=== PATIENT | female | born 1985 | race Asian ===

== ENCOUNTER 2022-12-26 07:47 | Inpatient (IN) ==
[2022-12-26] MEDS ORDERED: LIDOCAINE 1% LOCAL 20 ML VIAL INFIL PRN (08:40)
[2022-12-26] MEDS ORDERED: OXYTOCIN 30 UNITS/500 ML BAG IV PRN (08:40)
[2022-12-26] MEDS ORDERED: DINOPROSTONE 10 MG INSERT PV ONE ×2 (09:00→15:11)
[2022-12-26] MEDS ORDERED: miSOPROStoL 50 MCG TAB PO SCH ×2 (09:00→14:00)
--- NOTE | 2022-12-26 09:11 | History & Physical Report ---
Date of Service December 26, 2022 Assessment & Plan (1) Post-term , 40-42 weeks of gestation: Plan: 37-year-old G1, P0 at 40 weeks and 5 days of gestation presenting for induction of labor for postdates, gestational diabetes, diet-controlled, advanced maternal age, Vital signs stable afebrile, Cervix unfavorable, heart rate reassuring, GBS negative, Discussed the findings with the patient and explained induction process may take longer, discussed options of cervical ripening with either Cervidil vaginal insert versus p.o. Cytotec, patient declines another vaginal exam for Cervidil and she prefers to take Cytotec by mouth, Plan to admit, monitor, labs, Cytotec for cervical ripening, continue to monitor (2) Advanced maternal age, primigravida, antepartum: Admission and Anticipated Discharge Date Admission Date: December 26, 2022 History of Present Illness Chief Complaint: Scheduled induction of labor Primary Care Provider: NO PCP Patient is a 37-year-old G1, P0 at 40 weeks and 5 days of gestation who was scheduled for induction of labor for postdates. She has no complaints, denies contractions, leakage of fluid, vaginal bleeding. She reports good movements. She denies headache, change in vision, nausea vomiting, abdominal pain, fever nor chills. Her has been complicated by, 1. AMA, Q screen test was negative, low risk, M consultation was completed, 2. Anemia, started with hemoglobin of 9, has been on iron, last hemoglobin was 11.4 in the office 3. thrombocytosis, repeat platelet count was within normal limits 4. GDM A1, diet-controlled gestational diabetes her fingersticks have been normal, growth scan was done by M 6 weeks ago and estimated weight was 15th percentile, Allergies Allergy/AdvReac Type Severity Reaction Status Date / Time nut - unspecified Allergy Vomiting Verified 12/26/22 08:07 Home Medications Medication Instructions Recorded Confirmed Type cyanocobalamin (vitamin B-12) 1,000 mcg PO DAILY 12/26/22 12/26/22 History 1,000 mcg tablet (Vitamin B-12) iron,carbonyl 65 mg-vitamin C 125 1 tab PO DAILY 12/26/22 12/26/22 History mg tablet,delayed release (Vitron-C) [id number] 1 mg 1 tab PO 12/26/22 History tablet Patient History Medical History (Updated 12/26/22 @ 09:10 by Yamila Neil MD) Gestational diabetes Anemia Family History Other Diabetes mellitus, type 2 Hypertension Social History Smoking Status: Never smoker Second Hand Exposure: No; Hx Alcohol Use: No Hx Substance Use: No Preferred Language: Kinyarwanda Communication Ability: Effective Repairer Evaporator Required: No Beliefs That Will Affect Care: None marital status: Current Living Situation: Spouse Other Information That Helps Us Care for You: No Feels Safe at Home: Yes Safety Concerns: Feels Safe At This Time Assistive Devices: None 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 No history of STDs, no history of genital herpes, chlamydia, gonorrhea Physical Exam Constitutional: well developed, well nourished and comfortable Gastrointestinal (Abdomen): normal bowel sounds, soft, nontender, no hepatosplenomegaly (Gravid,S<D) Genitourinary: normal external appearance OB Exam Abdomen: + vertex (Confirmed by ultrasound) Manual OB Exam: + cervical dilation fingertip (0), + cervical effacement 30% and + station high (-3, posterior, firm) OB Exam Monitor Tracing: + external uterine monitor used and + category I Results & Data Vital Signs (Past 12 Hours) Vital Signs Temp Pulse Resp BP 12/26/22 08:11 36.4 C L 18 12/26/22 07:59 101 H 124/89
[2022-12-26 09:49] LABS: Hematocrit (blood only) 35.4 % (37.0-47.0); Mean Corpuscular Hemoglobin 29.6 pg (25.0-34.0); Mean Corpuscular Hgb Conc 33.9 g/dL (32.0-36.0); Mean Corpuscular Volume 87.4 fL (80.0-100.0); Mean Platelet Volume 10.7 fL (9.4-12.4); Platelet Count 291 K/uL (130-400); RDW Standard Deviation 45.1 fL (36.4-46.3); Red Blood Count 4.05 M/uL (4.20-5.40); White Blood Count 7.94 K/ul (4.8-10.8)
[2022-12-26 09:57] LABS: Albumin Level 3.5 gm/dl (3.4-5.0); BUN Creatinine Ratio 13.6 (10-20); Bilirubin,Total 0.4 mg/dl (0.2-1.0); Calcium 8.6 mg/dl (8.6-10.3); Creatinine Clr Calc Pharmacy 135.2 ml/min; Est GFR (African American) 135.7 ml/min; Est GFR (Non-African American) 117.1 ml/min; Globulin 3.5 gm/dl (2.5-4.0); Potassium 3.9 mmol/L (3.5-5.1)
[2022-12-26] MEDS ORDERED: Nursing to Pharmacy Communication SCH (10:15)
[2022-12-26] MEDS: LACTATED RINGER'S 1,000 ML IV PRN ×2 (13:03→14:21)
--- NOTE | 2022-12-26 14:13 | Obstetrical Progress Note ---
Date of Service December 26, 2022 Assessment & Plan Admission and Anticipated Discharge Date Admission Date: December 26, 2022 Subjective Strip review FHR had been with baseline of 140-150's, with episodes of decreased variability and no accels and then recovery with accels and moderate variability, no decels She was due for next PO cytotec and I was called to review For the last hour or so with minimal variability, no accels and sharp short lasting variable decels IV bolus was given patient took small sips of juice Patient report good active FM's this morning but decreased since she came Bed side US: Vertex, placenta anterior, FHR 140's, overall AFV appears low but pockets make up to 6.4 cm Plan to get official US for BPP, ERYN Results & Data Vital Signs (Past 12 Hours) Vital Signs Temp Pulse Resp BP 12/26/22 11:02 70 129/79 12/26/22 11:00 18 12/26/22 11:00 36.7 C 18 12/26/22 08:11 36.4 C L 18 12/26/22 07:59 101 H 124/89
--- NOTE | 2022-12-26 15:03 | Ultrasound Report ---
US OB BPP wo NST single CLINICAL HISTORY: Non reactive FHT COMPARISON STUDY: No previous studies for comparison. TECHNIQUE: Transabdominal ultrasound was performed to assess biophysical profile. FINDINGS: Single viable intrauterine gestation is noted. heart rate is normal at 152 bpm. The p lacenta is located anteriorly. No placental abnormality is noted. position is cephalic. Please note that a dedicated anatomical survey was not performed however the estimated weight is 2811 g +/- 421.65 g (6lb 3oz +/-15 oz). Amniotic fluid index is 6.73 cm which is at the lower limits of normal. The single deepest pocket is 2.41 cm. breathing, limb tone and body movements were normal. IMPRESSION: 1. Normal biophysical profile of 8 out of 8. Amniotic fluid is at the lower limits of normal, measuri ng 6.73 cm. Single deepest pocket is 2.41 cm. 2. Normal heart rate. 3. Estimated weight is 2811 g +/- 421.65 g (6lb 3oz +/-15 oz). ACT 112: Negative or not required by law. Electronically signed by: Cash Melendrez M.D. 12/26/2022 3:01 PM
[2022-12-26] MEDS ORDERED: ACETAMINOPHEN 1,000 MG/100 ML VIAL IV PRN (15:54)
--- NOTE | 2022-12-26 15:54 | Obstetrical Progress Note ---
Date of Service December 26, 2022 Assessment & Plan Admission and Anticipated Discharge Date Admission Date: December 26, 2022 Subjective BPP is done: 10/01, ERYN 6.7 cm, 2.4 cm pocket present FHR categ I since BPP was completed. 140's, moderate variability , accels+, no decels We have discussed the difference between Vagina Cervidil and PO Cytotec Patient accepted VE and Cervidil this time instead of PO Cytotec VE; 1/ 30%/ -3, easier to reach then this morning, Cervidil is placed Continue to monitor closely All questions were answered. Results & Data Vital Signs (Past 12 Hours) Vital Signs Temp Pulse Resp BP 12/26/22 15:45 68 137/77 12/26/22 15:44 64 150/82 H 12/26/22 11:02 70 129/79 12/26/22 11:00 18 12/26/22 11:00 36.7 C 18 12/26/22 08:11 36.4 C L 18 12/26/22 07:59 101 H 124/89
[2022-12-27] MEDS ORDERED: ePHEDrine sulfate 50 MG/ML AMP ONE (00:25)
[2022-12-27] MEDS ORDERED: fentaNYL citrate PF 100 MCG/2 ML VIAL ONE (00:25)
[2022-12-27] MEDS ORDERED: fentANYL 2 MCG/ML BUPIVacaine 0.125%-NSS 100ML BAG ONE (00:25)
[2022-12-27] MEDS ORDERED: SODIUM CHLORIDE 0.9% PF INJ 10 ML VIAL ONE (00:25)
[2022-12-27] MEDS ORDERED: BUPIVACAINE 0.25% PF 30 ML VIAL ONE (00:26)
[2022-12-27] MEDS ORDERED: LIDOCAINE 2%/EPINEPHRINE 1:200,000 20 ML PF ONE (00:26)
--- NOTE | 2022-12-27 00:29 | Obstetrical Progress Note ---
Date of Service December 27, 2022 Assessment & Plan Admission and Anticipated Discharge Date Admission Date: December 26, 2022 Subjective FHR had been categ I, since BPP was completed and Cervidil was placed She was having mild irregular contractions until about 20 min ago when she SROM'ed, clear fluid She suddenly became painful and asking for pain med options VE; 3-4 cm/ 70%/ -2, blood show Ctxs q 2-3 min, Cervidil is removed FHR 130's started with moderate variability and had variable decels? while she was moving in bed uncomfortably Discussed about epidural for pain She desires it Continue to monitor closely Results & Data Vital Signs (Past 12 Hours) Vital Signs Temp Pulse Resp BP 12/27/22 00:21 96 H 160/96 H 12/26/22 20:00 36.7 C 18 12/26/22 19:46 36.7 C 86 18 155/85 H 12/26/22 15:47 36.6 C 12/26/22 15:45 68 20 137/77 12/26/22 15:44 64 150/82 H
[2022-12-27] MEDS ORDERED: TERBUTALINE SULFATE 1 MG/ML VIAL ONE (00:38)
--- NOTE | 2022-12-27 00:45 | Obstetrical Progress Note ---
Date of Service December 27, 2022 Assessment & Plan Admission and Anticipated Discharge Date Admission Date: December 26, 2022 Subjective Patient is having ctxs q 1-2 min, FHR with early decels with some of contractions Terb is given with IVF bolus, FHR 130-140's with moderate variability Continue to monitor closely Awaiting anesthesiology for epidural Results & Data Vital Signs (Past 12 Hours) Vital Signs Temp Pulse Resp BP 12/27/22 00:37 88 162/93 H 12/27/22 00:21 96 H 160/96 H 12/26/22 20:00 36.7 C 18 12/26/22 19:46 36.7 C 86 18 155/85 H 12/26/22 15:47 36.6 C 12/26/22 15:45 68 20 137/77 12/26/22 15:44 64 150/82 H
[2022-12-27] MEDS ORDERED: fentANYL 2 MCG/ML BUPIVacaine 0.125%-NSS 100ML BAG EPI PRN (00:48)
[2022-12-27] MEDS ORDERED: fentaNYL citrate PF 100 MCG/2 ML VIAL EPI PRN (00:48)
[2022-12-27] MEDS ORDERED: NALOXONE HCL 1 MG in SODIUM CHLORIDE 0.9% 1,000 ML IV PRN (00:48)
[2022-12-27] MEDS ORDERED: LIDOCAINE 2%/EPINEPHRINE 1:200,000 20 ML PF EPI STA (00:48)
[2022-12-27] MEDS ORDERED: fentaNYL citrate PF 100 MCG/2 ML VIAL EPI STA (00:48)
[2022-12-27] MEDS ORDERED: diphenhydrAMINE 50 MG/ML VIAL IV PRN (00:48)
[2022-12-27] MEDS ORDERED: BUPIVACAINE 0.25% PF 30 ML VIAL EPI STA (00:48)
[2022-12-27] MEDS ORDERED: LIDOCAINE 2% MPF LOCAL 5 ML VIAL EPI PRN (00:48)
[2022-12-27] MEDS ORDERED: NALOXONE HCL 0.4 MG/1 ML VIAL/CARP IV PRN (00:48)
[2022-12-27] MEDS ORDERED: SODIUM CHLORIDE 0.9% PF INJ 10 ML VIAL EPI STA (00:48)
[2022-12-27] MEDS ORDERED: ePHEDrine sulfate 50 MG/ML AMP IV PRN (00:48)
[2022-12-27] MEDS ORDERED: SODIUM CHLORIDE 0.9% PF INJ 10 ML VIAL EPI PRN (00:48)
[2022-12-27] MEDS ORDERED: BUPIVACAINE 0.25% PF 30 ML VIAL EPI PRN (00:48)
[2022-12-27] MEDS ORDERED: ROPIVACAINE 0.5% PF 5 MG/ML 20 ML VIAL EPI PRN (00:48)
[2022-12-27] MEDS ORDERED: NALBUPHINE HCL INJ 10 MG/ML AMP IV PRN (00:48)
--- NOTE | 2022-12-27 00:48 | Anesthesiology Consultation ---
Date of Service December 27, 2022 Assessment & Plan (1) Encounter for pre-operative examination: Chart Review Chart Review: Patient NOT seen in Pre Admission Testing and Acceptable Risk for Labor Epidural Consults Requested none History Height/Weight Height: 5 ft 4 in Weight: 82 kg Allergies Allergy/AdvReac Type Severity Reaction Status Date / Time nut - unspecified Allergy Vomiting Verified 12/26/22 08:07 Medications Home Medications Medication Instructions Recorded Confirmed Last Taken cyanocobalamin (vitamin B-12) 1,000 mcg PO DAILY 12/26/22 12/26/22 12/25/22 09:00 1,000 mcg tablet (Vitamin B-12) iron,carbonyl 65 mg-vitamin C 125 1 tab PO DAILY 12/26/22 12/26/22 12/25/22 09:00 mg tablet,delayed release (Vitron-C) [id number] 1 mg 1 tab PO 12/26/22 12/25/22 09:00 tablet 1 tab Active Medications Generic Name Dose Route Start Last Admin Trade Name Freq PRN Reason Stop Dose Admin Lactated Ringer's 1,000 mls @ 150 mls/hr 12/26/22 08:40 12/26/22 18:17 Lr IV 12/28/22 08:39 0 mls/hr .[id number] PRN Infusion L&D Protocol Protocol Past Medical History Medical History Gestational diabetes Anemia Past Family History Family History Other Diabetes mellitus, type 2 Hypertension Social History Smoking Status: Never smoker Hx Alcohol Use: No Hx Substance Use: No Physical Exam Vital Signs Last Vital Signs Temp 98.1 F 12/26/22 20:00 Pulse 88 12/27/22 00:37 Resp 18 12/26/22 20:00 BP 162/93 H 12/27/22 00:37 Testing Laboratory Results 12/26/22 09:18 12/26/22 09:18 12/26/22 15:49 POC Glucose 85
[2022-12-27] MEDS: LACTATED RINGER'S 1,000 ML IV PRN ×2 (00:56→05:29)
[2022-12-27] MEDS ORDERED: TERBUTALINE SULFATE 1 MG/ML VIAL SQ ONE (01:00)
[2022-12-27] MEDS ORDERED: OXYTOCIN 30 UNITS/500 ML BAG IV PRN ×2 (01:07→07:43)
[2022-12-27] MEDS ORDERED: MINERAL OIL 30 ML UDC ONE (07:00)
[2022-12-27] MEDS ORDERED: BENZOCAINE 20% SPRY 85 APPLN/85 GM CAN EXT PRN (07:43)
[2022-12-27] MEDS ORDERED: bisacodyL 10 MG SUPP PR PRN (07:43)
[2022-12-27] MEDS ORDERED: DIPHTHERIA/TETANUS/PERTUSSIS Vaccine (Tdap, Age 7+yrs) 0.5mL SYR/VL IM ONE (07:43)
[2022-12-27] MEDS ORDERED: oxyCODONE/ACETAMINOPHEN 5mg/325mg TAB PO PRN (07:43)
[2022-12-27] MEDS ORDERED: HYDROCORTISONE ACETATE 25 MG SUPP PR PRN (07:43)
[2022-12-27] MEDS ORDERED: ACETAMINOPHEN 325 MG TAB PO PRN (07:43)
[2022-12-27] MEDS ORDERED: MEASLES, MUMPS & RUBELLA VIRUS VACCINE (MMR) VIAL SQ ONE (07:43)
--- NOTE | 2022-12-27 07:47 | Delivery Summary ---
Vaginal Delivery Summary Date of Service December 27, 2022 Vaginal Delivery Summary Patient was found to be fully dilated and desires to push. She pushed for about 50 min and delivered the head without difficulty and then shoulders came spontaneously right after the head. There was a loose cord around the body which was reduced. The baby was handed off to the mother. The cord was clampedx2 and cut at 1 minute. The vagina and perineum were checked and found to have 2nd degree perineal laceration. Rectal exam was done and noted good sphincter tone. The gloves were changes. The perineal body muscles around the sphincter were held with Allis clamp and reapproximated with [id number] stitches x3 to support the sphincter due to the short perineum noted on the patient's anatomy. The vaginal mucosa was repaired with 2/0 vicryl and skin on subcuticular fashion. Rectal exam was repeated and good sphincter tone was noted, no sutures felt. The gloves were changed. There was a small first-degree labial laceration at the right labia minora which was repaired with 3-0 Vicryl on SH needle. Excellent hemostasis was achieved. The placenta was delivered spontaneously as intact and complete. The uterus was explored and found to be empty. EBL was 200 ml. The fundus was firm The baby was a viable female infant, Apgars 9/9, the weight is 2510 gr. The mother and the baby tolerated the procedure well. No complications happened and I was present during whole procedure.
--- NOTE | 2022-12-27 09:45 | Anesthesia Procedure Note ---
Date of Service December 27, 2022 Anesthesia Post Epidural Note Vital Signs Vital Signs: Temp Pulse Resp BP Pulse Ox 36.7 C 139 H 18 119/70 100 12/27/22 07:43 12/27/22 09:29 12/27/22 09:13 12/27/22 09:29 12/27/22 07:38 Pain Intensity Bilateral Lower Abdomen: Pain Intensity: 1 Notes Mental Status: alert / awake / arousable and participated in evaluation Nausea / Vomiting: adequately controlled Pain: adequately controlled Airway Patency, RR, SpO2: stable & adequate BP & HR: stable & adequate Hydration State: stable & adequate Neuraxial Anesthesia: was administered and sensory block resolved Anesthetic Complications: no major complications apparent and Pt Satisfied with anesthetic care Epidural: Removed without complications and With tip intact
[2022-12-27] MEDS: IBUPROFEN 600 MG TAB PO PRN ×3 (09:52→20:11)
[2022-12-27] MEDS: DOCUSATE SODIUM 100 MG CAP PO SCH ×2 (18:45→20:11)
[2022-12-27] MEDS: FERROUS SULFATE 325 MG TAB PO SCH (18:45)
[2022-12-27] MEDS: PRENATAL VITAMIN 1 TAB PO SCH (18:46)
[2022-12-28] MEDS: IBUPROFEN 600 MG TAB PO PRN ×3 (00:13→18:56)
[2022-12-28 07:07] LABS: Hematocrit (blood only) 29.1 % (37.0-47.0); Hemoglobin 10.1 g/dl (12.0-16.0); Mean Corpuscular Hemoglobin 30.5 pg (25.0-34.0); Mean Corpuscular Hgb Conc 34.7 g/dL (32.0-36.0); Mean Corpuscular Volume 87.9 fL (80.0-100.0); Mean Platelet Volume 10.9 fL (9.4-12.4); Platelet Count 235 K/uL (130-400); RDW Coefficient of Variation 14.1 % (11.5-14.5); RDW Standard Deviation 45.1 fL (36.4-46.3); Red Blood Count 3.31 M/uL (4.20-5.40); White Blood Count 10.89 K/ul (4.8-10.8)
[2022-12-28] MEDS: FERROUS SULFATE 325 MG TAB PO SCH (08:14)
[2022-12-28] MEDS: DOCUSATE SODIUM 100 MG CAP PO SCH ×2 (08:14→18:56)
[2022-12-28] MEDS: PRENATAL VITAMIN 1 TAB PO SCH (08:15)
--- NOTE | 2022-12-28 09:11 | Obstetrical Progress Note ---
Date of Service December 28, 2022 Assessment & Plan Admission and Anticipated Discharge Date Admission Date: December 26, 2022 Subjective Patient is seen and examined. She feels well, no complaints. Ambulating without dizziness Voiding without difficulty Tolerating regular diet with out N&V Bleeding is minimal No fever/ chills/ CP/ SOB/ N&V/ Leg pain Breast and bottle feeding without problems Vital Signs Temp Pulse Resp BP BP Pulse Ox O2 Del Method 12/28/22 08:00 36.4 C L 84 18 123/79 98 Room Air 12/28/22 03:35 36.3 C L 78 16 120/69 98 Room Air 12/27/22 23:05 36.7 C 82 18 109/66 97 Room Air Lab Results 12/26/22 12/26/22 12/28/22 Range/Units 09:18 15:49 06:06 WBC 7.94 10.89 H (4.8-10.8) K/ul RBC 4.05 L 3.31 L (4.20-5.40) M/uL Hgb 12.0 10.1 L (12.0-16.0) g/dl Hct 35.4 L 29.1 L (37.0-47.0) % MCV 87.4 87.9 (80.0-100.0) fL MCH 29.6 30.5 (25.0-34.0) pg MCHC 33.9 34.7 (32.0-36.0) g/dL RDW Std Deviation 45.1 45.1 (36.4-46.3) fL RDW Coeff of Ramin 14.0 14.1 (11.5-14.5) % Plt Count 291 235 (130-400) K/uL MPV 10.7 10.9 (9.4-12.4) fL Sodium 136 (136-145) mmol/L Potassium 3.9 (3.5-5.1) mmol/L Chloride 108 H (98-107) mmol/L Carbon Dioxide 19 L (21-32) mmol/L Anion Gap 9 (3-11) BUN 8 (6-23) mg/dl Creatinine 0.59 L (0.6-1.2) mg/dl Est Cr Clr Drug Dosing 135.2 ml/min Est GFR ( Amer) 135.7 ml/min Est GFR (Non-Af Amer) 117.1 ml/min BUN/Creatinine Ratio 13.6 (10-20) Glucose 136 H (70-99(Fasting)) mg/dl POC Glucose 85 (70-99) mg/dl Calcium 8.6 (8.6-10.3) mg/dl Total Bilirubin 0.4 (0.2-1.0) mg/dl AST 15 (13-39) U/L ALT 9 (7-52) U/L Alkaline Phosphatase 77 (34-104) U/L Total Protein 7.0 (6.0-8.3) gm/dl Albumin 3.5 (3.4-5.0) gm/dl Globulin 3.5 (2.5-4.0) gm/dl Albumin/Globulin Ratio 1.0 (0.9-2) PE: General: Alert, orientedx3, NAD Abd: soft, NT, fundus firm, below Umbilicus Perineum intact, Lochia rubra minimal Ext; NT, no edema AP: 37 yo s/p , ppd# 1 VSS Afebrile doing well Continue routine care All questions were answered D/C home tomorrow Results & Data Vital Signs (Past 12 Hours) Vital Signs Temp Pulse Resp BP BP Pulse Ox O2 Del Method 12/28/22 08:00 36.4 C L 84 18 123/79 98 Room Air 12/28/22 03:35 36.3 C L 78 16 120/69 98 Room Air 12/27/22 23:05 36.7 C 82 18 109/66 97 Room Air
[2022-12-28] MEDS ORDERED: bisacodyL 5 MG TABEC PO SCH (20:00)
[2022-12-29 06:25] LABS: Hematocrit (blood only) 28.3 % (37.0-47.0); Hemoglobin 9.9 g/dl (12.0-16.0)
[2022-12-29] MEDS: DOCUSATE SODIUM 100 MG CAP PO SCH (07:33)
[2022-12-29] MEDS: FERROUS SULFATE 325 MG TAB PO SCH (07:33)
[2022-12-29] MEDS: IBUPROFEN 600 MG TAB PO PRN (07:33)
[2022-12-29] MEDS: PRENATAL VITAMIN 1 TAB PO SCH (07:33)
--- NOTE | 2022-12-29 10:17 | Obstetrical Progress Note ---
Date of Service December 29, 2022 Assessment & Plan Admission and Anticipated Discharge Date Admission Date: December 26, 2022 Subjective Patient is seen and examined. She feels well, no complaints. Ambulating without dizziness Voiding without difficulty Tolerating regular diet with out N&V Bleeding is minimal No fever/ chills/ CP/ SOB/ N&V/ Leg pain Breast feeding without problems Vital Signs Temp Pulse Resp BP Pulse Ox O2 Del Method 12/29/22 07:25 36.5 C 82 18 122/79 95 Room Air 12/29/22 00:40 36.7 C 95 H 16 116/74 96 Room Air 12/28/22 19:10 36.5 C 101 H 18 127/86 99 Room Air 12/28/22 14:53 36.6 C 108 H 18 116/77 98 Room Air Lab Results 12/26/22 12/26/22 12/28/22 Range/Units 09:18 15:49 06:06 WBC 7.94 10.89 H (4.8-10.8) K/ul RBC 4.05 L 3.31 L (4.20-5.40) M/uL Hgb 12.0 10.1 L (12.0-16.0) g/dl Hct 35.4 L 29.1 L (37.0-47.0) % MCV 87.4 87.9 (80.0-100.0) fL MCH 29.6 30.5 (25.0-34.0) pg MCHC 33.9 34.7 (32.0-36.0) g/dL RDW Std Deviation 45.1 45.1 (36.4-46.3) fL RDW Coeff of Ramin 14.0 14.1 (11.5-14.5) % Plt Count 291 235 (130-400) K/uL MPV 10.7 10.9 (9.4-12.4) fL Sodium 136 (136-145) mmol/L Potassium 3.9 (3.5-5.1) mmol/L Chloride 108 H (98-107) mmol/L Carbon Dioxide 19 L (21-32) mmol/L Anion Gap 9 (3-11) BUN 8 (6-23) mg/dl Creatinine 0.59 L (0.6-1.2) mg/dl Est Cr Clr Drug Dosing 135.2 ml/min Est GFR ( Amer) 135.7 ml/min Est GFR (Non-Af Amer) 117.1 ml/min BUN/Creatinine Ratio 13.6 (10-20) Glucose 136 H (70-99(Fasting)) mg/dl POC Glucose 85 (70-99) mg/dl Calcium 8.6 (8.6-10.3) mg/dl Total Bilirubin 0.4 (0.2-1.0) mg/dl AST 15 (13-39) U/L ALT 9 (7-52) U/L Alkaline Phosphatase 77 (34-104) U/L Total Protein 7.0 (6.0-8.3) gm/dl Albumin 3.5 (3.4-5.0) gm/dl Globulin 3.5 (2.5-4.0) gm/dl Albumin/Globulin Ratio 1.0 (0.9-2) 12/29/22 Range/Units 05:58 WBC (4.8-10.8) K/ul RBC (4.20-5.40) M/uL Hgb 9.9 L (12.0-16.0) g/dl Hct 28.3 L (37.0-47.0) % MCV (80.0-100.0) fL MCH (25.0-34.0) pg MCHC (32.0-36.0) g/dL RDW Std Deviation (36.4-46.3) fL RDW Coeff of Ramin (11.5-14.5) % Plt Count (130-400) K/uL MPV (9.4-12.4) fL Sodium (136-145) mmol/L Potassium (3.5-5.1) mmol/L Chloride (98-107) mmol/L Carbon Dioxide (21-32) mmol/L Anion Gap (3-11) BUN (6-23) mg/dl Creatinine (0.6-1.2) mg/dl Est Cr Clr Drug Dosing ml/min Est GFR ( Amer) ml/min Est GFR (Non-Af Amer) ml/min BUN/Creatinine Ratio (10-20) Glucose (70-99(Fasting)) mg/dl POC Glucose (70-99) mg/dl Calcium (8.6-10.3) mg/dl Total Bilirubin (0.2-1.0) mg/dl AST (13-39) U/L ALT (7-52) U/L Alkaline Phosphatase (34-104) U/L Total Protein (6.0-8.3) gm/dl Albumin (3.4-5.0) gm/dl Globulin (2.5-4.0) gm/dl Albumin/Globulin Ratio (0.9-2) PE: General: Alert, orientedx3, NAD Abd: soft, NT, fundus firm, below Umbilicus Perineum intact, Lochia rubra minimal Ext; NT, no edema AP: 37 yo s/p , ppd# 2 VSS Afebrile doing well Continue routine care Discussed when to call All questions were answered D/C home , f/u in office Results & Data Vital Signs (Past 12 Hours) Vital Signs Temp Pulse Resp BP Pulse Ox O2 Del Method 12/29/22 07:25 36.5 C 82 18 122/79 95 Room Air 12/29/22 00:40 36.7 C 95 H 16 116/74 96 Room Air
--- OUTSIDE RECORDS SUMMARY | 2023-01-01 08:45 | External Medical Summary ---
Author Name Unknown Address Unknown Organization [id number] [address] [place] [address] Laboratory Report Ordering Provider Test Date Status JAIME VARGAS 12/13/2022 15:02:58 Final Observation Date Value Abnormality Reference (Units ) Status WBC, Total 12/13/2022 15:02:58 9.33 4.00-10.8 0 (K/uL) Final RBC 12/13/2022 15:02:58 4.31 3.85-5.15 (M/uL) Final Hemoglobin 12/13/2022 15:02:58 12.8 12.0-15.3 (g/dL) Final HCT 12/13/2022 15:02:58 37.8 36.0-45.2 (%) Final MCV 12/13/2022 15:02:58 87.7 81.5-97.5 (fL) Final MCH 12/13/2022 15:02:58 29.7 27.0-34.0 (pg) Final MCHC 12/13/2022 15:02:58 33.9 32.0-36.0 (g/dL) Final RDW 12/13/2022 15:02:58 14.5 11.5-15.5 (%) Final Platelets 12/13/2022 15:02:58 352 140-400 (K /uL) Final MPV 12/13/2022 15:02:58 10.9 6.6-11.1 ( fL) Final [facility] Location [facility] [address] [id number]
--- OUTSIDE RECORDS SUMMARY | 2023-01-01 08:45 | External Medical Summary | Summary of Care ---
Author Name Unknown Organization [facility] Address [address] [place] [place] [address] Phone [phone] Care Team Providers Care Production Support Developer Name Role Phone Stefany Keller MD Primary Care Provider Reason for Visit * Reason Comments Outpatient Testing Encounter Details Date Type Department Care Team Description 12/13/2022 Laboratory Laboratory, [facility] [address] [place] [address] [facility] [address] [place] [address] Antepartum anemia complicating Allergies Active Allergy Reactions Severity Noted Date Comments Other Allergy (See Comments) 020 Nuts - not severe documented as of this encounter (statuses as of 12/13/2022) Medications Medication Sig Dispensed Refills Start Date End Date Status 27-0.8 MG Oral Tablet Take 1 Tablet by mouth daily at noon. 90 Tablet 2 06/13/2022 Active Iron-Vitamin C 65-125 MG Oral Tablet (Vitron C) Take 1 Tablet by mouth in the morning and 1 Tablet before bedtime. 90 Tablet 4 06/13/2022 Active Vitamin B-12 1000 MCG Oral Tablet (Cyanocobalamin) Take 1 Tablet by mouth in the morning. 90 Tablet 1 09/27/2022 Active OneTouch Verio Flex System w/Device Kit Use to test blood sugars 4 times daily (fasting, 1 hour after breakfast, lunch, and dinner) 1 Kit 0 09/27/2022 Active OneTouch Verio In Vitro Strip (Glucose Blood) Use to test blood sugars 4 times daily (fasting, 1 hour after breakfast, lunch, and dinner) 125 Strip 6 09/27/2022 Active American TonerServ CorpTouch Delica Lancets 30G Use to test blood sugars 4 times daily (fasting, 1 hour after breakfast, lunch, and dinner) 200 Each 6 09/27/2022 Active documented as of this encounter (statuses as of 12/13/2022) Active Problems Problem Noted Date with 32 completed weeks gestat ion 10/30/2022 with 29 completed weeks gestat ion 10/07/2022 Diet controlled gestational diabetes danielle litus (GDM), antepartum 09/27/2022 Overview: Diagnosed at 28 weeks Nutrition consult ordered Lab Results Component Value Date/Time 50-G GESTATIONAL GLUCOSE, 1 HOUR - [facility] 171 (H) 09/25/2022 11:37 AM 100-G GESTATIONAL GLUCOSE, 1 HOUR - [facility] 205 (H) 09/27/2022 08:55 AM 100-G GESTATIONAL GLUCOSE, 2 HOUR - [facility] 167 (H) 09/27/2022 09:54 AM 100-G GESTATIONAL GLUCOSE, 3 HOUR - [facility] 129 09/27/2022 10:55 AM 100-G GESTATIONAL GLUCOSE, FASTING - [facility] 95 (H) 09/27/2022 07:53 AM She reports her home blood glucose as following: DATE Fasting 1 hr after Breakfast 1 hr after Lunch 1 hr after Dinner 10/04/22 99 166 188 138 10/07/22 Patient has no further home BG numbers as her glucometer is malfunctioning. Patient reports they changed batteries. It turns on when strip inserted, however, after blood is placed on strip, it turns off. Plans to return meter to pharmacy today or tomorros. 10/07/22: MFM AD[facility]T consult complete. Enrolled in [employer]. Instructions provided to report blood sugars each week for MFM review. 10/15/22: Patient reports issue getting meter; will be getting next Friday; advised of OTC [employer] Relion brand meter as option 10/25/22- FBS elevated msg sent to get scheduled for AD[facility]T appt 10/30/22: [facility]T visit today. Reviewed RPM. Discussed cutting carbohydrates to 30 grams or less per meal and increasing protein. Also discussed possible need for medication ---pt states she would prefer to start Metformin first if needed. Agreed with patient to wait 1 more week for diet adjustment. If readings continue to be borderline / high, will start Metformin 500 BID --KW 11/08/22- stable 11/14/22- stable 11/14/22: RPM reviewed, diet controlled --KW 11/21/22- stable 11/27/22: RPM Stable overall although some missing readings; encouraged more consistent reporting; continue diet controlled 12/06/22- stable 12/11/22-stable- patient ordered strips and wont be able to test for two days until they come in Last Assessment & Plan: Working with [facility]T. Supervision of high risk in th ird trimester 06/27/2022 Antepartum anemia complicating 06/13/2022 Overview: Hgb 9.0 at OB visit at 12w5d on 06/13/22. Hematology consult scheduled 07/17/2022 Taking for Vitron C BID. Last Assessment & Plan: Improved with iron. Elderly multigravida 06/13/2022 Overview: Patient will be 37 years old at time of delivery NIPT: ordered, done done yet Genetic consult: declines referral at this time MFM anatomy scan scheduled on 07/30/2022 Last Assessment & Plan: NIPT pending for > 2 weeks. Reached out to genetic counseling; should expect result in the next few days. If there are any concerns, please refer back for formal GC. Thrombocytosis 06/13/2022 Overview: 06/13/2022 Platelets: 511 (12w5d) Hematology referral placed by OB provider Hematology consult scheduled 07/17/2022 Last Assessment & Plan: Resolved on most recent CBC. Snoring 12/01/2017 Overweight (BMI 25.0-29.9) 12/01/2017 Iron deficiency anemia 11/14/2017 Overview: 11/12/17 nL tsh,cmp [id number].,CBC Hb 10.7-mchc indices c/w iron def anemia >12/11- A1c 4.7%, Ferritin low at 8, Tsat 9%-st po iron. Estimated Date of Delivery Comme nts Yes 12/21/2022 Based on Ultraso und documented as of this encounter (statuses as of 12/13/2022) Immunizations Name Administration Dates Next Due Seasonal Influenza, Quadrivalent, No Preserve, M dck 04/27/2019 TDAP (age 10 and older)(Boostrix) 06/30/2016 documented as of this encounter Social History Tobacco Use Types Packs/Day Years Used Date Smoking Tobacco: Never Smokeless Tobacco: Never Alcohol Use Standard Drinks/Week Comments No 0 (1 standard drink = 0.6 oz pur e alcohol) Estimated Date of Delivery Comme nts Yes 12/21/2022 Based on Ultraso und Sex Assigned at Date Recorded Female 09/10/2022 11:09 AM EDT Job Start Date Occupation Industry Not on file Not on file Not on file documented as of this encounter Plan of Treatment Upcoming Encounters Date Type Specialty Care Team Description 12/19/2022 Office Visit Gynecology Obstetrics Isaura Rothman CRNP [address] [place] [address] Pending Results Name Type Priority Associated Diagnoses Date /Time CBC Lab Routine Antepartum anemia complicating 12/13/2022 3:02 PM EDT Health Maintenance Due Date Last Done Comments Hepatitis B (1 of 3 - 3-dose series) 1985 Depression Screening 12/01/2018 12/01/2017 COVID-19 Vaccine (2 - season) 2022 02/02/2021 Influenza Vaccine (FLU shot) (#1) 2022 04/27/2019 Pap Smear 07/12/2025 07/12/2022 Diabetes Screening 07/17/2025 07/17/2022, 0 07/28/2019, 11/25/2017, Additional history exists DTaP,Tdap,and Td Vaccines (2 - Td or Tdap) 06/30/2026 06/30/2016 Cervical Cancer Screening 07/13/2027 HPV/Co-Test 07/13/2027 07/12/2022 GARDASIL-HPV IMMUNIZATION SERIES Aged Out No longer eligible based on patient's age to complete this topic MENINGOCOCCAL (MENACTRA/MENVEO) Aged Out No longer eligible based on patient's age to complete this topic Pneumococcal Vaccine: Pediatrics (0 to 5 Years) and At-Risk Patients (6 to 64 Years) Aged Out No longer eligible based on patient's age to complete this topic documented as of this encounter Medical Devices Not on filedocumented as of this encounter Visit Diagnoses Diagnosis Antepartum anemia complicating Anemia, antepartum documented in this encounter Care Teams Production Support Developer Relationship Specialty Start Date End Date Stefany Keller MD [address] [place] [address], [place] [address] PCP - General Internal Medicine 10/23/17 documented as of this encounter
--- OUTSIDE RECORDS SUMMARY | 2023-01-01 08:45 | External Medical Summary | Summary of Care ---
Author Name Unknown Organization [facility] Address [address] [facility] [place] [address] Phone [phone] Care Team Providers Care Senior Chemical Engineer Name Role Phone Stefany Keller MD Primary Care Provider [phone] Reason for Visit * Reason Comments Return Visit Encounter Details Date Type Department Care Team Description 12/13/2022 [facility] [address] [place] [address] Isaura Rothman CRNP [address] [place] [address] Multigravida of advanced maternal age in third trimester*; Diet controlled gestational diabetes mellitus (GDM), antepartum; Thrombocytosis; Antepartum anemia complicating ; Supervision of high risk in third trimester Allergies Active Allergy Reactions Severity Noted Date [...] the morning. 90 Tablet 1 09/27/2022 Active [employer] Verio Flex System w/Device Kit Use to test blood sugars 4 times daily (fasting, 1 hour after breakfast, lunch, and dinner) 1 Kit 0 09/27/2022 Active SwiftypeTouch Verio In Vitro Strip (Glucose Blood) Use to test blood sugars 4 times daily (fasting, 1 hour after breakfast, lunch, and dinner) 125 Strip 6 09/27/2022 Active OneTouch Delica Lancets 30G Use to test blood [...] will be getting next Friday; advised of [facility] Aur[employer] Mantara brand meter as option 10/25/22- FBS elevated [...] with ADAPT. Supervision of high risk in ird trimester 06/27/2022 Antepartum anemia complicating 06/13/2022 [...] deficiency anemia 11/14/2017 Overview: 11/12/17 nL tsh,cmp [id number].,CBC Hb 10.7-mchc indices c/w iron def anemia [...] on file documented as of this encounter Last Filed Vital Signs Vital Sign Reading Time Taken Comments Blood Pressure 112/60 12/13/2022 2:25 PM EDT Pulse - - Temperature - - Respiratory Rate - - Oxygen Saturation - - Inhaled Oxygen Concentration - - Weight 82.3 kg (181 lb 6.4 oz) 12/13/2022 2:25 P M EDT Height 162.6 cm (5' 4") 12/13/2022 2:25 PM EDT Body Mass Index 31.14 12/13/2022 2:25 PM EDT documented in this encounter Progress Notes * KATIE Benites - 12/13/2022 2:52 PM EDT 38w6d No concerns. Baby is active. No contractions, no bleeding or LOF. Getting CBC drawn today. Following with [facility]T for GDM. IOL scheduled for 12/27. KATIE Benites * Devi Hernandez LPN - 12/13/2022 2:27 PM EDT 38w6d Pt going to have cbc drawn today. Pt denies any concerns. documented in this encounter Plan of Treatment Upcoming Encounters Date Type Specialty Care Team Description 12/13/2022 Laboratory [facility] [address] [place] [address] Antepartum anemia complicating 12/19/2022 Office Visit Gynecology Obstetrics Isaura Rothman CRNP [address] [place] [address] Health Maintenance Due Date Last Done Comments [...] as of this encounter Visit Diagnoses Diagnosis Multigravida of advanced maternal age in third trimester- Primary Diet controlled gestational diabetes mellitus (GDM), antepartum Thrombocytosis Essential thrombocythemia Antepartum anemia complicating Anemia, antepartum Supervision of high risk in third trimester Unspecified high-risk Antepartum anemia complicating Anemia, antepartum documented in this encounter Care Teams Senior Chemical Engineer Relationship Specialty Start Date End Date Stefany Keller MD [address] [place] [address] PCP - General Internal Medicine 10/23/17 documented as of this encounter
--- OUTSIDE RECORDS SUMMARY | 2023-01-01 08:45 | External Medical Summary | Summary of Care ---
Author Name Unknown Organization [facility] Address [address] [facility] [place] [address] Phone [phone] Care Team Providers Care Reiki Practitioner Name Role Phone Stefany Keller MD Primary Care Provider [phone] Reason for Visit * Reason Comments Return Visit Encounter Details Date Type Department Care Team Description 11/29/2022 [facility] [address] [place] [address] Isaura Rothman CRNP [address] [place] [address] Multigravida of advanced maternal age in third trimester*; Diet controlled gestational diabetes mellitus (GDM), antepartum; Thrombocytosis; Antepartum anemia complicating ; Supervision of high risk in third trimester Allergies Active Allergy Reactions Severity Noted Date Comments Other Allergy (See Comments) 020 Nuts - not severe documented as of this encounter (statuses as of 11/29/2022) Medications Medication Sig Dispensed Refills Start Date [...] the morning. 90 Tablet 1 09/27/2022 Active Pro[employer] Verio Flex System w/Device Kit Use to test blood sugars 4 times daily (fasting, 1 hour after breakfast, lunch, and dinner) 1 Kit 0 09/27/2022 Active SensserTouch Verio In Vitro Strip (Glucose Blood) Use to test blood sugars 4 times daily (fasting, 1 hour after breakfast, lunch, and dinner) 125 Strip 6 09/27/2022 Active OneTouch Delica Lancets 30G Use to test blood sugars 4 times daily (fasting, 1 hour after breakfast, lunch, and dinner) 200 Each 6 09/27/2022 Active documented as of this encounter (statuses as of 11/29/2022) Active Problems Problem Noted Date with 32 [...] will be getting next Friday; advised of [facility] [employer] Quoteroller brand meter as option 10/25/22- FBS elevated [...] encouraged more consistent reporting; continue diet controlled Last Assessment & Plan: Working with [facility]T. [...] 25.0-29.9) 12/01/2017 Iron deficiency anemia 11/14/2017 Overview: 9/19/18 nL tsh,cmp [id number].,CBC Hb 10.7-mchc indices c/w iron def anemia >12/11- A1c 4.7%, Ferritin low at 8, Tsat 9%-st po iron. Estimated Date of Delivery Comme nts Yes 12/21/2022 Based on Ultraso und documented as of this encounter (statuses as of 11/29/2022) Immunizations Name Administration Dates Next Due Seasonal [...] Sign Reading Time Taken Comments Blood Pressure 100/60 11/29/2022 1:48 PM EDT Pulse - - Temperature - - Respiratory Rate - - Oxygen Saturation - - Inhaled Oxygen Concentration - - Weight 81.6 kg (180 lb) 11/29/2022 1:48 PM EDT Height - - Body Mass Index 30.9 10/29/2022 11:46 AM EDT documented in this encounter Progress Notes * KATIE Benites - 11/29/2022 2:22 PM EDT 36w6d No concerns. Normal aches and pains of . Baby moving well. No contractions, bleeding, or LOF. GDM A1, blood sugars are WNL. GBS today. Risk Professional Documentation Provider requested orthodontic treatment coordinator. Name of orthodontic treatment coordinator: KATIE Chamorro documented in this encounter Plan of Treatment Upcoming Encounters Date Type Specialty Care Team Description 12/06/2022 Office Visit Gynecology Obstetrics Isaura Rothman CRNP [address] [place] [address] 12/13/2022 Office Visit Gynecology Obstetrics Isaura Rothman CRNP [address] [place] [address] Pending Results Name Type Priority Associated Diagnoses Date /Time GROUP B STREP CULTURE/PCR Lab Routine Multigravida of advanced maternal age in third trimester 11/29/2022 2:30 PM EDT Health Maintenance Due Date Last Done Comments Hepatitis B (1 of 3 - 3-dose series) 1985 Depression Screening 12/01/2018 12/01/2017 COVID-19 Vaccine ( - season) 2022 02/02/2021 Influenza Vaccine (FLU [...] high risk in third trimester Unspecified high-risk documented in this encounter Care Teams Reiki Practitioner Relationship Specialty Start Date End Date Stefany Keller MD [address] [place] [address], [place] [address] PCP - General Internal Medicine 10/23/17 documented as of this encounter
--- OUTSIDE RECORDS SUMMARY | 2023-01-01 08:45 | External Medical Summary | Summary of Care ---
Author Name Unknown Organization [facility] Address [address] [place] [place] [address] Phone [phone] Care Team Providers Care Agricultural Science Professor Name Role Phone Stefany Keller MD Primary Care Provider [phone] Reason for Visit * Reason Comments Return Visit Encounter Details Date Type Department Care Team (Late st Contact Info) Description 12/19/2022 10:15 AM EDT Office Visit Gynecology/Obstetric s [facility] [address] [place] [address] Isaura Rothman CRNP [address] [place] [address] Multigravida of advanced maternal age in third trimester*; Diet controlled gestational diabetes mellitus (GDM), antepartum; Thrombocytosis; Antepartum anemia complicating ; Supervision of high risk in third trimester Allergies Active Allergy Reactions Criticality Noted Date Comments Other Allergy (See Comments) 020 Nuts - not severe documented as of this encounter (statuses as of 12/19/2022) Medications Medication Sig Dispensed Refills Start Date [...] the morning. 90 Tablet 1 09/27/2022 Active [employer] Flex System w/Device Kit Use to test blood sugars 4 times daily (fasting, 1 hour after breakfast, lunch, and dinner) 1 Kit 0 09/27/2022 Active [employer] In Vitro Strip (Glucose Blood) Use to test blood sugars 4 times daily (fasting, 1 hour after breakfast, lunch, and dinner) 125 Strip 6 09/27/2022 Active NanoH2O Delica Lancets 30G Use to test blood sugars 4 times daily (fasting, 1 hour after breakfast, lunch, and dinner) 200 Each 6 09/27/2022 Active documented as of this encounter (statuses as of 12/19/2022) Active Problems Problem Noted Date Diagnosed Date with 32 completed weeks gestation 07/2022 with 29 completed weeks gestation 09/24 Diet controlled gestational diabetes mellitus (GDM), antepartum 09/27/2022 Overview: Diagnosed at 28 [...] be getting next Friday; advised of OTC [employer] Relion brand meter as option 10/25/22- FBS [...] for two days until they come in 12/19/22-stable Last Assessment & Plan: Working with [facility]T. Supervision of high risk in third trim nile 06/27/2022 Antepartum anemia complicating 023 Overview: Hgb 9.0 at OB visit at [...] deficiency anemia 11/14/2017 Overview: 11/12/17 nL tsh,cmp [id number].,CBC Hb 10.7-mchc indices c/w iron def anemia >12/11- A1c 4.7%, Ferritin low at 8, Tsat 9%-st po iron. Estimated Date of Delivery Comme nts Yes 12/21/2022 Based on Ultraso und documented as of this encounter (statuses as of 12/19/2022) Immunizations Name Administration Dates Next Due Seasonal Influenza, Quadrivalent, No Preserve, M dck 04/27/2019 TDAP (age 10 and older)(Boostrix) 06/30/2016 documented as of this encounter Social History Tobacco Use Types Packs/Day Years Used Date Smoking Tobacco: Never Smokeless Tobacco: Never Alcohol Use Standard Drinks/Week Comments No 0 (1 standard drink = 0.6 oz pur e alcohol) PHQ-2 Answer Date Recorded PHQ-2 Score 0 12/31/2017 [place] Depression Scale Answer Date Recorded [place] Depression Scale Total 10 10/29/2022 The thought of harming myself has occurred to me . Never 10/29/2022 Estimated Date of Delivery Comme nts Yes 12/21/2022 Based on Ultraso und Sex and Gender Information Value Date Recorded Sex Assigned at Female 09/10/2022 11:09 AM EDT Gender Identity Female 09/10/2022 11:09 AM EDT Sexual Orientation Straight 09/10/2022 11 :09 AM EDT Job Start Date Occupation Industry Not on file Not on file Not on file documented as of this encounter Last Filed Vital Signs Vital Sign Reading Time Taken Comments Blood Pressure 100/80 12/19/2022 10:18 AM EDT Pulse - - Temperature - - Respiratory Rate - - Oxygen Saturation - - Inhaled Oxygen Concentration - - Weight 82.8 kg (182 lb 9.6 oz) 12/19/2022 10:18 AM EDT Height 162.6 cm (5' 4") 12/19/2022 10:18 AM EDT Body Mass Index 31.34 12/19/2022 10:18 AM EDT documented in this encounter Progress Notes * KATIE Benites - 12/19/2022 10:40 AM EDT 39w5d Having some musculoskeletal discomforts. Blood sugar was lower than usual the other day. Feeling ok otherwise. Baby is active. Having BH contractions. Denies bleeding or LOF. IOL 11/. KATIE Benites * Devi Hernandez LPN - 12/19/2022 10:22 AM EDT 39w5d Pt denies any concerns. documented in this encounter Plan of Treatment Health Maintenance Due Date Last Done Comments [...] high-risk documented in this encounter Care Teams Agricultural Science Professor Relationship Specialty Start Date End Date Stefany Keller MD [address] [place] [address] PCP - General Internal Medicine 10/23/17 documented as of this encounter
--- OUTSIDE RECORDS SUMMARY | 2023-01-01 08:45 | External Medical Summary | Summary of Care ---
Author Name Unknown Organization [facility] Address [address] [facility] [place] [address] Phone [phone] Care Team Providers Care Roof Fixer Name Role Phone Stefany Keller MD Primary Care Provider [phone] Reason for Visit * Reason Comments Return Visit Encounter Details Date Type Department Care Team Description 12/06/2022 [facility] [address] [place] [address] Isaura Rothman CRNP [address] [place] [address] Multigravida of advanced maternal age in third trimester*; Diet controlled gestational diabetes mellitus (GDM), antepartum; Thrombocytosis; Antepartum anemia complicating ; Supervision of high risk in third trimester Allergies Active Allergy Reactions Severity Noted Date Comments Other Allergy (See Comments) 020 Nuts - not severe documented as of this encounter (statuses as of 12/06/2022) Medications Medication Sig Dispensed Refills Start Date [...] the morning. 90 Tablet 1 09/27/2022 Active [employer] Verio Flex System w/Device Kit Use to test blood sugars 4 times daily (fasting, 1 hour after breakfast, lunch, and dinner) 1 Kit 0 09/27/2022 Active iPierianTouch Verio In Vitro Strip (Glucose Blood) Use to test blood sugars 4 times daily (fasting, 1 hour after breakfast, lunch, and dinner) 125 Strip 6 09/27/2022 Active OneTouch Delica Lancets 30G Use to test blood sugars 4 times daily (fasting, 1 hour after breakfast, lunch, and dinner) 200 Each 6 09/27/2022 Active documented as of this encounter (statuses as of 12/06/2022) Active Problems Problem Noted Date with 32 [...] will be getting next Friday; advised of [facility] [employer] brand meter as option 10/25/22- FBS elevated [...] consistent reporting; continue diet controlled 12/06/22- stable Last Assessment & Plan: Working with [facility]APT. [...] deficiency anemia 11/14/2017 Overview: 11/12/17 nL tsh,cmp [id number].,CBC Hb 10.7-mchc indices c/w iron def anemia >12/11- A1c 4.7%, Ferritin low at 8, Tsat 9%-st po iron. Estimated Date of Delivery Comme nts Yes 12/21/2022 Based on Ultraso und documented as of this encounter (statuses as of 12/06/2022) Immunizations Name Administration Dates Next Due Seasonal [...] Sign Reading Time Taken Comments Blood Pressure 110/70 12/06/2022 10:37 AM EDT Pulse - - Temperature - - Respiratory Rate - - Oxygen Saturation - - Inhaled Oxygen Concentration - - Weight 82.3 kg (181 lb 6.4 oz) 12/06/2022 10:37 AM EDT Height 162.6 cm (5' 4") 12/06/2022 10:37 AM EDT Body Mass Index 31.14 12/06/2022 10:37 AM EDT documented in this encounter Progress Notes * KATIE Benites - 12/06/2022 11:03 AM EDT 37w6d No concerns. Discussed timing of calling and going to hospital. Phone number given again to call prior to going to hospital if she thinks she is in labor. Baby is active. Having some BH contractions, nothing regular. No bleeding or LOF. Following with ADAPT for GDM A1. KATIE Benites * Devi Hernandez LPN - 12/06/2022 10:41 AM EDT 37w6d Pt denies any concerns. documented in this encounter Plan of Treatment Upcoming Encounters Date Type Specialty Care Team Description 12/13/2022 Office Visit Gynecology Obstetrics Isaura Rothman CRNP [address] [place] [address] Health Maintenance Due Date Last Done Comments Hepatitis B (1 of 3 - 3-dose series) 1985 Depression Screening 12/01/2018 12/01/2017 COVID-19 Vaccine (2 - 2022- season) 2022 02/02/2021 Influenza Vaccine (FLU shot) [...] high-risk documented in this encounter Care Teams Roof Fixer Relationship Specialty Start Date End Date Stefany Keller MD [address] [place] [address] PCP - General Internal Medicine 10/23/17 documented as of this encounter
--- OUTSIDE RECORDS SUMMARY | 2023-01-01 08:46 | External Medical Summary | Summary of Care ---
Author Name Unknown Organization [facility] Address [address] [place] [address] Phone [phone] Care Team Providers Care Rig Hand Name Role Phone Stefany Keller MD Primary Care Provider [phone] Reason for Visit * Reason Onset Date Comments Home Monitoring Orders Only 10/08/2022 Encounter Details Date Type Department Care Team Description 10/08/2022 Home Monitoring Forestry And Wildlife Manager Obstetrics Maternal Medicine, [place] [address], [place] [id number] Ashley Rajput CRNP [address] [place], [place] [phone] Diet controlled gestational diabetes mellitus (GDM), antepartum* Allergies Active Allergy Reactions Severity Noted Date Comments Other Allergy (See Comments) 020 Nuts - not severe documented as of this encounter (statuses as of 10/08/2022) Medications Medication Sig Dispensed Refills Start Date End Date Status acetaminophen (TYLENOL) 500 MG Tablet Take 2 Tablets by mouth every 8 hours as needed for Pain. 100 Tab 0 06/02/2019 Active 27-0.8 MG Oral Tablet Take 1 Tablet by mouth daily at noon. 90 Tablet 2 06/13/2022 Active Iron-Vitamin C 65-125 MG Oral Tablet (Vitron C) Take 1 Tablet by mouth in the morning and 1 Tablet before bedtime. 90 Tablet 4 06/13/2022 Active Vitamin B-12 1000 MCG Oral Tablet (Cyanocobalamin) Take 1 Tablet by mouth in the morning. 90 Tablet 1 09/27/2022 Active MobileApps.comTouch Verio Flex System w/Device Kit Use to test blood sugars 4 times daily (fasting, 1 hour after breakfast, lunch, and dinner) 1 Kit 0 09/27/2022 Active CARD.com In Vitro Strip (Glucose Blood) Use to test blood sugars 4 times daily (fasting, 1 hour after breakfast, lunch, and dinner) 125 Strip 6 09/27/2022 Active LearnBIG Delica Lancets 30G Use to test blood sugars 4 times daily (fasting, 1 hour after breakfast, lunch, and dinner) 200 Each 6 09/27/2022 Active documented as of this encounter (statuses as of 10/08/2022) Active Problems Problem Noted Date with 29 completed weeks gestat ion 10/07/2022 [...] blood sugars each week for MFM review. Last Assessment & Plan: CONSIDERATIONS: Reviewed etiology and risks associated with gestational diabetes mellitus (GDM), including risks to , fetus, and maternal progression to Type 2 DM. Instructed on proper use of glucometer; supplies ordered, if indicated. Advised that life-long screening for diabetes is recommended every 1-3 years. RECOMMENDATIONS: Recommend monitoring blood sugars with daily fasting blood sugar (maintained at less than or equal to 95) and 1 hour postprandial measurements (maintained at less than or equal to 140). Medications should be adjusted to maintain these target values. Report levels to MFM (Maternal- Medicine) weekly. Recommend nutrition consult with RDN (Registered Dietitian Urologist Physician). Lifestyle changes are also indicated including optimizing gestational weight gain and physical activity of 30 minutes per day, if not otherwise contraindicated in . Insulin is preferred if medications are indicated to optimize euglycemia. Metformin (preferred over glyburide) may also be used in some circumstances. Reviewed the risks and benefits of each. Recommend ultrasound, surveillance and delivery as follows: o A1GDM, delivery should be accomplished by 41w0d. o A2GDM, recommend growth assessment with MFM every 4 weeks, initiate surveillance at 32 weeks and continue until delivery at 39 weeks. Recommend intrapartum monitoring every 1-2 hours (A2GDM) or every 4 hours (A1GDM) and treat with insulin if indicated. Recommend 2-hour glucose tolerance testing with 75-gram glucose load 6-8 weeks . Supervision of high risk in th ird trimester 06/27/2022 Antepartum anemia complicating 06/13/2022 Overview: Hgb 9.0 at OB visit at 12w5d on 06/13/22. Hematology consult scheduled 07/17/2022 Taking for Vitron C BID. Last Assessment & Plan: Improved with iron. Multigravida of advanced maternal age in second trimester 06/13/2022 Overview: Patient will be 37 years old at time of delivery NIPT: ordered, done done yet Genetic consult: declines referral at this time MF anatomy scan scheduled on 07/30/2022 Last Assessment [...] deficiency anemia 11/14/2017 Overview: 11/12/17 nL tsh,cmp [id number].,CBC Hb 10.7-mchc indices c/w iron def anemia >12/11- A1c 4.7%, Ferritin low at 8, Tsat 9%-st po iron. Estimated Date of Delivery Comme nts Yes 12/21/2022 Based on Ultraso und documented as of this encounter (statuses as of 10/08/2022) Immunizations Name Administration Dates Next Due Seasonal [...] on file documented as of this encounter Progress Notes * Jared Garcia Community Health Economics Lecturer - 10/08/2022 9:17 AM EDT Patient has been successfully enrolled to the [id number] Diabetes Management in program. Standard alarm settings have been set as follows: Singular glucose level > 200 Singular glucose level < 60 Patient has been advised to take blood sugar four times a day (fasting upon waking, and one hour after each meal). Patient has been oriented to remote patient monitoring, assisted with initial device set-up, and provided with instruction and education regarding the program. Patient understands that this monitoring should not be used as a replacement for emergency and/or urgent care. If patient experiences any urgent symptoms, they are aware to call office/electronic maintenance supervisor provider for additional instructions. In emergency situations, they will report directly to the ED for further evaluation. If you would like to customize the alert parameters and/or instructions for this patient, please let me know and we can have them changed. documented in this encounter Plan of Treatment Upcoming Encounters Date Type Specialty Care Team Description 10/09/2022 Office Visit Gynecology Obstetrics Backer, KATIE Finch [address] [place] [address] 10/23/2022 Office Visit Hematology Oncology MagSergey MD [address] [place] [address] Health Maintenance Due Date Last Done Comments Hepatitis B (1 of 3 - 3-dose series) 1985 Depression Screening, Annual for Pts 12 and Over 12/01/2018 12/01/2017 COVID-19 Vaccine (2 - Pfizer series) 03/30/2021 02/02/2021 Influenza Vaccine (FLU shot) (#1) 2022 04/27/2019 Pap Smear 07/12/2025 07/12/2022 Diabetes Screening 07/17/2025 07/17/2022, 0 07/28/2019, 11/25/2017, Additional history exists DTaP,Tdap,and Td Vaccines (2 - Td or Tdap) 06/30/2026 06/30/2016 Cervical Cancer Screening 07/13/2027 HPV/Co-Test 07/13/2027 07/12/2022 Hepatitis C Screening Completed 06/13/2022 , 06/13/2022, 06/13/2022, Additional history exists GARDASIL-HPV IMMUNIZATION SERIES Aged Out No longer [...] as of this encounter Visit Diagnoses Diagnosis Diet controlled gestational diabetes mellitus (GDM), antepartum- Primary documented in this encounter Care Teams Rig Hand Relationship Specialty Start Date End Date Stefany Keller MD [address] [place] [place] [address] PCP - General Internal Medicine 10/23/17 documented as of this encounter
--- OUTSIDE RECORDS SUMMARY | 2023-01-01 08:46 | External Medical Summary | Summary of Care ---
Author Name Unknown Organization [facility] Address [address] [facility] [place] [address] Phone [phone] Care Team Providers Care Pusher Runner Name Role Phone Stefany Keller MD Primary Care Provider [phone] Reason for Visit * Reason Comments Return Visit Encounter Details Date Type Department Care Team Description 10/14/2022 [facility] [address] [place] [address] Isaura Rothman CRNP [address] [place] [address] Multigravida of advanced maternal age in third trimester*; Diet controlled gestational diabetes mellitus (GDM), antepartum; Thrombocytosis; Antepartum anemia complicating ; Supervision of high risk in third trimester Allergies Active Allergy Reactions Severity Noted Date Comments Other Allergy (See Comments) 020 Nuts - not severe documented as of this encounter (statuses as of 10/14/2022) Medications Medication Sig Dispensed Refills Start Date [...] the morning. 90 Tablet 1 09/27/2022 Active MoneyMenttor Verio Flex System w/Device Kit Use to [...] and dinner) 200 Each 6 09/27/2022 Active acetaminophen (TYLENOL) 500 MG Tablet Take 2 Tablets by mouth every 8 hours as needed for Pain. 100 Tab 0 06/02/2019 10/14/2022 Discontinued (Medication List Clean Up) documented as of this encounter (statuses as of 10/14/2022) Active Problems Problem Noted Date with 29 [...] Recommend nutrition consult with RDN (Registered Dietitian Biotech Production Specialist). Lifestyle changes are also indicated including optimizing [...] deficiency anemia 11/14/2017 Overview: 11/12/17 nL tsh,cmp [id number].,CBC Hb 10.7-mchc indices c/w iron def anemia >12/11- A1c 4.7%, Ferritin low at 8, Tsat 9%-st po iron. Estimated Date of Delivery Comme nts Yes 12/21/2022 Based on Ultraso und documented as of this encounter (statuses as of 10/14/2022) Immunizations Name Administration Dates Next Due Seasonal [...] Sign Reading Time Taken Comments Blood Pressure 108/60 10/14/2022 3:07 PM EDT Pulse - - Temperature - - Respiratory Rate - - Oxygen Saturation - - Inhaled Oxygen Concentration - - Weight 80.3 kg (177 lb) 10/14/2022 3:07 PM EDT Height 162.6 cm (5' 4") 10/14/2022 3:07 PM EDT Body Mass Index 30.38 10/14/2022 3:07 PM EDT documented in this encounter Progress Notes * KATIE Benites - 10/14/2022 3:30 PM EDT 30w2d Glucometer isn't working well. Talked to pharmacy but they weren't able to help. Called the companyand they are sending her a new one that should be coming this week. She is following with MFM for GDM. Discussed growth u/s, doesn't feel this is necessary at this point but is willing if needed later on. Discussed uncontrolled GDM can cause large babies. Would be willing to schedule if medication needed or if size>dates. Good FM. No contractions, bleeding, or LOF. Declines TDAP. KATIE Benites * Devi Hernandez LPN - 10/14/2022 3:11 PM EDT 30w2d Declines tdap, pt reports that she has not been able to track blood sugars, machine was not working, she tried to return it to the pharmacy but they would not replace it, she contacted the rough patcher directly and they are sending her a new one which should be here this week. documented in this encounter Plan of Treatment Upcoming Encounters Date Type Specialty Care Team Description 10/29/2022 Office Visit Gynecology Obstetrics Adeola Faye PA-C [address] [facility] [place] [address] Health Maintenance Due Date Last Done Comments [...] high-risk documented in this encounter Care Teams Pusher Runner Relationship Specialty Start Date End Date Stefany Keller MD [address] [place] [address] PCP - General Internal Medicine 10/23/17 documented as of this encounter
--- OUTSIDE RECORDS SUMMARY | 2023-01-01 08:46 | External Medical Summary | Summary of Care ---
Author Name Unknown Organization [facility] Address [address] [facility] [place] [address] Phone [phone] Care Team Providers Care Endoscope Technician Name Role Phone Stefany Keller MD Primary Care Provider [phone] Reason for Visit * Reason Comments Return Visit Encounter Details Date Type Department Care Team Description 10/29/2022 Office Visit Gynecology/Obstetrics [facility] [address] [place] [address] Adeola aFye PA-C [address] [place] [address] Supervision of high risk in third trimester*; Diet controlled gestational diabetes mellitus (GDM), antepartum; Thrombocytosis; Multigravida of advanced maternal age in third trimester; Antepartum anemia complicating Allergies Active Allergy Reactions Severity Noted Date Comments Other Allergy (See Comments) 020 Nuts - not severe documented as of this encounter (statuses as of 10/29/2022) Medications Medication Sig Dispensed Refills Start Date [...] the morning. 90 Tablet 1 09/27/2022 Active HCDC Verio Flex System w/Device Kit Use to test blood sugars 4 times daily (fasting, 1 hour after breakfast, lunch, and dinner) 1 Kit 0 09/27/2022 Active New Life Electronic CigaretteTouch Verio In Vitro Strip (Glucose Blood) Use to test blood sugars 4 times daily (fasting, 1 hour after breakfast, lunch, and dinner) 125 Strip 6 09/27/2022 Active OneTouch Delica Lancets 30G Use to test blood sugars 4 times daily (fasting, 1 hour after breakfast, lunch, and dinner) 200 Each 6 09/27/2022 Active documented as of this encounter (statuses as of 10/29/2022) Active Problems Problem Noted Date with 29 [...] will be getting next Friday; advised of [facility] [employer] brand meter as option 10/25/22- FBS elevated msg sent to get scheduled for ADAPT appt Last Assessment & Plan: CONSIDERATIONS: Reviewed etiology [...] Recommend nutrition consult with RDN (Registered Dietitian Paper Sorter). Lifestyle changes are also indicated including optimizing [...] weeks . [facility] 06/27/2022 Antepartum anemia complicating 06/13/2022 Overview: [...] deficiency anemia 11/14/2017 Overview: 11/12/17 nL tsh,cmp [id number].,CBC Hb 10.7-mchc indices c/w iron def anemia >12/11- A1c 4.7%, Ferritin low at 8, Tsat 9%-st po iron. Estimated Date of Delivery Comme nts Yes 12/21/2022 Based on Ultraso und documented as of this encounter (statuses as of 10/29/2022) Immunizations Name Administration Dates Next Due Seasonal [...] Sign Reading Time Taken Comments Blood Pressure 104/72 10/29/2022 11:46 AM EDT Pulse - - Temperature - - Respiratory Rate - - Oxygen Saturation - - Inhaled Oxygen Concentration - - Weight 80.1 kg (176 lb 9.6 oz) 10/29/2022 11:46 AM EDT Height 162.6 cm (5' 4") 10/29/2022 11:46 AM EDT Body Mass Index 30.31 10/29/2022 11:46 AM EDT documented in this encounter Progress Notes * Adeola Faye PA-C - 10/29/2022 12:23 PM EDT 32w3d GDM, has appointment with MFM tomorrow regarding DM. Reports BG have been better. Reports rare 1 hour, typical after lunch at about 142, otherwise normal. Reviewed recommendation for growth, pt states would like to discuss further with MFM tomorrow and will schedule through them if needed upon discussion. Reviewed [place] Screen. Pt reports depression actually improved from a few weeks ago. Denies SI/HI. Declines assistance, reports doing well overall. Denies bleeding/leaking/contractions. Affirms FM. RTC in 2 weeks Aedola Faye PA-C * Liza Alfonso LPN - 10/29/2022 11:49 AM EDT 32w3d Denies concerns. documented in this encounter Plan of Treatment Upcoming Encounters Date Type Specialty Care Team Description 10/30/2022 Telemedicine Maternal Medicine Ashley Rajput, KATIE [address] [place] [address] Health Maintenance Due Date Last Done Comments [...] as of this encounter Visit Diagnoses Diagnosis Supervision of high risk in third trimester- Primary Unspecified high-risk Diet controlled gestational diabetes mellitus (GDM), antepartum Thrombocytosis Essential thrombocythemia Multigravida of advanced maternal age in third trimester Antepartum anemia complicating Anemia, antepartum documented in this encounter Care Teams Endoscope Technician Relationship Specialty Start Date End Date Stefany Keller MD [address] [place] [address] PCP - General Internal Medicine 10/23/17 documented as of this encounter
--- OUTSIDE RECORDS SUMMARY | 2023-01-01 08:46 | External Medical Summary | Summary of Care ---
Author Name Unknown Organization [facility] Address [address] [place] [address] Phone [phone] Care Team Providers Care Guide Setter Name Role Phone Stefany Keller MD Primary Care Provider [phone] Reason for Visit * Reason Comments Follow Up ADAPT visit / gestat ional diabetes Encounter Details Date Type Department Care Team Description 10/30/2022 Telemedicine Nutrition Helper Obstetrics Maternal Medicine, [place] [address] [place], [place] [phone] Ashley Rajput CRNP [address] [place], [place] [phone] Diet controlled gestational diabetes mellitus (GDM), antepartum*; Supervision of high risk in third trimester; with 32 completed weeks gestation Allergies Active Allergy Reactions Severity Noted Date Comments Other Allergy (See Comments) 020 Nuts - not severe documented as of this encounter (statuses as of 10/30/2022) Medications Medication Sig Dispensed Refills Start Date [...] the morning. 90 Tablet 1 09/27/2022 Active MobilewallaTouch Datappraiseio Flex System w/Device Kit Use to test blood sugars 4 times daily (fasting, 1 hour after breakfast, lunch, and dinner) 1 Kit 0 09/27/2022 Active Mediameeting Verio In Vitro Strip (Glucose Blood) Use to test blood sugars 4 times daily (fasting, 1 hour after breakfast, lunch, and dinner) 125 Strip 6 09/27/2022 Active MobilewallaTouch Delica Lancets 30G Use to test blood sugars 4 times daily (fasting, 1 hour after breakfast, lunch, and dinner) 200 Each 6 09/27/2022 Active documented as of this encounter (statuses as of 10/30/2022) Active Problems Problem Noted Date with 32 [...] will be getting next Friday; advised of [facility] [employer] brand meter as option 10/25/22- FBS elevated [...] high, will start Metformin 500 BID --KW Last Assessment & Plan: CONSIDERATIONS: Reviewed etiology [...] Recommend nutrition consult with RDN (Registered Dietitian Tape Transferrer). Lifestyle changes are also indicated including optimizing [...] deficiency anemia 11/14/2017 Overview: 11/12/17 nL tsh,cmp [id number].,CBC Hb 10.7-mchc indices c/w iron def anemia >12/11- A1c 4.7%, Ferritin low at 8, Tsat 9%-st po iron. Estimated Date of Delivery Comme nts Yes 12/21/2022 Based on Ultraso und documented as of this encounter (statuses as of 10/30/2022) Immunizations Name Administration Dates Next Due Seasonal [...] as of this encounter Progress Notes * KATIE Blood - 10/30/2022 1:20 PM EDT Images from the original note were not included. MATERNAL MEDICINE VISIT Patient location: HOME. I was in a hospital or clinic location. After connecting through [employer],patient was verified with two unique identifiers. Patient (or authorized legal patient financial representative) was then informed that this was a Telemedicine visit and being conducted confidentially over secure lines. Methods to assure confidentiality were taken. Patient acknowledged consent and understanding of pr ivacy and security of the Telemedicine visit. The patient agreed to participate. Kim Lucero is a 37 year old year old with intrauterine at 32w4d who presents to [facility] for management of diabetes in . CC/HPI: Here for GDM f/u visit. Current issues include: Few borderline elevated FBS, a few elevated PP's Current GDM management: Diet controlled Diet: gestational diabetes diet Exercise: Walking Weight gain: Wt Readings from Last 10 Encounters: 10/29/22 80.1 kg (176 lb 9.6 oz) 10/14/22 80.3 kg (177 lb) 09/25/22 79.4 kg (175 lb) 09/10/22 79.6 kg (175 lb 6.4 oz) 08/09/22 77.6 kg (171 lb) 07/17/22 77.2 kg (170 lb 1.6 oz) 07/12/22 77.8 kg (171 lb 9.6 oz) 06/13/22 77.1 kg (170 lb) 06/05/22 78 kg (171 lb 15.3 oz) 05/28/22 77.5 kg (170 lb 12.8 oz) Hypoglycemia episodes:N/A Recent growth scan: [facility] US: 07/30/2022 at 19w3d ERYN: normal EFW: 255 g (14 % [place]) Glucose review: Hemoglobin A1C last 3 results: Lab Results Component Value Date/Time HEMOGLOBIN, [id number] LAB 4.7 11/25/2017 12:00 AM HEMOGLOBIN-OUTSIDE LAB 8.4 (A) 05/28/2022 12:00 AM HEMOGLOBIN-OUTSIDE LAB 10.7 (A) 11/12/2017 12:00 AM She reports her home blood glucose as following: REVIEW OF SYSTEMS: headaches: no nausea/vomiting: denies reports movement: yes abdominal pain/tenderness/cramping/contractions: yes / [place], mild vaginal bleeding: no vaginal leaking of fluid: no all other systems negative PHYSICAL EXAM: LMP (LMP Unknown) Constitutional: pleasant, well-developed, well nourished General: pleasant, alert and oriented Neuro: mood and affect normal, alert and oriented, no acute distress DISCUSSION: -We discussed continuing to test blood sugars 4 times a day (fasting, one hour after breakfast, lunch, and dinner) -Briefly reviewed GDM diet recommendations including, avoiding processed suagars, sweetened drinks,white flour. Recommend Counting carbohydrates - Breakfast: 45 grams carbohydrate, Snack: 15-20 grams carbohydrate, Lunch: 45 grams carbohydrate, Afternoon Snack: 15-20 grams carbohydrate, Dinner: 45 grams carbohydrate, bedtime snack 20-30 grams carbohydrate. Advised to have protein with every meal and snack, 70 grams total daily. Advised compliance with Tape Transferrer consult. -We discussed eating a snack to help with sugar control in the fasting timeframe. -Encouraged 20-30 minutes a day of exercise (walking, light upper body strength training, yoga, stationary cycling, or swimming) -We discussed the predisposing factors for gestational diabetes including ethnic background, familyhistory, maternal body mass index, and use of some medications. We discussed that placental hormones often cause a woman who is not diabetic but has predisposing factors before to exhibit insulin resistance and gestational diabetes during -We discussed the goal of euglycemia in order to create a stable environment for the fetus. She is aware that with diabetes are at increased risk for multiple complications to both mother and fetus -I encouraged the patient to reach out to MFM in the event that she has any questions regarding diabetes management. -Discussed risks and benefits of both Metformin and Insulin. If needed in the future, patient prefers Metformin. Will review RPM next week. If values continue to be borderline or elevated, pt agreeable to starting Metformin 500mg BBID. Patient will first try adjusting her diet. Patient verbalized understanding of this plan. RECOMMENDATIONS: Follow up for glucose management in 1 week via [facility]. Recommend follow up ultrasound with MFM as clinically indicated (eg., GDM with need for medication). Thank you for allowing us to participate in the care of this patient. Please call with any questions. I spent a total of 30 minutes on the date of service in preparation, delivery, and documentation ofthe care provided to Kim Lucero excluding any time spent in the performance of separately billed services. KATIE Blood 10/30/2022 1:28 PM documented in this encounter Plan of Treatment Upcoming Encounters Date Type Specialty Care Team Description 11/14/2022 Office Visit Gynecology Obstetrics Backer, KATIE Finch [address] [facility] [place] [address] Health Maintenance Due Date Last Done [...] controlled gestational diabetes mellitus (GDM), antepartum- Primary Supervision of high risk in third trimester Unspecified high-risk with 32 completed weeks gestation documented in this encounter Care Teams Guide Setter Relationship Specialty Start Date End Date Stefany Keller MD [address] [place] [address] PCP - General Internal Medicine 10/23/17 documented as of this encounter
--- OUTSIDE RECORDS SUMMARY | 2023-01-01 08:46 | External Medical Summary ---
Author Name Unknown Address Unknown Organization K01:LABORATORY [facility] - [facility] [address] [facility] [address] Laboratory Report Ordering Provider Test Date Status JEWELL HAWTHORNE 11/29/2022 14:30:24 Final Observation Date Value Abnormality Reference (Units ) Status Streptococcus agalactiae DNA [Presence] in Specimen by CARLOS with probe detection 11/29/2022 14:30:24 Negative Negative Final No Group B Streptococcus det ected by culture-enhanced PCR (amplified probe).
The collection of vaginal/rectal swab specimen combinations (FDA approved specimen type) is optimal for the detection of Group B Streptococcus. Single source collection (vaginal only or rectal only) or alternate specimen sources may lead to false negative results. Performing Location LAB[facility]ORY [facility] - [address] [facility] [address]
--- OUTSIDE RECORDS SUMMARY | 2023-01-01 08:46 | External Medical Summary | Summary of Care ---
Author Name Unknown Organization [facility] Address [address] [facility] [place] [address] Phone [phone] Care Team Providers Care Iron Guardrail Installer Name Role Phone Stefany Keller MD Primary Care Provider [phone] Reason for Visit * Reason Comments Return Visit Encounter Details Date Type Department Care Team Description 11/14/2022 Office Visit Gynecology/Obstetrics [facility] [address] [place] [address] Lina Stoll CRNP [address] [place] [address] Supervision of high risk in third trimester*; Diet controlled gestational diabetes mellitus (GDM), antepartum; Multigravida of advanced maternal age in third trimester; Antepartum anemia complicating Allergies Active Allergy Reactions Severity Noted Date Comments Other Allergy (See Comments) 020 Nuts - not severe documented as of this encounter (statuses as of 11/14/2022) Medications Medication Sig Dispensed Refills Start Date [...] the morning. 90 Tablet 1 09/27/2022 Active [employer] Verio Flex System w/Device Kit Use to test blood sugars 4 times daily (fasting, 1 hour after breakfast, lunch, and dinner) 1 Kit 0 09/27/2022 Active [a]list gamesTouch Verio In Vitro Strip (Glucose Blood) Use to test blood sugars 4 times daily (fasting, 1 hour after breakfast, lunch, and dinner) 125 Strip 6 09/27/2022 Active [a]list gamesTouch Delica Lancets 30G Use to test blood sugars 4 times daily (fasting, 1 hour after breakfast, lunch, and dinner) 200 Each 6 09/27/2022 Active documented as of this encounter (statuses as of 11/14/2022) Active Problems Problem Noted Date with 32 [...] will be getting next Friday; advised of [place] [employer] brand meter as option 10/25/22- FBS elevated [...] 500 BID --KW 11/08/22- stable 11/14/22- stable Last Assessment & Plan: CONSIDERATIONS: Reviewed etiology [...] Recommend nutrition consult with RDN (Registered Dietitian Bulk Tank Driver). Lifestyle changes are also indicated including optimizing [...] deficiency anemia 11/14/2017 Overview: 11/12/17 nL tsh,cmp [id number].,CBC Hb 10.7-mchc indices c/w iron def anemia >12/11- A1c 4.7%, Ferritin low at 8, Tsat 9%-st po iron. Estimated Date of Delivery Comme nts Yes 12/21/2022 Based on Ultraso und documented as of this encounter (statuses as of 11/14/2022) Immunizations Name Administration Dates Next Due Seasonal [...] Sign Reading Time Taken Comments Blood Pressure 106/70 11/14/2022 9:50 AM EDT Pulse - - Temperature - - Respiratory Rate - - Oxygen Saturation - - Inhaled Oxygen Concentration - - Weight 80.7 kg (178 lb) 11/14/2022 9:50 AM EDT Height - - Body Mass Index 30.55 10/29/2022 11:46 AM EDT documented in this encounter Patient Instructions * Patient Instructions* KATIE Dominguez - 11/14/2022 10:05 AM EDT Round Ligament Pain: Causes and Treatment Round ligament pain is most common during the 2nd and 3rd trimesters. Women may have a sharp pain in their abdomen or hip area that is either on one side or both. Some women even report pain that extends into the groin area. Round ligament pain is considered a normal part of as your body goes through many different changes. What causes round ligament pain? The round ligament supports the uterus and stretches during . It connects the front portion of the uterus to the groin. These ligaments contract and relax like muscles, but much more slowly. Any movement (including going from a sitting to standing position quickly, laughing, or coughing) that stretches these ligaments by making them contract quickly, can cause a woman to experience pain.Round ligament pain should only last for a few seconds. Stretching is the best way to loosen things up and prevent round ligament pain. Here are our top round ligament pain stretches to get you started: #1 CAT-COW Start on your hands and knees, shoulders above wrists and hips above knees. Breathe in and drop your stomach down, arching your back and looking upward. Then, breathe out and round your upper back toward the ceiling, allowing your head to drop and face your stomach. #2 HIP FLEXOR STRETCH In all fours position with your arm resting on a chair or birthing ball, bring the right leg forward while extending/straightening the left leg back until you feel a stretch in the front of the left thigh. Hold the position for 5-10 seconds. Repeat on the opposite side. #3 SIDE LYING SAVASANA Lie on your left side in a position, tuck your left arm beneath your head, and place a pillowbetween your legs to relieve pressure on your lower back. Flex your hips and remain in this position for several minutes. Inhale deeply as you stretch. #4 THE PELVIC CLOCK Sit on a birthing ball or chair with your feet flat on the floor. Bring your hands to your hips so you can feel the movement in your pelvis as you stretch. Now, imagine a clock resting on your pelvis--with your navel at 12 oclock and pubic bone at 6 oclock. Engage your abs and lengthen your spine. Inhale and tilt your pelvis toward a 3 oclock position. Continue on the inhale and move around the clock, creating a small arch in your lower back. Exhale and bring your pelvis to 9 oclock. Continue your exhale until you reach a neutral 12 oclock position. #5 BUTTERFLY STRETCH Sit upright on a firm surface. Place the soles of your feet together and pulse your legs up and down, like the wings of a butterfly. You should feel a stretch in your inner thighs. For an even deeperstretch, place your hands on your knees for resistance. Other Ways to Relieve Round Ligament Pain While round ligament pain stretches are the best way to reduce pain, there are a few other things you can try to alleviate the discomfort : A belly band to give your bump some extra support Hydration to improve circulation to your growing tissue Rest to allow your muscles to recover from any movement Massage to give that area some extra TLC Acetaminophen to get some medicated pain relief documented in this encounter Progress Notes * Rose Ortega LPN - 11/14/2022 9:51 AM EDT 34w5d Denies vaginal bleeding/rom + movement Round ligament pain [place] priest Declines flu * KATIE Dominguez - 11/14/2022 9:11 AM EDT 34w5d Having some round ligament pain and BH ctx. Nothing regular. No leaking/bleeding. Baby moving normally. Recommend stretching, belly band. Had MFM growth scan today, final report in process. +cardiac activity, vertex presenation. Given labor instructions. Pt feeling anxious about delivery - recommend childbirth classes, hospital tour. GDM, followed by [facility]. Asking if she has to continue glucose monitoring, since levels have been WNL. Advised that this is recommended until delivery. Will recheck CBC. Discussed GBS swab to be completed at next visit. 2 week return KATIE Atkins documented in this encounter Plan of Treatment Upcoming Encounters Date Type Specialty Care Team Description 11/29/2022 Office Visit Gynecology Obstetrics Isaura Rothman CRNP [address] [place] [address] Scheduled Orders Name Type Priority Associated Diagnoses Orde r Schedule CBC Lab Routine Antepartum anemia complicating Expected: 11/14/2022 (Approximate), Expires: 11/15/2023 Health Maintenance Due Date Last Done Comments Hepatitis B (1 of 3 - 3-dose series) 1985 Depression Screening 12/01/2018 12/01/2017 COVID-19 Vaccine (2 - Pfizer [...] Diet controlled gestational diabetes mellitus (GDM), antepartum Multigravida of advanced maternal age in third trimester Antepartum anemia complicating Anemia, antepartum documented in this encounter Care Teams Iron Guardrail Installer Relationship Specialty Start Date End Date Stefany Keller MD [address] [place] [id number] PCP - General Internal Medicine 10/23/17 documented as of this encounter
--- OUTSIDE RECORDS SUMMARY | 2023-01-01 08:46 | External Medical Summary | Summary of Care ---
Author Name Unknown Organization [facility] Address [address] [place] [address] Phone [phone] Care Team Providers Care Living Advisor Name Role Phone Stefany Keller MD Primary Care Provider [phone] Reason for Referral * Evaluate & Treat - Unlimited Visits (Within 3 days (urgent)) - Pending Review Specialty Diagnoses / Procedures Referred By Contac t Referred To Contact Battery Loader Diagnoses Diet controlled gestational diabetes mellitus (GDM), antepartum Ashley Rajput CRNP [address] [place] [address] Referral ID Status Reason Start Date Expiration Date Visits Requested Visits Authorized [id number] Pending Review Specialty Services Required 10/07/2022 1 1 Question Answer Referral Priority Within 3 days (urgent) Program Type Chronic Disease Management Chronic Disease Management Diabetes in Alarm Settings Standard per protocol Comments One Touch Verio Reason for Visit * Reason Comments Consultation GESTATIONAL DIABETES 28 weeks * Evaluate & Treat - Unlimited Visits (Within 10 days (routine)) - Pending Review Specialty Diagnoses / Procedures Referred By Contac t Referred To Contact Obstetrics/Gynecology / Maternal Medicine Diagnoses Diet controlled gestational diabetes mellitus (GDM) in third trimester Isaura Rothman CRNP [address] [place] [address] Referral ID Status Reason Start Date Expiration Date Visits Requested Visits Authorized [id number] Pending Review Specialty Services Required 09/27/[phone] Encounter Details Date Type Department Care Team Description 10/07/2022 Telemedicine Transformer Assembler Obstetrics Maternal Medicine, [place] [address] [place] [address] Ashley Rajput, KATIE [address] [place] [address] Diet controlled gestational diabetes mellitus (GDM), antepartum*; Supervision of high risk in third trimester; with 29 completed weeks gestation Allergies Active Allergy Reactions Severity Noted Date Comments Other Allergy (See Comments) 020 Nuts - not severe documented as of this encounter (statuses as of 10/07/2022) Medications Medication Sig Dispensed Refills Start Date [...] the morning. 90 Tablet 1 09/27/2022 Active [employer]antic Partnership[employer] Verio Flex System w/Device Kit Use to test blood sugars 4 times daily (fasting, 1 hour after breakfast, lunch, and dinner) 1 Kit 0 09/27/2022 Active [employer] Verio In Vitro Strip (Glucose Blood) Use to test blood sugars 4 times daily (fasting, 1 hour after breakfast, lunch, and dinner) 125 Strip 6 09/27/2022 Active [employer]antic Partnership[employer] Delica Lancets 30G Use to test blood sugars 4 times daily (fasting, 1 hour after breakfast, lunch, and dinner) 200 Each 6 09/27/2022 Active documented as of this encounter (statuses as of 10/07/2022) Active Problems Problem Noted Date with 29 [...] Recommend nutrition consult with RDN (Registered Dietitian Wire Frame Maker). Lifestyle changes are also indicated including optimizing [...] deficiency anemia 11/14/2017 Overview: 11/12/17 nL tsh,cmp [id number].,CBC Hb 10.7-mchc indices c/w iron def anemia >12/11- A1c 4.7%, Ferritin low at 8, Tsat 9%-st po iron. Estimated Date of Delivery Comme nts Yes 12/21/2022 Based on Ultraso und documented as of this encounter (statuses as of 10/07/2022) Immunizations Name Administration Dates Next Due Seasonal [...] encounter Progress Notes * KATIE Blood - 10/07/2022 12:23 PM EDT MATERNAL MEDICINE CONSULT Kim Lucero Consult date: 10/07/22 REFERRING PROVIDER: KATIE Benites Patient location: HOME. I was not in a hospital or clinic location. After connecting through televideo, patient was verified with two unique identifiers. Patient (or authorized legal business representative)was then informed that this was a Telemedicine visit and being conducted confidentially over securelines. Methods to assure confidentiality were taken. Patient acknowledged consent and understandingof privacy and security of the Telemedicine visit. The patient agreed to participate. Kim Lucero is a 37 year old with intrauterine at 29w2d (Estimated Date ofDelivery: 12/21/22 by 12w5d ultrasound) who presents today for an MFM consult due to new onset of gestational diabetes at 28 weeks. Patient has been followed by MFM in the past; an initial MFM consultation was completed in June 2022for indications of advanced maternal age and thrombocytosis. HPI/CURRENT : pre- BMI=overweight (77.6 kg (171 lb); 5' 4"); complicatedby above. Genetic testing: Low Risk Cell Free DNA OB Rodrigue allen Problems (from 06/05/22 to present) Problem Noted Resolved Diet controlled gestational diabetes mellitus (GDM), antepartum 09/27/2022 by KATIE Benites No Overview Addendum 10/07/2022 12:21 PM by KATIE Blood Diagnosed at 28 weeks Nutrition consult ordered [...] 10/07/22: MFM [facility] consult complete. Enrolled in [employer] [facility]. Instructions provided to report blood sugars each week for MFM review. I have reviewed this patient's previous OB ultrasound reports, pertinent labwork and testing provided by her referring OB provider. Current Outpatient Medications Medication Sig Dispense Refill acetaminophen (TYLENOL) 500 MG Tablet Take 2 Tablets by mouth every 8 hours as needed for Pain.(Patient not taking: Reported on 06/27/2022) 100 Tab 0 Iron-Vitamin C 65-125 MG Oral Tablet (Vitron C) Take 1 Tablet by mouth in the morning and 1 Tablet before bedtime. 90 Tablet 4 [facility] Delica Lancets 30G Use to test blood sugars 4 times daily (fasting, 1 hour after breakfast, lunch, and dinner) 200 Each 6 Assemblageio Flex System w/Device Kit Use to test blood sugars 4 times daily (fasting, 1 hourafter breakfast, lunch, and dinner) 1 Kit 0 [employer] Verio In Vitro Strip (Glucose Blood) Use to test blood sugars 4 times daily (fasting, 1 hour after breakfast, lunch, and dinner) 125 Strip 6 27-0.8 MG Oral Tablet Take 1 Tablet by mouth daily at noon. 90 Tablet 2 Vitamin B-12 1000 MCG Oral Tablet (Cyanocobalamin) Take 1 Tablet by mouth in the morning. 90 Tablet 1 No current facility-administered medications for this visit. Review of patient's allergies indicates: Allergen Reactions Other Allergy (See Comments) Nuts - not severe OB History Para Term AB Living 2 0 0 0 1 0 SAB IAB Ectopic Multiple Live Births 1 0 0 0 0 # Outcome Date GA Lbr Colin/2nd Weight Sex Delivery Anes PTL Lv 2 Current 1 2018 8w0d U SPONTANEOUS Obstetric Comments FOB Wendy, age 42, no children outside this relationship, no health problems Past Medical History: Diagnosis Date Anemia Known health problems: none Past Surgical History: Procedure Laterality Date NONE Family History Problem Relation Age of Onset No Past Hx Mother Diabetes Father Hypertension Father Social History Tobacco Use Smoking status: Never Smokeless tobacco: Never Vaping Use Vaping Use: Never used Substance Use Topics Alcohol use: No Drug use: No REVIEW OF SYSTEMS: headaches: no nausea/vomiting: denies reports movement: yes abdominal pain/tenderness/cramping/contractions: no vaginal bleeding: yes vaginal leaking of fluid: no all other systems negative PHYSICAL EXAM: LMP (LMP Unknown) General: Well appearing Psych: Alert to time, place, and person and Pleasant DISCUSSION/RECOMMENDATIONS: Problem List Items Addressed This Visit OB Rodrigue allen Diet controlled gestational diabetes mellitus (GDM), antepartum - Primary CONSIDERATIONS: Reviewed etiology and risks associated with [...] Recommend nutrition consult with RDN (Registered Dietitian Wire Frame Maker). Lifestyle changes arealso indicated including optimizing gestational weight gain and physical activity of 30 minutes perday, if not otherwise contraindicated in . Insulin [...] with 75-gram glucose load 6-8 weeks . Recommend follow up ultrasound with MFM as clinically indicated (eg., GDM with need for medication). Total time spent face to face in this visit was 30 minutes of which more than 50% was spent discussing and counseling the patient/caregiver(s) regarding new onset of gestational diabetes at 28 weeks,diet and exercise. Total time spent on this date of service including non face to face was 45 minutes in preparation, delivery, and documentation of care provided to Kim Lucero, excluding time spent in performance of separately billable services. Details outlined above in impression and plan. KATIE Blood 10/07/2022 12:28 PM documented in this encounter Miscellaneous Notes * Assessment & Plan Note - KATIE Blood - 10/07/2022 12:21 PM EDT Associated Problem(s): Diet controlled gestational diabetes mellitus (GDM), antepartum CONSIDERATIONS: Reviewed etiology and risks associated with [...] Recommend nutrition consult with RDN (Registered Dietitian Wire Frame Maker). Lifestyle changes arealso indicated including optimizing gestational weight gain and physical activity of 30 minutes perday, if not otherwise contraindicated in . Insulin [...] with 75-gram glucose load 6-8 weeks . documented in this encounter Plan of Treatment Upcoming Encounters Date Type Specialty Care Team Description 10/09/2022 Office Visit Gynecology Obstetrics Backer, KATIE Finch [address] [facility] [place] [address] 10/23/2022 Office Visit [facility]ematology Oncology [facility] [address] [facility] [address] Scheduled Referrals Name Type Priority Associated Diagnoses Orde r Schedule REMOTE PATIENT MONITORING REFERRAL Referral Within 3 days (urgent) Diet controlled gestational diabetes mellitus (GDM), antepartum Ordered: 10/07/2022 Health Maintenance Due Date Last Done Comments [...] risk in third trimester Unspecified high-risk with 29 completed weeks gestation documented in this encounter Care Teams Living Advisor Relationship Specialty Start Date End Date Stefany Keller MD [address] [place] [address] PCP - General Internal Medicine 10/23/17 documented as of this encounter
--- OUTSIDE RECORDS SUMMARY | 2023-01-01 08:46 | External Medical Summary | Summary of Care ---
Author Name Unknown Organization [facility] Address [address] [place] [address] Phone [phone] Care Team Providers Care Friction Paint Machine Tender Name Role Phone Stefany Keller MD Primary Care Provider [phone] Encounter Details Date Type Department Care Team Description 11/14/2022 Office Visit Vice President Network Obstetrics Maternal Medicine, [address] [address] Beth Swanson, DO [address] [place] [address] Diet controlled gestational diabetes mellitus (GDM), antepartum*; 34 weeks gestation of ; Ultrasound for screening for growth restriction Allergies Active Allergy Reactions Severity Noted Date [...] the morning. 90 Tablet 1 09/27/2022 Active [employer] Eye SolutionsTouch Verio Flex System w/Device Kit Use to test blood sugars 4 times daily (fasting, 1 hour after breakfast, lunch, and dinner) 1 Kit 0 09/27/2022 Active Eagle Eye SolutionsTouch Verio In Vitro Strip (Glucose Blood) Use [...] be getting next Friday; advised of [email or web address] brand meter as option 10/25/22- FBS elevated [...] stable 11/14/22: RPM reviewed, diet controlled --KW Last Assessment & Plan: Working with [facility]. [...] deficiency anemia 11/14/2017 Overview: 11/12/17 nL tsh,cmp [id number].,CBC Hb 10.7-mchc indices c/w iron def anemia >12/11- A1c 4.7%, Ferritin low at 8, Tsat 9%-st po iron. Estimated Date of Delivery Comme nts Yes 12/21/2022 Based on Ultraso und documented as of this encounter (statuses as of 11/14/2022) Immunizations Name Administration Dates Next Due Seasonal Influenza, Quadrivalent, No Delmy, M dck 04/27/2019 TDAP (age 10 and [...] as of this encounter Progress Notes * Beth Mclain DO - 11/14/2022 1:59 PM EDT Kim presented today at 34w5d for an ultrasound for the following indications: Diet controlled gestational diabetes mellitus (GDM), antepartum Assessment & Plan: Working with [facility]. 34 weeks gestation of Ultrasound for screening for growth restriction Ultrasound summary: Patient presented at 34w 5d for growth assessment. Normal growth with EFW 2188 g at 15%ile. Normal ERYN at 8.1 cm. Cephalic presentation. I reviewed the ultrasound images. Kim was given the opportunity to meet with me if she had any questions. Please refer to the ultrasound report for additional details about today's ultrasound examination. RECOMMENDATIONS: See prior formal MFM consultation note. Thank you for allowing us to participate in the care of this patient. Please call with any questions. Beth Swanson DO 11/14/2022 1:59 PM documented in this encounter Miscellaneous Notes * Assessment & Plan Note - Beth Mclain DO - 11/14/2022 1:59 PM EDT Associated Problem(s): Diet controlled gestational diabetes mellitus (GDM), antepartum Working with [facility]. documented in this encounter Plan of Treatment Upcoming Encounters Date Type Specialty Care Team Description 11/29/2022 Office Visit Gynecology Obstetrics Isaura Rothman CRNP [address] [place] [address] Health Maintenance Due Date Last Done Comments [...] controlled gestational diabetes mellitus (GDM), antepartum- Primary 34 weeks gestation of state, incidental Ultrasound for screening for growth restriction screening for growth retardation using ultrasonics documented in this encounter Care Teams Friction Paint Machine Tender Relationship Specialty Start Date End Date Stefany Keller MD [address] [place] [address] PCP - General Internal Medicine 10/23/17 documented as of this encounter
--- OUTSIDE RECORDS SUMMARY | 2023-01-01 08:46 | External Medical Summary | Summary of Care ---
Author Name Unknown Organization [facility] [address] [facility] [address] Phone [phone] Care Team Providers Care Interpretive Program Coordinator Name Role Phone Stefany Keller MD Primary Care Provider [phone] Reason for Visit * Reason Comments Return Visit Encounter Details Date Type Department Care Team Description 11/29/2022 [facility] [address] [place] [address] Isaura Rothman CRNP [address] [place] [address] Multigravida of advanced maternal age in third [...] the morning. 90 Tablet 1 09/27/2022 Active [employer] Verio Flex System w/Device Kit Use to test blood sugars 4 times daily (fasting, 1 hour after breakfast, lunch, and dinner) 1 Kit 0 09/27/2022 Active [employer] Verio In Vitro Strip (Glucose Blood) Use [...] will be getting next Friday; advised of [facility] [employer] brand meter as option 10/25/22- FBS elevated [...] deficiency anemia 11/14/2017 Overview: 9/19/18 nL tsh,cmp [id number].,CBC Hb 10.7-mchc indices c/w iron def anemia [...] A1, blood sugars are WNL. GBS today. Auto Service Station Attendant Documentation Provider requested body shop technician. Name of body shop technician: KATIE Chamorro documented in this encounter Plan of Treatment Upcoming Encounters Date Type Specialty Care Team Description 12/06/2022 Office Visit Gynecology Obstetrics Isaura Rothman CRNP [address] [place] [address] 12/13/2022 Office Visit Gynecology Obstetrics Isaura Rothman CRNP [address] [place] [address] Pending Results Name Type Priority Associated Diagnoses [...] high-risk documented in this encounter Care Teams Interpretive Program Coordinator Relationship Specialty Start Date End Date Stefany Keller MD [address] [place] [address], [place] [address] PCP - General Internal Medicine 10/23/17 documented as of this encounter
--- OUTSIDE RECORDS SUMMARY | 2023-01-01 08:47 | External Medical Summary ---
Author Name Unknown Address Unknown Organization K[facility] [place] [address] Laboratory Report Ordering Provider Test Date Status JEWELL HAWTHORNE 09/27/2022 09:54:40 Final Observation Date Value Abnormality Reference (Units ) Status Glucose, 2-hr post glucose challenge 09/27/2022 09:54:40 167 Above high normal 70-154 (mg/dL) Final Performing Location [facility] [place] [place] [address]
--- OUTSIDE RECORDS SUMMARY | 2023-01-01 08:47 | External Medical Summary ---
Author Name Unknown Address Unknown Organization K09[facility] [place] [address] Laboratory Report Ordering Provider Test Date Status JUSTICE HAWTHORNEKEYSHA 09/27/2022 07:53:24 Final Based on ACOG guideline, ges tational diabetes mellitus is diagnosed when any of the following is met:
Fasting is greater than or equal to 95 mg/dL
1 hour is greater than or equal to 180 mg/dL
2 hour is greater than or equal to 155 mg/dL
3 hour is greater than or equal to 140 mg/dL Observation Date Value Abnormality Reference (Units ) Status Glucose, fasting 09/27/2022 07:53:24 95 Above high no rmal 70-94 (mg/dL) Final Performing Location [facility] [place] [address]
--- OUTSIDE RECORDS SUMMARY | 2023-01-01 08:47 | External Medical Summary | Summary of Care ---
Author Name Unknown Organization [facility] Address [address] [place] [address] Phone [phone] Care Team Providers Care Cotton Bag Clipper Name Role Phone Stefany Keller MD Primary Care Provider [phone] Reason for Visit * Reason Comments Outpatient Testing Encounter Details Date Type Department Care Team Description 09/27/2022 Laboratory Laboratory [facility] [address] [place] [address] [facility] [address] [place] [address] Abnormal glucose tolerance in mother complicating Allergies Active Allergy Reactions Severity Noted Date Comments Other Allergy (See Comments) 020 Nuts - not severe documented as of this encounter (statuses as of 09/27/2022) Medications Medication Sig Dispensed Refills Start Date [...] before bedtime. 90 Tablet 4 06/13/2022 Active documented as of this encounter (statuses as of 09/27/2022) Active Problems Problem Noted Date Supervision of high risk in se cond trimester 06/27/2022 Antepartum anemia complicating 06/13/2022 Overview: [...] deficiency anemia 11/14/2017 Overview: 11/12/17 nL tsh,cmp [id number].,CBC Hb 10.7-mchc indices c/w iron def anemia >12/11- A1c 4.7%, Ferritin low at 8, Tsat 9%-st po iron. Estimated Date of Delivery Comme nts Yes 12/21/2022 Based on Ultraso und documented as of this encounter (statuses as of 09/27/2022) Immunizations Name Administration Dates Next Due Seasonal [...] KATIE Finch [address] [place] [address] 10/23/2022 Office Visit Hematology Oncology Sergey Hathaway MD 200 [facility] [place] [address] Pending Results Name Type Priority Associated Diagnoses Date /Time GESTATIONAL GLUCOSE TOLERANCE, 3 HOUR Lab Routine Abnormal glucose tolerance in mother complicating 09/27/2022 7:53 AM EDT 100-G GESTATIONAL GLUCOSE, FASTING Lab Routine Abnormal glucose tolerance in mother complicating 09/27/2022 7:53 AM EDT Scheduled Orders Name Type Priority Associated Diagnoses Orde r Schedule 100-G GESTATIONAL GLUCOSE, 1 HOUR Lab Routine Abnormal glucose tolerance in mother complicating Ordered: 09/27/2022 Health Maintenance Due Date Last Done Comments [...] as of this encounter Visit Diagnoses Diagnosis Abnormal glucose tolerance in mother complicating Abnormal maternal glucose tolerance, complicating , childbirth, or the puerperium, unspecified as to episode of care documented in this encounter Care Teams Cotton Bag Clipper Relationship Specialty Start Date End Date Stefany Keller MD [address] [place] [address] PCP - General Internal Medicine 10/23/17 documented as of this encounter
--- OUTSIDE RECORDS SUMMARY | 2023-01-01 08:47 | External Medical Summary | Summary of Care ---
Author Name Unknown Organization [facility] Address [address] [facility] [place] [address] Phone [phone] Care Team Providers Care Fuselage Framer Name Role Phone Stefany Keller MD Primary Care Provider [phone] Reason for Referral * Evaluate & Treat - Unlimited Visits (Within 10 days (routine)) - Pending Review Specialty Diagnoses / Procedures Referred By Contfrancisco t Referred To Contact Greenhouse Grower / Nutrition Services Diagnoses Diet controlled gestational diabetes mellitus (GDM) in third trimester Marine Rothman CRNP [address] [facility] [place] [address] Referral ID Status Reason Start Date Expiration Date Visits Requested Visits Authorized [id number] Pending Review Specialty Services Required 09/27/[phone] Question Answer Is the patient ? Yes Referral Priority Within 10 days (routine) Comments This referral is for Diabetes Self-Management Training (DSMT) by a recognized [place] [employer] (ADA) inclusion special educator: Nurse (RN), Registered Dietitian Admitting Office Escort (RDN), and/or Diabetes Medical Nutrition Therapy (MNT) Management (dietitian only). Diabetes educators are responsible for assessing the participant's diabetes education needs, and providing diabetes self-management training in accordance with the standards set by the ADA for DSMT. Any adjustment in diabetes therapy will be made within the guidelines of standards of practice and [employer] approved policies and procedures. I understand that the inclusion special educator will keep me informed. Areas of Education: Pathophysiology Nutrition Physical Activity Medications Monitoring Acute Complications Chronic Complications Psychosocial Management Promote Health/Behavior Change Participant will be offered 1:1 education training if there is a lack of classes available within 2 months. Providers can also order 1:1 training if indicated for participant for the following reasons: 1:1 Training for Insulin Initiation Participant Inappropriate for Class Setting By my electronic signature, I understand that my patient will be offered the comprehensive ADA content area above unless deemed not appropriate of I specify otherwise here: * Evaluate & Treat - Unlimited Visits (Within 10 days (routine)) - Pending Review Specialty Diagnoses / Procedures Referred By Oneil leblanc Referred To Contact Obstetrics/Gynecology / Maternal Medicine Diagnoses Diet controlled gestational diabetes mellitus (GDM) in third trimester Marine Rothman CRNP [address] [place] [address] Referral ID Status Reason Start Date Expiration Date Visits Requested Visits Authorized [id number] Pending Review Specialty Services Required 09/27/[phone] Question Answer Referral Priority Within 10 days (routine) Has the patient had a viability scan? Yes Date performed 06/13/2022 Location performed Radiology Reason for referral Diabetes Diabetes type Gestational Comments /Para: LMP: No LMP recorded (lmp unknown). Patient is . RICKY: 12/21/2022, by Ultrasound Pre-Gravid BMI: 29.34 Reason for Visit * Reason Onset Date Comments Medication Refill 10/02/2022 Test Results 09/27/2022 Encounter Details Date Type Department Care Team Description 09/27/2022 Refill Gynecology/Obstetrics [facility] [address] [place] [address] Marine Rothman CRNP [address] [place] [address] Diet controlled gestational diabetes mellitus (GDM) in third trimester*; Other specified related conditions, third trimester Allergies Active Allergy Reactions Severity Noted Date Comments Other Allergy (See Comments) 020 Nuts - not severe documented as of this encounter (statuses as of 10/02/2022) Medications Medication Sig Dispensed Refills Start Date [...] the morning. 90 Tablet 1 09/27/2022 Active Kelan Verio Flex System w/Device Kit Use to test blood sugars 4 times daily (fasting, 1 hour after breakfast, lunch, and dinner) 1 Kit 0 09/27/2022 Active Rev In Vitro Strip (Glucose Blood) Use to test blood sugars 4 times daily (fasting, 1 hour after breakfast, lunch, and dinner) 125 Strip 6 09/27/2022 Active [employer] Delica Lancets 30G Use to test blood sugars 4 times daily (fasting, 1 hour after breakfast, lunch, and dinner) 200 Each 6 09/27/2022 Active documented as of this encounter (statuses as of 10/02/2022) Active Problems Problem Noted Date GDM (gestational diabetes mellitus) 05/2022 Supervision of high risk in se cond [...] deficiency anemia 11/14/2017 Overview: 11/12/17 nL tsh,cmp [id number].,CBC Hb 10.7-mchc indices c/w iron def anemia >12/11- A1c 4.7%, Ferritin low at 8, Tsat 9%-st po iron. Estimated Date of Delivery Comme nts Yes 12/21/2022 Based on Ultraso und documented as of this encounter (statuses as of 10/02/2022) Immunizations Name Administration Dates Next Due Seasonal [...] on file documented as of this encounter Miscellaneous Notes * Telephone Encounter - KATIE Benites - 09/27/2022 2:15 PM EDTSigned Prescriptions: Disp Refills ZipZap System w/Device Kit 1 Kit 0 Sig: Use to test blood sugars 4 times daily (fasting, 1 hour after breakfast, lunch, and dinner) Authorizing Provider: MARINE ROTHMAN OneTouch Verio In Vitro Strip (Glucose Blo*125 St*6 Sig: Use to test blood sugars 4 times daily (fasting, 1 hour after breakfast, lunch, an d dinner) Authorizing Provider: MARINE ROTHMAN Delica Lancets 30G 200 Ea*6 Sig: Use to test blood sugars 4 times daily (fasting, 1 hour after breakfast, lunch, and dinner) Authorizing Provider: MARINE ROTHMAN * Telephone Encounter - KATIE Benites - 09/27/2022 2:15 PM EDT Signed. * Telephone Encounter - Dulce Maria Sims RN - 09/27/2022 2:00 PM EDTPending Prescriptions: Disp Refills OneTouch Verio Flex System w/Device Kit 1 Kit 0 Sig: Use to test blood sugars 4 times daily (fasting, 1 hour after breakfast, lunch, and dinner) OneTouch Verio In Vitro Strip (Glucose Blo*125 St*6 Sig: Use to test blood sugars 4 times daily (fasting, 1 hour after breakfast, lunch, and dinner) OneTouch Delica Lancets 3 0G 200 Ea*6 Sig: Use to test blood sugars 4 times daily (fasting, 1 hour after breakfast, lunch, and dinner) * Telephone Encounter - Dulce Maria Sims RN - 09/27/2022 1:58 PM EDT Patient called and made aware. Patient verbalized understanding to all. Patient had no questions. [facility] Pharmacy updated. * Telephone Encounter - KATIE Benites - 09/27/2022 1:19 PM EDT Results of 3hr GTT confirm she has gestational diabetes. Will refer to MFM for GDM management. Ask pharmacy so I can send testing supplies. Will need to test 4 times a day. documented in this encounter Plan of Treatment Upcoming Encounters Date Type Specialty Care Team Description 10/07/2022 Telemedicine Maternal Medicine Ashley Rajput CRNP [address] [place] [address] 10/09/2022 Office Visit Gynecology Obstetrics Backer, KATIE Finch [address] [place] [address] 10/23/2022 Office Visit Hematology Oncology Sergey Hathaway MD [address] [place] [address] Scheduled Orders Name Type Priority Associated Diagnoses Orde r Schedule MFM US MATERNAL 1ST FETUS Medical Imaging Routine Diet controlled gestational diabetes mellitus (GDM) in third trimester Other specified related conditions, third trimester Expected: 09/27/2022, Expires: 10/29/2023 Scheduled Referrals Name Type Priority Associated Diagnoses Orde r Schedule MATERNAL MEDICINE REFERRAL OP Referral Within 10 days (routine) Diet controlled gestational diabetes mellitus (GDM) in third trimester Ordered: 09/27/2022 DIABETES MANAGEMENT EDUCATION (ADA) REFERRAL Referral Within 10 days (routine) Diet controlled gestational diabetes mellitus (GDM) in third trimester Ordered: 09/27/2022 Health Maintenance Due Date Last [...] Diagnoses Diagnosis Diet controlled gestational diabetes mellitus (GDM) in third trimester- Primary Other specified related conditions, third trimester documented in this encounter Care Teams Fuselage Framer Relationship Specialty Start Date End Date Stefany Keller MD 200 [facility] [place] [place] [address] PCP - General Internal Medicine 10/23/17 documented as of this encounter
--- OUTSIDE RECORDS SUMMARY | 2023-01-01 08:47 | External Medical Summary ---
Author Name Unknown Address Unknown Organization [facility] [place] [address] Laboratory Report Ordering Provider Test Date Status JEWELL HAWTHORNE 09/27/2022 08:55:50 Final Observation Date Value Abnormality Reference (Units ) Status Glucose [Mass/volume] in Serum or Plasma --1 hour post dose glucose 09/27/2022 08:55:50 205 Above high normal 70-179 (mg/dL) Final Performing Location [facility] [place] [address]
--- OUTSIDE RECORDS SUMMARY | 2023-01-01 08:47 | External Medical Summary ---
Author Name Unknown Address Unknown Organization [facility] [place] [address] Laboratory Report Ordering Provider Test Date Status JEWELL HAWTHORNE 09/27/2022 10:55:26 Final Observation Date Value Abnormality Reference (Units ) Status Glucose [Mass/volume] in Serum or Plasma --3 hours post dose glucose 09/27/2022 10:55:26 129 70-139 (mg/dL) Final Performing Location [facility] [place] [address]
--- OUTSIDE RECORDS SUMMARY | 2023-01-01 08:47 | External Medical Summary | Summary of Care ---
Author Name Unknown Organization [facility] Address [address] [facility] [place] [address] Phone [phone] Care Team Providers Care Armature Coil Winder Name Role Phone Stefany Keller MD Primary Care Provider [phone] Encounter Details Date Type Department Care Team Description 09/25/2022 Telephone Gynecology/Obstetrics [facility] [address] [place] [address] Isaura Rothman CRNP [address] [facility], [place] [id number] Allergies Active Allergy Reactions Severity Noted Date Comments Other Allergy (See Comments) 020 Nuts - not severe documented as of this encounter (statuses as of 09/25/2022) Medications Medication Sig Dispensed Refills Start Date [...] as of this encounter (statuses as of 09/25/2022) Active Problems Problem Noted Date Supervision of [...] deficiency anemia 11/14/2017 Overview: 11/12/17 nL tsh,cmp [id number].,CBC Hb 10.7-mchc indices c/w iron def anemia >18- A1c 4.7%, Ferritin low at 8, Tsat 9%-st po iron. Estimated Date of Delivery Comme nts Yes 12/21/2022 Based on Ultraso und documented as of this encounter (statuses as of 09/25/2022) Immunizations Name Administration Dates Next Due Seasonal [...] encounter Miscellaneous Notes * Telephone Encounter - Purvi Bolanos LPN - 09/25/2022 1:47 PM EDT Spoke with pt she verbalized understanding transferrred to aaron to schedule. * Telephone Encounter - KATIE Benites - 09/25/2022 12:56 PM EDT Please notify pt that glucola elevated (171). Needs 3hr GTT. Orders placed. documented in this encounter Plan of Treatment Upcoming Encounters Date Type Specialty Care Team Description 09/27/2022 Laboratory Laboratory [facility] [address] [place] [address] 10/09/2022 Office Visit Gynecology Obstetrics Backer, KATIE Finch 132 [facility] [place] [address] 10/23/2022 Office Visit Hematology Oncology Sergey Hathaway MD [address] [place] [address] Scheduled Orders Name Type Priority Associated Diagnoses Orde r Schedule GESTATIONAL GLUCOSE TOLERANCE, 3 HOUR Lab Routine Abnormal glucose tolerance in mother complicating Expected: 09/26/2022 (Approximate), Expires: 09/26/2023 Health Maintenance Due Date Last Done Comments [...] Diagnosis Abnormal glucose tolerance in mother complicating - Primary Abnormal maternal glucose tolerance, complicating , childbirth, or the puerperium, unspecified as to episode of care documented in this encounter Care Teams Armature Coil Winder Relationship Specialty Start Date End Date Stefany Keller MD [address] [place] [address], [place] [address] PCP - General Internal Medicine 10/23/17 documented as of this encounter
--- OUTSIDE RECORDS SUMMARY | 2023-01-01 08:47 | External Medical Summary | Summary of Care ---
Author Name Unknown Organization [facility] Address [address] [place] [address] Phone [phone] Care Team Providers Care Load Tester Name Role Phone Stefany Keller MD Primary Care Provider [phone] Reason for Visit * Reason Comments Outpatient Testing Encounter Details Date Type Department Care Team Description 09/27/2022 Laboratory Laboratory [facility] [address] [place] [address] [facility] [address] [place] [address] Abnormal glucose tolerance in mother complicating [...] deficiency anemia 11/14/2017 Overview: 11/12/17 nL tsh,cmp [id number].,CBC Hb 10.7-mchc indices c/w iron def anemia [...] KATIE Finch [address] [place] [address] 10/23/2022 Office Visit Hematology Oncology Sergey Hathaway MD 200 [facility] [place] [address] Pending Results Name Type Priority Associated Diagnoses Date /Time GESTATIONAL GLUCOSE TOLERANCE, 3 HOUR Lab Routine Abnormal glucose tolerance in mother complicating 09/27/2022 7:53 AM EDT 100-G GESTATIONAL GLUCOSE, 2 HOUR Lab Routine Abnormal glucose tolerance in mother complicating 09/27/2022 9:54 AM EDT Scheduled Orders Name Type Priority Associated Diagnoses Orde r Schedule 100-G GESTATIONAL GLUCOSE, 3 HOUR Lab Routine Abnormal glucose tolerance [...] Not on filedocumented as of this encounter Procedures Procedure Name Priority Date/Time Associated Diagnosis Comments 100-G GESTATIONAL GLUCOSE, 1 HOUR Routine 09/27/2022 8:55 AM EDT Abnormal glucose tolerance in mother complicating 100-G GESTATIONAL GLUCOSE, FASTING Routine 09/27/2022 7:53 AM EDT Abnormal glucose tolerance in mother complicating documented in this encounter Results * (ABNORMAL) 100-G GESTATIONAL GLUCOSE, 1 HOUR (09/27/2022 8:55 AM EDT) 100-g Gestational Glucose, 1 Hour 205(H) 70 - 179 mg/dL 09/27/2022 9:44 AM EDT [facility] 56-02 Blood Venous blood specimen / Unknown Venipuncture / Unknown 09/27/2022 8:55 AM EDT 09/27/2022 8:55 AM EDT Isaura WILSON [facility] BLOOD ORDERABLES [facility] [address]- [address] [place], [place] [id number] * (ABNORMAL) 100-G GESTATIONAL GLUCOSE, FASTING (09/27/2022 7:53 AM EDT) 100-g Gestational Glucose, Fasting 95(H) 70 - 94 mg/dL 09/27/2022 9:17 AM EDT [facility] 56-02 Blood Venous blood specimen / Unknown Venipuncture / Unknown 09/27/2022 7:53 AM EDT 09/27/2022 7:53 AM EDT Narrative [facility] 56-02 - 09/27/2022 9:17 AM EDT Based on ACOG guideline, gestational diabetes mellitus is diagnosed when any of the following is met: Fasting is greater than or equal to 95 mg/dL 1 hour is greater than or equal to 180 mg/dL 2 hour is greater than or equal to 155 mg/dL 3 hour is greater than or equal to 140 mg/dL Isaura Kellogg Stephan [facility] BLO[facility] ORDER[facility] [place] 56 [address] [place] [address] documented in this encounter Visit Diagnoses Diagnosis Abnormal glucose tolerance in mother complicating Abnormal maternal glucose tolerance, complicating , childbirth, or the puerperium, unspecified as to episode of care documented in this encounter Care Teams Load Tester Relationship Specialty Start Date End Date Stefany Keller MD [address] [place] [address] PCP - General Internal Medicine 10/23/17 documented as of this encounter
--- OUTSIDE RECORDS SUMMARY | 2023-01-01 08:47 | External Medical Summary | Summary of Care ---
Author Name Unknown Organization [facility] Address [address] [place] [address] Phone [phone] Care Team Providers Care Cradle Placer Name Role Phone Stefany Keller MD Primary Care Provider [phone] Reason for Visit * Reason Comments Outpatient Testing Encounter Details Date Type Department Care Team Description 09/27/2022 Laboratory Laboratory [facility] [address] [place] [address] [facility] [address] [place] [address] Abnormal glucose tolerance in mother complicating [...] deficiency anemia 11/14/2017 Overview: 11/12/17 nL tsh,cmp [id number].,CBC Hb 10.7-mchc indices c/w iron def anemia [...] Team Description 10/09/2022 Office Visit Gynecology Obstetrics BackerLina CRNP [address] [place] [address] 10/23/2022 Office Visit Hematology Oncology [facility] [address] Pending Results Name Type Priority Associated Diagnoses Date /Time GESTATIONAL GLUCOSE TOLERANCE, 3 HOUR Lab Routine Abnormal glucose tolerance in mother complicating 09/27/2022 7:53 AM EDT 100-G GESTATIONAL GLUCOSE, 2 HOUR Lab Routine Abnormal glucose tolerance in mother complicating 09/27/2022 9:54 AM EDT 100-G GESTATIONAL GLUCOSE, 3 HOUR Lab Routine Abnormal glucose tolerance in mother complicating 09/27/2022 10:55 AM EDT Health Maintenance Due Date Last Done [...] - 179 mg/dL 09/27/2022 9:44 AM EDT [facility] 56-02 Blood Venous blood specimen / Unknown Venipuncture / Unknown 09/27/2022 8:55 AM EDT 09/27/2022 8:55 AM EDT Isaura WILSON LAB BLOOD ORDERABLES [facility] [address]- [address] [place], [place] [id number] * (ABNORMAL) 100-G GESTATIONAL GLUCOSE, FASTING (09/27/2022 7:53 AM EDT) 100-g Gestational Glucose, Fasting 95(H) 70 - 94 mg/dL 09/27/2022 9:17 AM EDT [facility] 56-02 Blood Venous blood specimen / Unknown Venipuncture / Unknown 09/27/2022 7:53 AM EDT 09/27/2022 7:53 AM EDT Narrative [facility] 56-02 - 09/27/2022 9:17 AM EDT Based [...] Kellogg Stephan W[facility]SON [facility]OD [facility] [place] [address] [place] [address] documented in this encounter Visit Diagnoses Diagnosis Abnormal glucose tolerance in mother complicating Abnormal maternal glucose tolerance, complicating , childbirth, or the puerperium, unspecified as to episode of care documented in this encounter Care Teams Cradle Placer Relationship Specialty Start Date End Date Stefany Keller MD 200 [place] [address] PCP - General Internal Medicine 10/23/17 documented as of this encounter
--- OUTSIDE RECORDS SUMMARY | 2023-01-01 08:47 | External Medical Summary | Summary of Care ---
Author Name Unknown Organization [facility] Address [address] [place] [address] Phone [phone] Care Team Providers Care Gauge Maker Apprentice Name Role Phone Stefany Keller MD Primary Care Provider [phone] Reason for Visit * Reason Comments Outpatient Testing Encounter Details Date Type Department Care Team Description 09/27/2022 Laboratory Laboratory [facility] [address] [place] [address] [facility] [address] [place] [address] Abnormal glucose tolerance in mother complicating [...] deficiency anemia 11/14/2017 Overview: 11/12/17 nL tsh,cmp [id number].,CBC Hb 10.7-mchc indices c/w iron def anemia [...] KATIE Finch [address] [place] [address] 10/23/2022 Office Visit Hematology Oncology Sergey Hathaway MD 200 [facility] [place] [address] Pending Results Name Type Priority Associated Diagnoses Date /Time GESTATIONAL GLUCOSE TOLERANCE, 3 HOUR Lab Routine Abnormal glucose tolerance in mother complicating 09/27/2022 7:53 AM EDT 100-G GESTATIONAL GLUCOSE, FASTING Lab Routine Abnormal glucose tolerance in mother complicating 09/27/2022 7:53 AM EDT 100-G GESTATIONAL GLUCOSE, 1 HOUR Lab Routine Abnormal glucose tolerance in mother complicating 09/27/2022 8:55 AM EDT Scheduled Orders Name Type Priority Associated Diagnoses Orde r Schedule 100-G GESTATIONAL GLUCOSE, 2 HOUR Lab Routine [...] care documented in this encounter Care Teams Gauge Maker Apprentice Relationship Specialty Start Date End Date Stefany Keller MD [address] [place] [address] PCP - General Internal Medicine 10/23/17 documented as of this encounter
--- OUTSIDE RECORDS SUMMARY | 2023-01-01 08:47 | External Medical Summary | Summary of Care ---
Author Name Unknown Organization [facility] Address [address] [place] [address] Phone [phone] Care Team Providers Care Senior Gis Analyst Name Role Phone Stefany Keller MD Primary Care Provider [phone] Reason for Visit * Reason Onset Date Comments Referral 09/27/2022 Encounter Details Date Type Department Care Team Description 09/27/2022 Telephone [facility] Obstetrics Maternal Medicine, [place] [address], [place] [id number] [place], Nurse Spinner Open End [facility] [address] [place] [address] Referral Allergies Active Allergy Reactions Severity Noted Date Comments Other Allergy (See Comments) 020 Nuts - not severe documented as of this encounter (statuses as of 09/30/2022) Medications Medication Sig Dispensed Refills Start Date [...] the morning. 90 Tablet 1 09/27/2022 Active BoardBookit Flex System w/Device Kit Use to test blood sugars 4 times daily (fasting, 1 hour after breakfast, lunch, and dinner) 1 Kit 0 09/27/2022 Active FoodzaiTouch Verio In Vitro Strip (Glucose Blood) Use to test blood sugars 4 times daily (fasting, 1 hour after breakfast, lunch, and dinner) 125 Strip 6 09/27/2022 Active FoodzaiTouch Delica Lancets 30G Use to test blood sugars 4 times daily (fasting, 1 hour after breakfast, lunch, and dinner) 200 Each 6 09/27/2022 Active documented as of this encounter (statuses as of 09/30/2022) Active Problems Problem Noted Date GDM (gestational [...] deficiency anemia 11/14/2017 Overview: 11/12/17 nL tsh,cmp [id number].,CBC Hb 10.7-mchc indices c/w iron def anemia >12/11- A1c 4.7%, Ferritin low at 8, Tsat 9%-st po iron. Estimated Date of Delivery Comme nts Yes 12/21/2022 Based on Ultraso und documented as of this encounter (statuses as of 09/30/2022) Immunizations Name Administration Dates Next Due Seasonal [...] encounter Miscellaneous Notes * Telephone Encounter - REBECCA Horta - 09/30/2022 8:39 AM EDT Was able to schedule video but did not see the point of ultrasound, said she would be speaking to provider that referred her. * Telephone Encounter - JULIENNE Curtis - 09/27/2022 4:11 PM EDT Estimated Date of Delivery: 12/21/22 Please schedule for 45 MINUTE ADAPT WITH GRAPHICS INTERN, in time frame of within 1 week at [facility] with the indication of GDM. Please schedule GROWTH (short scan) within 2-3 weeks. Referring Provider: KATIE Benites documented in this encounter Plan of Treatment Upcoming Encounters Date Type Specialty Care Team Description 10/07/2022 Telemedicine Maternal Medicine Ashley Rajput CRNP [address] [place] [address] 10/09/2022 Office Visit Gynecology Obstetrics Backer, Lina Juve, KATIE [address] [place] [address] 10/23/2022 Office Visit Hematology Oncology Sergey Hathaway MD [address] [place] [address] Health Maintenance Due Date Last Done Comments [...] Not on filedocumented as of this encounter Care Teams Senior Gis Analyst Relationship Specialty Start Date End Date Stefany Keller MD 200 [place] [address] PCP - General Internal Medicine 10/23/17 documented as of this encounter
--- OUTSIDE RECORDS SUMMARY | 2023-01-01 08:48 | External Medical Summary ---
Author Name Unknown Address Unknown Organization [id number]:LABORATORY [facility] [place] - [address] [place] [address] Laboratory Report Ordering Provider Test Date Status JEWELL HAWTHORNE 09/25/2022 11:37:30 Final Observation Date Value Abnormality Reference (Units ) Status Folic Acid 09/25/2022 11:37:30 >20.0 >4.5 (ng/ mL) Final Performing Location [facility] - [address] [place] [address]
--- OUTSIDE RECORDS SUMMARY | 2023-01-01 08:48 | External Medical Summary ---
Author Name Unknown Address Unknown Organization [id number]:LABORATORY [facility] [place] - [address] [facility] [address] Laboratory Report Ordering Provider Test Date Status JEWELL HAWTHORNE 09/25/2022 11:37:30 Final Observation Date Value Abnormality Reference (Units ) Status Treponema pallidum Ab [Presence] in Serum by Immunoassay 09/25/2022 11:37:30 Nonreactive Nonreactive Final No serologic evidence of syp hilis. No additional testing clinicially indicated at this time. Consider repeat testing in 2-4 weeks if acute or primary syphilis is suspected. Performing Location LABORATORY [facility] [place] - [address] [place] [address]
--- OUTSIDE RECORDS SUMMARY | 2023-01-01 08:48 | External Medical Summary ---
Author Name Unknown Address Unknown Organization [id number][facility] [address] [place] [address] Laboratory Report Ordering Provider Test Date Status MARINEJEWELL 09/25/2022 11:37:30 Final Observation Date Value Abnormality Reference (Units ) Status Glucose [Moles/volume] in Serum or Plasma --1 hour post 50 g glucose PO 09/25/2022 11:37:30 171 Above high normal 70-129 (mg/dL) Final Performing Location LABORATORY [place] [address] - [address] [place] [address]
--- OUTSIDE RECORDS SUMMARY | 2023-01-01 08:48 | External Medical Summary ---
Author Name Unknown Address Unknown Organization [id number]:LABORATORY [facility] [place] - [address] [address] Laboratory Report Ordering Provider Test Date Status JEWELL HAWTHORNE 09/25/2022 11:37:30 Final Observation Date Value Abnormality Reference (Units ) Status Retic, % (auto) 09/25/2022 11:37:30 4.06 Above high normal 0.80-1.90 (%) Final Reticulocytes, Absolute 09/25/2022 11:37:30 160.0 Above high normal 31.3-100.1 (K/uL) Final Reticulocyte fraction, immature 09/25/2022 11:37:30 23.3 Above high normal 2.5-20.6 (%) Final Reticulocyte HGB 09/25/2022 11:37:30 31.1 29.7-37.4 (pg) Final Performing Location LABORATORY [facility] [place] [facility] [address] [facility] [address]
--- OUTSIDE RECORDS SUMMARY | 2023-01-01 08:48 | External Medical Summary ---
Author Name Unknown Address Unknown Organization [id number]:LABORATORY [facility] [place] - [address] [place] [address] Laboratory Report Ordering Provider Test Date Status JEWELL HAWTHORNE 09/25/2022 11:37:30 Final Observation Date Value Abnormality Reference (Units ) Status Vitamin B12 09/25/2022 11:37:30 166 Below low normal 2 32-1245 (pg/mL) Final Performing Location [facility] - [address] [address]
--- OUTSIDE RECORDS SUMMARY | 2023-01-01 08:48 | External Medical Summary ---
Author Name Unknown Address Unknown Organization [id number]:[place] [facility] [place] [address] [place] [address] Laboratory Report Ordering Provider Test Date Status JEWELL HAWTHORNE 09/25/2022 11:37:30 Final Observation Date Value Abnormality Reference (Units ) Status Iron 09/25/2022 11:37:30 60 33-151 (ug/dL) Final Iron-binding capacity 09/25/2022 11:37:30 421 250-425 (ug/dL) Final Transferrin Sat % 09/25/2022 11:37:30 14 Below low normal 15-55 (%) Final Performing Location [facility] [place] [address] [place] [address]
--- OUTSIDE RECORDS SUMMARY | 2023-01-01 08:48 | External Medical Summary | Summary of Care ---
Author Name Unknown Organization [facility] Address [address] [facility] [place] [address] Phone [phone] Care Team Providers Care Mechanotherapist Name Role Phone Stefany Keller MD Primary Care Provider [phone] Reason for Visit * Reason Comments Return Visit Encounter Details Date Type Department Care Team Description 09/10/2022 Office Visit Gynecology/Obstetrics [facility] [address] [place] [address] Isaura Rothman CRNP [address] [place] [address] Multigravida of advanced maternal age in second trimester*; Thrombocytosis; Antepartum anemia complicating Allergies Active Allergy Reactions Severity Noted Date Comments Other Allergy (See Comments) 020 Nuts - not severe documented as of this encounter (statuses as of 09/10/2022) Medications Medication Sig Dispensed Refills Start Date [...] as of this encounter (statuses as of 09/10/2022) Active Problems Problem Noted Date Supervision of [...] deficiency anemia 11/14/2017 Overview: 11/12/17 nL tsh,cmp [id number].,CBC Hb 10.7-mchc indices c/w iron def anemia >12/11- A1c 4.7%, Ferritin low at 8, Tsat 9%-st po iron. Estimated Date of Delivery Comme nts Yes 12/21/2022 Based on Ultraso und documented as of this encounter (statuses as of 09/10/2022) Immunizations Name Administration Dates Next Due Seasonal [...] Sign Reading Time Taken Comments Blood Pressure 118/60 09/10/2022 1:42 PM EDT Pulse - - Temperature - - Respiratory Rate - - Oxygen Saturation - - Inhaled Oxygen Concentration - - Weight 79.6 kg (175 lb 6.4 oz) 09/10/2022 1:42 P M EDT Height 162.6 cm (5' 4") 09/10/2022 1:42 PM EDT Body Mass Index 30.11 09/10/2022 1:42 PM EDT documented in this encounter Progress Notes * KATIE Benites - 09/10/2022 2:05 PM EDT 25w3d No significant concerns. Feeling emotional at times, reassured this is not uncommon in . Feels happy, safe. Baby moving a lot. No bleeding or LOF, some BH contractions in the evening. Taking PNV and iron. Glucola with next visit. KATIE Benites documented in this encounter Nursing Notes * PETROS Lugo - 09/10/2022 1:49 PM EDT 25w3d Pt denies any concerns. 28wk packet provided. documented in this encounter Plan of Treatment Upcoming Encounters Date Type Specialty Care Team Description 09/25/2022 Laboratory Laboratory Geoffrey Mcgee 132 [facility] [place] [address] 10/23/2022 Office Visit Hematology Oncology Sergey Hathaway MD 200 [facility] [place] [address] Scheduled Orders Name Type Priority Associated Diagnoses Orde r Schedule CBC WITH WBC DIFFERENTIAL AND ANEMIA REFLEX WORKUP Lab Routine Multigravida of advanced maternal age in second trimester Expected: 10/11/2022 (Approximate), Expires: 09/11/2023 50-G GESTATIONAL GLUCOSE, 1 HOUR Lab Routine Multigravida of advanced maternal age in second trimester Expected: 10/11/2022 (Approximate), Expires: 09/11/2023 SYPHILIS ANTIBODY SCREEN WITH REFLEX TO RPR Lab Routine Multigravida of advanced maternal age in second trimester Expected: 10/11/2022 (Approximate), Expires: 09/11/2023 Health Maintenance Due Date Last Done Comments Hepatitis B (1 of 3 - 3-dose series) 1985 Depression Screening, Annual for Pts 12 and Over 12/01/2018 12/01/2017 COVID-19 Vaccine (2 - Pfizer series) 03/30/2021 02/02/2021 Influenza Vaccine (FLU shot) (#1) 2022 04/27/2019 Diabetes Screening 07/17/2025 07/17/2022, 0 07/28/2019, 11/25/2017, Additional history exists DTaP,Tdap,and Td Vaccines (2 - Td or Tdap) 06/30/2026 06/30/2016 Pap Smear 07/13/2027 07/12/2022 Hepatitis C Screening Completed 06/13/2022 [...] Diagnosis Multigravida of advanced maternal age in second trimester- Primary Thrombocytosis Essential thrombocythemia Antepartum anemia complicating Anemia, antepartum documented in this encounter Care Teams Mechanotherapist Relationship Specialty Start Date End Date Stefany Keller MD [address] [place] [address], [place] [address] PCP - General Internal Medicine 10/23/17 documented as of this encounter
--- OUTSIDE RECORDS SUMMARY | 2023-01-01 08:48 | External Medical Summary ---
Author Name Unknown Address Unknown Organization [id number]:LABORATORY [facility] [place] - [address] [facility] [address] Laboratory Report Ordering Provider Test Date Status JUSTICE HAWTHORNEAIL 09/25/2022 11:37:30 Final Observation Date Value Abnormality Reference (Units ) Status WBC, Total 09/25/2022 11:37:30 8.59 4.00-10.8 0 (K/uL) Final RBC 09/25/2022 11:37:30 3.95 3.85-5.15 (M/uL) Final Hemoglobin 09/25/2022 11:37:30 11.4 Below low normal 12 .0-15.3 (g/dL) Final Anemia reflex testing trigge rs on a HGB < 12.0 for Females and HGB < 13.0 for Males in accordance with the WHO Anemia Guidelines
Anemia reflex testing triggers on a HGB < 12.0 for Females and HGB < 13.0 for Males in accordance with the WHO Anemia Guidelines HCT 09/25/2022 11:37:30 35.9 Below low normal 36. 0-45.2 (%) Final MCV 09/25/2022 11:37:30 90.9 81.5-97.5 (fL) Final MCH 09/25/2022 11:37:30 28.9 27.0-34.0 (pg) Final MCHC 09/25/2022 11:37:30 31.8 32.0-36.0 (g/dL) Final RDW 09/25/2022 11:37:30 15.4 11.5-15.5 (%) Final Platelets 09/25/2022 11:37:30 274 140-400 (K /uL) Final MPV 09/25/2022 11:37:30 12.5 6.6-11.1 ( fL) Final Nucleated erythrocytes/100 leukocytes [Ratio] in Blood by Automated count 09/25/2022 11:37:30 0 <=0 (/100 WBCs) Final Performing Location LAB[facility]ATORY [facility] - [address] [facility] [address]
--- OUTSIDE RECORDS SUMMARY | 2023-01-01 08:48 | External Medical Summary ---
Author Name Unknown Address Unknown Organization K01:[place] [facility] [place] [facility] [place] [address] Laboratory Report Ordering Provider Test Date Status JEWELL HAWTHORNE 09/25/2022 11:37:30 Final Observation Date Value Abnormality Reference (Units ) Status Creatinine 09/25/2022 11:37:30 0.6 0.5-1.0 (mg/dL) Final Glomerular filtration rate/1.73 sq M.predicted [Volume Rate/Area] in Serum, Plasma or Blood by Creatinine-based formula (CKD-EPI) 09/25/2022 11:37:30 >90 >=60 (mL/min) Final eGFR is calculated based on the CKD-EPI 2020 equation Performing Location [place] [facility] [place] [facility] [place] [address]
--- OUTSIDE RECORDS SUMMARY | 2023-01-01 08:48 | External Medical Summary | Summary of Care ---
Author Name Unknown Organization [facility] Address [address] [facility] [place] [address] Phone [phone] Care Team Providers Care Personal Injury Paralegal Name Role Phone Stefany Keller MD Primary Care Provider [phone] Reason for Visit * Reason Comments Return Visit Encounter Details Date Type Department Care Team Description 08/09/2022 Office Visit Gynecology/Obstetrics [facility] [address] [place] [address] Isaura Rothman CRNP [address] [place] [address] Thrombocytosis*; Multigravida of advanced maternal age in second trimester; Antepartum anemia complicating Allergies Active Allergy Reactions Severity Noted Date Comments Other Allergy (See Comments) 020 Nuts - not severe documented as of this encounter (statuses as of 08/09/2022) Medications Medication Sig Dispensed Refills Start Date [...] as of this encounter (statuses as of 08/09/2022) Active Problems Problem Noted Date Supervision of [...] deficiency anemia 11/14/2017 Overview: 11/12/17 nL tsh,cmp [id number].,CBC Hb 10.7-mchc indices c/w iron def anemia >12/11- A1c 4.7%, Ferritin low at 8, Tsat 9%-st po iron. Estimated Date of Delivery Comme nts Yes 12/21/2022 Based on Ultraso und documented as of this encounter (statuses as of 08/09/2022) Immunizations Name Administration Dates Next Due Seasonal [...] Ultraso und Sex Assigned at Date Recorded Not on file Job Start Date Occupation Industry Not on file Not on file Not on file documented as of this encounter Last Filed Vital Signs Vital Sign Reading Time Taken Comments Blood Pressure 110/60 08/09/2022 10:57 AM EDT Pulse - - Temperature - - Respiratory Rate - - Oxygen Saturation - - Inhaled Oxygen Concentration - - Weight 77.6 kg (171 lb) 08/09/2022 10:57 AM EDT Height 162.6 cm (5' 4") 08/09/2022 10:57 AM EDT Body Mass Index 29.35 08/09/2022 10:57 AM EDT documented in this encounter Progress Notes * KATIE Benites - 08/09/2022 11:12 AM EDT 20w6d Taking Miralax for constipation, which then at times causes diarrhea. Discussed titration of dose or adjusting frequency of taking. No other concerns. Has not felt FM yet, has anterior placenta. No vaginal bleeding or LOF. Following with hematology and MFM. Anatomy u/s completed through MFM. KATIE Benites documented in this encounter Nursing Notes * Purvi Bolanos LPN - 08/09/2022 11:00 AM EDT 20w6d Spoke with hem said she doesn't need infusion yet documented in this encounter Plan of Treatment Upcoming Encounters Date Type Specialty Care Team Description 09/10/2022 Office Visit Gynecology Obstetrics Isaura Rothman CRNP [address] [place] [address] 10/23/2022 Office Visit Hematology Oncology Sergey Hathaway MD 200 [facility], [place] [id number] Health Maintenance Due Date Last Done Comments Hepatitis B (1 of 3 - 3-dose series) 1985 Depression Screening, Annual for Pts 12 and Over 12/01/2018 12/01/2017 COVID-19 Vaccine (2 - Pfizer series) 03/30/2021 02/02/2021 Influenza Vaccine (FLU shot) (Season Ended) 2022 04/27/2019 Diabetes Screening 07/17/2025 07/17/2022, 0 [...] as of this encounter Visit Diagnoses Diagnosis Thrombocytosis- Primary Essential thrombocythemia Multigravida of advanced maternal age in second trimester Antepartum anemia complicating Anemia, antepartum documented in this encounter Care Teams Personal Injury Paralegal Relationship Specialty Start Date End Date Stefany Keller MD [address] [place] [address], [place] [address] PCP - General Internal Medicine 10/23/17 documented as of this encounter
--- OUTSIDE RECORDS SUMMARY | 2023-01-01 08:48 | External Medical Summary | Summary of Care ---
Author Name Unknown Organization [facility] Address [address] [facility] [place] [address] Phone [phone] Care Team Providers Care Commercial Floor Covering Installer Name Role Phone Stefany Keller MD Primary Care Provider Reason for Visit * Reason Comments Return Visit Encounter Details Date Type Department Care Team Description 09/25/2022 Office Visit Gynecology/Obstetrics [facility] [address] [place] [address] Adeola Faye PA-C [address] [place] [address] Thrombocytosis*; Multigravida of advanced maternal age in [...] deficiency anemia 11/14/2017 Overview: 11/12/17 nL tsh,cmp [id number].,CBC Hb 10.7-mchc indices c/w iron def anemia [...] Sign Reading Time Taken Comments Blood Pressure 104/68 09/25/2022 10:08 AM EDT Pulse - - Temperature - - Respiratory Rate - - Oxygen Saturation - - Inhaled Oxygen Concentration - - Weight 79.4 kg (175 lb) 09/25/2022 10:08 AM EDT Height 162.6 cm (5' 4") 09/25/2022 10:08 AM EDT Body Mass Index 30.04 09/25/2022 10:08 AM EDT documented in this encounter Progress Notes * Adeola Faye PA-C - 09/25/2022 10:29 AM EDT 27w3d Completing third tri labs today. Counseled on Tdap, pt would like to review with spouse and decide with next visit. Denies concerns. No leaking/bleeding/contractions. Baby is moving appropriately. RTC in 2 weeks Adeola Faye PA-C documented in this encounter Nursing Notes * Liza Alfonso LPN - 09/25/2022 10:12 AM EDT 27w4d Denies concerns Completing labs Declines tdap documented in this encounter Plan of Treatment Upcoming Encounters Date Type Specialty Care Team Description 10/09/2022 Office Visit Gynecology Obstetrics Lina Stoll CRNP [address] [place] [address] 10/23/2022 Office Visit Hematology Oncology Sergey Hathaway MD 200 [facility] [place] [place] [id number] Health Maintenance Due Date Last Done Comments [...] antepartum documented in this encounter Care Teams Commercial Floor Covering Installer Relationship Specialty Start Date End Date Stefany Keller MD 200 [place] [address] PCP - General Internal Medicine 10/23/17 documented as of this encounter
--- OUTSIDE RECORDS SUMMARY | 2023-01-01 08:48 | External Medical Summary | Summary of Care ---
Author Name Unknown Organization [facility] Address [address] [facility] [place] [address] Phone [phone] Care Team Providers Care Coordinator Volunteer Services Name Role Phone Stefany Keller MD Primary Care Provider [phone] Reason for Visit * Reason Comments Outpatient Testing Encounter Details Date Type Department Care Team Description 09/25/2022 Laboratory Laboratory, [facility] 132 [facility] [place] [address] [facility] [address] [place] [address] Multigravida of advanced maternal age in second trimester Allergies Active Allergy Reactions Severity Noted [...] deficiency anemia 11/14/2017 Overview: 11/12/17 nL tsh,cmp [id number].,CBC Hb 10.7-mchc indices c/w iron def anemia [...] KATIE Finch [address] [place] [address] 10/23/2022 Office Visit Hematology Oncology Sergey Hathaway MD [address] [place] [id number] Pending Results Name Type Priority Associated Diagnoses Date /Time CBC WITH WBC DIFFERENTIAL AND ANEMIA REFLEX WORKUP Lab Routine Multigravida of advanced maternal age in second trimester 09/25/2022 11:37 AM EDT 50-G GESTATIONAL GLUCOSE, 1 HOUR Lab Routine Multigravida of advanced maternal age in second trimester 09/25/2022 11:37 AM EDT SYPHILIS ANTIBODY SCREEN WITH REFLEX TO RPR Lab Routine Multigravida of advanced maternal age in second trimester 09/25/2022 11:37 AM EDT ANEMIA CBC Lab Routine Multigravida of advanced maternal age in second trimester 09/25/2022 11:37 AM EDT DIFFERENTIAL, AUTOMATED Lab Routine Multigravida of advanced maternal age in second trimester 09/25/2022 11:37 AM EDT ANEMIA REFLEX CHEMISTRY HOLD Lab Routine Multigravida of advanced maternal age in second trimester 09/25/2022 11:37 AM EDT SYPHILIS ANTIBODY SCREEN Lab Routine Multigravida of advanced maternal age in second trimester 09/25/2022 11:37 AM EDT Health Maintenance Due Date Last [...] of advanced maternal age in second trimester documented in this encounter Care Teams Coordinator Volunteer Services Relationship Specialty Start Date End Date Stefany Keller MD 200 [place] [address] PCP - General Internal Medicine 10/23/17 documented as of this encounter
--- OUTSIDE RECORDS SUMMARY | 2023-01-01 08:48 | External Medical Summary ---
Author Name Unknown Address Unknown Organization K01:[facility]ORY [facility] - [address] [place] [address] Laboratory Report Ordering Provider Test Date Status JEWELL HAWTHORNE 09/25/2022 11:37:30 Final Observation Date Value Abnormality Reference (Units ) Status Ferritin 09/25/2022 11:37:30 31 13-150 (ng /mL) Final Performing Location LAB[facility] - [address] [place] [address]
--- OUTSIDE RECORDS SUMMARY | 2023-01-01 08:48 | External Medical Summary ---
Author Name Unknown Address Unknown Organization K01:LABORATORY [facility] - [address] [place] [address] Laboratory Report Ordering Provider Test Date Status JEWELL HAWTHORNE 09/25/2022 11:37:30 Final Observation Date Value Abnormality Reference (Units ) Status TSH 09/25/2022 11:37:30 1.99 0.27-4.20 (uIU/mL) Final Performing Location [facility] [address] [facility] [address]
--- OUTSIDE RECORDS SUMMARY | 2023-01-01 08:48 | External Medical Summary ---
Author Name Unknown Address Unknown Organization K01:LABORATORY [facility] [place] - 100 [facility] [place] [address] Laboratory Report Ordering Provider Test Date Status JEWELL HAWTHORNE 09/25/2022 11:37:30 Final Observation Date Value Abnormality Reference (Units ) Status SYNC LEUKOCYTES IN BLOOD BY AUTOMATED COUNT 09/25/2022 11:37:30 8.59 4.00-10.80 (K/uL) Final Segs 09/25/2022 11:37:30 79.1 Above high normal 40.0-75.0 (%) Final Lymphs % 09/25/2022 11:37:30 13.4 Below low normal 18.0-42.0 (%) Final Monos 09/25/2022 11:37:30 4.7 1.0-11.0 (%) Final Eosinophils 09/25/2022 11:37:30 1.6 0.0-6.0 (%) Final Basos 09/25/2022 11:37:30 0.3 0.0-2.0 (%) Final Immature Granulocyte, Percent 09/25/2022 11:37:30 0.9 0.0-2.0 (%) Final Absolute Segs 09/25/2022 11:37:30 6.79 1.80-7.70 (K/uL) Final Lymphs, absolute 09/25/2022 11:37:30 1.15 1.00-4.80 (K/ul) Final Monos, Abs 09/25/2022 11:37:30 0.40 0.00-1.10 (K/uL) Final Eos, Abs 09/25/2022 11:37:30 0.14 0.00-0.70 (K/uL) Final Basos, Abs 09/25/2022 11:37:30 0.03 0.00-0.20 (K/uL) Final Immature Granulocytes, Number 09/25/2022 11:37:30 0.08 0.00-0.20 (K/uL) Final Performing Location LABORATORY [facility] [place] - [address] [facility] [address]
--- OUTSIDE RECORDS SUMMARY | 2023-01-01 08:49 | External Medical Summary | Summary of Care ---
Author Name Unknown Organization [facility] Address [address] [place] [address] Phone [phone] Care Team Providers Care Head Host/Hostess Name Role Phone Stefany Keller MD Primary Care Provider [phone] Reason for Visit * Reason Onset Date Comments Medication Administration 07/17/2022 venofe r Encounter Details Date Type Department Care Team Description 07/17/2022 Telephone Hematology/Oncology [facility] [address] [place] [address] Sergey Hathaway MD [address] [place] [address] Medication Administration (venofer) Allergies Active Allergy Reactions Severity Noted Date Comments Other Allergy (See Comments) 020 Nuts - not severe documented as of this encounter (statuses as of 07/18/2022) Medications Medication Sig Dispensed Refills Start Date [...] as of this encounter (statuses as of 07/18/2022) Active Problems Problem Noted Date Supervision of high risk in se cond trimester 06/27/2022 Antepartum anemia complicating 06/13/2022 Overview: Hgb 9.0 at OB visit at 12w5d on 06/13/22. Hematology consult scheduled 07/17/2022 Taking for Vitron C BID. Multigravida of advanced maternal age in second trimester 06/13/2022 Overview: Patient will be 37 years old at time of delivery NIPT: ordered, done done yet Genetic consult: declines referral at this time MFM anatomy scan scheduled on 07/30/2022 Last Assessment & Plan: CONSIDERATIONS: We reviewed the most pertinent aspects of the following: Advanced maternal age (AMA) refers to a woman with a choi who will be at the age of 35 or older at the estimated time of delivery and may be associated with increased morbidity. Prior to the appointment the patient has had genetic screening and it was reported as pending. In addition to the risk of chromosomal abnormalities, there is an increased risk of congenital/structural anomalies. RECOMMENDATIONS: Recommend MFM anatomy ultrasound at 19-20 weeks gestation. Thrombocytosis 06/13/2022 Overview: 06/13/2022 Platelets: 511 (12w5d) Hematology referral placed by OB provider Hematology consult scheduled 07/17/2022 Snoring 12/01/2017 Overweight (BMI 25.0-29.9) 12/01/2017 Iron deficiency anemia 11/14/2017 Overview: 11/12/17 nL tsh,cmp [id number].,CBC Hb 10.7-mchc indices c/w iron def anemia >12/11- A1c 4.7%, Ferritin low at 8, Tsat 9%-st po iron. Estimated Date of Delivery Comme nts Yes 12/21/2022 Based on Ultraso und documented as of this encounter (statuses as of 07/18/2022) Immunizations Name Administration Dates Next Due Seasonal [...] Miscellaneous Notes * Telephone Encounter - REBECCA Lynn - 07/18/2022 9:03 AM EDT Spoke to patient, scheduled iron infusion 07/26/22 @ 9:30 am. * Telephone Encounter - Juani Oro LPN - 07/17/2022 2:16 PM EDT Order received for Venofer 300mg IV weekly x 4 doses [place] created and routed to provider for signature Prior auth is not needed, patient can be scheduled, patient is aware. Scheduling: Please contact patient to schedule on 503 schedule, 2 hr appointment for "Venofer 1/4" (Mag). Thank you! documented in this encounter Plan of Treatment Upcoming Encounters Date Type Specialty Care Team Description 07/26/2022 Hem/Onc Treatment Hematology Oncology Ivy, Chair 7 Hem Onc [address] [address] 07/30/2022 Office Visit Maternal Medicine Beth Swanson, DO [address] [place] [address] 07/30/2022 Imaging Radiology 08/09/2022 Office Visit Gynecology Obstetrics Isaura Rothman CRNP [address] [place] [address] 10/23/2022 Office Visit Hematology Oncology Mag, Sergey Reagan MD [address] [place] [address] Health Maintenance Due Date Last Done Comments Hepatitis B (1 of 3 - 3-dose series) 1985 Pap Smear 08/27/2015 Depression Screening, Annual for Pts 12 and Over 12/01/2018 12/01/2017 COVID-19 Vaccine (2 - Pfizer series) 03/30/2021 02/02/2021 Influenza Vaccine (FLU shot) (Season Ended) 2022 04/27/2019 Diabetes Screening 07/17/2025 07/17/2022, 0 07/28/2019, 11/25/2017, Additional history exists DTaP,Tdap,and Td Vaccines (2 - Td or Tdap) 06/30/2026 06/30/2016 Hepatitis C Screening Completed 06/13/2022, 022 GARDASIL-HPV IMMUNIZATION SERIES Aged Out No longer [...] filedocumented as of this encounter Care Teams Head Host/Hostess Relationship Specialty Start Date End Date Stefany Keller MD [address] [place] [address], [place] [address] PCP - General Internal Medicine 10/23/17 documented as of this encounter
--- OUTSIDE RECORDS SUMMARY | 2023-01-01 08:49 | External Medical Summary | Summary of Care ---
Author Name Unknown Organization [facility] Address [address] [place] [address] Phone [phone] Care Team Providers Care Metal Welder Name Role Phone Stefany Keller MD Primary Care Provider [phone] Reason for Visit * Evaluate & Treat - Unlimited Visits (Within 10 days (routine)) - Authorized Specialty Diagnoses / Procedures Referred By Oneil t Referred To Contact Obstetrics/Gynecology / Maternal Medicine Diagnoses Supervision of high-risk , first trimester Antepartum anemia complicating Multigravida of advanced maternal age in second trimester Thrombocytosis Sheron Dee, LETA [address] [place] [address] Referral ID Status Reason Start Date Expiration Date Visits Requested Visits Authorized [id number] Authorized Specialty Services Required 06/13/[phone] Encounter Details Date Type Department Care Team Description 07/30/2022 Office Visit Police Lieutenant Patrol OB Maternal Medicine [facility] Dolores Lynn [address] [place] [address] Dr [address] [place] [address] Beth Swanson, DO [address] [place] [address] Multigravida of advanced maternal age in second trimester*; Antepartum anemia complicating ; Thrombocytosis; Encounter for anatomic survey Allergies Active Allergy Reactions Severity Noted Date Comments Other Allergy (See Comments) 020 Nuts - not severe documented as of this encounter (statuses as of 07/31/2022) Medications Medication Sig Dispensed Refills Start Date [...] as of this encounter (statuses as of 07/31/2022) Active Problems Problem Noted Date Supervision of [...] deficiency anemia 11/14/2017 Overview: 11/12/17 nL tsh,cmp [id number].,CBC Hb 10.7-mchc indices c/w iron def anemia >10/18- A1c 4.7%, Ferritin low at 8, Tsat 9%-st po iron. Estimated Date of Delivery Comme nts Yes 12/21/2022 Based on Ultraso und documented as of this encounter (statuses as of 07/31/2022) Immunizations Name Administration Dates Next Due Seasonal [...] Progress Notes * Beth Mclain DO - 07/30/2022 2:01 PM EDT MATERNAL MEDICINE VISIT Kim Lucero presented today at 19w3d for an ultrasound and follow-up of her high risk . She was seen for the following indications: Problem List Items Addressed This Visit Hematologic Antepartum anemia complicating Improved with iron. Thrombocytosis Resolved on most recent CBC. Other Multigravida of advanced maternal age in second trimester - Primary NIPT pending for > 2 weeks. Reached out to genetic counseling; should expect result in the next few days. If there are any concerns, please refer back for formal GC. Other Visit Diagnoses Encounter for anatomic survey We reviewed today's ultrasound findings. 19w3d for anatomical survey. Normal growth with no ultrasonic evidence of structural abnormalities. (For full details, please refer to ultrasound report provided separately). Ms. Lucero's questions were answered to her satisfaction. She was advised to contact our office or her OB provider for any additional questions regarding her . RECOMMENDATIONS: Follow up with MFM for ultrasound as clinically indicated. Thank you for allowing us to participate in the care of this patient. Please call with any questions. Beth Swanson DO 07/30/2022 2:02 PM documented in this encounter Miscellaneous Notes * Assessment & Plan Note - Beth Mclain DO - 07/30/2022 1:45 PM EDT Associated Problem(s): Multigravida of advanced maternal age in second trimester NIPT pending for > 2 weeks. Reached out to genetic counseling; should expect result in the next few days. If there are any concerns, please refer back for formal GC. * Assessment & Plan Note - Beth Mclain DO - 07/30/2022 1:42 PM EDT Associated Problem(s): Thrombocytosis Resolved on most recent CBC. * Assessment & Plan Note - Beth Mclain DO - 07/30/2022 1:42 PM EDT Associated Problem(s): Antepartum anemia complicating Improved with iron. documented in this encounter Plan of Treatment Upcoming Encounters Date Type Specialty Care Team Description 08/09/2022 Office Visit Gynecology Obstetrics Isaura Rothman CRNP [address] [facility] [place] [address] 10/23/2022 Office Visit Hematology Oncology Sergey Hathaway MD [address] [facility], [place] [address] Health Maintenance Due Date Last Done Comments [...] advanced maternal age in second trimester- Primary Antepartum anemia complicating Anemia, antepartum Thrombocytosis Essential thrombocythemia Encounter for anatomic survey documented in this encounter Care Teams Metal Welder Relationship Specialty Start Date End Date Stefany Keller MD [address] [place] [address] PCP - General Internal Medicine 10/23/17 documented as of this encounter
--- OUTSIDE RECORDS SUMMARY | 2023-01-01 08:49 | External Medical Summary | Summary of Care ---
Author Name Unknown Organization [facility] Address [address] [place] [address] Phone [phone] Care Team Providers Care Mower Operator Name Role Phone Stefany Keller MD Primary Care Provider [phone] Reason for Visit * Reason Comments Consultation * Evaluate & Treat - Unlimited Visits (Within 10 days (routine)) - Authorized Specialty Diagnoses / Procedures Referred By Contac t Referred To Contact Hematology/Oncology / Hematology Oncology Diagnoses Antepartum anemia complicating Sheron Dee CNM [address] [place] [id number] Referral ID Status Reason Start Date Expiration Date Visits Requested Visits Authorized [id number] Authorized Specialty Services Required 06/13/[phone] Encounter Details Date Type Department Care Team Description 07/17/2022 Office Visit Hematology/Oncology [facility] [address] [place] [address] Sergey Hathaway MD [address] [place] [address] Iron deficiency anemia, unspecified iron deficiency anemia type* Allergies Active Allergy Reactions Severity Noted Date Comments Other Allergy (See Comments) 020 Nuts - not severe documented as of this encounter (statuses as of 07/17/2022) Medications Medication Sig Dispensed Refills Start Date [...] as of this encounter (statuses as of 07/17/2022) Active Problems Problem Noted Date Supervision of [...] deficiency anemia 11/14/2017 Overview: 11/12/17 nL tsh,cmp [id number].,CBC Hb 10.7-mchc indices c/w iron def anemia >12/11- A1c 4.7%, Ferritin low at 8, Tsat 9%-st po iron. Estimated Date of Delivery Comme nts Yes 12/21/2022 Based on Ultraso und documented as of this encounter (statuses as of 07/17/2022) Immunizations Name Administration Dates Next Due Seasonal Influenza, Quadrivalent, No Preserve, M dck 04/27/2019 TDAP (age 10 and older)(Boostrix) 06/30/2016 documented as of this encounter Social History Tobacco Use Types Packs/Day Years Used Date Smoking Tobacco: Never Smokeless Tobacco: Never Tobacco Cessation:Counseling Given: Not Answered Alcohol Use Standard Drinks/Week Comments No 0 [...] Sign Reading Time Taken Comments Blood Pressure 120/82 07/17/2022 11:37 AM EDT Pulse 92 07/17/2022 11:37 AM EDT Temperature 36.5 C (97.7 F) 07/17/2022 11:37 AM E DT Respiratory Rate 16 07/17/2022 11:37 AM EDT Oxygen Saturation 98% 07/17/2022 11:37 AM EDT Inhaled Oxygen Concentration - - Weight 77.2 kg (170 lb 1.6 oz) 07/17/2022 11:37 AM EDT Height 162.6 cm (5' 4") 07/17/2022 11:37 AM EDT Body Mass Index 29.2 07/17/2022 11:37 AM EDT documented in this encounter Progress Notes * Sergey Hathaway MD - 07/17/2022 11:38 AM EDT Outpatient Consult Note Data Source: Patient, Epic record. 07/17/2022 11:38 AM Kim Lucero [id number] 36 year old MD Stefany Patrick MD Patient Encounter: HEMATOLOGY/ONCOLOGY [facility] Reason for consult: Antepartum anemia complicating HPI: 36-year-old female currently 17 was referred with the above diagnosis. Her history is alsosignificant for iron deficiency anemia when she was in the high school and was treated with the iron tonic liquid. She continued taking vitamin supplement. Overall clinically she is stable. She denies any headache, dizziness, blurred vision, chest pain, palpitation, abdominal pain, bleeding, bruising, hematuria, hematochezia, fever, night sweats, weightloss. Recent blood test were done on 06/13/2022 which shows WBC count of 7.77, hemoglobin 9 and platelet count 519. MCV and RDW was normal. Retic count was 140, ferritin was 6 and iron screen revealed ironlevel of 24, iron-binding capacity of 486 and transferrin saturation 5. Looking at the CBC result in [facility] she has history of anemia at least since 07/28/2019 at that time hemoglobin was 10.9 with lowMCV and high RDW. She denies smoking or drinking. Family history is negative for any hematologic oncology problem. Past Medical History: Diagnosis Date Anemia Known health problems: none Current Outpatient Medications Medication Sig Dispense Refill acetaminophen (TYLENOL) 500 MG Tablet Take 2 Tablets by mouth every 8 hours as needed for Pain.(Patient not taking: Reported on 06/27/2022) 100 Tab 0 27-0.8 MG Oral Tablet Take 1 Tablet by mouth daily at noon. 90 Tablet 2 Iron-Vitamin C 65-125 MG Oral Tablet (Vitron C) Take 1 Tablet by mouth in the morning and 1 Tablet before bedtime. 90 Tablet 4 No current facility-administered medications for this visit. Social History Socioeconomic History Marital status: Spouse name: Not on file Number of children: Not on file Years of education: Not on file Highest education level: Not on file Occupational History Not on file Tobacco Use Smoking status: Never Smokeless tobacco: Never Vaping Use Vaping Use: Never used Substance and Sexual Activity Alcohol use: No Drug use: No Sexual activity: Yes Partners: Male Other Topics Concern Not on file Social History Narrative Not on file Social Determinants of Health Financial Resource Strain: Not on file Food Insecurity: Not on file Transportation Needs: Not on file Physical Activity: Not on file Stress: Not on file Social Connections: Not on file Intimate Partner Violence: Not on file Housing Stability: Not on file Family History Problem Relation Age of Onset No Past Hx Mother Diabetes Father Hypertension Father REVIEW OF SYSTEMS: General: No Fever, chills, night sweats, or weight loss. HEENT: No change in visual acuity, blurred or double vision. No epistaxis, facial pain, nasal discharge or change in hearing. Denies dysphagia, no muscosal ulceration, or sores noted. Cardiovascular: No chest pain, SANTOYO, or palpitations Respiratory: No shortness of breath, cough, hemoptysis, or pleuritic chest pain Gastrointestinal: No abdominal pain, nausea, vomiting, diarrhea, rectal pain or bleeding Genitourinary: Denies Hematuria or dysuria Musculoskeletal: No bone pain Skin: No skin rash or lesions noted Neurologic: No numbness, weakness, neuropathic pain or change in cognitive function Psychiatric: No vegetative signs of depression Endocrine: No symptoms of hypothyroidism or hyperglycemia Hematologic: No bleeding or lymph nodes noted As mentioned above, all other systems were reviewed in full and are unremarkable. Review of patient's allergies indicates: Allergen Reactions Other Allergy (See Comments) Nuts - not severe PHYSICAL EXAMINATION: General Appearance: pale appearing patient in no acute distress BP 120/82 (BP Site: Left Arm, BP Position: Sitting, BP Cuff Size: Regular) | Pulse 92 | Temp 36.5 C (97.7 F) (Tympanic) | Resp 16 | Ht 1.626 m (5' 4") | Wt 77.2 kg (170 lb 1.6 oz) | LMP (LMP Unknown) | SpO2 98% | BMI 29.20 kg/m | BSA 1.87 m Vitals were reviewed. HEENT: No oral or pharyngeal masses, ulceration or thrush noted, no sinus tenderness. Neck is supple with no thyromegaly or JVD noted. Lymph Nodes: No lymphadenopathy noted in the occipital, pre and post auricular, cervical, supra andinfraclavicular, axillary, epitrochlear, inguinal, and popliteal region. Lungs/Thorax: Clear to auscultation, no accessory muscles of respiration being used. Heart: Regular rate and rhythm, normal S1, S2. Abdomen: Soft, nontender, bowel sounds present, no appreciable hepatosplenomegaly, no palpable masses, she is 17 weeks Extremeties: Good pulses bilaterally, no peripheral edema. Skin: Normal skin tone with no rash, petechiae, ecchymosis noted. Musculoskeletal: No pain on palpation over bony prominence, no edema, no evidence of gout, no jointor bony deformity ASSESSMENT: 36-year-old female was referred for management of anemia. Currently she is 17 weeks . Her history is also significant for iron deficiency anemia during the high school and was treated with the iron tonic. Currently she continue taking iron supplement and multivitamin. Clinically she is doing well. Looking at her labs in the [facility], she has history of anemia at least since 2018 with low hemoglobin, MCV and high RDW. I will repeat her blood test today including CBC, CMP, iron, iron-binding capacity and ferritin level. If she continues to have iron deficiency anemia despite taking iron supplement, will benefit with iron infusion Venofer weekly x4. Discussed with the patient in detail about the diagnosis, benefit, risk, side effect toxicity of the treatment. After detailed discussion she agreed to proceed with treatment if she continues to have low hemoglobin and ferritin level. PLAN: As above. Blood test will be done today. She will return to clinic for follow-up in 3 months with CBC, ferritin and iron screen. The patient voiced understanding of all of the above. All questions and concerns were addressed in an apparently satisfactory manner. Sergey Hathaway MD (This note was completed using the dictation program Fluency Direct. As such, there may be misspellings, word substitutions, or other variations that should not change the essence of the clinical content of this encounter note. If there is need for further clarification, please direct questions to me.) documented in this encounter Nursing Notes * Judith Bess Moura, [facility] - 07/17/2022 11:37 AM EDT Patient identifed by name and birthdate Do you have any concerns about pain management for today's visit? No Living Will or Advance Directive for Health Care as noted on the problem list. [facility] is a way you can talk to your provider on line through e-mail. Would you like to sign up? I can activate it for you? ALREADY ACTIVE Filed Vitals: 07/17/22 1137 BP: 120/82 Pulse: 92 Resp: 16 Temp: 36.5 C (97.7 F) TempSrc: Tympanic SpO2: 98% Weight: 77.2 kg (170 lb 1.6 oz) Height: 1.626 m (5' 4") Patient was instructed to not get up on the exam table/exam chair until directed and assisted by their provider; patient is to remain seated in the chair/ wheelchair/ exam table/ exam chair for fall prevention and safety reasons. Patient is aware to have assistance to step down off exam table/exam chair with personnel. Patient voiced full comprehension of instructions. documented in this encounter Plan of Treatment Upcoming Encounters Date Type Specialty Care Team Description 07/30/2022 Office Visit Maternal Medicine Beth Swanson, DO [address] [place] [address] 07/30/2022 Imaging Radiology 08/09/2022 Office Visit Gynecology Obstetrics Isaura Rothman CRNP [address] [place] [address] 10/23/2022 Office Visit Hematology Oncology Sergey Hathaway MD [address] [place] [address] Pending Results Name Type Priority Associated Diagnoses Date /Time CBC WITH WBC DIFFERENTIAL Lab Routine Iron deficiency anemia, unspecified iron deficiency anemia type 07/17/2022 12:03 PM EDT COMPREHENSIVE METABOLIC PANEL Lab Routine Iron deficiency anemia, unspecified iron deficiency anemia type 07/17/2022 12:03 PM EDT FERRITIN Lab Routine Iron deficiency anemia, unspecified iron deficiency anemia type 07/17/2022 12:03 PM EDT IRON SCREEN, INCLUDING TIBC Lab Routine Iron deficiency anemia, unspecified iron deficiency anemia type 07/17/2022 12:03 PM EDT RETICULOCYTE PANEL Lab Routine Iron deficiency anemia, unspecified iron deficiency anemia type 07/17/2022 12:03 PM EDT CBC Lab Routine Iron deficiency anemia, unspecified iron deficiency anemia type 07/17/2022 12:03 PM EDT DIFFERENTIAL, AUTOMATED Lab Routine Iron deficiency anemia, unspecified iron deficiency anemia type 07/17/2022 12:03 PM EDT Scheduled Orders Name Type Priority Associated Diagnoses Orde r Schedule CBC WITH WBC DIFFERENTIAL Lab Routine Iron deficiency anemia, unspecified iron deficiency anemia type Expected: 10/14/2022, Expires: 12/10/2022 FERRITIN Lab Routine Iron deficiency anemia, unspecified iron deficiency anemia type Expected: 10/14/2022, Expires: 12/10/2022 IRON SCREEN, INCLUDING TIBC Lab Routine Iron deficiency anemia, unspecified iron deficiency anemia type Expected: 10/14/2022, Expires: 12/10/2022 Health Maintenance Due Date Last Done Comments Hepatitis B (1 of 3 - 3-dose series) 1985 Pap Smear 08/27/2015 Depression Screening, Annual for Pts 12 and Over 12/01/2018 12/01/2017 COVID-19 Vaccine (2 - Pfizer series) 03/30/2021 02/02/2021 Diabetes Screening 07/27/2022 07/28/2019, 11/25/2017, 11/12/2017 Influenza Vaccine (FLU shot) (Season Ended) 2022 04/27/2019 DTaP,Tdap,and Td Vaccines (2 - Td or Tdap) 06/30/2026 06/30/2016 Hepatitis C Screening Completed 06/13/2022 , 08/16/2021 GARDASIL-HPV IMMUNIZATION SERIES Aged Out No longer eligible b ased on patient's age to complete this topic MENINGOCOCCAL (MENACTRA/MENVEO) Aged Out No longer eligible b ased on patient's age to complete this topic Pneumococcal Vaccine: Pediatrics (0 to 5 Years) and At-Risk Patients (6 to 64 Years) Aged Out No longer eligible b ased on patient's age to complete this topic documented as of this encounter Medical Devices Not on filedocumented as of this encounter Visit Diagnoses Diagnosis Iron deficiency anemia, unspecified iron deficiency anemia type- Primary documented in this encounter Care Teams Mower Operator Relationship Specialty Start Date End Date Stefany Keller MD [address] [place] [address] PCP - General Internal Medicine 10/23/17 documented as of this encounter
--- OUTSIDE RECORDS SUMMARY | 2023-01-01 08:49 | External Medical Summary | Summary of Care ---
Author Name Unknown Organization [facility] Address [address] [place] [address] Phone [phone] Care Team Providers Care Sample Grinder Name Role Phone Stefany Keller MD Primary Care Provider [phone] Encounter Details Date Type Department Care Team Description 08/02/2022 Telephone Gynecology/Obstetrics [facility] [address] [place] [address] Sheron Dee [facility] [address] [place] [address] Allergies Active Allergy Reactions Severity Noted Date Comments Other Allergy (See Comments) 020 Nuts - not severe documented as of this encounter (statuses as of 08/05/2022) Medications Medication Sig Dispensed Refills Start Date [...] as of this encounter (statuses as of 08/05/2022) Active Problems Problem Noted Date Supervision of [...] deficiency anemia 11/14/2017 Overview: 11/12/17 nL tsh,cmp [id number].,CBC Hb 10.7-mchc indices c/w iron def anemia >12/11- A1c 4.7%, Ferritin low at 8, Tsat 9%-st po iron. Estimated Date of Delivery Comme nts Yes 12/21/2022 Based on Ultraso und documented as of this encounter (statuses as of 08/05/2022) Immunizations Name Administration Dates Next Due Seasonal [...] encounter Miscellaneous Notes * Telephone Encounter - Jennifer Jessica LPN - 08/05/2022 10:39 AM EDT Patient notified * Telephone Encounter - Nusrat Bauer LPN - 08/02/2022 3:32 PM EDT T/C to pt. No answer. VM left for pt to return call to office. Rodrigue allen pt Nusrat Bauer LPN 08/02/2022 3:32 PM * Telephone Encounter - Nusrat Bauer LPN - 08/02/2022 3:32 PM EDT ----- Message from Sheron Dee CNM sent at 08/01/2022 2:30 PM EDT ----- Please let patient know her Qnatal was low risk for trisomy 21, 18, and 13. This is a screening test and not diagnostic. If she would like to know gender, her Qnatal showed she is having a baby girl.Thanks! Sheron Dee CNM documented in this encounter Plan of Treatment Upcoming Encounters Date Type Specialty Care Team Description 08/09/2022 Office Visit Gynecology Obstetrics Isaura Rothman CRNP [address] [place] [address] 10/23/2022 Office Visit Hematology Oncology Sergey Hathaway MD 200 [facility], [place] [address] Health Maintenance Due Date Last Done Comments [...] filedocumented as of this encounter Care Teams Sample Grinder Relationship Specialty Start Date End Date Stefany Keller MD [address] [place] [address], [place] [address] PCP - General Internal Medicine 10/23/17 documented as of this encounter
--- OUTSIDE RECORDS SUMMARY | 2023-01-01 08:49 | External Medical Summary | Summary of Care ---
Author Name Unknown Organization [facility] Address [address] [facility] [place] [address] Phone [phone] Care Team Providers Care Blown Film Extrusion Operator Name Role Phone Stefany Keller MD Primary Care Provider [phone] Encounter Details Date Type Department Care Team Description 07/18/2022 Orders Only Hematology/Oncology [facility] [address] [place] [address] Sergey Hathaway MD [address] [place] [address] Allergies Active Allergy Reactions Severity Noted Date [...] deficiency anemia 11/14/2017 Overview: 11/12/17 nL tsh,cmp [id number].,CBC Hb 10.7-mchc indices c/w iron def anemia [...] Team Description 07/26/2022 Hem/Onc Treatment Hematology Oncology [place], Chair [address] [address] 07/30/2022 Office Visit Maternal Medicine Beth Swanson, DO [address] [place] [address] 07/30/2022 Imaging Radiology 08/09/2022 Office Visit Gynecology Obstetrics Isaura Rothman CRNP [address] [place] [address] 10/23/2022 Office Visit Hematology Oncology Sergey Hathaway MD [address] [place] [address] Health Maintenance Due Date Last Done Comments [...] filedocumented as of this encounter Care Teams Blown Film Extrusion Operator Relationship Specialty Start Date End Date Stefany Keller MD [address] [place] [address], [place] [address] PCP - General Internal Medicine 10/23/17 documented as of this encounter
--- OUTSIDE RECORDS SUMMARY | 2023-01-01 08:49 | External Medical Summary | Summary of Care ---
Author Name Unknown Organization [facility] Address [address] [place] [address] Phone [phone] Care Team Providers Care Gate Agent Name Role Phone Stefany Keller MD Primary Care Provider [phone] Reason for Visit * Evaluate & Treat - Unlimited Visits (Within 10 days (routine)) - Authorized Specialty Diagnoses / Procedures Referred By Oneil t Referred To Contact Obstetrics/Gynecology / Maternal Medicine Diagnoses Supervision of high-risk , first trimester Antepartum anemia complicating Multigravida of advanced maternal age in second trimester Thrombocytosis Sheron Dee, LETA [address] [place] [address] Referral ID Status Reason Start Date Expiration Date Visits Requested Visits Authorized [id number] Authorized Specialty Services Required 06/13/[phone] Encounter Details Date Type Department Care Team Description 07/30/2022 Office Visit Nutritional Services [facility] Maternal Medicine [facility] Dolores Lynn [address] [place] [address] [address] [place] [address] Beth Swanson, DO [address] [place] [address] Multigravida of advanced maternal age in second trimester*; Antepartum anemia complicating ; Thrombocytosis; Encounter for anatomic survey Allergies Active Allergy Reactions Severity Noted Date Comments Other Allergy (See Comments) 020 Nuts - not severe documented as of this encounter (statuses as of 07/30/2022) Medications Medication Sig Dispensed Refills Start Date [...] as of this encounter (statuses as of 07/30/2022) Active Problems Problem Noted Date Supervision of [...] deficiency anemia 11/14/2017 Overview: 11/12/17 nL tsh,cmp [id number].,CBC Hb 10.7-mchc indices c/w iron def anemia >10/18- A1c 4.7%, Ferritin low at 8, Tsat 9%-st po iron. Estimated Date of Delivery Comme nts Yes 12/21/2022 Based on Ultraso und documented as of this encounter (statuses as of 07/30/2022) Immunizations Name Administration Dates Next Due Seasonal [...] Visit Gynecology Obstetrics Isaura Rothman CRNP 132 [facility] [place] [address] 10/23/2022 Office Visit Hematology Oncology Sergey Hathaway MD 200 [facility], [place] [address] Health Maintenance Due Date Last Done Comments [...] survey documented in this encounter Care Teams Gate Agent Relationship Specialty Start Date End Date Stefany Keller MD 200 [facility] [place] [address] PCP - General Internal Medicine 10/23/17 documented as of this encounter
--- OUTSIDE RECORDS SUMMARY | 2023-01-01 08:49 | External Medical Summary | Summary of Care ---
Author Name Unknown Organization [facility] Address [address] [facility] [place] [address] Phone [phone] Care Team Providers Care Residential Support Specialist Name Role Phone Stefany Keller MD Primary Care Provider Encounter Details Date Type Department Care Team Description 07/18/2022 Telephone Gynecology/Obstetrics [facility] [address] [place] [address] Yamila Spencer MD [address] [place] [address] Allergies Active Allergy Reactions Severity Noted Date [...] deficiency anemia 11/14/2017 Overview: 11/12/17 nL tsh,cmp [id number].,CBC Hb 10.7-mchc indices c/w iron def anemia [...] encounter Miscellaneous Notes * Telephone Encounter - Antonella Haynes RN - 07/18/2022 3:41 PM EDT Pt is aware. * Telephone Encounter - Antonella Haynes RN - 07/18/2022 12:16 PM EDT Pt is aware. She has already sent a message to them and asked that I forward this as well. * Telephone Encounter - Sheron Dee CNM - 07/18/2022 11:14 AM EDT I recommend she discuss this with the hematology team. Since her hgb is increasing with oral replacement, they may be agreeable to hold off on the IV iron transfusions, but they would be the ones to advise on that. Thanks! Sheron Dee CNM * Telephone Encounter - Antonella Haynes RN - 07/18/2022 11:01 AM EDT Pt called because hematology wants to do IV iron infusions. She is asking if she absolutely has to do this. She feels that she is increasing her counts on her oral and would like to continue, if thatis okay. She said she just wants to understand the why. Pt can be reached at [phone] documented in this encounter Plan of Treatment Upcoming Encounters Date Type Specialty Care Team Description 07/26/2022 Hem/Onc Treatment Hematology Oncology [place], Chair 7 Hem Onc [facility]en[facility] [address] [place] [address] 07/30/2022 Office Visit Maternal Medicine Sky Bethrickey Robert, DO [address] [place] [address] 07/30/2022 Imaging Radiology 08/09/2022 Office Visit Gynecology Obstetrics Isaura Rothman CRNP [address] [place] [address] 10/23/2022 Office Visit Hematology Oncology Sergey Hathaway MD 200 [place] [address] Health Maintenance Due Date Last Done Comments [...] filedocumented as of this encounter Care Teams Residential Support Specialist Relationship Specialty Start Date End Date Stefany Keller MD 200 [facility] [place] [address] PCP - General Internal Medicine 10/23/17 documented as of this encounter
--- OUTSIDE RECORDS SUMMARY | 2023-01-01 08:49 | External Medical Summary | Summary of Care ---
Author Name Unknown Organization [facility] Address [address] [place] [address] Phone [phone] Care Team Providers Care Molder Pipe Covering Name Role Phone Stefany Keller MD Primary Care Provider [phone] Encounter Details Date Type Department Care Team Description 07/17/2022 Orders Only Hematology/Oncology [facility] [address] [place] [address] Sergey Hathaway MD [address] [place] [address] Allergies Active Allergy Reactions Severity Noted Date [...] deficiency anemia 11/14/2017 Overview: 11/12/17 nL tsh,cmp [id number].,CBC Hb 10.7-mchc indices c/w iron def anemia [...] Team Description 07/30/2022 Office Visit Maternal Medicine Sky Bethrickey Robert, DO [address] [place] [address] 07/30/2022 Imaging Radiology 08/09/2022 Office Visit Gynecology Obstetrics Isaura Rothman CRNP [address] [place] [address] 10/23/2022 Office Visit Hematology Oncology Sergey Hathaway MD [address] [place] [address] Health Maintenance Due Date Last Done Comments [...] filedocumented as of this encounter Care Teams Molder Pipe Covering Relationship Specialty Start Date End Date Stefany Keller MD [address] [place] [address] PCP - General Internal Medicine 10/23/17 documented as of this encounter
--- OUTSIDE RECORDS SUMMARY | 2023-01-01 08:49 | External Medical Summary | Summary of Care ---
Author Name Unknown Organization [facility] Address [address] [place] [address] Phone [phone] Care Team Providers Care Windows Server Specialist Name Role Phone Stefany Keller MD Primary Care Provider [phone] Reason for Visit * Reason Onset Date Comments Medication Administration 07/17/2022 venofe r Encounter Details Date Type Department Care Team Description 07/17/2022 Telephone Hematology/Oncology [facility] [address] [place] [address] Sergey Hathaway MD [address] [place] [address] Medication Administration (venofer) Allergies Active Allergy Reactions [...] deficiency anemia 11/14/2017 Overview: 11/12/17 nL tsh,cmp [id number].,CBC Hb 10.7-mchc indices c/w iron def anemia [...] encounter Miscellaneous Notes * Telephone Encounter - Juani Oro LPN - 07/17/2022 2:16 PM EDT Order received for Venofer 300mg IV weekly x 4 doses Onia created and routed to provider for signature Prior auth is not needed, patient can be scheduled, patient is aware. Scheduling: Please contact patient to schedule on 503 schedule, 2 hr appointment for "Venofer 1/4" (Mag). Thank you! documented in this encounter Plan of Treatment Upcoming Encounters Date Type Specialty Care Team Description 07/30/2022 Office Visit Maternal Medicine Beth Swanson, DO [address] [place] [address] 07/30/2022 Imaging Radiology 08/09/2022 Office Visit Gynecology Obstetrics Isaura Rothman CRNP [address] [place] [address] 10/23/2022 Office Visit Hematology Oncology Sergey Hathaway MD [address] [place] [address] Health Maintenance Due Date Last Done Comments [...] filedocumented as of this encounter Care Teams Windows Server Specialist Relationship Specialty Start Date End Date Stefany Keller MD [address] [place] [address], [place] [address] PCP - General Internal Medicine 10/23/17 documented as of this encounter
--- OUTSIDE RECORDS SUMMARY | 2023-01-01 08:49 | External Medical Summary | Summary of Care ---
Author Name Unknown Organization [facility] Address [address] [place] [address] Phone [phone] Care Team Providers Care Matrix Supervisor Name Role Phone Stefany Keller MD Primary Care Provider [phone] Encounter Details Date Type Department Care Team Description 07/19/2022 Orders Only Hematology/Oncology, [facility] [address] [place] [address] Sergey Hathaway MD 200 [place] [address] Allergies Active Allergy Reactions Severity Noted Date Comments Other Allergy (See Comments) 020 Nuts - not severe documented as of this encounter (statuses as of 07/19/2022) Medications Medication Sig Dispensed Refills Start Date [...] as of this encounter (statuses as of 07/19/2022) Active Problems Problem Noted Date Supervision of [...] deficiency anemia 11/14/2017 Overview: 11/12/17 nL tsh,cmp [id number].,CBC Hb 10.7-mchc indices c/w iron def anemia >12/11- A1c 4.7%, Ferritin low at 8, Tsat 9%-st po iron. Estimated Date of Delivery Comme nts Yes 12/21/2022 Based on Ultraso und documented as of this encounter (statuses as of 07/19/2022) Immunizations Name Administration Dates Next Due Seasonal [...] Medicine Sky Bethrickey Robert, DO [address] [place] [address] 07/30/2022 Imaging Radiology 08/09/2022 Office Visit Gynecology Obstetrics Isaura Rothman CRNP [address] [place] [address] 10/23/2022 Office Visit Hematology Oncology Sergey Hathaway MD 200 [place] [address] Health Maintenance Due Date Last Done Comments [...] filedocumented as of this encounter Care Teams Matrix Supervisor Relationship Specialty Start Date End Date Stefany Keller MD 200 [facility], [place] [id number] PCP - General Internal Medicine 10/23/17 documented as of this encounter
--- OUTSIDE RECORDS SUMMARY | 2023-01-01 08:49 | External Medical Summary | Summary of Care ---
Author Name Unknown Organization [facility] Address [address] [place] [address] Phone [phone] Care Team Providers Care Seo Analyst Name Role Phone Stefany Keller MD Primary Care Provider [phone] Reason for Visit * Reason Onset Date Comments Appointment Canceled 07/19/2022 Encounter Details Date Type Department Care Team Description 07/19/2022 Telephone Hematology/Oncology [facility] 200 [place] [address] Sergey Hathaway MD 200 [place] [address] Appointment Canceled Allergies Active Allergy Reactions Severity Noted Date [...] deficiency anemia 11/14/2017 Overview: 11/12/17 nL tsh,cmp [id number].,CBC Hb 10.7-mchc indices c/w iron def anemia [...] encounter Miscellaneous Notes * Telephone Encounter - Yuko Baca RN - 07/19/2022 7:[address] Hathaway sent a result note regarding this yesterday, but patients venofer appt was not canceled. Appts now cancelled. * Telephone Encounter - REBECCA Stephens - 07/19/2022 7:45 AM EDT Nursing/-patient sent a MyG messaging stating do not need this at this moment. Please cancel my appointment documented in this encounter Plan of Treatment Upcoming Encounters Date Type Specialty Care Team Description 07/30/2022 Office Visit Maternal Medicine Beth Swanson, DO [address] [place] [address] 07/30/2022 Imaging Radiology 08/09/2022 Office Visit Gynecology Obstetrics [facility] [address] [facility] [address] 10/23/2022 Office Visit Hematology Oncology Sergey Hathaway MD 200 [facility] [place] [address] Health Maintenance Due Date Last Done Comments [...] filedocumented as of this encounter Care Teams Seo Analyst Relationship Specialty Start Date End Date Stefany Keller MD [address] [place] [address], [place] [address] PCP - General Internal Medicine 10/23/17 documented as of this encounter
--- OUTSIDE RECORDS SUMMARY | 2023-01-01 08:49 | External Medical Summary | Summary of Care ---
Author Name Unknown Organization [facility] Address [address] [place] [address] Phone [phone] Care Team Providers Care Promotions Associate Name Role Phone Stefany Keller MD Primary Care Provider [phone] Encounter Details Date Type Department Care Team Description 07/19/2022 Orders Only Hematology/Oncology, [facility] [address] [place] [address] Sergey Hathaway MD 200 [place] [address] Allergies Active Allergy Reactions Severity Noted Date [...] deficiency anemia 11/14/2017 Overview: 11/12/17 nL tsh,cmp [id number].,CBC Hb 10.7-mchc indices c/w iron def anemia [...] Medicine Sky Bethrickey Robert, DO [address] [place] [address] 07/30/2022 Imaging Radiology 08/09/2022 Office Visit Gynecology Obstetrics Isaura Rothman CRNP [address] [place] [address] 10/23/2022 Office Visit Hematology Oncology Sergey Hathaway MD 200 [place] [address] Health Maintenance Due Date Last Done Comments [...] filedocumented as of this encounter Care Teams Promotions Associate Relationship Specialty Start Date End Date Stefany Keller MD 200 [facility], [place] [address] PCP - General Internal Medicine 10/23/17 documented as of this encounter
--- OUTSIDE RECORDS SUMMARY | 2023-01-01 08:49 | External Medical Summary | Summary of Care ---
Author Name Unknown Organization [facility] Address [address] [place] [address] Phone [phone] Care Team Providers Care Household Manager Name Role Phone Stefany Keller MD Primary Care Provider [phone] Reason for Visit * Reason Onset Date Comments Test Results 07/18/2022 Encounter Details Date Type Department Care Team Description 07/18/2022 Telephone Hematology/Oncology [facility] [address] [place] [address] Sergey Hathaway MD [address] [place] [address] Test Results Allergies Active Allergy Reactions Severity Noted Date [...] deficiency anemia 11/14/2017 Overview: 11/12/17 nL tsh,cmp [id number].,CBC Hb 10.7-mchc indices c/w iron def anemia [...] Telephone Encounter - Juani Oro LPN - 07/18/2022 1:20 PM EDT Discontinued venofer plan per provider ----- Message from Sergey Hathaway MD sent at 07/18/2022 12:52 PM EDT ----- Hemoglobin has improved and ferritin has normalized. Discussed with the patient about diagnosis andinform the result on the phone. No need for iron infusion documented in this encounter Plan of Treatment Upcoming Encounters Date Type Specialty Care Team Description 07/26/2022 Hem/Onc Treatment Hematology Oncology [place], Chair [address] [address] 07/30/2022 Office Visit Maternal Medicine Beth Swanson, DO [address] [place] [address] 07/30/2022 Imaging Radiology 08/09/2022 Office Visit Gynecology Obstetrics Isaura Rothman CRNP [address] [place] [address] 10/23/2022 Office Visit Hematology Oncology Sergey Hathaway MD [address] [place] [address] Health Maintenance Due Date Last Done Comments [...] filedocumented as of this encounter Care Teams Household Manager Relationship Specialty Start Date End Date Stefany Keller MD [address] [place] [address] PCP - General Internal Medicine 10/23/17 documented as of this encounter
--- OUTSIDE RECORDS SUMMARY | 2023-01-01 08:49 | External Medical Summary | Summary of Care ---
Author Name Unknown Organization [facility] Address [address] [place] [address] Phone [phone] Care Team Providers Care Floor Grinder Name Role Phone Stefany Keller MD Primary Care Provider [phone] Reason for Visit * Reason Onset Date Comments Test Results 07/30/2022 QNATAL Encounter Details Date Type Department Care Team Description 07/30/2022 Telephone Environmental Intern [facility] [address] [place] [address] Ani Rodriguez CHRA Test Results (QNATAL) Allergies Active Allergy Reactions Severity Noted Date [...] deficiency anemia 11/14/2017 Overview: 11/12/17 nL tsh,cmp [id number].,CBC Hb 10.7-mchc indices c/w iron def anemia [...] encounter Miscellaneous Notes * Telephone Encounter - LYNN Alicia - 07/30/2022 1:54 PM EDT Called [facility] and inquired about this pts QNATAL. They stated that the sample had to go for repeat, which then failed, so it is now in the process of being re- reviewed. I was told to expect results late 07/30 or tomorrow 07/31. Respectfully, Ani Rodriguez Genetic Counseling Angular Developer Maternal Medicine For further questions call the Genetic Counselor at + . documented in this encounter Plan of Treatment Upcoming Encounters Date Type Specialty Care Team Description 08/09/2022 Office Visit Gynecology Obstetrics Isaura Rothman CRNP [address] [place] [address] 10/23/2022 Office Visit Hematology Oncology Sergey Hathaway MD 200 [facility], [place] [address] Health Maintenance Due Date Last Done Comments [...] filedocumented as of this encounter Care Teams Floor Grinder Relationship Specialty Start Date End Date Stefany Keller MD [address] [place] [id number] PCP - General Internal Medicine 10/23/17 documented as of this encounter
--- OUTSIDE RECORDS SUMMARY | 2023-01-01 08:49 | External Medical Summary | Summary of Care ---
Author Name Unknown Organization [facility] Address [address] [place] [address] Phone [phone] Care Team Providers Care Office Helper Clerical Name Role Phone Stefany Keller MD Primary Care Provider [phone] Reason for Visit * Reason Onset Date Comments Appointment Canceled 07/19/2022 Encounter Details Date Type Department Care Team Description 07/19/2022 Telephone Hematology/Oncology [facility] [address] [place] [address] Sergey Hathaway MD 200 [place] [address] Appointment Canceled Allergies Active Allergy Reactions Severity [...] deficiency anemia 11/14/2017 Overview: 11/12/17 nL tsh,cmp [id number].,CBC Hb 10.7-mchc indices c/w iron def anemia [...] Maternal Medicine Beth Swanson, DO [address] [place] [address] 07/30/2022 Imaging Radiology 08/09/2022 Office Visit Gynecology Obstetrics [facility] [address] [facility] [address] 10/23/2022 Office Visit Hematology Oncology Sergey Hathaway MD 200 [place] [address] Health Maintenance Due Date Last Done Comments [...] filedocumented as of this encounter Care Teams Office Helper Clerical Relationship Specialty Start Date End Date Stefany Keller MD [address] [place] [address], [place] [address] PCP - General Internal Medicine 10/23/17 documented as of this encounter
--- OUTSIDE RECORDS SUMMARY | 2023-01-01 08:50 | External Medical Summary ---
Author Name Unknown Address Unknown Organization [facility] [place] [address] Laboratory Report Ordering Provider Test Date Status BYRON RAPP 07/17/2022 12:03:28 Final Observation Date Value Abnormality Reference (Units ) Status Nucleated erythrocytes/100 leukocytes [Ratio] in Blood by Automated count 07/17/2022 12:03:28 Final Performing Location [facility] [place] [address]
--- OUTSIDE RECORDS SUMMARY | 2023-01-01 08:50 | External Medical Summary | Summary of Care ---
Author Name Unknown Organization [facility] Address [address] [facility] [address] Phone [phone] Care Team Providers Care Circulation Analyst Name Role Phone Stefany Keller MD Primary Care Provider [phone] Reason for Visit * Reason Comments Outpatient Testing Encounter Details Date Type Department Care Team Description 07/12/2022 Laboratory Laboratory, [facility] [address] [facility] [place] [address] [facility] [address] [place] [place] [address] Genetic screening Allergies Active Allergy Reactions Severity Noted Date Comments Other Allergy (See Comments) 020 Nuts - not severe documented as of this encounter (statuses as of 07/12/2022) Medications Medication Sig Dispensed Refills Start Date [...] as of this encounter (statuses as of 07/12/2022) Active Problems Problem Noted Date Supervision of [...] deficiency anemia 11/14/2017 Overview: 11/12/17 nL tsh,cmp [id number].,CBC Hb 10.7-mchc indices c/w iron def anemia >12/11- A1c 4.7%, Ferritin low at 8, Tsat 9%-st po iron. Estimated Date of Delivery Comme nts Yes 12/21/2022 Based on Ultraso und documented as of this encounter (statuses as of 07/12/2022) Immunizations Name Administration Dates Next Due Seasonal [...] Encounters Date Type Specialty Care Team Description 07/17/2022 Office Visit Hematology Oncology Sergey Hathaway MD [address] [place] [address] 07/30/2022 Office Visit Maternal Medicine Sky Bethrickey Robert, DO [address] [place] [address] 07/30/2022 Imaging Radiology 08/09/2022 Office Visit Gynecology Obstetrics Isaura Rothman CRNP [address] [place] [address] Pending Results Name Type Priority Associated Diagnoses Date /Time QNATAL ADVANCED (QUEST) Lab Routine Genetic screening 07/12/2022 10:16 AM EDT Health Maintenance Due Date Last Done Comments Hepatitis B (1 of 3 - 3-dose series) 1985 Pap Smear 08/27/2015 Depression Screening, Annual for Pts 12 and Over 12/01/2018 12/01/2017 Diabetes Screening 11/25/2020 11/25/2017, 11/12/2017 COVID-19 Vaccine (2 - Pfizer series) 03/30/2021 [...] as of this encounter Visit Diagnoses Diagnosis Genetic screening Other genetic screening documented in this encounter Care Teams Circulation Analyst Relationship Specialty Start Date End Date Stefany Keller MD [address] [facility] [place] [address] PCP - General Internal Medicine 10/23/17 documented as of this encounter
--- OUTSIDE RECORDS SUMMARY | 2023-01-01 08:50 | External Medical Summary | Summary of Care ---
Author Name Unknown Organization [facility] Address [address] [facility] [place] [address] Phone [phone] Care Team Providers Care Flight Tower Dispatcher Name Role Phone Stefany Keller MD Primary Care Provider [phone] Reason for Visit * Reason Comments Outpatient Testing Encounter Details Date Type Department Care Team Description 07/17/2022 Laboratory Laboratory [facility] [address] [place] [address] [facility] [address] [place] [address] Arrived Allergies Active Allergy Reactions Severity Noted Date [...] deficiency anemia 11/14/2017 Overview: 11/12/17 nL tsh,cmp [id number].,CBC Hb 10.7-mchc indices c/w iron def anemia [...] Medicine Sky Bethrickey Robert, DO [address] [place] [address] 07/30/2022 Imaging Radiology 08/09/2022 Office Visit Gynecology Obstetrics Isaura Rothman CRNP [address] [place] [address] 10/23/2022 Office Visit Hematology Oncology Sergey Hathaway MD [address] [place] [address] Health Maintenance Due Date Last Done Comments [...] filedocumented as of this encounter Care Teams Flight Tower Dispatcher Relationship Specialty Start Date End Date Krishna, Stefany, MD [address] [facility] [place] [address] PCP - General Internal Medicine 10/23/17 documented as of this encounter
--- OUTSIDE RECORDS SUMMARY | 2023-01-01 08:50 | External Medical Summary ---
Author Name Unknown Address Unknown Organization [id number]:LABORATORY [facility] - [address] [facility] [address] Laboratory Report Ordering Provider Test Date Status BYRON RAPP 07/17/2022 12:03:44 Final Observation Date Value Abnormality Reference (Units ) Status Retic, % (auto) 07/17/2022 12:03:44 2.71 Above high normal 0.80-1.90 (%) Final Reticulocytes, Absolute 07/17/2022 12:03:44 118.7 Above high normal 31.3-100.1 (K/uL) Final Reticulocyte fraction, immature 07/17/2022 12:03:44 16.9 2.5-20.6 (%) Final Reticulocyte HGB 07/17/2022 12:03:44 30.7 29.7-37.4 (pg) Final Performing Location LABORATORY [facility] - [address] [facility] [address]
--- OUTSIDE RECORDS SUMMARY | 2023-01-01 08:50 | External Medical Summary ---
Author Name Unknown Address Unknown Organization [id number]:[facility] [address] [place] [address] Laboratory Report Ordering Provider Test Date Status BYRON RAPP 07/17/2022 12:03:28 Final Observation Date Value Abnormality Reference (Units ) Status BUN 07/17/2022 12:03:28 6 6-20 (mg/dL) Final Creatinine 07/17/2022 12:03:28 0.6 0.5-1.0 (mg/dL) Final Glomerular filtration rate/1.73 sq M.predicted [Volume Rate/Area] in Serum, Plasma or Blood by Creatinine-based formula (CKD-EPI) 07/17/2022 12:03:28 >90 >=60 (mL/min) Final eGFR is calculated based on the CKD-EPI 2020 equation SODIUM 07/17/2022 12:03:28 138 135-146 (m mol/L) Final Potassium 07/17/2022 12:03:28 4.1 3.5-5.1 (m mol/L) Final Cl 07/17/2022 12:03:28 103 98-107 (mm ol/L) Final CO2 07/17/2022 12:03:28 21 Below low normal 22- 32 (mmol/L) Final Anion gap 07/17/2022 12:03:28 14 7-15 (mmol /L) Final Glucose 07/17/2022 12:03:28 98 70-120 (mg /dL) Final Albumin 07/17/2022 12:03:28 4.0 3.8-5.0 (g /dL) Final AST (Aspartate aminotransferase) 07/17/2022 12:03:28 19 10-35 (U/L) Fin al Alk Phos 07/17/2022 12:03:28 68 35-130 (U/ L) Final Bilirubin, Total 07/17/2022 12:03:28 0.4 <=1 .2 (mg/dL) Final Calcium 07/17/2022 12:03:28 9.5 8.4-10.2 ( mg/dL) Final Protein 07/17/2022 12:03:28 7.2 6.0-8.3 (g /dL) Final ALT (Alanine aminotransferase) 07/17/2022 12:03:28 19 10-35 (U/L) Reji leyva Performing Location [facility] [address] [place] [address]
--- OUTSIDE RECORDS SUMMARY | 2023-01-01 08:50 | External Medical Summary ---
Author Name Unknown Address Unknown Organization K09:[facility] [place] [address] Laboratory Report Ordering Provider Test Date Status BYRON RAPP 07/17/2022 12:03:28 Final Observation Date Value Abnormality Reference (Units ) Status SYNC LEUKOCYTES IN BLOOD BY AUTOMATED COUNT 07/17/2022 12:03:28 7.50 4.00-10.80 (K/uL) Final Segs 07/17/2022 12:03:28 72.4 40.0-75.0 (%) Final Lymphs % 07/17/2022 12:03:28 18.5 18.0-42.0 (%) Final Monos 07/17/2022 12:03:28 6.8 1.0-11.0 (%) Final Eosinophils 07/17/2022 12:03:28 2.0 0.0-6.0 (%) Final Basos 07/17/2022 12:03:28 0.3 0.0-2.0 (%) Final Absolute Segs 07/17/2022 12:03:28 5.43 1.80-7.70 (K/uL) Final Lymphs, absolute 07/17/2022 12:03:28 1.39 1.00-4.80 (K/ul) Final Monos, Abs 07/17/2022 12:03:28 0.51 0.00-1.10 (K/uL) Final Eos, Abs 07/17/2022 12:03:28 0.15 0.00-0.70 (K/uL) Final Basos, Abs 07/17/2022 12:03:28 0.02 0.00-0.20 (K/uL) Final Performing Location [facility] [address]
--- OUTSIDE RECORDS SUMMARY | 2023-01-01 08:50 | External Medical Summary ---
Author Name Unknown Address Unknown Organization K01:LABORATORY [facility] - [address] [place] [address] Laboratory Report Ordering Provider Test Date Status BYRON RAPP 07/17/2022 12:03:28 Final Observation Date Value Abnormality Reference (Units ) Status Iron 07/17/2022 12:03:28 76 33-151 (ug /dL) Final Iron-binding capacity 07/17/2022 12:03:28 422 250-425 (ug/dL) Final Transferrin Sat % 07/17/2022 12:03:28 18 15 -55 (%) Final Performing Location LABORATORY [facility] - [address] [place] [address]
--- OUTSIDE RECORDS SUMMARY | 2023-01-01 08:50 | External Medical Summary | Summary of Care ---
Author Name Unknown Organization [facility] Address [address] [place] [address] Phone [phone] Care Team Providers Care Switchboard Installer Name Role Phone Stefany Keller MD Primary Care Provider [phone] Reason for Visit * Reason Onset Date Comments Appointment 07/16/2022 NEW PATIENT - CO NFIRMED Encounter Details Date Type Department Care Team Description 07/16/2022 Telephone Hematology/Oncology [facility] [address] [place] [address] Sergey Adair MD [address] [place] [address] Appointment (NEW PATIENT - CONFIRMED) Allergies Active Allergy Reactions Severity Noted Date Comments Other Allergy (See Comments) 020 Nuts - not severe documented as of this encounter (statuses as of 07/16/2022) Medications Medication Sig Dispensed Refills Start Date [...] as of this encounter (statuses as of 07/16/2022) Active Problems Problem Noted Date Supervision of [...] deficiency anemia 11/14/2017 Overview: 11/12/17 nL tsh,cmp [id number].,CBC Hb 10.7-mchc indices c/w iron def anemia >12/11- A1c 4.7%, Ferritin low at 8, Tsat 9%-st po iron. Estimated Date of Delivery Comme nts Yes 12/21/2022 Based on Ultraso und documented as of this encounter (statuses as of 07/16/2022) Immunizations Name Administration Dates Next Due Seasonal [...] encounter Miscellaneous Notes * Telephone Encounter - Judith Moura CMA - 07/16/2022 10:07 AM EDT Called cell and spoke with Kim; confirmed appt for 07/[address] adair documented in this encounter Plan of Treatment Upcoming Encounters Date Type Specialty Care Team Description 07/17/2022 Office Visit Hematology Oncology Sergey Adair MD [address] [place] [address] 07/30/2022 Office Visit Maternal Medicine Beth Swanson, DO [address] [place] [address] 07/30/2022 Imaging Radiology 08/09/2022 Office Visit Gynecology Obstetrics Isaura Rothman CRNP [address] [place] [address] Health Maintenance Due Date Last Done Comments [...] filedocumented as of this encounter Care Teams Switchboard Installer Relationship Specialty Start Date End Date Stefany Keller MD [address] [place] [address] PCP - General Internal Medicine 10/23/17 documented as of this encounter
--- OUTSIDE RECORDS SUMMARY | 2023-01-01 08:50 | External Medical Summary ---
Author Name Unknown Address Unknown Organization K01:[facility] - [address] [place] [address] Laboratory Report Ordering Provider Test Date Status BYRON RAPP 07/17/2022 12:03:28 Final Observation Date Value Abnormality Reference (Units ) Status Ferritin 07/17/2022 12:03:28 26 13-150 (ng /mL) Final Performing Location [facility] - [address] [address]
--- OUTSIDE RECORDS SUMMARY | 2023-01-01 08:50 | External Medical Summary ---
Author Name Unknown Address Unknown Organization K09:[facility] [place] [place] [address] Laboratory Report Ordering Provider Test Date Status BYRON RAPP 07/17/2022 12:03:28 Final Observation Date Value Abnormality Reference (Units ) Status WBC, Total 07/17/2022 12:03:28 7.50 4.00-10.8 0 (K/uL) Final RBC 07/17/2022 12:03:28 4.31 3.85-5.15 (M/uL) Final Hemoglobin 07/17/2022 12:03:28 11.2 Below low normal 12 .0-15.3 (g/dL) Final HCT 07/17/2022 12:03:28 34.6 Below low normal 36. 0-45.2 (%) Final MCV 07/17/2022 12:03:28 80.3 81.5-97.5 (fL) Final MCH 07/17/2022 12:03:28 26.0 27.0-34.0 (pg) Final MCHC 07/17/2022 12:03:28 32.4 32.0-36.0 (g/dL) Final RDW 07/17/2022 12:03:28 23.0 11.5-15.5 (%) Final Platelets 07/17/2022 12:03:28 299 140-400 (K /uL) Final MPV 07/17/2022 12:03:28 10.5 6.6-11.1 ( fL) Final Performing Location [facility] [place] [address]
--- OUTSIDE RECORDS SUMMARY | 2023-01-01 08:51 | External Medical Summary | Summary of Care ---
Author Name Unknown Organization [facility] Address [address] [place] [address] Phone [phone] Care Team Providers Care Tank Car Inspector Name Role Phone Stefany Keller MD Primary Care Provider [phone] Reason for Visit * Reason Onset Date Comments TRIAGE 06/22/2022 Encounter Details Date Type Department Care Team Description 06/22/2022 Telephone [facility] Gynecology [address] [place] [address] Mercedes Uriarte MD [address] [place] [address] TRIAGE Allergies Active Allergy Reactions Severity Noted Date Comments Other Allergy (See Comments) 020 Nuts - not severe documented as of this encounter (statuses as of 06/22/2022) Medications Medication Sig Dispensed Refills Start Date [...] as of this encounter (statuses as of 06/22/2022) Active Problems Problem Noted Date Antepartum anemia complicating 06/13/2022 Overview: Hgb 9.0 at NOB visit at 12w5d on 06/13/22. Hematology referral placed. Rx for Vitron C BID. Multigravida of advanced maternal age in second trimester 06/13/2022 Thrombocytosis 06/13/2022 Overview: PLT 511 at NOB on 06/13/22 at 12w5d. Hematology referral placed. Snoring 12/01/2017 Overweight (BMI 25.0-29.9) 12/01/2017 Iron deficiency anemia 11/14/2017 Overview: 11/12/17 nL tsh,cmp [id number].,CBC Hb 10.7-mchc indices c/w iron def anemia >12/11- A1c 4.7%, Ferritin low at 8, Tsat 9%-st po iron. Estimated Date of Delivery Comme nts Yes 12/21/2022 Based on Ultraso und documented as of this encounter (statuses as of 06/22/2022) Immunizations Name Administration Dates Next Due Seasonal [...] encounter Miscellaneous Notes * Telephone Encounter - Mercedes Uriarte MD - 06/22/2022 12:12 AM EDT Returned page. Patient calling because she was stung by an insect in her left arm and right thumb. Was having local burning and itching for about 30 minutes which she treated with washout and topical antiseptic. Just wants to make sure there is nothing else she needs to take or do. Denies nausea, emesis, SOB, or spreading rash. Informed patient nothing else she needs to do at this time. If she develops SOB or spreading rash advised to present to nearest ED. All questions answered. documented in this encounter Plan of Treatment Upcoming Encounters Date Type Specialty Care Team Description 06/27/2022 Telemedicine Maternal Medicine Ashley Rajput CRNP [address] [place] [address] 07/12/2022 Office Visit Gynecology Obstetrics Isaura Rothman CRNP [address] [place] [address] 07/17/2022 Office Visit Hematology Oncology Sergey Hathaway MD [address] [place] [address] 07/30/2022 Office Visit Maternal Medicine Beth Swanson DO [address] [place] [address] 07/30/2022 Imaging Radiology Health Maintenance Due Date Last Done Comments Hepatitis B (1 of 3 - 3-dose series) 1985 Pap Smear 08/27/2015 Depression Screening, Annual for Pts 12 and Over 12/01/2018 12/01/2017 Diabetes Screening 11/25/2020 11/25/2017, 11/12/2017 COVID-19 Vaccine (2 - Pfizer series) 02/23/2021 02/02/2021 Influenza Vaccine (FLU shot) (Season Ended) [...] filedocumented as of this encounter Care Teams Tank Car Inspector Relationship Specialty Start Date End Date Stefany Keller MD [address] [place] [address] PCP - General Internal Medicine 10/23/17 documented as of this encounter
--- OUTSIDE RECORDS SUMMARY | 2023-01-01 08:51 | External Medical Summary | Summary of Care ---
Author Name Unknown Organization [facility] Address [address] [facility] [place] [address] Phone [phone] Care Team Providers Care Boatwright Name Role Phone Stefany Keller MD Primary Care Provider [phone] Encounter Details Date Type Department Care Team Description 06/18/2022 Telephone Gynecology/Obstetrics [facility] [address] [facility] [place] [address] Sheron Dee, PRITESH [address] [facility] [place] [address] Allergies Active Allergy Reactions Severity Noted Date Comments Other Allergy (See Comments) 020 Nuts - not severe documented as of this encounter (statuses as of 06/19/2022) Medications Medication Sig Dispensed Refills Start Date [...] as of this encounter (statuses as of 06/19/2022) Active Problems Problem Noted Date Antepartum anemia [...] deficiency anemia 11/14/2017 Overview: 11/12/17 nL tsh,cmp [id number].,CBC Hb 10.7-mchc indices c/w iron def anemia >12/11- A1c 4.7%, Ferritin low at 8, Tsat 9%-st po iron. Estimated Date of Delivery Comme nts Yes 12/21/2022 Based on Ultraso und documented as of this encounter (statuses as of 06/19/2022) Immunizations Name Administration Dates Next Due Seasonal [...] encounter Miscellaneous Notes * Telephone Encounter - Dulce Maria Sims RN - 06/19/2022 11:08 AM EDT Patient called and made aware. Patient verbalized understanding. * Telephone Encounter - Dulce Maria Sims RN - 06/19/2022 11:06 AM EDT ----- Message from Sheron Dee CNM sent at 06/18/2022 1:55 PM EDT ----- Please let patient know she has immunity to rubella. She screened negative for syphilis, Hep B, HepC, HIV, gonorrhea, and chlamydia. Her urine culture was negative for infection. Thanks! Sheron Dee CNM * Telephone Encounter - Jennifer Jessica LPN - 06/18/2022 2:03 PM EDT ----- Message from Sheron Dee CNM sent at 06/18/2022 1:55 PM EDT ----- Please let patient know she has immunity to rubella. She screened negative for syphilis, Hep B, HepC, HIV, gonorrhea, and chlamydia. Her urine culture was negative for infection. Thanks! Sheron Dee CNM documented in this encounter Plan of Treatment Upcoming Encounters Date Type Specialty Care Team Description 06/27/2022 Telemedicine Maternal Medicine Ashley Rajput CRNP [address] [place] [address] 07/12/2022 Office Visit Gynecology Obstetrics Isaura [place]man CRNP [address] [place] [address] 07/17/2022 Office Visit Hematology Oncology Sergey Hathaway MD [address] [place] [address] 07/30/2022 Office Visit Maternal Medicine Beth Swanson DO [address] [place] [address] 07/30/2022 Imaging Radiology Health Maintenance Due Date [...] filedocumented as of this encounter Care Teams Boatwright Relationship Specialty Start Date End Date Stefany Keller MD [address] [place] [address], [place] [address] PCP - General Internal Medicine 10/23/17 documented as of this encounter
--- OUTSIDE RECORDS SUMMARY | 2023-01-01 08:51 | External Medical Summary | Summary of Care ---
Author Name Unknown Organization [facility] Address [address] [facility] [place] [address] Phone [phone] Care Team Providers Care Sleeve Setter Lockstitch Name Role Phone Stefany Keller MD Primary Care Provider [phone] Reason for Visit * Reason Comments Return Visit Encounter Details Date Type Department Care Team Description 07/12/2022 Office Visit Gynecology/Obstetrics [facility] [address] [place] [address] Isaura Rothman CRNP [address] [place] [address] Multigravida of advanced maternal age in second [...] deficiency anemia 11/14/2017 Overview: 11/12/17 nL tsh,cmp [id number].,CBC Hb 10.7-mchc indices c/w iron def anemia [...] Reading Time Taken Comments Blood Pressure 110/70 07/12/2022 9:35 AM EDT Pulse - - Temperature - - Respiratory Rate - - Oxygen Saturation - - Inhaled Oxygen Concentration - - Weight 77.8 kg (171 lb 9.6 oz) 07/12/2022 9:35 A M EDT Height 162.6 cm (5' 4") 07/12/2022 9:35 AM EDT Body Mass Index 29.46 07/12/2022 9:35 AM EDT documented in this encounter Progress Notes * KATIE Benites - 07/12/2022 10:04 AM EDT 16w6d Having back pain, discussed ways to help this. Planning to have Qnatal drawn today. Has anatomy with MFM. Pelvic exam completed today with pap. Oscillograph Technician Documentation Provider requested physician/internist. Name of physician/internist: KATIE Chance documented in this encounter Nursing Notes * PETROS Lugo - 07/12/2022 9:41 AM EDT 16w6d Pt denies any concerns, pelvic exam and pap today documented in this encounter Plan of Treatment Upcoming Encounters Date Type Specialty Care Team Description 07/17/2022 Office Visit Hematology Oncology Sergey Hathaway MD [address] [place] [address] 07/30/2022 Office Visit Maternal Medicine Beth Swanson, DO [address] [place] [address] 07/30/2022 Imaging Radiology 08/09/2022 Office Visit Gynecology Obstetrics Isaura Rothman CRNP [address] [place] [address] Pending Results Name Type Priority Associated Diagnoses Date /Time SUPERVISOR FLESHING PAP SCREEN Pathology Routine Multigravida of advanced maternal age in second trimester 07/12/2022 10:25 AM EDT Health Maintenance Due Date Last [...] antepartum documented in this encounter Care Teams Sleeve Setter Lockstitch Relationship Specialty Start Date End Date Stefany Keller MD [address] [facility] [place] [address] PCP - General Internal Medicine 10/23/17 documented as of this encounter
--- OUTSIDE RECORDS SUMMARY | 2023-01-01 08:51 | External Medical Summary | Summary of Care ---
Author Name Unknown Organization [facility] Address [address] [place] [facility] [address] Phone [phone] Care Team Providers Care [employer] Senior Sergeant Name Role Phone Stefany Keller MD Primary Care Provider [phone] Encounter Details Date Type Department Care Team Description 06/18/2022 Telephone Gynecology/Obstetrics [facility] [address] [facility] [place] [address] Sheron Dee, PRITESH [address] [facility] [place] [address] Allergies Active Allergy Reactions [...] deficiency anemia 11/14/2017 Overview: 11/12/17 nL tsh,cmp [id number].,CBC Hb 10.7-mchc indices c/w iron def anemia [...] Maternal Medicine Ashley Rajput CRNP [address] [place] [address] 07/12/2022 Office Visit Gynecology Obstetrics Isaura Rothman CRNP [address] [place] [address] 07/17/2022 Office Visit Hematology Oncology Sergey Hathaway MD [address] [place] [address] 07/30/2022 Office Visit Maternal Medicine Beth Swanson DO [address] [place] [address] 07/30/2022 Imaging Radiology Health Maintenance Due Date [...] filedocumented as of this encounter Care Teams [employer] Senior Sergeant Relationship Specialty Start Date End Date Stefany Keller MD [address] [place] [address], [place] [address] PCP - General Internal Medicine 10/23/17 documented as of this encounter
--- OUTSIDE RECORDS SUMMARY | 2023-01-01 08:51 | External Medical Summary | Summary of Care ---
Author Name Unknown Organization [facility] Address [address] [place] [address] Phone [phone] Care Team Providers Care Video Camera Operator Name Role Phone Stefany Keller MD Primary Care Provider [phone] Reason for Visit * Reason Onset Date Comments NEW PATIENT 06/14/2022 NICKIE SEEN SOONER Encounter Details Date Type Department Care Team Description 06/14/2022 Telephone Hematology/Oncology [facility] [address] [place] [address] Sergey Hathaway MD [address] [place] [address] NEW PATIENT (NICKIE SEEN SOONER) Allergies Active Allergy Reactions Severity Noted Date Comments Other Allergy (See Comments) 020 Nuts - not severe documented as of this encounter (statuses as of 06/14/2022) Medications Medication Sig Dispensed Refills Start Date [...] as of this encounter (statuses as of 06/14/2022) Active Problems Problem Noted Date Antepartum anemia [...] deficiency anemia 11/14/2017 Overview: 11/12/17 nL tsh,cmp [id number].,CBC Hb 10.7-mchc indices c/w iron def anemia >12/11- A1c 4.7%, Ferritin low at 8, Tsat 9%-st po iron. Estimated Date of Delivery Comme nts Yes 12/21/2022 Based on Ultraso und documented as of this encounter (statuses as of 06/14/2022) Immunizations Name Administration Dates Next Due Seasonal [...] * Telephone Encounter - REBECCA Lynn - 06/14/2022 10:53 AM EDT Spoke to patient, scheduled for new patient consultation with Dr Hathaway 07/17/22 @ 11:30 am. Patient is on the cancellation list. documented in this encounter Plan of Treatment Upcoming Encounters Date Type Specialty Care Team Description 06/27/2022 Telemedicine Maternal Medicine Ashley Rajput CRNP [address] [place] [address] 07/12/2022 Office Visit Gynecology Obstetrics Isaura Rothman CRNP [address] [place] [address] 07/17/2022 Office Visit Hematology Oncology Sergey Hathaway MD [address] [place] [address] 07/30/2022 Office Visit Maternal Medicine Beth Swanson DO [address] [place] [address] 07/30/2022 Imaging Radiology Health Maintenance Due Date [...] filedocumented as of this encounter Care Teams Video Camera Operator Relationship Specialty Start Date End Date Stefany Keller MD [address] [place] [address] PCP - General Internal Medicine 10/23/17 documented as of this encounter
--- OUTSIDE RECORDS SUMMARY | 2023-01-01 08:51 | External Medical Summary | Summary of Care ---
Author Name Unknown Organization [facility] Address [address] [place] [address] Phone [phone] Care Team Providers Care Systems Navigator Name Role Phone Stefany Keller MD Primary Care Provider [phone] Encounter Details Date Type Department Care Team Description 06/13/2022 Telephone Gynecology/Obstetrics [facility] [address] [place] [address] Sheron Dee [facility] [address] [place] [address] Allergies Active Allergy Reactions Severity Noted Date Comments Other Allergy (See Comments) 020 Nuts - not severe documented as of this encounter (statuses as of 06/13/2022) Medications Medication Sig Dispensed Refills Start Date [...] as of this encounter (statuses as of 06/13/2022) Active Problems Problem Noted Date Antepartum anemia [...] deficiency anemia 11/14/2017 Overview: 11/12/17 nL tsh,cmp [id number].,CBC Hb 10.7-mchc indices c/w iron def anemia >12/11- A1c 4.7%, Ferritin low at 8, Tsat 9%-st po iron. Estimated Date of Delivery Comme nts Yes 12/21/2022 Based on Ultraso und documented as of this encounter (statuses as of 06/13/2022) Immunizations Name Administration Dates Next Due Seasonal [...] Telephone Encounter - Antonella Haynes RN - 06/13/2022 4:06 PM EDT Pt aware and agreeable. * Telephone Encounter - Antonella Haynes RN - 06/13/2022 4:05 PM EDT ----- Message from Sheron Dee CNM sent at 06/13/2022 2:27 PM EDT ----- Please let patient know I have placed a hematology referral for further anemia management. Thanks! Sheron Dee CNM documented in this encounter Plan of Treatment Upcoming Encounters Date Type Specialty Care Team Description 07/12/2022 Office Visit Gynecology Obstetrics Isaura Rothman CRNP [address] [place] [address] Health Maintenance Due Date Last Done Comments [...] Tdap) 06/30/2026 06/30/2016 Hepatitis C Screening Completed 08/16/2021 GARDASIL-HPV IMMUNIZATION SERIES Aged Out No [...] filedocumented as of this encounter Care Teams Systems Navigator Relationship Specialty Start Date End Date Stefany Keller MD [address] [facility] [place] [address] PCP - General Internal Medicine 10/23/17 documented as of this encounter
--- OUTSIDE RECORDS SUMMARY | 2023-01-01 08:51 | External Medical Summary | Summary of Care ---
Author Name Unknown Organization [facility] Address [address] [place] [address] Phone [phone] Care Team Providers Care Account Adjuster Name Role Phone Stefany Keller MD Primary Care Provider [phone] Reason for Visit * Reason Comments Consultation Advanced maternal ag e, Encounter Details Date Type Department Care Team Description 06/27/2022 Telemedicine Primary Special Educator Obstetrics Maternal Medicine, [place] [address] [place] [address] Ashley Rajput CRNP [address] [place] [address] Multigravida of advanced maternal age in second trimester*; Thrombocytosis; Antepartum anemia complicating ; Supervision of high risk in second trimester Allergies Active Allergy Reactions Severity Noted Date Comments Other Allergy (See Comments) 020 Nuts - not severe documented as of this encounter (statuses as of 06/27/2022) Medications Medication Sig Dispensed Refills Start Date [...] as of this encounter (statuses as of 06/27/2022) Active Problems Problem Noted Date Supervision of [...] deficiency anemia 11/14/2017 Overview: 11/12/17 nL tsh,cmp [id number].,CBC Hb 10.7-mchc indices c/w iron def anemia >12/11- A1c 4.7%, Ferritin low at 8, Tsat 9%-st po iron. Estimated Date of Delivery Comme nts Yes 12/21/2022 Based on Ultraso und documented as of this encounter (statuses as of 06/27/2022) Immunizations Name Administration Dates Next Due Seasonal [...] encounter Progress Notes * KATIE Blood - 06/27/2022 1:29 PM EDT MATERNAL MEDICINE CONSULT Kim Lucero 06/27/22 REFERRING PROVIDER: Sheron Dee CNM Patient location: HOME. I was in a hospital or clinic location. After connecting through televideo,patient was verified with two unique identifiers. Patient (or authorized legal retail representative) was then informed that this was a Telemedicine visit and being conducted confidentially over secure lines. Methods to assure confidentiality were taken. Patient acknowledged consent and understanding of pr ivacy and security of the Telemedicine visit. The patient agreed to participate. Kim Lucero is a 36 year old with intrauterine at 14w5d (Estimated Date ofDelivery: 12/21/22 by 12w5d ultrasound) who presents today for an MFM consult due to advanced maternal age, thrombocytosis and anemia. HPI/CURRENT : pre- BMI=overweight (77.6 kg (171 lb); 5' 4"); FOB Nilamja; complicated by above. Genetic testing: Qnatal ordered by OB provider OB Rodrigue marshalls Problems (from 06/05/22 to present) Problem Noted Resolved Antepartum anemia complicating 06/13/2022 by Sheron Dee CNM No Overview Addendum 06/27/2022 1:28 PM by KATIE Blood Hgb 9.0 at OB visit at 12w5d on 06/13/22. Hematology consult scheduled 07/17/2022 Taking for Vitron C BID. Multigravida of advanced maternal age in second trimester 06/13/2022 by Sheron Dee CNM No Overview Addendum 06/27/2022 1:20 PM by KATIE Blood Patient will be 37 years old at time of delivery NIPT: ordered, done done yet Genetic consult: declines referral at this time MFM anatomy scan scheduled on 07/30/2022 Thrombocytosis 06/13/2022 by Sheron Dee CNM No Overview Addendum 06/26/2022 3:03 PM by KATIE Blood 06/13/2022 Platelets: 511 (12w5d) Hematology referral placed by OB provider Hematology consult scheduled 07/17/2022 I have reviewed this patient's previous OB [...] 1 Tablet before bedtime. 90 Tablet 4 27-0.8 MG Oral Tablet Take 1 Tablet by mouth daily at noon. 90 Tablet 2 No current facility-administered medications for this visit. Review of patient's allergies indicates: Allergen Reactions Other Allergy (See Comments) Nuts - not severe OB History Para Term AB Living 2 0 0 0 1 0 SAB IAB Ectopic Multiple Live Births 1 0 0 0 0 # Outcome Date GA Lbr Colin/2nd Weight Sex Delivery Anes PTL Lv 2 Current 2018 8w0d U SPONTANEOUS Obstetric Comments FOB Nilamja, age 42, no children outside this relationship, [...] SYSTEMS: headaches: no nausea/vomiting: denies reports movement: Maybe fluttering? abdominal pain/tenderness/cramping/contractions: no vaginal bleeding: no vaginal leaking of fluid: no all other systems negative PHYSICAL EXAM: LMP (LMP Unknown) General: Well appearing Psych: Alert to time, place, and person and Pleasant DISCUSSION/RECOMMENDATIONS: Problem List Items Addressed This Visit OB Rodrigue allen Antepartum anemia complicating Multigravida of advanced maternal age in second trimester - Primary CONSIDERATIONS: We reviewed the most pertinent aspects of the following: Advanced maternal age (AMA) refers to a woman with a choi who will be at the ageof 35 or older at the estimated time of delivery and may be associated with increased morbidity. Prior to the appointment the patient has had genetic screening and it was reported as pending. In addition to the risk of chromosomal abnormalities, there is an increased risk of congenital/structural anomalies. RECOMMENDATIONS: Recommend MFM anatomy ultrasound at 19-20 weeks gestation. Thrombocytosis Follow up ultrasound with Maternal Medicine is scheduled on 07/30/[address] Swanson for anatomy scan secondary to advanced maternal age, thrombocytosis and anemia. Patient is aware of upcoming MFM appointment. Total time spent face to face in this visit was 30 minutes of which more than 50% was spent discussing and counseling the patient/caregiver(s) regarding advanced maternal age, thrombocytosis and anemia. Total time spent on this date of service including non face to face was 45 minutes in preparation, delivery, and documentation of care provided to Kim Lucero, excluding time spent in performance of separately billable services. Details outlined above in impression and plan. KATIE Blood 06/27/2022 1:32 PM documented in this encounter Miscellaneous Notes * Assessment & Plan Note - KATIE Blood - 06/27/2022 1:20 PM EDT Associated Problem(s): Multigravida of advanced maternal age in second trimester CONSIDERATIONS: We reviewed the most pertinent aspects of the following: Advanced maternal age (AMA) refers to a woman with a choi who will be at the ageof 35 or older at the estimated time of delivery and may be associated with increased morbidity. Prior to the appointment the patient has had genetic screening and it was reported as pending. In addition to the risk of chromosomal abnormalities, there is an increased risk of congenital/structural anomalies. RECOMMENDATIONS: Recommend MFM anatomy ultrasound at 19-20 weeks gestation. documented in this encounter Plan of Treatment Upcoming Encounters Date Type Specialty Care Team Description 07/12/2022 Office Visit Gynecology Obstetrics Isaura Rothman CRNP [address] [place] [address] 07/17/2022 Office Visit Hematology Oncology Sergey Hathaway MD [address] [place] [address] 07/30/2022 Office Visit Maternal Medicine Beth Swanson, DO [address] [place] [address] 07/30/2022 Imaging Radiology Health Maintenance Due Date [...] Anemia, antepartum Supervision of high risk in second trimester Unspecified high-risk documented in this encounter Care Teams Account Adjuster Relationship Specialty Start Date End Date Stefany Keller MD [address] [facility] [place] [address] PCP - General Internal Medicine 10/23/17 documented as of this encounter
--- OUTSIDE RECORDS SUMMARY | 2023-01-01 08:51 | External Medical Summary | Summary of Care ---
Author Name Unknown Organization [facility] Address [address] [facility] [place] [address] Phone [phone] Care Team Providers Care Transmission And Coordination Engineer Name Role Phone Stefany Keller MD Primary Care Provider [phone] Reason for Visit * Reason Comments Return Visit Encounter Details Date Type Department Care Team Description 07/12/2022 Office Visit Gynecology/Obstetrics [facility] [address] [place] [address] Isaura Rothman CRNP [address] [place] [address] Multigravida of advanced maternal age in second [...] deficiency anemia 11/14/2017 Overview: 11/12/17 nL tsh,cmp [id number].,CBC Hb 10.7-mchc indices c/w iron def anemia [...] MFM. Pelvic exam completed today with pap. Glass Wool Blank[employer] Machine Feeder Documentation Provider requested flight deck officer. Name of flight deck officer: KATIE Chance documented in this encounter Nursing Notes * PETROS Lugo - 07/12/2022 9:41 AM EDT 16w6d Pt denies any concerns, pelvic exam and pap today documented in this encounter Plan of Treatment Upcoming Encounters Date Type Specialty Care Team Description 07/17/2022 Office Visit Hematology Oncology Sergey Hathaway MD [address] [place] [address] 07/30/2022 Office Visit Maternal Medicine Beth Swanson, DO [address] [place] [address] 07/30/2022 Imaging Radiology 08/09/2022 Office Visit Gynecology Obstetrics Isaura Rothman CRNP [address] [place] [address] Pending Results Name Type Priority Associated Diagnoses Date /Time LAUNDRY HELPER PAP SCREEN Pathology Routine Multigravida of advanced [...] antepartum documented in this encounter Care Teams Transmission And Coordination Engineer Relationship Specialty Start Date End Date Stefany Keller MD [address] [facility] [place] [address] PCP - General Internal Medicine 10/23/17 documented as of this encounter
--- OUTSIDE RECORDS SUMMARY | 2023-01-01 08:51 | External Medical Summary | Summary of Care ---
Author Name Unknown Organization [facility] Address [address] [facility] [address] Phone [phone] Care Team Providers Care Gravity Flow Irrigator Name Role Phone Stefany Keller MD Primary Care Provider [phone] Encounter Details Date Type Department Care Team Description 06/17/2022 Telephone Gynecology/Obstetrics [facility] [address] [facility] [place] [address] Sheron Dee, [facility] [address] [facility] [place] [address] Allergies Active Allergy Reactions Severity Noted Date Comments Other Allergy (See Comments) 020 Nuts - not severe documented as of this encounter (statuses as of 06/18/2022) Medications Medication Sig Dispensed Refills Start Date [...] as of this encounter (statuses as of 06/18/2022) Active Problems Problem Noted Date Antepartum anemia [...] deficiency anemia 11/14/2017 Overview: 11/12/17 nL tsh,cmp [id number].,CBC Hb 10.7-mchc indices c/w iron def anemia >12/11- A1c 4.7%, Ferritin low at 8, Tsat 9%-st po iron. Estimated Date of Delivery Comme nts Yes 12/21/2022 Based on Ultraso und documented as of this encounter (statuses as of 06/18/2022) Immunizations Name Administration Dates Next Due Seasonal [...] Encounter - Dulce Maria Sims RN - 06/18/2022 8:57 AM EDT Patient called And was made aware. * Telephone Encounter - Jennifer Jessica LPN - 06/18/2022 8:39 AM EDT left message for patient to call office * Telephone Encounter - Sheron Dee CNM - 06/18/2022 7:51 AM EDT Qnatal ordered. Patient may present to the lab at her earliest convenience for this to be drawn. Thanks! Sheron Dee CNM * Telephone Encounter - Jennifer Jessica LPN - 06/17/2022 12:30 PM EDT Patient would like to do QNatal testing. documented in this encounter Plan of Treatment Upcoming Encounters Date Type Specialty Care Team Description 06/27/2022 Telemedicine Maternal Medicine Ashley Rajput CRNP [address] [place] [address] 07/12/2022 Office Visit Gynecology Obstetrics Isaura Rothman CRNP [address] [place] [address] 07/17/2022 Office Visit Hematology Oncology Sergey Hathaway MD [address] [place] [address] 07/30/2022 Office Visit Maternal Medicine Beth Swanson, [address] [place] [address] 07/30/2022 Imaging Radiology Scheduled Orders Name Type Priority Associated Diagnoses Orde r Schedule QNATAL ADVANCED ([facility]) Lab Routine Genetic screening Expected: 06/18/2022, Expires: 06/18/2023 Health Maintenance Due Date Last Done Comments [...] of this encounter Visit Diagnoses Diagnosis Genetic screening- Primary Other genetic screening documented in this encounter Care Teams Gravity Flow Irrigator Relationship Specialty Start Date End Date Stefany Keller MD [address] [place] [address] PCP - General Internal Medicine 10/23/17 documented as of this encounter
--- OUTSIDE RECORDS SUMMARY | 2023-01-01 08:51 | External Medical Summary ---
Author Name Unknown Address Unknown Organization K[facility] [place] [address] Laboratory Report Ordering Provider Test Date Status JEWELL HAWTHORNE 07/12/2022 10:25:00 Final Observation Date Value Abnormality Reference (Units ) Status Human papilloma virus E6+E7 mRNA [Presence] in Cervix by CARLOS with probe detection 07/12/2022 10:25:00 Negative Not Applicable Final No high/intermediate-risk Hu man Papillomavirus (HPV E6/E7 messenger RNA) detected by nucleic acid amplification.

This assay looks for high/intermediate risk Human Papillomavirus (HPV E6/E7 messenger RNA) by nucleic acid amplification. This assay includes the qualitative detection of HPV types 16,18,31,33,35,39,45,51,52,56,58,59,66 and 68 from cervical specimens.
This assay has been FDA cleared for Thin prep collection vials.
This assay has not been approved for use as a primary screening test for HPV and should be tested in conjunction with a PAP screen.
If collected utilizing a Surepath vial, the collection and specimen preparation of this test was developed, and its performance characteristics determined by [facility]. It has not been cleared or approved by the U.S. Food and Drug Administration (FDA). The FDA has determined that such clearance or approval is not necessary.
This assay has been performed at [facility], [address] [place] [address], [place]. [address]. Performing Location LABORATORY [address] [address]
--- OUTSIDE RECORDS SUMMARY | 2023-01-01 08:51 | External Medical Summary ---
Author Name Unknown Address Unknown Organization : Laboratory Report Ordering Provider Test Date Status ANMOL AMANDA 07/12/2022 10:16:52 Final Observation Date Value Abnormality Reference (Units ) Status NUMBER OF FETUSES? 07/12/2022 10:16:52 1 Final ADVANCED MATERNAL AGE? 07/12/2022 10:16:52 YES Final ABNORMAL YANNICK? 07/12/2022 10:16:52 NO Final ABNORMAL US? 07/12/2022 10:16:52 NOT GIVEN Final PERSONAL/FAM HISTORY? 07/12/2022 10:16:52 NOT GIVEN Final INTERPRETATION 07/12/2022 10:16:52 SEE BELOW Final This specimen showed an expe cted representation of
chromosome 21, 18, and 13 material. Results were
not analyzed or reported for microdeletions. See
'Limitations' below. TRISOMY 21 (T21) 07/12/2022 10:16:52 Negative Final TRISOMY 18 (T18) 07/12/2022 10:16:52 Negative Final TRISOMY 13 (T13) 07/12/2022 10:16:52 Negative Final Y CHROMOSOME 07/12/2022 10:16:52 Not detected Final Y CHR. INTERPRETATION 07/12/2022 10:16:52 SEE BELOW Final Consistent with a female fet us. SEX CHROMOSOME 07/12/2022 10:16:52 No aneuploidy Final SEX CHROMOSOME INTERP 07/12/2022 10:16:52 SEE BELOW Final No apparent abnormality was detected. See
'Limitations' below. MICRODELETION 07/12/2022 10:16:52 Opted Out Final MICRODELETION INTERP 07/12/2022 10:16:52 SEE BELOW Final Results were not analyzed or reported for
microdeletions. GESTATIONAL AGE (IN WEEKS) 07/12/2022 10:16:52 16 Final GESTATIONAL AGE (IN DAYS) 07/12/2022 10:16:52 6 Final FRACTION 07/12/2022 10:16:52 12.00% Final LABORATORY COMMENTS 07/12/2022 10:16:52 SEE BELOW Final Laboratory results and submi tted clinical
information reviewed by Porsche Suárez M.Sc. Ph.D.,
[facility], [facility]. LIMITATIONS 07/12/2022 10:16:52 SEE BELOW Final QNatal(R) Advanced is a cell -free DNA test that
screens for increased risk of certain
chromosomal abnormalities that may cause
defects, including Trisomy 21 (Down syndrome),
Trisomy 18, Trisomy 13, and certain sex chromosome
abnormalities (i.e., 45,X, 47,XXY, 47,XXX, and
47,XYY), as well as sex. In addition, if
selected as an option, QNatal(R) Advanced can
screen for certain microdeletions (i.e., 22q, 5p,
1p36, 15q, 11q, 8q, and 4p) that may cause
defects. This test does not assess the risk of
abnormalities such as neural tube defects or
ventral wall defects and should not be considered
in isolation from other clinical findings and
laboratory test results. QNatal(R) Advanced has
been validated in pregnancies that are equal to or
greater than 10 weeks gestational age.
QNatal(R) Advanced has been validated in choi
pregnancies for the trisomies and sex chromosome
abnormalities listed above, as well as for
microdeletions, and for the determination of
sex. Sex chromosome aneuploidy analysis is only
performed in choi pregnancies. The test has
also been validated in twin pregnancies for the
trisomies listed above and for microdeletions, but
not for the sex chromosome abnormalities due to
limited data. The test has not been validated in
higher order pregnancies (more than two) because
limited data is available.
Microdeletion screening is limited to the
specified microdeletion regions (see
'Methodology'). The Y chromosome is analyzed for
the determination of sex. The sensitivity
and specificity of sex determination
analysis may be less than that of the Trisomy 21,
18, and 13 analysis and this determination can be
confounded by vanishing twin syndrome in
pregnancies that were originally multiple
gestation pregnancies. It should be noted that
QNatal(R) Advanced is a quantitative analysis of
maternal and placental cfDNA. As a result, the
accuracy of the screening test results may be
affected by the presence of chromosome
abnormalities or microdeletions that are maternal
or confined placental in origin. An incidental
finding may be reported when the finding precludes
categorizing a targeted condition or indicates a
maternal condition. False positive findings
involving the examined chromosomes and
microdeletion regions may be due to maternal,
placental, or mosaicism, by vanishing twin
syndrome, or other unexplained causes. SPECIFICATIONS 07/12/2022 10:16:52 SEE BELOW Final Sensitivity Specificity
T21 >99.9% >99.9%
T18 >99.9% >99.9%
T13 >99.9% >99.9%
Accuracy
Y >99.9%
Performance of the QNatal Advanced
laboratory-developed test (LDT) has been
determined based on internal analytical
assessment. METHODOLOGY 07/12/2022 10:16:52 SEE BELOW Final Circulating cell-free (cf) D NA was isolated from
plasma followed by detection on a massively
parallel sequencing platform. Bioinformatic
analysis was performed to determine the
representation of chromosomes 21, 18, 13, X and Y
in circulating cell-free DNA. The representation
of sequences from the critical regions involved in
1p36 microdeletion syndrome (1p36),
Allison-Hirschhorn syndrome (4p), Cri-du-chat
syndrome (5p), Sudhakar-Giedion syndrome (8p),
Dorina syndrome (11q), Prader Willi
syndrome/Angelman syndrome (15q), and DiGeorge
syndrome (22q) is evaluated for the detection of
microdeletions if requested. This test was
developed, and its performance characteristics
have been determined by [employer]. It has not been
cleared or approved by the U.S. Food and Drug
Administration. Performance characteristics refer
to the analytical performance of the test. This
test is performed pursuant to a license agreement
with [facility].
This test was developed and its analytical
performance characteristics have been determined
by [facility]. It has not been cleared or approved by
FDA. This assay has been validated pursuant to the
CLIA regulations and is used for clinical
purposes.
Test performed by [facility]
[address] [facility] [place] [address]

Teacher Vocational Training: Brenda Simpson MD,PHD,ARACELI
Test Reported by [facility],
[facility],
[address] [place], [place]
Ric Singh M.D., Ph.D., Director of Laboratories
, CLIA [id number] Performing Location
--- OUTSIDE RECORDS SUMMARY | 2023-01-01 08:52 | External Medical Summary ---
Author Name Unknown Address Unknown Organization K01:LABORATORY [place] - [address] [place] [address] Laboratory Report Ordering Provider Test Date Status ANMOL AMANDA 06/13/2022 10:08:10 Final Observation Date Value Abnormality Reference (Units ) Status Rubella virus IgG Ab [Presence] in Serum 06/13/2022 10:08:10 Positive Abnormal Negative Final A positive result is consist ent with having had rubella virus or vaccination. Performing Location [facility] [place] - [address] [place] [address]
--- OUTSIDE RECORDS SUMMARY | 2023-01-01 08:52 | External Medical Summary | Summary of Care ---
Author Name Unknown Organization [facility] Address [address] [facility] [place] [address] Phone [phone] Care Team Providers Care Scleroscope Tester Name Role Phone Stefany Keller MD Primary Care Provider [phone] Encounter Details Date Type Department Care Team Description 06/13/2022 Telephone Gynecology/Obstetrics [facility] [address] [facility] [place] [address] Sheron Dee, PRITESH [address] [facility] [address] Allergies Active Allergy Reactions Severity [...] of 06/13/2022) Active Problems Problem Noted Date Snoring 12/01/2017 Overweight (BMI 25.0-29.9) 12/01/2017 Iron deficiency anemia 11/14/2017 Overview: 11/12/17 nL tsh,cmp [id number].,CBC Hb 10.7-mchc indices c/w iron def anemia [...] Encounter - Dulce Maria Sims RN - 06/13/2022 11:37 AM EDT Patient was in the office today for appt with the provider. * Telephone Encounter - Dulce Maria Sims RN - 06/13/2022 11:20 AM EDT ----- Message from Sheron Dee CNM sent at 06/13/2022 11:04 AM EDT ----- Please let patient know her ultrasound showed a single live intrauterine gestation with RICKY of 12/21/22. Thanks! Sheron Dee CNM documented in this encounter Plan of Treatment Upcoming Encounters Date Type Specialty Care Team Description 07/12/2022 Office Visit Gynecology Obstetrics Stephan, KATIE Murcia [address] [facility] [place] [address] Health Maintenance Due Date Last Done Comments [...] filedocumented as of this encounter Care Teams Scleroscope Tester Relationship Specialty Start Date End Date Stefany Keller MD [address] [place] [address], [place] [address] PCP - General Internal Medicine 10/23/17 documented as of this encounter
--- OUTSIDE RECORDS SUMMARY | 2023-01-01 08:52 | External Medical Summary ---
Author Name Unknown Address Unknown Organization K01:[place] [place] [address] [place] [address] Laboratory Report Ordering Provider Test Date Status ANMOL AMANDA 06/13/2022 10:08:10 Final Observation Date Value Abnormality Reference (Units ) Status Hep C Ab 06/13/2022 10:08:10 Negative Negative Final Further HCV quantitative harish ting not performed per protocol. Performing Location LABORATORY [facility] - [address] [place] [address]
--- OUTSIDE RECORDS SUMMARY | 2023-01-01 08:52 | External Medical Summary ---
Author Name Unknown Address Unknown Organization [id number]:[facility] [place] [facility] [place] [address] [place] [address] Laboratory Report Ordering Provider Test Date Status ANMOL AMANDA 06/13/2022 10:08:10 Final Observation Date Value Abnormality Reference (Units ) Status Hep B surface Ag 06/13/2022 10:08:10 Negative Neg ative Final Performing Location [facility] - [address] [facility] [place] [address]
--- OUTSIDE RECORDS SUMMARY | 2023-01-01 08:52 | External Medical Summary ---
Author Name Unknown Address Unknown Organization K01:[facility] [place] [address] [facility] [address] [facility] [address] Laboratory Report Ordering Provider Test Date Status ANMOL AMANDA 06/13/2022 10:08:10 Final Observation Date Value Abnormality Reference (Units ) Status Treponema pallidum Ab [Presence] in Serum by Immunoassay 06/13/2022 10:08:10 Nonreactive Nonreactive Final No serologic evidence of syp hilis. No additional testing clinicially indicated at this time. Consider repeat testing in 2-4 weeks if acute or primary syphilis is suspected. Performing Location [facility] [place] [address] [facility] [address]
--- OUTSIDE RECORDS SUMMARY | 2023-01-01 08:52 | External Medical Summary ---
Author Name Unknown Address Unknown Organization K01:[facility]ATORY [place] [address] [facility] [address] [facility] [address] Laboratory Report Ordering Provider Test Date Status ANMOL AMANDA 06/13/2022 10:08:10 Final Observation Date Value Abnormality Reference (Units ) Status Retic, % (auto) 06/13/2022 10:08:10 3.28 Above high normal 0.80-1.90 (%) Final Reticulocytes, Absolute 06/13/2022 10:08:10 140.7 Above high normal 31.3-100.1 (K/uL) Final Reticulocyte fraction, immature 06/13/2022 10:08:10 30.0 Above high normal 2.5-20.6 (%) Final Reticulocyte HGB 06/13/2022 10:08:10 21.5 Below low normal 29.7-37.4 (pg) Final Performing Location LABORATORY [facility] [place] - [facility] [address] [facility] [address]
--- OUTSIDE RECORDS SUMMARY | 2023-01-01 08:52 | External Medical Summary ---
Author Name Unknown Address Unknown Organization K01:LABORATORY [address] [facility] [address] Laboratory Report Ordering Provider Test Date Status ANMOL AMANDA 06/13/2022 10:08:10 Final Observation Date Value Abnormality Reference (Units ) Status HIV 1+2 Ab+HIV1 p24 Ag [Presence] in Serum or Plasma by Immunoassay 06/13/2022 10:08:10 Negative Negative Final Negative HIV-1/2 antigen and antibody screening tset results usually indicate the absence of HIV-1 and HIV-2 infection. However, such negative results do not rule-out acute HIV infection. If acute HIV-1 infection is highly suspected, it is recommended that a specimen be submitted for detection of HIV-1 RNA. Performing Location LABORATORY [facility] [place] - [address] [address] [facility] [address]
--- OUTSIDE RECORDS SUMMARY | 2023-01-01 08:52 | External Medical Summary ---
Author Name Unknown Address Unknown Organization K01:[place] [facility] [place] [address] [facility] [address] Laboratory Report Ordering Provider Test Date Status ANMOL AMANDA 06/13/2022 10:08:10 Final Observation Date Value Abnormality Reference (Units ) Status SYNC LEUKOCYTES IN BLOOD BY AUTOMATED COUNT 06/13/2022 10:08:10 7.77 4.00-10.80 (K/uL) Final Segs 06/13/2022 10:08:10 70.9 40.0-75.0 (%) Final Lymphs % 06/13/2022 10:08:10 19.3 18.0-42.0 (%) Final Monos 06/13/2022 10:08:10 6.7 1.0-11.0 (%) Final Eosinophils 06/13/2022 10:08:10 2.2 0.0-6.0 (%) Final Basos 06/13/2022 10:08:10 0.6 0.0-2.0 (%) Final Immature Granulocyte, Percent 06/13/2022 10:08:10 0.3 0.0-2.0 (%) Final Absolute Segs 06/13/2022 10:08:10 5.51 1.80-7.70 (K/uL) Final Lymphs, absolute 06/13/2022 10:08:10 1.50 1.00-4.80 (K/ul) Final Monos, Abs 06/13/2022 10:08:10 0.52 0.00-1.10 (K/uL) Final Eos, Abs 06/13/2022 10:08:10 0.17 0.00-0.70 (K/uL) Final Basos, Abs 06/13/2022 10:08:10 0.05 0.00-0.20 (K/uL) Final Immature Granulocytes, Number 06/13/2022 10:08:10 0.02 0.00-0.20 (K/uL) Final Performing Location [facility] [facility] [place] [address] [facility] [address]
--- OUTSIDE RECORDS SUMMARY | 2023-01-01 08:52 | External Medical Summary ---
Author Name Unknown Address Unknown Organization K01:[facility]ATORY [place] - [address] [facility] [address] Laboratory Report Ordering Provider Test Date Status ANMOL AMANDA 06/13/2022 10:08:10 Final Observation Date Value Abnormality Reference (Units ) Status WBC, Total 06/13/2022 10:08:10 7.77 4.00-10.8 0 (K/uL) Final RBC 06/13/2022 10:08:10 4.24 3.85-5.15 (M/uL) Final Hemoglobin 06/13/2022 10:08:10 9.0 Below low normal 12 .0-15.3 (g/dL) Final Anemia reflex testing trigge rs on a HGB < 12.0 for Females and HGB < 13.0 for Males in accordance with the WHO Anemia Guidelines
Anemia reflex testing triggers on a HGB < 12.0 for Females and HGB < 13.0 for Males in accordance with the WHO Anemia Guidelines HCT 06/13/2022 10:08:10 30.7 Below low normal 36. 0-45.2 (%) Final MCV 06/13/2022 10:08:10 72.4 81.5-97.5 (fL) Final MCH 06/13/2022 10:08:10 21.2 27.0-34.0 (pg) Final MCHC 06/13/2022 10:08:10 29.3 32.0-36.0 (g/dL) Final RDW 06/13/2022 10:08:10 19.3 11.5-15.5 (%) Final Platelets 06/13/2022 10:08:10 519 Above hi gh normal 140-400 (K/uL) Final MPV 06/13/2022 10:08:10 10.7 6.6-11.1 ( fL) Final Nucleated erythrocytes/100 leukocytes [Ratio] in Blood by Automated count 06/13/2022 10:08:10 0 <=0 (/100 WBCs) Final Performing Location LAB[facility]ATORY [place] - [address] [facility] [address]
--- OUTSIDE RECORDS SUMMARY | 2023-01-01 08:52 | External Medical Summary ---
Author Name Unknown Address Unknown Organization K01:[facility] - [address] [place] [address] Laboratory Report Ordering Provider Test Date Status ANMOL AMANDA 06/13/2022 10:08:10 Final Observation Date Value Abnormality Reference (Units ) Status Ferritin 06/13/2022 10:08:10 6 Below low normal 13- 150 (ng/mL) Final Performing Location [facility] - [address] [place] [address]
--- OUTSIDE RECORDS SUMMARY | 2023-01-01 08:52 | External Medical Summary ---
Author Name Unknown Address Unknown Organization K01:[place] [place] [facility] [address] [place] [address] Laboratory Report Ordering Provider Test Date Status ANMOL AMANDA 06/13/2022 10:08:10 Final Observation Date Value Abnormality Reference (Units ) Status Creatinine 06/13/2022 10:08:10 0.7 0.5-1.0 (mg/dL) Final Glomerular filtration rate/1.73 sq M.predicted [Volume Rate/Area] in Serum, Plasma or Blood by Creatinine-based formula (CKD-EPI) 06/13/2022 10:08:10 >90 >=60 (mL/min) Final eGFR is calculated based on the CKD-EPI 2020 equation Performing Location [facility] [place] [facility] [address] [place] [address]
--- OUTSIDE RECORDS SUMMARY | 2023-01-01 08:52 | External Medical Summary | Summary of Care ---
Author Name Unknown Organization [facility] Address [address] [facility] [place] [address] Phone [phone] Care Team Providers Care Railroad Hand Name Role Phone Stefany Keller MD Primary Care Provider [phone] Encounter Details Date Type Department Care Team Description 06/13/2022 Telephone Gynecology/Obstetrics [facility] [address] [facility] [place] [address] Sheron Dee, PRITESH [address] [facility] [place] [address] Allergies Active Allergy Reactions Severity [...] deficiency anemia 11/14/2017 Overview: 11/12/17 nL tsh,cmp [id number].,CBC Hb 10.7-mchc indices c/w iron def anemia [...] Rothman CRNP [address] [place] [address] Health Maintenance Due Date Last Done Comments [...] filedocumented as of this encounter Care Teams Railroad Hand Relationship Specialty Start Date End Date Stefany Keller MD [address] [place] [address], [place] [address] PCP - General Internal Medicine 10/23/17 documented as of this encounter
--- OUTSIDE RECORDS SUMMARY | 2023-01-01 08:52 | External Medical Summary | Summary of Care ---
Author Name Unknown Organization [facility] Address [address] [place] [address] Phone [phone] Care Team Providers Care Tier Lift Operator Name Role Phone Stefany Keller MD Primary Care Provider [phone] Reason for Visit * Reason Onset Date Comments Order Request 06/11/2022 Encounter Details Date Type Department Care Team Description 06/11/2022 Telephone Gynecology/Obstetrics [facility] [address] [place] [address] Vasiliy Dee [facility] [address] [place] [address] Order Request Allergies Active Allergy Reactions Severity Noted Date Comments Other Allergy (See Comments) 020 Nuts - not severe documented as of this encounter (statuses as of 06/12/2022) Medications Medication Sig Dispensed Refills Start Date End Date Status acetaminophen (TYLENOL) 500 MG Tablet Take 2 Tabs by mouth every 8 hours as needed for Pain. 100 Tab 0 06/02/2019 Active 27-0.8 MG Oral TabletIndications:Stephanie yed menses Take 1 Tablet by mouth daily at noon. 1 Tablet 0 05/28/2022 Active documented as of this encounter (statuses as of 06/12/2022) Active Problems Problem Noted Date Snoring 12/01/2017 Overweight (BMI 25.0-29.9) 12/01/2017 Iron deficiency anemia 11/14/2017 Overview: 9/19/18 nL tsh,cmp [id number].,CBC Hb 10.7-mchc indices c/w iron def anemia >10/18- A1c 4.7%, Ferritin low at 8, Tsat 9%-st po iron. Comments Yes documented as of this encounter (statuses as of 06/12/2022) Immunizations Name Administration Dates Next Due Seasonal Influenza, Quadrivalent, No Preserve, M dck 04/27/2019 TDAP (age 10 and older)(Boostrix) 06/30/2016 documented as of this encounter Social History Tobacco Use Types Packs/Day Years Used Date Smoking Tobacco: Never Smokeless Tobacco: Never Alcohol Use Standard Drinks/Week Comments No 0 (1 standard drink = 0.6 oz pur e alcohol) Comments Yes Sex Assigned at Date Recorded Not on file Job Start Date Occupation Industry Not on file Not on file Not on file documented as of this encounter Miscellaneous Notes * Addendum Note - Vasiliy Dee CNM - 06/12/2022 7:55 AM EDTAddended by: VASILIY DEE on: 06/12/2022 07:55 AM Modules accepted: Orders * Telephone Encounter - Vasiliy Dee CNM - 06/12/2022 7:53 AM EDT Dating ultrasound ordered. Vasiliy Dee CNM * Telephone Encounter - REBECCA Garcia - 06/11/2022 2:44 PM EDT Pt is scheduled for an US pelvis transvaginal ob and needs an order placed documented in this encounter Plan of Treatment Upcoming Encounters Date Type Specialty Care Team Description 06/13/2022 Imaging Radiology 06/13/2022 Office Visit Gynecology Obstetrics Vasiliy Dee CNM [address] [place] [address] [place] [address] Scheduled Orders Name Type Priority Associated Diagnoses Orde r Schedule US PREG SINGLE/1ST GEST, LESS THAN 14 WKS Medical Imaging Routine examination or test, positive result Encounter for supervision of other normal , first trimester Expected: 06/13/2022, Expires: 07/13/2023 Health Maintenance Due Date Last Done Comments [...] as of this encounter Visit Diagnoses Diagnosis examination or test, positive result- Primary Encounter for supervision of other normal , first trimester documented in this encounter Care Teams Tier Lift Operator Relationship Specialty Start Date End Date Stefany Keller MD [address] [place] [address] [place] [address] PCP - General Internal Medicine 10/23/17 documented as of this encounter
--- OUTSIDE RECORDS SUMMARY | 2023-01-01 08:52 | External Medical Summary | Summary of Care ---
Author Name Unknown Organization [facility] Address [address] [facility] [address] Phone [phone] Care Team Providers Care Flare Maker Name Role Phone Stefany Keller MD Primary Care Provider [phone] Reason for Referral * Evaluate & Treat - Unlimited Visits (Within 10 days (routine)) - Pending Review Specialty Diagnoses / Procedures Referred By Oneil leblanc Referred To Contact Hematology/Oncology / Hematology Oncology Diagnoses Antepartum anemia complicating Sheron Dee CNM [address] [place] [address] Referral ID Status Reason Start Date Expiration Date Visits Requested Visits Authorized [id number] Pending Review Specialty Services Required 06/13/[phone] Question Answer Referral Priority Within 10 days (routine) Reason for Referral Anemia Comments Hgb 9.0, PLT 519 in the second trimester of Encounter Details Date Type Department Care Team Description 06/13/2022 Orders Only Gynecology/Obstetrics [address] [place] [address] Sheron Dee CNM [address] [place] [address] Antepartum anemia complicating * Allergies Active Allergy Reactions Severity Noted Date [...] deficiency anemia 11/14/2017 Overview: 11/12/17 nL tsh,cmp [id number].,CBC Hb 10.7-mchc indices c/w iron def anemia [...] Rothman CRNP [address] [place] [address] Scheduled Referrals Name Type Priority Associated Diagnoses Orde r Schedule HEMATOLOGY/ONCOLOG Y REFERRAL OP Referral Within 10 days (routine) Antepartum anemia complicating Ordered: 06/13/2022 Health Maintenance Due Date Last Done Comments [...] encounter Visit Diagnoses Diagnosis Antepartum anemia complicating - Primary Anemia, antepartum documented in this encounter Care Teams Flare Maker Relationship Specialty Start Date End Date Stefany Keller MD [address] [facility] [address] PCP - General Internal Medicine 10/23/17 documented as of this encounter
--- OUTSIDE RECORDS SUMMARY | 2023-01-01 08:52 | External Medical Summary ---
Author Name Unknown Address Unknown Organization K01:[facility] [place] [address] [place] [id number] Laboratory Report Ordering Provider Test Date Status VASILIYCOREA 06/13/2022 10:04:07 Final Observation Date Value Abnormality Reference (Units) Status Bacteria identified in Unspecified specimen by Culture 06/13/2022 10:04:07 No significant growth Final Test: Culture, Urine, Quanti tative
Specimen Source: Urine, Clean Catch
Specimen Type: Urine
Specimen Date: 06/13/2022 10:04 AM
Result Date: 06/14/2022 1:08 PM
Result Status: Final result
Resulting Lab: [facility] [place]
[address]
[facility] [address]

CULTURE

No significant growth

null Performing Location LABOR[facility]ORY [facility] [place] - [address] [facility] [address]
--- OUTSIDE RECORDS SUMMARY | 2023-01-01 08:52 | External Medical Summary ---
Author Name Unknown Address Unknown Organization [id number]:[facility] [place] [address] [place] [address] Laboratory Report Ordering Provider Test Date Status ANMOL AMANDA 06/13/2022 10:08:10 Final Observation Date Value Abnormality Reference (Units ) Status Iron 06/13/2022 10:08:10 24 Below low normal 33-151 (ug/dL) Final Iron-binding capacity 06/13/2022 10:08:10 486 Above high normal 250-425 (ug/dL) Final Transferrin Sat % 06/13/2022 10:08:10 5 Below low normal 15-55 (%) Final Performing Location [facility] [place] [address] [place] [address]
--- OUTSIDE RECORDS SUMMARY | 2023-01-01 08:52 | External Medical Summary ---
Author Name Unknown Address Unknown Organization [id number]:[facility] [place] - [address] [facility] [address] Laboratory Report Ordering Provider Test Date Status ANMOL AMANDA 06/13/2022 10:14:02 Final Observation Date Value Abnormality Reference (Units ) Status Chlamydia trachomatis rRNA [Presence] in Specimen by CARLOS with probe detection 06/13/2022 10:14:02 Negative Negative Final No Chlamydia trachomatis det ected by cable wirer-mediated nucleic acid amplification. Neisseria gonorrhoeae rRNA [ Presence] in Unspecified specimen by CARLOS with probe detection 06/13/2022 10:14:02 Negative Negative Final No Neisseria gonorrhoeae det ected by cable wirer-mediated nucleic acid amplification. Performing Location [facility] [place] - [address] [facility] [address]
--- OUTSIDE RECORDS SUMMARY | 2023-01-01 08:52 | External Medical Summary | Summary of Care ---
Author Name Unknown Organization [facility] Address [address] [place] [address] Phone [phone] Care Team Providers Care Distribution Center Administrator Name Role Phone Stefany Keller MD Primary Care Provider [phone] Reason for Referral * Evaluate & Treat - Unlimited Visits (Within 10 days (routine)) - Pending Review Specialty Diagnoses / Procedures Referred By Oneil leblanc Referred To Contact Obstetrics/Gynecology / Maternal Medicine Diagnoses Supervision of high-risk , first trimester Antepartum anemia complicating Multigravida of advanced maternal age in second trimester Thrombocytosis Sheron Dee CNM [address] [place] [address] Referral ID Status Reason Start Date Expiration Date Visits Requested Visits Authorized [id number] Pending Review Specialty Services Required 06/13/2022 [id number] Question Answer Referral Priority Within 10 days (routine) Indications for Referral Comments /Para: LMP: No LMP recorded (lmp unknown). Patient is . EDC: unknown Pre-Gravid BMI: 29.34 Reason for Visit * Reason Comments New Visit * Evaluate & Treat - Unlimited Visits (Within 10 days (routine)) - Pending Review Specialty Diagnoses / Procedures Referred By Oneil leblanc Referred To Contact Obstetrics/Gynecology / Gynecology Obstetrics Diagnoses Encounter for supervision of normal first in first trimester Iron deficiency anemia, unspecified iron deficiency anemia type Stefany Keller MD [address] [place] [address] Referral ID Status Reason Start Date Expiration Date Visits Requested Visits Authorized [id number] Pending Review Specialty Services Required 06/03/[phone] Encounter Details Date Type Department Care Team Description 06/13/2022 Office Visit Gynecology/Obstetrics [facility] [address] [place] [address] Sheron Dee, PRITESH [address] [place] [address] Supervision of high-risk , first trimester*; Antepartum anemia complicating ; Multigravida of advanced maternal age in second trimester; Thrombocytosis; Encounter for supervision of other normal , second trimester Allergies Active Allergy Reactions Severity [...] before bedtime. 90 Tablet 4 06/13/2022 Active 27-0.8 MG Oral TabletIndications :Delayed menses Take 1 Tablet by mouth daily at noon. 1 Tablet 0 05/28/2022 06/13/2022 Discontinued (Refill) documented as of this encounter (statuses as [...] deficiency anemia 11/14/2017 Overview: 11/12/17 nL tsh,cmp PCI835.,CBC Hb 10.7-mchc indices c/w iron def anemia [...] Sign Reading Time Taken Comments Blood Pressure 112/68 06/13/2022 9:12 AM EDT Pulse - - Temperature - - Respiratory Rate - - Oxygen Saturation - - Inhaled Oxygen Concentration - - Weight 77.1 kg (170 lb) 06/13/2022 9:12 AM EDT Height - - Body Mass Index 29.18 06/05/2022 3:16 PM EDT documented in this encounter Progress Notes * Sheron Dee CNM - 06/13/2022 9:20 AM EDT Kim Lucero [id number] 06/13/22 CC: NOB HPI: Kim Lucero is a 36 year old female here for initial OB exam. RICKY 12/21/2022 by ultrasound performed today, 06/13/22, at 12w5d EGA showing single live intrauterine gestation. This is a planned . She and her are very excited. LMP: end of February 2022, unsure of exact day, menses were regular, occuring q 30 days. Last menseswere normal. She is not taking vitamins. Desires Rx for vitamin She plans to breastfeed . Reviewed PMH, social hx, family hx, surgical hx, ob hx with patient. Pertinent positives: Patient has been trying to conceive since 2016. She had one SAB in September 2018, around 4 weeks EGA,not requiring medical or surgical treatment. She was hospitalized for an arm fracture as a child. Otherwise, denies hospitalizations or surgeries. She has had an IUI which failed and an HSG. This was conceived spontaneously. She has never had a pap smear. She is age 36 (advanced maternal age). Denies hx of asthma or HTN. She also has a hx of severe anemia (hgb 8.4 on 05/28/2022) and elevated platelets (PLT 511 on 05/28/2022). Denies family history of genetic conditions in patient's and FOB's families. FOB is Wendy, age 42, no children outside this relationship, no health problems or significant family history. Current symptoms: occasional nausea and vomiting, "hairline traces" of brown spotting noted on toilet tissue (last episode was 3 days ago), occasional mild cramping, breast tenderness. Denies HUERTA and vision changes. Denies concerns for anxiety or depression. Current medications: Miralax Denies tobacco, marijuana, and ETOH use. Has had COVID vaccine x2 doses. Did not have flu vaccine for 5355-5663 season. Does not exercise. Does not work outside the home. OB History Para Term AB Living 2 0 0 0 1 0 SAB IAB Ectopic Multiple Live Births 1 0 0 0 0 # Outcome Date GA Lbr Colin/2nd Weight Sex Delivery Anes PTL Lv 2 Current 1 2018 U SPONTANEOUS Obstetric Comments MIRZA Nguyen, age 42, no children outside this relationship, no health problems Past Medical History: Diagnosis Date Anemia Known health problems: none Social History Socioeconomic History Marital status: Tobacco Use Smoking status: Never Smokeless tobacco: Never Vaping Use Vaping Use: Never used Substance and Sexual Activity Alcohol use: No Drug use: No Sexual activity: Yes Partners: Male Past Surgical History: Procedure Laterality Date NONE Current Outpatient Medications Medication Sig Dispense Refill 27-0.8 MG Oral Tablet Take 1 Tablet by mouth daily at noon. 90 Tablet 2 Iron-Vitamin C 65-125 MG Oral Tablet (Vitron C) Take 1 Tablet by mouth in the morning and 1 Tablet before bedtime. 90 Tablet 4 acetaminophen (TYLENOL) 500 MG Tablet Take 2 Tablets by mouth every 8 hours as needed for Pain.100 Tab 0 No current facility-administered medications for this visit. Review of patient's allergies indicates: Allergen Reactions Other Allergy (See Comments) Nuts - not severe Family History Problem Relation Age of Onset No Past Hx Mother Diabetes Father Hypertension Father ROS: General: no fevers, chills CV: no chest pain, SOB GI: no constipation, diarrhea, + nausea, vomiting Breast: no masses, nipple discharge, + tenderness : no vaginal bleeding, unusual vaginal discharge, dysuria Psychological: no anxiety, no depression, no SI/HI PHYSICAL EXAM: please see physical Reimbursement Specialist Documentation Provider requested community health program representative. Name of community health program representative: Jennifer Jessica LPN ASSESSMENT/PLAN: (O09.91) Supervision of high-risk , first trimester (primary encounter diagnosis) Plan: TYPE AND SCREEN, RUBELLA IGG ANTIBODY, HEPATITIS B SURFACE ANTIGEN, HIV ANTIGEN & ANTIBODY SCREEN W/ CONFIRMATION, HEPATITIS C ANTIBODY SCREEN WITH PROGRESSION TO HEPATITIS C RNA QUANTITATIVE, SYPHILIS ANTIBODY SCREEN WITH REFLEX TO RPR, CBC WITH WBC DIFFERENTIAL AND ANEMIA REFLEX WORKUP, CULTURE, URINE, QUANTITATIVE, CULTURE, URINE, QUANTITATIVE, CHLAMYDIA TRACHOMATIS AND NEISSERIA GONORRHOEAE, AMPLIFIED PROBE, CHLAMYDIA TRACHOMATIS AND NEISSERIA GONORRHOEAE, AMPLIFIED PROBE, CANCELED: CULTURE, URINE, QUANTITATIVE, CANCELED: CHLAMYDIA TRACHOMATIS AND NEISSERIA GONORRHOEAE, AMPLIFIED PROBE (O99.019) Antepartum anemia complicating (D75.839) Thrombocytosis Plan: -Repeat CBC today -Consider hematology referral and/or blood management referral, pending today's CBC results -Rx for Vitron C BID in the meantime; discussed the importance of taking this 2 hours apart from PNV, calcium, and dairy. (O09.522) Multigravida of advanced maternal age in second trimester Plan: CONSIDERATIONS: We reviewed the most pertinent aspects of the following: Advanced maternal age (AMA) refers to a woman with a choi who will be at the ageof 35 or older at the estimated time of delivery and may be associated with increased morbidity. After discussion of the genetic screening/testing options, the patient is considering genetic screening (Qnatal versus Quadscreen). RECOMMENDATIONS: Recommend MFM anatomy ultrasound at 19-20 weeks gestation. Supervision of : - discussed timing of routine OB care - Offered genetic screening and explained that screening does not provide a definitive diagnosis. Patient is considering Qnatal versus Quadscreen. - Offered CF carrier screening and SMA carrier screening. Patient is considering carrier screening and will notify provider. - Recommended clean healthy diet and discussed foods/drinks to avoid in . Discussed recommend weight gain in . - Recommended daily vitamin. Patient was provided a prescription. - Discussed labs as ordered and instructed patient to present to lab following appointment. -strongly recommended breast exam, pelvic exam, and pap smear. Discussed that the pap smear is screening for cervical cancer. Discussed that a pelvic exam is important to assess whether she will be acandidate for a vaginal delivery. Patient declined these exams today but is considering them at hernext visit. GC/CT screening collected through urine sample. - MFM referral placed for AMA, anemia, and thrombocytosis. Follow up: - RTO in 4 weeks for JOHN ANDRADEN with concern Sheron Dee CNM documented in this encounter Plan of Treatment Upcoming Encounters Date Type Specialty Care Team Description 07/12/2022 Office Visit Gynecology Obstetrics Isaura Rothman CRNP [address] [place] [address] Pending Results Name Type Priority Associated Diagnoses Date /Time RUBELLA IGG ANTIBODY Lab Routine Supervision of high-risk , first trimester 06/13/2022 10:08 AM EDT HEPATITIS B SURFACE ANTIGEN Lab Routine Supervision of high-risk , first trimester 06/13/2022 10:08 AM EDT HIV ANTIGEN & ANTIBODY SCREEN W/ CONFIRMATION Lab Routine Supervision of high-risk , first trimester 06/13/2022 10:08 AM EDT HEPATITIS C ANTIBODY SCREEN WITH PROGRESSION TO HEPATITIS C RNA QUANTITATIVE Lab Routine Supervision of high-risk , first trimester 06/13/2022 10:08 AM EDT SYPHILIS ANTIBODY SCREEN WITH REFLEX TO RPR Lab Routine Supervision of high-risk , first trimester 06/13/2022 10:08 AM EDT CBC WITH WBC DIFFERENTIAL AND ANEMIA REFLEX WORKUP Lab Routine Supervision of high-risk , first trimester 06/13/2022 10:08 AM EDT CULTURE, URINE, QUANTITATIVE Lab Routine Supervision of high-risk , first trimester 06/13/2022 10:04 AM EDT CHLAMYDIA TRACHOMATIS AND NEISSERIA GONORRHOEAE, AMPLIFIED PROBE Lab Routine Supervision of high-risk , first trimester 06/13/2022 10:14 AM EDT Scheduled Orders Name Type Priority Associated Diagnoses Orde r Schedule RUBELLA IGG ANTIBODY Lab Routine Supervision of high-risk , first trimester Expected: 06/13/2022, Expires: 06/14/2023 HEPATITIS B SURFACE ANTIGEN Lab Routine Supervision of high-risk , first trimester Expected: 06/13/2022, Expires: 06/14/2023 HIV ANTIGEN & ANTIBODY SCREEN W/ CONFIRMATION Lab Routine Supervision of high-risk , first trimester Expected: 06/13/2022, Expires: 06/14/2023 HEPATITIS C ANTIBODY SCREEN WITH PROGRESSION TO HEPATITIS C RNA QUANTITATIVE Lab Routine Supervision of high-risk , first trimester Expected: 06/13/2022, Expires: 06/14/2023 SYPHILIS ANTIBODY SCREEN WITH REFLEX TO RPR Lab Routine Supervision of high-risk , first trimester Expected: 06/13/2022, Expires: 06/14/2023 CBC WITH WBC DIFFERENTIAL AND ANEMIA REFLEX WORKUP Lab Routine Supervision of high-risk , first trimester Expected: 06/13/2022, Expires: 06/14/2023 CULTURE, URINE, QUANTITATIVE Lab Routine Supervision of high-risk , first trimester Expected: 06/13/2022, Expires: 06/14/2023 CHLAMYDIA TRACHOMATIS AND NEISSERIA GONORRHOEAE, AMPLIFIED PROBE Lab Routine Supervision of high-risk , first trimester Expected: 06/13/2022, Expires: 06/14/2023 MFM US MATERNAL 1ST FETUS Medical Imaging Routine Supervision of high-risk , first trimester Antepartum anemia complicating Multigravida of advanced maternal age in second trimester Thrombocytosis Encounter for supervision of other normal , second trimester Expected: 06/13/2022, Expires: 07/14/2023 Scheduled Referrals Name Type Priority Associated Diagnoses Orde r Schedule MATERNAL MEDICINE REFERRAL OP Referral Within 10 days (routine) Supervision of high-risk , first trimester Antepartum anemia complicating Multigravida of advanced maternal age in second trimester Thrombocytosis Ordered: 06/13/2022 Health Maintenance Due Date Last [...] Not on filedocumented as of this encounter Results * TYPE AND SCREEN (06/13/2022 10:08 AM EDT) ABO B 06/13/2022 1:24 PM EDT [facility] Rh Positive 06/13/2022 1:24 PM EDT [facility] Red Blood Cell Antibody Screen Negative 06/13/2022 1:24 PM EDT [facility] Specimen Expiration Date 06/16/2022 23:59 06/13/2022 1:24 PM EDT [facility] Blood Venous blood specimen / Unknown Venipuncture / Unknown 06/13/2022 10:08 AM EDT 06/13/2022 10:08 AM EDT Sheron JONAS LAB BLOOD BANK TEST ORDERABLES [facility] [address] [place] [address] documented in this encounter Visit Diagnoses Diagnosis Supervision of high-risk , first trimester- Primary Antepartum anemia complicating Anemia, antepartum Multigravida of advanced maternal age in second trimester Thrombocytosis Essential thrombocythemia Encounter for supervision of other normal , second trimester documented in this encounter Care Teams Distribution Center Administrator Relationship Specialty Start Date End Date Stefany Keller MD [address] [place] [address] PCP - General Internal Medicine 10/23/17 documented as of this encounter
--- OUTSIDE RECORDS SUMMARY | 2023-01-01 08:52 | External Medical Summary | Summary of Care ---
Author Name Unknown Organization [facility] Address [address] [facility] [place] [address] Phone [phone] Care Team Providers Care Instructor Watch Assembly Name Role Phone Stefany Keller MD Primary Care Provider [phone] Reason for Visit * Reason Comments Outpatient Testing Encounter Details Date Type Department Care Team Description 06/13/2022 Laboratory Laboratory, [facility] [address] [place] [address] [facility] [address] [facility] [place] [address] Supervision of high-risk , first trimester Allergies Active Allergy Reactions Severity Noted Date Comments Other Allergy (See Comments) 020 Nuts - not severe documented as of this encounter (statuses as of 06/13/2022) Medications Medication Sig Dispensed Refills Start Date End Date Status acetaminophen (TYLENOL) 500 MG Tablet Take 2 Tablets by mouth every 8 hours as needed for Pain. 100 Tab 0 06/02/2019 Active 27-0.8 MG Oral TabletIndications:Del ayed menses Take 1 Tablet by mouth daily at noon. 1 Tablet 0 05/28/2022 Active documented as of this encounter (statuses as of 06/13/2022) Active Problems Problem Noted Date Snoring 12/01/2017 Overweight (BMI 25.0-29.9) 12/01/2017 Iron deficiency anemia 11/14/2017 Overview: 11/12/17 nL tsh,cmp FVQ137.,CBC Hb 10.7-mchc indices c/w iron def anemia [...] Rothman CRNP [address] [place] [address] Pending Results Name Type Priority Associated Diagnoses Date /Time TYPE AND SCREEN Lab Routine Supervision of high-risk , first trimester 06/13/2022 10:08 AM EDT RUBELLA IGG ANTIBODY Lab Routine Supervision of [...] 06/13/2022 10:08 AM EDT HEPATITIS C ANTIBODY Lab Routine Supervision of high-risk , first trimester 06/13/2022 10:08 AM EDT HEPATITIS C RNA ADD ON Lab Routine Supervision of high-risk , first trimester 06/13/2022 10:08 AM EDT SYPHILIS ANTIBODY SCREEN Lab Routine Supervision of high-risk , first trimester 06/13/2022 10:08 AM EDT ANEMIA CBC Lab Routine Supervision of high-risk , first trimester 06/13/2022 10:08 AM EDT DIFFERENTIAL, AUTOMATED Lab Routine Supervision of high-risk , first trimester 06/13/2022 10:08 AM EDT ANEMIA REFLEX CHEMISTRY HOLD Lab Routine Supervision of high-risk , first trimester 06/13/2022 10:08 AM EDT Health Maintenance Due Date Last [...] Diagnoses Diagnosis Supervision of high-risk , first trimester documented in this encounter Care Teams Instructor Watch Assembly Relationship Specialty Start Date End Date Stefany Keller MD [address] [place] [address] PCP - General Internal Medicine 10/23/17 documented as of this encounter
--- OUTSIDE RECORDS SUMMARY | 2023-01-01 08:52 | External Medical Summary ---
Author Name Unknown Address Unknown Organization K01:[facility] [place] [facility] - [address] [place] [address] Laboratory Report Ordering Provider Test Date Status ANMOL AMANDA 06/13/2022 10:08:10 Final Observation Date Value Abnormality Reference (Units ) Status ABO 06/13/2022 10:08:10 B Final RH 06/13/2022 10:08:10 Positive Final RED BLOOD CELL ANTIBODY SCREEN 06/13/2022 10:08:10 Negative Final SPECIMEN EXPIRATION DATE 06/13/2022 10:08:10 06/16/2022 23:59 Final Performing Location [facility] [place] [facility] - [address] [place] [address]
--- OUTSIDE RECORDS SUMMARY | 2023-01-01 08:53 | External Medical Summary ---
Author Name Unknown Address Unknown Organization K09:[facility] [address] [address] Laboratory Report Ordering Provider Test Date Status MELIDA FLORES 01/18/2022 12:31:30 Final Observation Date Value Abnormality Reference (Units ) Status Screen, Urine 01/18/2022 12:31:30 Negative Final Performing Location [facility] [place] [address]
--- OUTSIDE RECORDS SUMMARY | 2023-01-01 08:53 | External Medical Summary | Summary of Care ---
Author Name Unknown Organization [facility] Address [address] [place] [address] Phone [phone] Care Team Providers Care Fruit Loader Name Role Phone Stefany Keller MD Primary Care Provider [phone] Reason for Visit * Reason Onset Date Comments Order Request 06/11/2022 Encounter Details Date Type Department Care Team Description 06/11/2022 Telephone Gynecology/Obstetrics [facility] [address] [place] [address] Sheron Dee [facility] [address] [place] [address] Order Request Allergies Active Allergy Reactions Severity Noted Date Comments Other Allergy (See Comments) 020 Nuts - not severe documented as of this encounter (statuses as of 06/11/2022) Medications Medication Sig Dispensed Refills Start Date End Date Status acetaminophen (TYLENOL) 500 MG Tablet Take 2 Tabs by mouth every 8 hours as needed for Pain. 100 Tab 0 06/02/2019 Active 27-0.8 MG Oral TabletIndications:Stephanie yed menses Take 1 Tablet by mouth daily at noon. 1 Tablet 0 05/28/2022 Active documented as of this encounter (statuses as of 06/11/2022) Active Problems Problem Noted Date Snoring 12/01/2017 Overweight (BMI 25.0-29.9) 12/01/2017 Iron deficiency anemia 11/14/2017 Overview: 9/19/18 nL tsh,cmp OCG717.,CBC Hb 10.7-mchc indices c/w iron def anemia >18- A1c 4.7%, Ferritin low at 8, Tsat 9%-st po iron. Comments Yes documented as of this encounter (statuses as of 06/11/2022) Immunizations Name Administration Dates Next Due Seasonal [...] Miscellaneous Notes * Telephone Encounter - REBECCA Garcia - 06/11/2022 2:44 PM EDT Pt is scheduled for an US pelvis transvaginal ob and needs an order placed documented in this encounter Plan of Treatment Upcoming Encounters Date Type Specialty Care Team Description 06/13/2022 Imaging Radiology 06/13/2022 Office Visit Gynecology Obstetrics Sheron Dee, [facility] [address] [place] [address] Health Maintenance Due Date Last Done Comments [...] filedocumented as of this encounter Care Teams Fruit Loader Relationship Specialty Start Date End Date Stefany Keller MD [address] [place] [id number] PCP - General Internal Medicine 10/23/17 documented as of this encounter
--- OUTSIDE RECORDS SUMMARY | 2023-01-01 08:53 | External Medical Summary | Summary of Care ---
Author Name Unknown Organization [facility] Address [address] [place] [address] Phone [phone] Care Team Providers Care Manager Enterprise Name Role Phone Stefany Keller MD Primary Care Provider [phone] Reason for Referral * Evaluate & Treat - Unlimited Visits (Within 10 days (routine)) - Pending Review Specialty Diagnoses / Procedures Referred By Contfrancisco t Referred To Contact Obstetrics/Gynecology / Gynecology Obstetrics Diagnoses Encounter for supervision of normal first in first trimester Iron deficiency anemia, unspecified iron deficiency anemia type Stefany Keller MD [address] [place] [id number] Referral ID Status Reason Start Date Expiration Date Visits Requested Visits Authorized [id number] Pending Review Specialty Services Required 06/03/[phone] Question Answer Referral Priority Within 10 days (routine) Reason for Visit * Reason Onset Date Comments Advice 05/30/2022 Encounter Details Date Type Department Care Team Description 05/30/2022 Telephone General Internal Medicine Saskia Haynes Roberts [address] [facility] [place] [address] Stefany Keller MD 200 [facility] [place] [address] Advice Allergies Active Allergy Reactions Severity Noted Date Comments Other Allergy (See Comments) 020 Nuts - not severe documented as of this encounter (statuses as of 06/03/2022) Medications Medication Sig Dispensed Refills Start Date End Date Status acetaminophen (TYLENOL) 500 MG Tablet Take 2 Tabs by mouth every 8 hours as needed for Pain. 100 Tab 0 06/02/2019 Active 27-0.8 MG Oral TabletIndications:Stephanie mckeon menses Take 1 Tablet by mouth daily at noon. 1 Tablet 0 05/28/2022 Active documented as of this encounter (statuses as of 06/03/2022) Active Problems Problem Noted Date Snoring 12/01/2017 Overweight (BMI 25.0-29.9) 12/01/2017 Iron deficiency anemia 11/14/2017 Overview: 11/12/17 nL tsh,cmp [id number].,CBC Hb 10.7-mchc indices c/w iron def anemia >12/11- A1c 4.7%, Ferritin low at 8, Tsat 9%-st po iron. documented as of this encounter (statuses as of 06/03/2022) Immunizations Name Administration Dates Next Due Seasonal Influenza, Quadrivalent, No Preserve, M dck 04/27/2019 TDAP (age 10 and older)(Boostrix) 06/30/2016 documented as of this encounter Social History Tobacco Use Types Packs/Day Years Used Date Smoking Tobacco: Never Smokeless Tobacco: Never Alcohol Use Standard Drinks/Week Comments No 0 (1 standard drink = 0.6 oz pur e alcohol) Sex Assigned at Date Recorded Not on file Job Start Date Occupation Industry Not on file Not on file Not on file documented as of this encounter Miscellaneous Notes * Telephone Encounter - Stefany Keller MD - 06/03/2022 12:23 PM EDT Noted,orders cancelled. * Telephone Encounter - Stefany Keller MD - 05/31/2022 4:43 PM EDT Urine test is positive, congratulations! Please schedule follow-up with the OBGYN-referral placed Remains severely anemic with hemoglobin of 8.4, platelet count is higher at 511 , iron store is only 2, iron saturation 5%. Recommend IV iron infusion venofer 300 mg weekly x 3 doses, orders placed. if willing I will sign Orders Referral to hematology placed also. -MYG sent, pl call her Friday to confirm * Telephone Encounter - Henry Beltran CMA - 05/31/2022 4:17 PM EDT Results have been received, in scanning, sent copy through patient portal along with mailing a copy, please review * Telephone Encounter - REBECCA Gonzalez - 05/30/2022 10:27 AM EDT Pt is calling because she she said [employer] was supposed to fax over her test results but they werent scanned into her chart. I gave her your fax number and she is going to call over for them to refax it over. Please call pt back once your received the results Thank you, REBECCA Gonzalez documented in this encounter Plan of Treatment Upcoming Encounters Date Type Specialty Care Team Description 06/06/2022 Nurse Only Gynecology Obstetrics , Nurse Brazer Crawler Torch [address] [place] [address] 06/13/2022 Office Visit Gynecology Obstetrics Sheron Dee, [address] [place] [address] Scheduled Referrals Name Type Priority Associated Diagnoses Orde r Schedule OB REFERRAL OP Referral Within 10 days (routine) Encounter for supervision of normal first in first trimester Iron deficiency anemia, unspecified iron deficiency anemia type Ordered: 06/03/2022 Health Maintenance Due Date Last Done Comments [...] as of this encounter Visit Diagnoses Diagnosis Encounter for supervision of normal first in first trimester- Primary Supervision of normal first Iron deficiency anemia, unspecified iron deficiency anemia type documented in this encounter Care Teams Manager Enterprise Relationship Specialty Start Date End Date Stefany Keller MD [address] [place] [address] PCP - General Internal Medicine 10/23/17 documented as of this encounter
--- OUTSIDE RECORDS SUMMARY | 2023-01-01 08:53 | External Medical Summary ---
Author Name Unknown Address Unknown Organization K01:[facility] - [address] [facility] [address] Laboratory Report Ordering Provider Test Date Status MELIDA FLORES 01/18/2022 12:19:34 Final Observation Date Value Abnormality Reference (Units ) Status SARS Coronavirus 2 01/18/2022 12:19:34 Negative N egative Final No SARS-CoV2 Coronavirus RNA detected by PCR (amplified probe).
This express test was developed and its performance characteristics determined by [facility]. It has not been cleared or approved by the U.S. Food and Drug Administration (FDA). FDA does not require this test to go thru premarket FDA review. This test is used for clinical purposes. It should not be regarded as investigational or for research. This laboratory is certified under the Clinical Laboratory Improvement Amendments (CLIA) as qualified to perform high complexity clinical laboratory testing.

This test is a nucleic acid amplification test (NAAT), a reverse transcriptase polymerase chain reaction (RT-PCR) test, or a Centers for Disease Control-acceptable equivalent. The test is performed in a high complexity Clinical Laboratory Improvement Amendments-(CLIA) certified laboratory. The test is acceptable for SARS-CoV-2 diagnosis, surveillance, and travel within the [place] and to most countries. Please check with local testing authorities about requirements before travel.

The validation of bronchial specimens, tracheal aspirates, and sputum for this assay was developed and performance characteristics determined by [facility]. The validation of alternate specimen types has not been cleared or approved by the U.S. Food and Drug Administration (FDA). It has been determined that such clearance is not necessary. Influenza virus A RNA [Prese nce] in Unspecified specimen by CARLOS with probe detection 01/18/2022 12:19:34 Negative Negative Final No Influenza A RNA detected by PCR (amplified probe) Influenza virus B RNA [Prese nce] in Unspecified specimen by CARLOS with probe detection 01/18/2022 12:19:34 Negative Negative Final No Influenza B RNA detected by PCR (amplified probe) Respiratory syncytial virus RNA [Identifier] in Unspecified specimen by CARLOS with probe detection 01/18/2022 12:19:34 Negative Negative Final No Respiratory Syncytial Vir us RNA detected by PCR (amplified probe) Performing Location LABORATORY [address] Nilda Segal. [facility] [address]
--- OUTSIDE RECORDS SUMMARY | 2023-01-01 08:53 | External Medical Summary | Summary of Care ---
Author Name Unknown Organization [place] [address] Care Team Providers Care Poured Wall Foreman Name Role Phone Stefany Keller MD Primary Care Provider [phone] Reason for Visit * Reason Onset Date Comments Test Results 01/25/2022 Encounter Details Date Type Department Care Team Description 01/25/2022 Telephone General Internal Medicine [facility] [address] [place] [address] Stefany Keller MD 200 [place] [address] Test Results Allergies Active Allergy Reactions Severity Noted Date Comments Other Allergy (See Comments) 020 Nuts - not severe documented as of this encounter (statuses as of 01/25/2022) Medications Medication Sig Dispensed Refills Start Date End Date Status acetaminophen (TYLENOL) 500 MG Tablet Take 2 Tabs by mouth every 8 hours as needed for Pain. 100 Tab 0 06/02/2019 Active Vitamin D 25 MCG (1000 UT) Oral Tablet Take by mouth. 0 Active clomiPHENE Citrate 50 MG Oral Tablet (Clomid) Take 1 Tab by mouth daily. for menstrual cycle days 3 through 7. 5 Tab 0 09/05/2020 Active Additional Information Patient not taking.Reported on 01/18/2022 clomiPHENE Citrate 50 MG Oral Tablet (Clomid) Take 1 Tab by mouth daily. for menstrual cycle days 3 through 7. 5 Tab 0 09/29/2020 Active Additional Information Patient not taking.Reported on 01/18/2022 clomiPHENE Citrate 50 MG Oral Tablet (Clomid)Indication s:Female infertility Take 1 Tab by mouth daily. for menstrual cycle days 3 through 7. 5 Tab 0 10/25/2020 Active Additional Information Patient not taking.Reported on 01/18/2022 clomiPHENE Citrate 50 MG Oral Tablet (Clomid)Indication s:Female infertility Take 1 Tab by mouth daily. for menstrual cycle days 3 through 7. 5 Tab 0 12/20/2020 Active Additional Information Patient not taking.Reported on 01/18/2022 Meloxicam 7.5 MG Oral Tablet Take by mouth 1 Tablet in the morning. 30 Tablet 1 10/26/2021 Active Additional Information Patient not taking.Reported on 01/18/2022 Amoxicillin 500 MG Oral Capsule (Amoxil)Indication s:Lyme disease Take 1 Capsule (500 mg) by mouth in the morning and 1 Capsule (500 mg) at noon and 1 Capsule (500 mg) before bedtime. Do all this for 28 days. 84 Capsule 0 01/25/2022 02/22/2022 Active documented as of this encounter (statuses as of 01/25/2022) Active Problems Problem Noted Date Snoring 12/01/2017 Overweight (BMI 25.0-29.9) 12/01/2017 Iron deficiency anemia 11/14/2017 Overview: 11/12/17 nL tsh,cmp [id number].,CBC Hb 10.7-mchc indices c/w iron def anemia >12/11- A1c 4.7%, Ferritin low at 8, Tsat 9%-st po iron. documented as of this encounter (statuses as of 01/25/2022) Immunizations Name Administration Dates Next Due Seasonal [...] encounter Miscellaneous Notes * Addendum Note - Joao Montez MD - 01/25/2022 9:51 AM ESTAddended by: JOAO MONTEZ on: 01/25/2022 09:51 AM Modules accepted: Orders * Addendum Note - Christal Beltran CMA - 01/25/2022 9:47 AM ESTAddended by: CHRISTAL BELTRAN on: 01/25/2022 09:47 AM Modules accepted: Orders * Telephone Encounter - Christal Beltran CMA - 01/25/2022 9:46 AM EST Patient aware and verbalized understanding- states she is trying to get and is agreeable to taking amoxicillin. Script pended to pharmacy * Telephone Encounter - REBECCA Gonzalez - 01/25/2022 9:44 AM EST Pt was just calling back because she missed a call so I transferred her over to the nurse so they can give results Thank you, REBECCA Gonzalez * Telephone Encounter - Christal Beltran CMA - 01/25/2022 9:12 AM EST Called, left message for patient to return call. *See other encounter from 01/18 as well* * Telephone Encounter - Christal Beltran CMA - 01/25/2022 9:10 AM EST ----- Message from Joao Montez MD sent at 01/25/2022 8:38 AM EST ----- 1. negative. 2. She is positive for lyme which may cause fevers, joint pains. If trying to get would use amoxicillin 500 mg tid for 28 days. If no chance of /not getting , will use doxy 100 mg bid for 28 days documented in this encounter Plan of Treatment Health Maintenance Due Date Last Done Comments Hepatitis B (1 of 3 - 3-dose series) 1985 PAP SMEAR-EVERY 3 YRS,AGES 21-65 2006 Depression Screening, Annual for Pts 12 and Over 12/01/2018 12/01/2017 Diabetes Screening 11/25/2020 11/25/2017, 11/12/2017 COVID-19 Vaccine (2 - Pfizer series) 02/23/2021 02/02/2021 Influenza Vaccine (FLU shot) (#1) 2021 04/27/2019 DTaP,Tdap,and Td Vaccines (2 - Td [...] as of this encounter Visit Diagnoses Diagnosis Lyme disease- Primary documented in this encounter Care Teams Poured Wall Foreman Relationship Specialty Start Date End Date Stefany Keller MD [address] [place] [address] [place] [address] PCP - General Internal Medicine 10/23/17 documented as of this encounter
--- OUTSIDE RECORDS SUMMARY | 2023-01-01 08:53 | External Medical Summary | Summary of Care ---
Author Name Unknown Organization [place] [address] Care Team Providers Care Web Development Director Name Role Phone Stefany Keller MD Primary Care Provider [phone] Reason for Visit * Reason Onset Date Comments Test Results 01/19/2022 Encounter Details Date Type Department Care Team Description 01/19/2022 Telephone Family Medicine [facility] [address] [place] [address] Joao Real MD [address] [place] [address] Test Results Allergies Active Allergy Reactions Severity Noted Date Comments Other Allergy (See Comments) 020 Nuts - not severe documented as of this encounter (statuses as of 01/19/2022) Medications Medication Sig Dispensed Refills Start Date [...] 01/18/2022 clomiPHENE Citrate 50 MG Oral Tablet (Clomid)Indications :Female infertility Take 1 Tab by mouth daily. for menstrual cycle days 3 through 7. 5 Tab 0 10/25/2020 Active Additional Information Patient not taking.Reported on 01/18/2022 clomiPHENE Citrate 50 MG Oral Tablet (Clomid)Indications :Female infertility Take 1 Tab by mouth daily. for menstrual cycle days 3 through 7. 5 Tab 0 12/20/2020 Active Additional Information Patient not taking.Reported on 01/18/2022 Meloxicam 7.5 MG Oral Tablet Take by mouth 1 Tablet in the morning. 30 Tablet 1 10/26/2021 Active Additional Information Patient not taking.Reported on 01/18/2022 documented as of this encounter (statuses as of 01/19/2022) Active Problems Problem Noted Date Snoring 12/01/2017 Overweight (BMI 25.0-29.9) 12/01/2017 Iron deficiency anemia 11/14/2017 Overview: 11/12/17 nL tsh,cmp [id number].,CBC Hb 10.7-mchc indices c/w iron def anemia >12/11- A1c 4.7%, Ferritin low at 8, Tsat 9%-st po iron. documented as of this encounter (statuses as of 01/19/2022) Immunizations Name Administration Dates Next Due Seasonal [...] encounter Miscellaneous Notes * Telephone Encounter - Juanjo Blankenship [facility] - 01/19/2022 9:28 AM EST Advised patient of message from Dr. Real regarding her recent labs. "Flu, covid, rsv negative. I hope she is feeling better. Push fluids, rest, tylenol, if worseningor no better 1-2 days come in for recheck test negative" Advised patient that the Lyme disease lab is still in process. Patient states that her fever has not returned but she is still experiencing "weakness" Patient will continue to self monitor symptoms and will contact us if she is not feeling better in 1-2 days Thanks, Juanjo Blankenship, PharmD Clinical Pharmacist [facility] [phone] 01/19/2022, 9:30 AM * Telephone Encounter - Kate Gillette CPhT - 01/19/2022 9:23 AM EST Pt returning call. Warm transferred to [facility] for assistance. Thank You, Kate Gillette [facility] Cvicu Rn Demetri [facility] 01/19/2022, 9:23 AM * Telephone Encounter - Mercedes Joshi LPN - 01/19/2022 9:22 AM EST Attempted to call patient; unavailable by phone. [employer] message sent. * Telephone Encounter - Mercedes Joshi LPN - 01/19/2022 9:17 AM EST ----- Message from Joao Real MD sent at 01/19/2022 7:53 AM EST ----- Flu, covid, rsv negative. I hope she is feeling better. Push fluids, rest, tylenol, if worsening orno better 1-2 days come in for recheck test negative documented in this encounter Plan of Treatment [...] filedocumented as of this encounter Care Teams Web Development Director Relationship Specialty Start Date End Date Stefany Keller MD [address] [place] [address], [place] [address] PCP - General Internal Medicine 10/23/17 documented as of this encounter
--- OUTSIDE RECORDS SUMMARY | 2023-01-01 08:53 | External Medical Summary | Summary of Care ---
Author Name Unknown Organization [facility] Address [address] [facility] [place] [address] Phone [phone] Care Team Providers Care 2Nd Grade Teacher Name Role Phone Stefany Keller MD Primary Care Provider [phone] Reason for Visit * Reason Comments New Visit Encounter Details Date Type Department Care Team Description 06/06/2022 Nurse Only Gynecology/Obstetrics [facility] [address] [place] [address] , Nurse Manipulator Operator [facility] [address] [place] [address] New Visit Allergies Active Allergy Reactions Severity Noted Date Comments Other Allergy (See Comments) 020 Nuts - not severe documented as of this encounter (statuses as of 06/05/2022) Medications Medication Sig Dispensed Refills Start Date End Date Status acetaminophen (TYLENOL) 500 MG Tablet Take 2 Tabs by mouth every 8 hours as needed for Pain. 100 Tab 0 06/02/2019 Active 27-0.8 MG Oral TabletIndications:Stephanie yed menses Take 1 Tablet by mouth daily at noon. 1 Tablet 0 05/28/2022 Active documented as of this encounter (statuses as of 06/05/2022) Active Problems Problem Noted Date Snoring 12/01/2017 Overweight (BMI 25.0-29.9) 12/01/2017 Iron deficiency anemia 11/14/2017 Overview: 11/12/17 nL tsh,cmp [id number].,CBC Hb 10.7-mchc indices c/w iron def anemia >10/18- A1c 4.7%, Ferritin low at 8, Tsat 9%-st po iron. Comments Yes documented as of this encounter (statuses as of 06/05/2022) Immunizations Name Administration Dates Next Due Seasonal [...] Sign Reading Time Taken Comments Blood Pressure - - Pulse - - Temperature - - Respiratory Rate - - Oxygen Saturation - - Inhaled Oxygen Concentration - - Weight 78 kg (171 lb 15.3 oz) 06/05/2022 3:16 PM EDT Height 162.6 cm (5' 4") 06/05/2022 3:16 PM EDT Body Mass Index 29.52 06/05/2022 3:16 PM EDT documented in this encounter Plan of Treatment Upcoming Encounters Date Type Specialty Care Team Description 06/13/2022 Imaging Radiology 06/13/2022 Office Visit Gynecology Obstetrics Sheron Dee, [facility] [address] [facility] [place] [phone] Health Maintenance Due Date Last Done Comments [...] filedocumented as of this encounter Care Teams 2Nd Grade Teacher Relationship Specialty Start Date End Date Stefany Keller MD [address] [place] [address] PCP - General Internal Medicine 10/23/17 documented as of this encounter
--- OUTSIDE RECORDS SUMMARY | 2023-01-01 08:53 | External Medical Summary | Summary of Care ---
Author Name Unknown Organization [place] [address] Care Team Providers Care Quill Reamer Name Role Phone Stefany Keller MD Primary Care Provider Reason for Visit * Reason Onset Date Comments COVID-19 Screening 01/20/2022 Encounter Details Date Type Department Care Team Description 01/20/2022 Telephone COVID19 Screening [facility] DEPT CLOSED 12/05/20 [address] [place] [id number], Automated Provider COVID-19 Screening Allergies Active Allergy Reactions Severity Noted Date Comments Other Allergy (See Comments) 020 Nuts - not severe documented as of this encounter (statuses as of 01/21/2022) Medications Medication Sig Dispensed Refills Start Date [...] as of this encounter (statuses as of 01/21/2022) Active Problems Problem Noted Date Snoring 12/01/2017 Overweight (BMI 25.0-29.9) 12/01/2017 Iron deficiency anemia 11/14/2017 Overview: 11/12/17 nL tsh,cmp [id number].,CBC Hb 10.7-mchc indices c/w iron def anemia >12/11- A1c 4.7%, Ferritin low at 8, Tsat 9%-st po iron. documented as of this encounter (statuses as of 01/21/2022) Immunizations Name Administration Dates Next Due Seasonal [...] encounter Miscellaneous Notes * Telephone Encounter - Covid Results [facility] - 01/21/2022 12:03 AM EST Outreach Attempts IVR Call Jan 20 2022 8:06AM Voicemail - Voicemail IVR Call Jan 20 2022 9:11AM Answered - Failed to Authenticate Inbound Call Jan 20 2022 8:27AM Answered - Success Results COVID: Negative Flu: Negative RSV: Negative IVR Message: Chris Alvarez. Your tests from 01/18/2022 00:00:00 for COVID-19, Flu, and RSV all came back negative.This means you are NOT infected with any of these viruses. If your cold/flu symptoms last longer than 7 days or get worse, contact your primary care physician. If you don't have a primary care physician, go to the nearest [facility] or urgent care clinic. To establish care with a [employer] provider, please call [phone]. Practice social distancing and good hand hygiene to keep yourself and others safe. Your results are also available for your reference in your [employer] account under 'Test & Lab Results.' If you are not enrolled in [employer] you can create an account by going to [email or web address]. You will also receive a letter in the mail with your results. If you are a [employer] staff member or employee, when you receive your result, please call [employer] between 7 a.m. and 4 p.m. at [phone]. Notify them of your test results and for instructions on returning to work after your quarantine period. Press 1 if you would like to speak with a nurse, press 2 to hear this message again. documented in this encounter Plan of Treatment [...] filedocumented as of this encounter Care Teams Quill Reamer Relationship Specialty Start Date End Date Stefany Keller MD [address] [place] [address] PCP - General Internal Medicine 10/23/17 documented as of this encounter
--- OUTSIDE RECORDS SUMMARY | 2023-01-01 08:53 | External Medical Summary | Summary of Care ---
Author Name Unknown Organization [place] [address] Care Team Providers Care Solution Architect Name Role Phone Stefany Keller MD Primary Care Provider [phone] Reason for Visit * Reason Comments Outpatient Testing Encounter Details Date Type Department Care Team Description 01/18/2022 Laboratory Laboratory [facility] [address] [place] [address] [place], Lab Scen[address] [place] [id number] Myalgia; Amenorrhea Allergies Active Allergy Reactions Severity Noted Date Comments Other Allergy (See Comments) 020 Nuts - not severe documented as of this encounter (statuses as of 01/18/2022) Medications Medication Sig Dispensed Refills Start Date [...] as of this encounter (statuses as of 01/18/2022) Active Problems Problem Noted Date Snoring 12/01/2017 Overweight (BMI 25.0-29.9) 12/01/2017 Iron deficiency anemia 11/14/2017 Overview: 11/12/17 nL tsh,cmp [id number].,CBC Hb 10.7-mchc indices c/w iron def anemia >12/11- A1c 4.7%, Ferritin low at 8, Tsat 9%-st po iron. documented as of this encounter (statuses as of 01/18/2022) Immunizations Name Administration Dates Next Due Seasonal [...] as of this encounter Plan of Treatment Pending Results Name Type Priority Associated Diagnoses Date /Time ANAPLASMA PHAGOCYTOPHILUM DNA, QL REAL-TIME PCR Lab Routine Myalgia 01/18/2022 12:29 PM EST LYME DISEASE ANTIBODY SCREEN WITH REFLEX TO WESTERN BLOT Lab Routine Myalgia 01/18/2022 12:29 PM EST LYME DISEASE ANTIBODY SCREEN Lab Routine Myalgia 01/18/2022 12:29 PM EST HCG QUALITATIVE, URINE Lab Routine Amenorrhea 01/18/2022 12:31 PM EST Health Maintenance Due Date Last Done Comments [...] as of this encounter Visit Diagnoses Diagnosis Myalgia Mylagia and myositis, unspecified Amenorrhea Absence of menstruation documented in this encounter Additional Health Concerns Infection Onset Date Last Indicated Resolved Time Respiratory Rule-Out 01/18/2022 01/18/2022 documented as of this encounter Care Teams Solution Architect Relationship Specialty Start Date End Date Stefany Keller MD [address] [place] [address], [place] [address] PCP - General Internal Medicine 10/23/17 documented as of this encounter
--- OUTSIDE RECORDS SUMMARY | 2023-01-01 08:53 | External Medical Summary | Summary of Care ---
Author Name Unknown Organization [facility] Address [address] [place] [address] Phone [phone] Care Team Providers Care Refrigerator Crater Name Role Phone Stefany Keller MD Primary Care Provider [phone] Reason for Visit * Reason Comments No Menses No menses since Ritchie jeimy Encounter Details Date Type Department Care Team Description 05/28/2022 Office Visit General Internal Medicine [facility] [address] [facility] [place] [address] Stefany Keller MD [address] [place] [address] Delayed menses*; Iron deficiency anemia, unspecified iron deficiency anemia type Allergies Active Allergy Reactions Severity Noted Date Comments Other Allergy (See Comments) 020 Nuts - not severe documented as of this encounter (statuses as of 05/28/2022) Medications Medication Sig Dispensed Refills Start Date End Date Status acetaminophen (TYLENOL) 500 MG Tablet Take 2 Tabs by mouth every 8 hours as needed for Pain. 100 Tab 0 06/02/2019 Active 27-0.8 MG Oral TabletIndications :Delayed menses Take 1 Tablet by mouth daily at noon. 1 Tablet 0 05/28/2022 Active Vitamin D 25 MCG (1000 UT) Oral Tablet Take by mouth. 0 05/28/2022 Discontinu ed (Medication List Clean Up) clomiPHENE Citrate 50 MG Oral Tablet (Clomid) Take 1 Tab by mouth daily. for menstrual cycle days 3 through 7. 5 Tab 0 09/05/2020 05/28/2022 Discontinued (End of Procedure) clomiPHENE Citrate 50 MG Oral Tablet (Clomid) Take 1 Tab by mouth daily. for menstrual cycle days 3 through 7. 5 Tab 0 09/29/2020 05/28/2022 Discontinued (End of Procedure) clomiPHENE Citrate 50 MG Oral Tablet (Clomid)Indicatio ns:Female infertility Take 1 Tab by mouth daily. for menstrual cycle days 3 through 7. 5 Tab 0 10/25/2020 05/28/2022 Discontinued (End of Procedure) clomiPHENE Citrate 50 MG Oral Tablet (Clomid)Indicatio ns:Female infertility Take 1 Tab by mouth daily. for menstrual cycle days 3 through 7. 5 Tab 0 12/20/2020 05/28/2022 Discontinued (End of Procedure) Meloxicam 7.5 MG Oral Tablet Take by mouth 1 Tablet in the morning. 30 Tablet 1 10/26/2021 05/28/2022 Discontinued (End of Procedure) documented as of this encounter (statuses as of 05/28/2022) Active Problems Problem Noted Date Snoring 12/01/2017 Overweight (BMI 25.0-29.9) 12/01/2017 Iron deficiency anemia 11/14/2017 Overview: 11/12/17 nL tsh,cmp [id number].,CBC Hb 10.7-mchc indices c/w iron def anemia >12/11- A1c 4.7%, Ferritin low at 8, Tsat 9%-st po iron. documented as of this encounter (statuses as of 05/28/2022) Immunizations Name Administration Dates Next Due Seasonal [...] Sign Reading Time Taken Comments Blood Pressure 112/56 05/28/2022 2:10 PM EDT Pulse 80 05/28/2022 2:45 PM EDT Temperature 36.9 C (98.5 F) 05/28/2022 2:10 PM ED T Respiratory Rate 18 05/28/2022 2:10 PM EDT Oxygen Saturation 100% 05/28/2022 2:10 PM EDT Inhaled Oxygen Concentration - - Weight 77.5 kg (170 lb 12.8 oz) 05/28/2022 2:10 PM EDT Height - - Body Mass Index 29.32 01/18/2022 12:02 PM EST documented in this encounter Progress Notes * Stefany Keller MD - 05/28/2022 2:21 PM EDT SUBJECTIVE: Kim Lucero is a 36 year old female. Chief Complaint Patient presents with No Menses No menses since February Nursing Notes: Pat Santo LPN 05/28/22 1421 Signed Patient states she has been trying to conceive a child with her since 2018. She had been unsuccessful thus far. She has not had a period since March. She would like to be tested for . She says she tried an OTC home test and the result was not valid- she didn't get a positive or negative result. She reports some nausea and breast tenderness. If any labs are ordered she would like to have them done through [facility] lab. HPI: Patient presents today for acute appointment in order to get the lab order for test. History of infertility, has been trying to conceive a child since 2018, had artificial inseminationin 2018 but had a miscarriage. LMP end of February, has not had a period since, admits to symptoms of nausea, a version to certain foods like eggs, T,; fatigue, mild breast tenderness. Did home test x 2 - results were inconclusive per patient. She did have a small amount of spotting. She would like to get labs ordered through [facility] labs. Currently not taking vitamins. I last saw her in 2019 with new patient evaluation 10/23/2017, History of iron deficiency anemia since childhood, intolerant of p.o. iron 11/12/17 nL tsh,cmp [id number].,CBC Hb 10.7-mchc indices c/w iron def anemia 12/11-A1c 4.7%, Ferritin low at 8, Tsat 9% 08/15-immune to rubella, varicella zoster antibody negative, negative RPR, hepatitis-B surface antigen, hep C antibody Gives history of shingles in 2020, advised may need to get varicella vaccine if not . Thinks she had hepatitis-B vaccine as a child, short records not available she would like to have labs done with her biomedical engineer labs Wt Readings from Last 4 Encounters: 05/28/22 77.5 kg (170 lb 12.8 oz) 01/18/22 76.2 kg (168 lb) 06/26/20 75.8 kg (167 lb) 06/02/19 76.7 kg (169 lb) BP Readings from Last 4 Encounters: 05/28/22 112/56 01/18/22 98/70 06/26/20 130/80 06/02/19 122/74 Hemoglobin Results: Lab Results Component Value Date/Time HGB - [facility] 9.6 (L) 08/16/2021 12:46 PM HGB - [facility] 10.9 (L) 07/28/2019 09:16 AM TSH Results: Lab Results Component Value Date/Time TSH - [facility] 2.71 08/16/2021 12:46 PM TSH - [facility] 3.11 06/30/2020 08:19 AM TSH - [facility] 2.43 07/28/2019 09:16 AM TSH - [facility] 2.12 11/12/2017 12:00 AM Immunization History Administered Date(s) Administered Seasonal Influenza, Quadrivalent, No Preserve, Mdck 04/27/2019 TDAP (age 10 and older)(Boostrix) 06/30/2016 Patient Active Problem List Diagnosis Code Iron deficiency anemia D50.9 Snoring R06.83 Overweight (BMI 25.0-29.9) E66.3 Current Outpatient Medications Medication Sig Dispense Refill acetaminophen (TYLENOL) 500 MG Tablet Take 2 Tabs by mouth every 8 hours as needed for Pain. 100 Tab 0 No current facility-administered medications for this visit. Review of patient's allergies indicates: Allergen Reactions Other Allergy (See Comments) Nuts - not severe OBJECTIVE: BP 112/56 | Pulse 118 | Temp 36.9 C (98.5 F) (Tympanic) | Resp 18 | Wt 77.5 kg (170 lb 12.8 oz)| SpO2 100% | BMI 29.32 kg/m | BSA 1.87 m PHYSICAL EXAM: General: alert, healthy, no distress, well developed Op mm moist Neck: supple, no adenopathy, thyroid Not enlarged without nodularity Heart: regular rhythm and rate,No murmurs. Lungs: lungs clear to auscultation Extremities: no edema Abdomen: Soft, non-tender, normal bowel sounds, no masses or organomegaly ASSESSMENT/PLAN: Delayed menses (Primary) - HCG QUALITATIVE, URINE - 27-0.8 MG Oral Tablet; Take 1 Tablet by mouth daily at noon. Iron deficiency anemia, unspecified iron deficiency anemia type - CBC WITH WBC DIFFERENTIAL - FERRITIN - IRON SCREEN, INCLUDING TIBC States she is intolerant of oral iron tablets, based on repeat labs to consider IV iron infusion, if hCG positive f/u ACCOUNT SOLUTIONS ANALYST Follow Up: Return in about 3 months (around 08/27/2022) for Return with Physician. | For: Return withPhysician (This note was completed using the dictation program Fluency Direct. As such, there may be misspellings, word substitutions, or other variations that should not change the essence of the clinical content of this encounter note. If there is need for further clarification, please direct questions to the provider listed above.) Patient and / caregiver verbalize understanding of above instructions and agrees with plan of care. Stefany Keller MD 05/28/2022 documented in this encounter Nursing Notes * Pat Santo LPN - 05/28/2022 2:07 PM EDT Patient states she has been trying to conceive a child with her since 2019. She had been unsuccessful thus far. She has not had a period since March. She would like to be tested for . She says she tried an OTC home test and the result was not valid- she didn't get a positive or negative result. She reports some nausea and breast tenderness. If any labs are ordered she would like to have them done through [facility] lab. documented in this encounter Plan of Treatment Scheduled Orders Name Type Priority Associated Diagnoses Orde r Schedule HCG QUALITATIVE, URINE Lab Routine Delayed menses Ordered: 05/28/2022 CBC WITH WBC DIFFERENTIAL Lab Routine Iron deficiency anemia, unspecified iron deficiency anemia type Ordered: 05/28/2022 FERRITIN Lab Routine Iron deficiency anemia, unspecified iron deficiency anemia type Ordered: 05/28/2022 IRON SCREEN, INCLUDING TIBC Lab Routine Iron deficiency anemia, unspecified iron deficiency anemia type Ordered: 05/28/2022 Health Maintenance Due Date Last Done Comments [...] as of this encounter Visit Diagnoses Diagnosis Delayed menses- Primary Other disorder of menstruation and other abnormal bleeding from female genital tract Iron deficiency anemia, unspecified iron deficiency anemia type documented in this encounter Care Teams Refrigerator Crater Relationship Specialty Start Date End Date Stefany Keller MD [address] [facility] [place] [address] PCP - General Internal Medicine 10/23/17 documented as of this encounter"
--- OUTSIDE RECORDS SUMMARY | 2023-01-01 08:53 | External Medical Summary ---
Author Name Unknown Address Unknown Organization [id number]:LABORATORY [facility] [place] - [address] [place] [address] [place] [address] Laboratory Report Ordering Provider Test Date Status MELIDA FLORES 01/18/2022 12:29:15 Final Observation Date Value Abnormality Reference (Units ) Status Borrelia burgdorferi IgG and IgM [Interpretation] in Serum by Immunoassay 01/18/2022 12:29:15 Positive Abnormal Negative Final Test results reported to [facility].

Per CDC guidelines, Western blot testing has been ordered. Performing Location LABORATORY [facility] - [address] [place] [address]
--- OUTSIDE RECORDS SUMMARY | 2023-01-01 08:53 | External Medical Summary ---
Author Name Unknown Address Unknown Organization [id number]:[facility]ATORY [facility] [place] - [address] [facility] [address] Laboratory Report Ordering Provider Test Date Status MELIDA FLORES 01/18/2022 12:29:15 Final Observation Date Value Abnormality Reference (Units ) Status B. burgdorferi IgG band pattern 01/18/2022 12:29:15 Positive Abnormal Negative Final Band(s) present: 23, 39, 41, 58, 93 kDa

INTERPRETIVE INFORMATION: B. burgdorferi IgG Immunoblot

For this assay, a positive result is reported when any 5 or more of
the following 10 bands are present: 18, 23, 28, 30, 39, 41, 45, 58,
66, or 93 kDa. All other banding patterns are reported as negative.

Test results reported to [facility]. B. burgdorferi IgM (Western Blot) 01/18/2022 12:29:15 Negati ve Negative Final Band(s) present: NONE
(I nsufficient number of bands for positive result)

INTERPRETIVE INFORMATION: B. burgdorferi IgM Immunoblot

For this assay, a positive result is reported when any 2 or more of
the following bands are present: 23, 39, or 41 kDa. All other banding
patterns are reported as negative. Performing Location LABORATORY [facility] [place] - [address] [facility] [address]
--- OUTSIDE RECORDS SUMMARY | 2023-01-01 08:53 | External Medical Summary | Summary of Care ---
Author Name Unknown Organization [facility] [place] [address] Care Team Providers Care Mobile Mechanic Name Role Phone Stefany Keller MD Primary Care Provider [phone] Reason for Visit * Reason Comments Acute Patient states start ing on 01/02/22 she developed sore throat and fever. She states for a few days after she had the fever and body weakness, She states she felt by the 5th day she was starting to feel better but this had developed shivers, chills, and fever again. She states even talking is causing her to feel weak. She states concerns for 2 weeks behind on menstrual cycle. Encounter Details Date Type Department Care Team Description 01/18/2022 Office Visit General Internal Medicine [facility] [place] [address] [place] [address] Joao Real MD [address] [place] [address] Fever, unspecified fever cause*; Myalgia; Amenorrhea Allergies Active Allergy Reactions Severity [...] deficiency anemia 11/14/2017 Overview: 11/12/17 nL tsh,cmp [id number].,CBC Hb 10.7-mchc indices c/w iron def anemia [...] Sign Reading Time Taken Comments Blood Pressure 98/70 01/18/2022 12:02 PM EST Pulse 96 01/18/2022 12:13 PM EST Temperature 35.7 C (96.3 F) 01/18/2022 12:[address] Respiratory Rate - - Oxygen Saturation 98% 01/18/2022 12:02 PM EST Inhaled Oxygen Concentration - - Weight 76.2 kg (168 lb) 01/18/2022 12:02 PM EST Height 162.6 cm (5' 4") 01/18/2022 12:02 PM EST Body Mass Index 28.84 01/18/2022 12:02 PM EST documented in this encounter Progress Notes * Joao Real MD - 01/18/2022 12:17 PM EST Chief Complaint Patient presents with Acute Patient states starting on 01/02/22 she developed sore throat and fever. She states for a few days after she had the fever and body weakness, She states she felt by the 5th day she was starting to feel better but this had developed shivers, chills, and fever again. She states even talking is causing her to feel weak. She states concerns for 2 weeks behind on menstrual cycle. SUBJECTIVE: Kim Paredes is a 36 year old female with PMH as below who presents for acute. Weekend of 12/28/21 was ill, fever, sore throat, chills, weakness. This resolved within 4-5 days, felt back to baseline. However, 2 days ago, started feeling ill again after moving bowels. Fever, weakness, chills and bodyaches. Fever to 101 max. No abdominal pain, n/v/d and moving bowels fine. She notes no cough, sob, d oe, mercado, wheezing, sinus congestion or sore throat. Fever has resolved today. 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 Menses 2 weeks late, chance of . No abdominal pain, bloating. dayquil helped yesterday. No cp, pressure. Patient Active Problem List Diagnosis Code Iron deficiency anemia D50.9 Snoring R06.83 Overweight (BMI 25.0-29.9) E66.3 Current Outpatient Medications Medication Sig Dispense Refill acetaminophen (TYLENOL) 500 MG Tablet Take 2 Tabs by mouth every 8 hours as needed for Pain. 100 Tab 0 Vitamin D 25 MCG (1000 UT) Oral Tablet Take by mouth. clomiPHENE Citrate 50 MG Oral Tablet (Clomid) Take 1 Tab by mouth daily. for menstrual cycle days 3 through 7. (Patient not taking: Reported on 01/18/2022) 5 Tab 0 clomiPHENE Citrate 50 MG Oral Tablet (Clomid) Take 1 Tab by mouth daily. for menstrual cycle days 3 through 7. (Patient not taking: Reported on 01/18/2022) 5 Tab 0 clomiPHENE Citrate 50 MG Oral Tablet (Clomid) Take 1 Tab by mouth daily. for menstrual cycle days 3 through 7. (Patient not taking: Reported on 01/18/2022) 5 Tab 0 clomiPHENE Citrate 50 MG Oral Tablet (Clomid) Take 1 Tab by mouth daily. for menstrual cycle days 3 through 7. (Patient not taking: Reported on 01/18/2022) 5 Tab 0 Meloxicam 7.5 MG Oral Tablet Take by mouth 1 Tablet in the morning. (Patient not taking: Reported on 01/18/2022) 30 Tablet 1 No current facility-administered medications for this visit. Review of patient's allergies indicates: Allergen Reactions Other Allergy (See Comments) Nuts - not severe Health Maintenance Due Topic Date Due Hepatitis B (1 of 3 - 3-dose series) Never done PAP SMEAR-EVERY 3 YRS,AGES 21-65 Never done Depression Screening, Annual for Pts 12 and Over 12/01/2018 Diabetes Screening 11/25/2020 COVID-19 Vaccine (2 - Pfizer series) 02/23/2021 Influenza Vaccine (FLU shot) (1) 10/25/2021 ROS: CONSTITUTIONAL: No change in weight and per hpi EYE: No recent significant change in vision and No eye pain, redness, discharge EARS: No ear pain, No drainage, No tinnitus or vertigo and No recent change in hearing NOSE: No history of frequent colds or sinusitis, No nasal stuffiness, No history of Hay Fever and No significant epistaxis PULMONARY: No cough, sputum, or hemoptysis, No wheezing, No rales, No shortness of breath and No recent change in breathing CARDIOVASCULAR: No chest pain, No shortness of breath, No dyspnea on exertion, No orthopnea, No paroxysmal nocturnal dyspnea, No edema, No palpitations and No syncope GASTROINTESTINAL: No abdominal pain, No change in bowel habits, No significant heartburn, No significant change in appetite, No nausea, vomiting, diarrhea, or constipation, No hematemesis, No blood in stools or black tarry stools, No abdominal bloating or early satiety and No dysphagia ALL OTHER SYSTEMS NEGATIVE I reviewed social, PMH, PSH, and family history and updated where needed. Social History Socioeconomic History Marital status: Spouse name: Not on file Number of children: Not on file Years of education: Not on file Highest education level: Not on file Occupational History Not on file Tobacco Use Smoking status: Never Smokeless tobacco: Never Substance and Sexual Activity Alcohol use: No [...] on file Housing Stability: Not on file Past Medical History: Diagnosis Date Known health problems: none Past Surgical History: Procedure Laterality Date NONE Family History Problem Relation Age of Onset No Past Hx Mother Hypertension Father OBJECTIVE: PHYSICAL EXAM: BP 98/70 | Pulse 96 | Temp 35.7 C (96.3 F) | Ht 1.626 m (5' 4") | Wt 76.2 kg (168 lb) | SpO2 98% | BMI 28.84 kg/m | BSA 1.85 m General: alert, healthy and no distress Head: Normocephalic, No masses, lesions, tenderness or abnormalities Eye Exam: conjunctiva are pink and non-injected, sclera clear Ears: External ears normal, Canals clear, TM's Normal Heart: regular rate & rhythm, no murmur, no gallops, PMI non-displaced, S-1 normal and S-2 normal Lungs: normal respiratory rate and rhythm, lungs clear to auscultation Psych: normal affect, no flight of ideas or tangential thought, good eye contact, no pressured speech ASSESSMENT: R50.9 Fever, unspecified fever cause (primary encounter diagnosis) M79.10 Myalgia N91.2 Amenorrhea PLAN: Fever, unspecified fever cause (Primary) - INFLUENZA A/B RSV SARS-COV2,PCR; Future; Expected date: 01/18/2022 - RETURN TO WORK OR SCHOOL ?viral etiology check swab given fevers, aches, will also check tick bourne panel given lack of silverio well Fluids, rest, tylenol Further recs pending response, swab Myalgia - ANAPLASMA PHAGOCYTOPHILUM DNA, QL REAL-TIME PCR; Future; Expected date: 01/18/2022 - LYME DISEASE ANTIBODY SCREEN WITH REFLEX TO WESTERN BLOT; Future; Expected date: 01/18/2022 - INFLUENZA A/B RSV SARS-COV2,PCR; Future; Expected date: 01/18/2022 - RETURN TO WORK OR SCHOOL Amenorrhea - HCG QUALITATIVE, URINE; Future; Expected date: 01/18/2022 Check Follow Up: Return if symptoms worsen or fail to improve. Joao Real MD documented in this encounter Nursing Notes * Henry Beltran CMA - 01/18/2022 12:02 PM EST Chief Complaint Patient presents with Acute Patient states starting on 01/02/22 she developed sore throat and fever. She states for a few days after she had the fever and body weakness, She states she felt by the 5th day she was starting to feel better but this had developed shivers, chills, and fever again. She states even talking is causing her to feel weak. She states concerns for 2 weeks behind on menstrual cycle. documented in this encounter Plan of Treatment Upcoming Encounters Date Type Specialty Care Team Description 01/18/2022 Laboratory Laboratory [facility] [address] [place] [address] Myalgia; Amenorrhea Pending Results Name Type Priority Associated Diagnoses Date /Time HCG QUALITATIVE, URINE Lab Routine Amenorrhea 01/18/2022 12:31 PM EST ANAPLASMA PHAGOCYTOPHILUM DNA, QL REAL-TIME PCR Lab Routine Myalgia 01/18/2022 12:29 PM EST LYME DISEASE ANTIBODY SCREEN WITH REFLEX TO WESTERN BLOT Lab Routine Myalgia 01/18/2022 12:29 PM EST INFLUENZA A/B RSV SARS-COV2,PCR Lab Routine Fever, unspecified fever cause Myalgia 01/18/2022 12:19 PM EST Scheduled Orders Name Type Priority Associated Diagnoses Orde r Schedule HCG QUALITATIVE, URINE Lab Routine Amenorrhea Expected: 01/18/2022, Expires: 01/18/2023 ANAPLASMA PHAGOCYTOPHILUM DNA, QL REAL-TIME PCR Lab Routine Myalgia Expected: 01/18/2022, Expires: 01/18/2023 LYME DISEASE ANTIBODY SCREEN WITH REFLEX TO WESTERN BLOT Lab Routine Myalgia Expected: 01/18/2022, Expires: 01/18/2023 INFLUENZA A/B RSV SARS-COV2,PCR Lab Routine Fever, unspecified fever cause Myalgia Expected: 01/18/2022 (Approximate), Expires: 01/18/2023 Health Maintenance Due Date Last Done Comments [...] as of this encounter Visit Diagnoses Diagnosis Fever, unspecified fever cause- Primary Myalgia Mylagia and myositis, unspecified Amenorrhea Absence of menstruation Myalgia Mylagia and myositis, unspecified Amenorrhea Absence of menstruation documented in this encounter Additional Health Concerns Infection Onset Date Last Indicated Resolved Time Respiratory Rule-Out 01/18/2022 01/18/2022 documented as of this encounter Care Teams Mobile Mechanic Relationship Specialty Start Date End Date Stefany Keller MD [address] [facility] [place] [address] PCP - General Internal Medicine 10/23/17 documented as of this encounter
--- OUTSIDE RECORDS SUMMARY | 2023-01-01 08:53 | External Medical Summary | Summary of Care ---
Author Name Unknown Organization [place] [address] Care Team Providers Care Functional Tester Typewriters Name Role Phone Stefany Keller MD Primary Care Provider [phone] Reason for Visit * Reason Onset Date Comments Test Results 01/25/2022 Encounter Details Date Type Department Care Team Description 01/25/2022 Telephone General Internal Medicine [facility] [address] [facility] [place] [address] Stefany Keller MD [address] [place] [address] Test Results Allergies Active Allergy Reactions Severity [...] deficiency anemia 11/14/2017 Overview: 11/12/17 nL tsh,cmp [id number].,CBC Hb 10.7-mchc indices c/w iron def anemia [...] encounter Miscellaneous Notes * Addendum Note - Christal Beltran CMA [...] 9:10 AM EST ----- Message from Joao Real MD sent at 01/25/2022 8:38 AM EST [...] filedocumented as of this encounter Care Teams Functional Tester Typewriters Relationship Specialty Start Date End Date Stefany Keller MD [address] [place] [address] PCP - General Internal Medicine 10/23/17 documented as of this encounter
--- OUTSIDE RECORDS SUMMARY | 2023-01-01 08:53 | External Medical Summary ---
Author Name Unknown Address Unknown Organization : Laboratory Report Ordering Provider Test Date Status MELIDA FLORES 01/18/2022 12:29:15 Final Observation Date Value Abnormality Reference (Units ) Status Anaplasma phagocytophilum DNA [Presence] in Blood by CARLOS with probe detection 01/18/2022 12:29:15 Not Detected Not Detected Final This test was developed and its analytical performance
characteristics have been determined by [facility]
[place]. It has
not been cleared or approved by the U.S. Food and Drug
Administration. This assay has been validated pursuant
to the CLIA regulations and is used for clinical
purposes.

Test Performed at:
[facility]
[address] [place] [address]
Ric Singh M.D., Ph.D.,Director of Laboratories Performing Location
--- OUTSIDE RECORDS SUMMARY | 2023-01-01 08:53 | External Medical Summary | Summary of Care ---
Author Name Unknown Organization [place] [address] Care Team Providers Care Adult Care Manager Name Role Phone Stefany Keller MD Primary Care Provider [phone] Reason for Visit * Reason Onset Date Comments Test Results 01/25/2022 Encounter Details Date Type Department Care Team Description 01/25/2022 Telephone General Internal Medicine [facility] [address] [facility] [place] [address] Stefany Keller MD [address] [place] [address] Test Results Allergies Active Allergy Reactions Severity [...] deficiency anemia 11/14/2017 Overview: 11/12/17 nL tsh,cmp [id number].,CBC Hb 10.7-mchc indices c/w iron def anemia [...] Primary documented in this encounter Care Teams Adult Care Manager Relationship Specialty Start Date End Date Stefany Keller MD [address] [place] [address] [place] [address] PCP - General Internal Medicine 10/23/17 documented as of this encounter
--- OUTSIDE RECORDS SUMMARY | 2023-01-01 08:54 | External Medical Summary | Summary of Care ---
Author Name Unknown Organization [place] [address] Care Team Providers Care Construction Operations Manager Name Role Phone Stefany Keller MD Primary Care Provider [phone] Encounter Details Date Type Department Care Team Description 09/20/2021 External Data Patient Risk Medial Allergies Active Allergy Reactions Severity Noted Date Comments Other Allergy (See Comments) 020 Nuts - not severe documented as of this encounter (statuses as of 09/27/2021) Medications Medication Sig Dispensed Refills Start Date [...] through 7. 5 Tab 0 09/05/2020 Active clomiPHENE Citrate 50 MG Oral Tablet (Clomid) Take 1 Tab by mouth daily. for menstrual cycle days 3 through 7. 5 Tab 0 09/29/2020 Active clomiPHENE Citrate 50 MG Oral Tablet (Clomid)Indications:F emale infertility Take 1 Tab by mouth daily. for menstrual cycle days 3 through 7. 5 Tab 0 10/25/2020 Active clomiPHENE Citrate 50 MG Oral Tablet (Clomid)Indications:F emale infertility Take 1 Tab by mouth daily. for menstrual cycle days 3 through 7. 5 Tab 0 12/20/2020 Active documented as of this encounter (statuses as of 09/27/2021) Active Problems Problem Noted Date Snoring 12/01/2017 Overweight (BMI 25.0-29.9) 12/01/2017 Iron deficiency anemia 11/14/2017 Overview: 11/12/17 nL tsh,cmp [id number].,CBC Hb 10.7-mchc indices c/w iron def anemia >12/11- A1c 4.7%, Ferritin low at 8, Tsat 9%-st po iron. documented as of this encounter (statuses as of 09/27/2021) Immunizations Name Administration Dates Next Due Seasonal Influenza, Quadrivalent, No Preserve, M dck 04/27/2019 TDAP (age 10 and older)(Boostrix) 06/30/2016 documented as of this encounter Social History Tobacco Use Types Packs/Day Years Used Date Never Smoker Smokeless Tobacco: Never Used Alcohol Use Standard Drinks/Week Comments No 0 (1 standard drink = 0.6 oz pur e alcohol) Sex Assigned at Date Recorded Not on file Job Start Date Occupation Industry Not on file Not on file Not on file documented as of this encounter Plan of Treatment Health Maintenance Due Date Last Done Comments PAP SMEAR-EVERY 3 YRS,AGES 21-65 2006 Depression [...] on patient's age to complete this topic Hepatitis B Aged Out No longer eligi ble based on patient's age to complete this topic MENINGOCOCCAL (MENACTRA/MENVEO) Aged Out No longer eligible b ased on patient's age to complete this topic Pneumococcal Vaccine: Pediatrics (0 to 5 Years) and At-Risk Patients (6 to 64 Years) Aged Out No longer eligible b ased on patient's age to complete this topic documented as of this encounter Implants Not on filedocumented as of this encounter Advance Directives Documents on File Type Date Recorded Patient Commercial Collections Driver Expl anation Advanced Directive Advanced Directive Advanced Directive Advanced Directive Advanced Directive Advanced Directive Advanced Directive Advanced Directive Advanced Directive Advanced Directive Advanced Directive Advanced Directive Advanced Directive Care Teams Construction Operations Manager Relationship Specialty Start Date End Date Stefany Keller MD [address] [place] [address] PCP - General Internal Medicine 10/23/17 documented as of this encounter
--- OUTSIDE RECORDS SUMMARY | 2023-01-01 08:54 | External Medical Summary | Summary of Care ---
Author Name Unknown Organization [place] [address] Care Team Providers Care Citrix Lead Name Role Phone Stefany Keller MD Primary Care Provider [phone] Encounter Details Date Type Department Care Team Description 10/25/2021 Patient Reported Data Patient Survey Ortho OBERD Allergies Active Allergy Reactions Severity Noted Date Comments Other Allergy (See Comments) 020 Nuts - not severe documented as of this encounter (statuses as of 10/25/2021) Medications Medication Sig Dispensed Refills Start Date [...] as of this encounter (statuses as of 10/25/2021) Active Problems Problem Noted Date Snoring 12/01/2017 Overweight (BMI 25.0-29.9) 12/01/2017 Iron deficiency anemia 11/14/2017 Overview: 11/12/17 nL tsh,cmp [id number].,CBC Hb 10.7-mchc indices c/w iron def anemia >18- A1c 4.7%, Ferritin low at 8, Tsat 9%-st po iron. documented as of this encounter (statuses as of 10/25/2021) Immunizations Name Administration Dates Next Due Seasonal [...] Encounters Date Type Specialty Care Team Description 10/26/2021 Office Visit Podiatry Deepti Delaney, DPRobert [address] [facility] [place] [address] Health Maintenance Due Date Last Done Comments [...] Documents on File Type Date Recorded Patient Translator/Interpreter Expl anation Advanced Directive Advanced Directive Advanced Directive Advanced Directive Advanced Directive Advanced Directive Advanced Directive Advanced Directive Advanced Directive Advanced Directive Advanced Directive Advanced Directive Advanced Directive Advanced Directive Advanced Directive Care Teams Citrix Lead Relationship Specialty Start Date End Date Stefany Keller MD 200 [place] [address] PCP - General Internal Medicine 10/23/17 documented as of this encounter
--- OUTSIDE RECORDS SUMMARY | 2023-01-01 08:54 | External Medical Summary | Summary of Care ---
Author Name Unknown Organization [place] [address] Care Team Providers Care Canal Equipment Mechanic Name Role Phone Stefany Keller MD Primary Care Provider [phone] Encounter Details Date Type Department Care Team Description 08/16/2021 Orders Only Laboratory [facility] [place] [address] [place] [address] Keith Isaac, DO [address] [employer] [address] [address] Fertility testing*; Encounter for blood typing; Screening for iron deficiency anemia Allergies Active Allergy Reactions Severity Noted Date Comments Other Allergy (See Comments) 020 Nuts - not severe documented as of this encounter (statuses as of 08/16/2021) Medications Medication Sig Dispensed Refills Start Date [...] as of this encounter (statuses as of 08/16/2021) Active Problems Problem Noted Date Snoring 12/01/2017 Overweight (BMI 25.0-29.9) 12/01/2017 Iron deficiency anemia 11/14/2017 Overview: 11/12/17 nL tsh,cmp [id number].,CBC Hb 10.7-mchc indices c/w iron def anemia >12/11- A1c 4.7%, Ferritin low at 8, Tsat 9%-st po iron. documented as of this encounter (statuses as of 08/16/2021) Immunizations Name Administration Dates Next Due Seasonal [...] Name Type Priority Associated Diagnoses Date /Time TSH Lab Routine Fertility testing Encounter for blood typing Screening for iron deficiency anemia 08/16/2021 12:46 PM EDT ANTI-MULLERIAN HORMONE, FEMALE Lab Routine Fertility testing Encounter for blood typing Screening for iron deficiency anemia 08/16/2021 12:46 PM EDT RUBELLA IGG ANTIBODY Lab Routine Fertility testing Encounter for blood typing Screening for iron deficiency anemia 08/16/2021 12:46 PM EDT RPR Lab Routine Fertility testing Encounter for blood typing Screening for iron deficiency anemia 08/16/2021 12:46 PM EDT HEPATITIS B SURFACE ANTIGEN Lab Routine Fertility testing Encounter for blood typing Screening for iron deficiency anemia 08/16/2021 12:46 PM EDT HEPATITIS C ANTIBODY SCREEN WITH PROGRESSION TO HEPATITIS C RNA QUANTITATIVE Lab Routine Fertility testing Encounter for blood typing Screening for iron deficiency anemia 08/16/2021 12:46 PM EDT VARICELLA-ZOSTER VIRUS ANTIBODY, IGG Lab Routine Fertility testing Encounter for blood typing Screening for iron deficiency anemia 08/16/2021 12:46 PM EDT CBC Lab Routine Fertility testing Encounter for blood typing Screening for iron deficiency anemia 08/16/2021 12:46 PM EDT TYPE AND SCREEN Lab Routine Fertility testing Encounter for blood typing Screening for iron deficiency anemia 08/16/2021 12:46 PM EDT ABO/RH Lab Routine Fertility testing Encounter for blood typing Screening for iron deficiency anemia 08/16/2021 12:47 PM EDT HIV ANTIGEN & ANTIBODY SCREEN W/ CONFIRMATION Lab Routine Fertility testing Encounter for blood typing Screening for iron deficiency anemia 08/16/2021 12:46 PM EDT HEPATITIS C ANTIBODY Lab Routine Fertility testing Encounter for blood typing Screening for iron deficiency anemia 08/16/2021 12:46 PM EDT HEPATITIS C RNA ADD ON Lab Routine Fertility testing Encounter for blood typing Screening for iron deficiency anemia 08/16/2021 12:46 PM EDT Health Maintenance Due Date Last Done Comments PAP SMEAR-EVERY 3 YRS,AGES 21-65 2006 Depression Screening, Annual for Pts 12 and Over 12/01/2018 12/01/2017 COVID-19 Vaccine (2 - Pfizer series) 02/23/2021 02/02/2021 Influenza Vaccine (FLU shot) (Season Ended) 2021 04/27/2019 DTaP,Tdap,and Td Vaccines (2 - Td or Tdap) 06/30/2026 06/30/2016 GARDASIL-HPV IMMUNIZATION SERIES Aged Out No longer eligible based on patient's age to complete this topic MENINGOCOCCAL (MENACTRA/MENVEO) Aged Out No longer eligible based on patient's age to complete this topic Pneumococcal Vaccine: Pediat rics (0 to 5 Years) and At-Risk Patients (6 to 64 Years) Aged Out No longer eligi ble based on patient's age to complete this topic documented as of this encounter Implants Not on filedocumented as of this encounter Visit Diagnoses Diagnosis Fertility testing- Primary Encounter for blood typing Screening for iron deficiency anemia documented in this encounter Advance Directives Documents on File Type Date Recorded Patient Local Flatbed Driver Expl anation Advanced Directive Advanced Directive Advanced Directive Advanced Directive Advanced Directive Advanced Directive Advanced Directive Advanced Directive Advanced Directive Advanced Directive Advanced Directive Advanced Directive Advanced Directive Care Teams Canal Equipment Mechanic Relationship Specialty Start Date End Date Stefany Keller MD [address] [facility] [place], [place] [address] PCP - General Internal Medicine 10/23/17 documented as of this encounter
--- OUTSIDE RECORDS SUMMARY | 2023-01-01 08:54 | External Medical Summary | Summary of Care ---
Author Name Unknown Organization [place] [address] Care Team Providers Care Make Up Worker Name Role Phone Stefany Keller MD Primary Care Provider [phone] Encounter Details Date Type Department Care Team [...] deficiency anemia 11/14/2017 Overview: 11/12/17 nL tsh,cmp [id number].,CBC Hb 10.7-mchc indices c/w iron def anemia [...] Office Visit Podiatry Deepti Delaney, DPRobert [address] [facility] [place] [address] Health Maintenance Due Date [...] Documents on File Type Date Recorded Patient Vascular Radiologist Expl anation Advanced Directive Advanced Directive Advanced Directive Advanced Directive Advanced Directive Advanced Directive Advanced Directive Advanced Directive Advanced Directive Advanced Directive Advanced Directive Advanced Directive Advanced Directive Advanced Directive Advanced Directive Care Teams Make Up Worker Relationship Specialty Start Date End Date Stefany Keller MD [address] [place] [address] PCP - General Internal Medicine 10/23/17 documented as of this encounter
--- OUTSIDE RECORDS SUMMARY | 2023-01-01 08:54 | External Medical Summary | Summary of Care ---
Author Name Unknown Organization [place] [address] Care Team Providers Care Metal Control Coordinator Name Role Phone Stefany Keller MD Primary Care Provider [phone] Reason for Visit * Reason Comments NEW PATIENT Encounter Details Date Type Department Care Team Description 10/26/2021 Office Visit Podiatry [facility] [address] [facility] [place] [address] Deepti Delaney, DPRobert [address] [facility] [address] Left foot pain*; Plantar fasciitis of left foot; Tendinitis Allergies Active Allergy Reactions Severity Noted Date Comments Other Allergy (See Comments) 020 Nuts - not severe documented as of this encounter (statuses as of 10/26/2021) Medications Medication Sig Dispensed Refills Start Date [...] Active clomiPHENE Citrate 50 MG Oral Tablet (Clomid)Indications: Female infertility Take 1 Tab by mouth daily. for menstrual cycle days 3 through 7. 5 Tab 0 10/25/2020 Active clomiPHENE Citrate 50 MG Oral Tablet (Clomid)Indications: Female infertility Take 1 Tab by mouth daily. for menstrual cycle days 3 through 7. 5 Tab 0 12/20/2020 Active Meloxicam 7.5 MG Oral Tablet Take by mouth 1 Tablet in the morning. 30 Tablet 1 10/26/2021 Active documented as of this encounter (statuses as of 10/26/2021) Active Problems Problem Noted Date Snoring 12/01/2017 Overweight (BMI 25.0-29.9) 12/01/2017 Iron deficiency anemia 11/14/2017 Overview: 11/12/17 nL tsh,cmp [id number].,CBC Hb 10.7-mchc indices c/w iron def anemia >12/11- A1c 4.7%, Ferritin low at 8, Tsat 9%-st po iron. documented as of this encounter (statuses as of 10/26/2021) Immunizations Name Administration Dates Next Due Seasonal [...] as of this encounter Progress Notes * Deepti Delaney DPM - 10/26/2021 8:31 AM EDT Podiatry New Patient Note [facility] Name: Kim Paredes : 1985 Date: 10/26/2021 CHIEF COMPLAINT: Left heel pain HISTORY OF PRESENT ILLNESS: This patient is a 36 year old female who presents today with complaintsof persistent left heel pain. She states this started several months ago. She denies injury. She reports pain to the bottom instep/arch of the left foot. This pain only occurs with pressure/walking/s tanding. She reports relief when direct pressure such as her husbands foot is applied. She denies swelling, tingling, numbness. She offers no other concerns. Past Medical History: Diagnosis Date Known health problems: none Past Surgical History: Procedure Laterality Date NONE Family History Problem Relation Age of Onset No Past Hx Mother Hypertension Father Social History Socioeconomic History Marital status: Spouse name: Not on file Number of children: Not on file Years of education: Not on file Highest education level: Not on file Occupational History Not on file Tobacco Use Smoking status: Never Smoker Smokeless tobacco: Never Used Substance and Sexual Activity Alcohol use: No [...] on file Housing Stability: Not on file Current Outpatient Medications Medication Sig Dispense Refill acetaminophen (TYLENOL) 500 MG Tablet Take 2 Tabs by mouth every 8 hours as needed for Pain. 100 Tab 0 Vitamin D 25 MCG (1000 UT) Oral Tablet Take by mouth. clomiPHENE Citrate 50 MG Oral Tablet (Clomid) Take 1 Tab by mouth daily. for menstrual cycle days 3 through 7. 5 Tab 0 clomiPHENE Citrate 50 MG Oral Tablet (Clomid) Take 1 Tab by mouth daily. for menstrual cycle days 3 through 7. 5 Tab 0 clomiPHENE Citrate 50 MG Oral Tablet (Clomid) Take 1 Tab by mouth daily. for menstrual cycle days 3 through 7. 5 Tab 0 clomiPHENE Citrate 50 MG Oral Tablet (Clomid) Take 1 Tab by mouth daily. for menstrual cycle days 3 through 7. 5 Tab 0 No current facility-administered medications for this visit. ALLERGIES: Review of patient's allergies indicates: Allergen Reactions Other Allergy (See Comments) Nuts - not severe REVIEW OF SYSTEMS: CONSTITUTIONAL: No fevers, sweats, or chills EXTREMITIES: Positive for pain left foot arch SKIN/INTEGUMENTARY: No rash and No itching FOCUSED PODIATRIC EXAM: Vascular: Pedal pulses palpable including dorsalis pedis and posterior tibial artery at 2/4 left. Capillary refill time is within normal limits to all toes. No edema noted. No warmth. Neurologic: Sensation (light touch) intact to the left foot. No hypersensitivity. No weakness. Negative Tinel'ssign to the posterior tibial nerve, left. Musculoskeletal: Pain is reported along the medial band of the plantar fascia left foot. Laxity of ankle noted. No muscle weakness. No palpable mass. Dermatological: Skin temperature, texture, and turgor are within normal limits. No open lesions. There is no erythema or ecchymosis noted. DIAGNOSTIC STUDIES: 3 WB radiographs of the left foot were obtained today. This includes AP MO and Lateral. There is nosignificant soft tissue abnormalities. Bone mineralization appears within normal limits. Lateral view shows os trigonum and small plantar calcaneal enthesopathy. Decrease in arch height also noted. ASSESSMENT: 1. Left foot pain 2. Plantar fasciitis of left foot 3. Tendinitis PLAN: -I personally reviewed left foot x-rays as above and reviewed images with the patient. -I discussed differential diagnosis including plantar fasciitis, neuralgia, and tendinitis as well as flat foot. -Meloxicam prescribed. -Nurse dispensed ankle brace. -I also reviewed options of walking boot, injection, PT, and MRI if not improving. Follow up: 3 weeks, she also asked if she could myG me Deepti Delaney DPM documented in this encounter Nursing Notes * Fiona Sahu LPN - 10/26/2021 8:25 AM EDT Pt here for left foot pain. She states she has pain when she stands on it for a long time. Pressurehelps with the pain documented in this encounter Miscellaneous Notes * Addendum Note - Fiona Sahu LPN - 10/26/2021 9:06 AM EDT Addended by: FIONA SAHU on: 10/26/2021 09:06 AM Modules accepted: Orders documented in this encounter Plan of Treatment Pending Results Name Type Priority Associated Diagnoses Date /Time XR FOOT 3 OR MORE VIEWS Medical Imaging Routine Left foot pain 10/26/2021 8:34 AM EDT Health Maintenance Due Date Last [...] as of this encounter Visit Diagnoses Diagnosis Left foot pain- Primary Pain in limb Plantar fasciitis of left foot Plantar fascial fibromatosis Tendinitis Enthesopathy of unspecified site documented in this encounter Advance Directives Documents on File Type Date Recorded Patient Behavioral Modification Assistant Expl anation Advanced Directive Advanced Directive Advanced Directive Advanced Directive Advanced Directive Advanced Directive Advanced Directive Advanced Directive Advanced Directive Advanced Directive Advanced Directive Advanced Directive Advanced Directive Advanced Directive Advanced Directive Advanced Directive Care Teams Metal Control Coordinator Relationship Specialty Start Date End Date Stefany Keller MD [address] [place] [address], [place] [address] PCP - General Internal Medicine 10/23/17 documented as of this encounter
--- OUTSIDE RECORDS SUMMARY | 2023-01-01 08:54 | External Medical Summary ---
Author Name Unknown Address Unknown Organization [id number]:[facility] [place] [address] [place] [address] Laboratory Report Ordering Provider Test Date Status BRIGHTKAYLYNN 08/16/2021 12:46:12 Final Observation Date Value Abnormality Reference (Units ) Status Rubella virus IgG Ab [Presence] in Serum 08/16/2021 12:46:12 Positive Abnormal Negative Final A positive result is consist ent with having had rubella virus or vaccination. Performing Location [facility] [place] [address] [place] [address]
--- OUTSIDE RECORDS SUMMARY | 2023-01-01 08:54 | External Medical Summary ---
Author Name Unknown Address Unknown Organization [id number]:[facility] [place] - [address] [facility] [address] Laboratory Report Ordering Provider Test Date Status KAYLYNN NOVOA 08/16/2021 12:46:12 Final Observation Date Value Abnormality Reference (Units ) Status TSH 08/16/2021 12:46:12 2.71 0.27-4.20 (uIU/mL) Final Performing Location [facility]ATORY [facility] - [address] [facility] [address]
--- OUTSIDE RECORDS SUMMARY | 2023-01-01 08:54 | External Medical Summary ---
Author Name Unknown Address Unknown Organization [id number]:[facility]ORY [facility] - [address] [place] [address] Laboratory Report Ordering Provider Test Date Status BRIGHTKAYLYNN 08/16/2021 12:46:12 Final Observation Date Value Abnormality Reference (Units ) Status Varicella Zoster IgG interpretation 08/16/2021 12:46:12 Negative Negative Final A negative result indicates immunity to varicella zoster virus has not been acquired. Performing Location LABORATORY [facility] - [address] [place] [address]
--- OUTSIDE RECORDS SUMMARY | 2023-01-01 08:54 | External Medical Summary ---
Author Name Unknown Address Unknown Organization [id number]:[facility] [place] [address] [facility] [address] Laboratory Report Ordering Provider Test Date Status KAYLYNN NOVOA 08/16/2021 12:46:12 Final Observation Date Value Abnormality Reference (Units ) Status Hep B surface Ag 08/16/2021 12:46:12 Negative Neg ative Final Performing Location LAB[facility]ATORY [facility] - [address] [facility] [address]
--- OUTSIDE RECORDS SUMMARY | 2023-01-01 08:54 | External Medical Summary | Summary of Care ---
Author Name Unknown Organization [place] [address] Care Team Providers Care Sketch Artist Name Role Phone Stefany Keller MD Primary Care Provider [phone] Encounter Details Date Type Department Care Team [...] deficiency anemia 11/14/2017 Overview: 11/12/17 nL tsh,cmp [id number].,CBC Hb 10.7-mchc indices c/w iron def anemia [...] Documents on File Type Date Recorded Patient Assistant Site Manager Expl anation Advanced Directive Advanced Directive Advanced Directive Advanced Directive Advanced Directive Advanced Directive Advanced Directive Advanced Directive Advanced Directive Advanced Directive Advanced Directive Advanced Directive Advanced Directive Advanced Directive Advanced Directive Care Teams Sketch Artist Relationship Specialty Start Date End Date Stefany Keller MD [address] [place] [address] PCP - General Internal Medicine 10/23/17 documented as of this encounter
--- OUTSIDE RECORDS SUMMARY | 2023-01-01 08:54 | External Medical Summary ---
Author Name Unknown Address Unknown Organization K01:LABORATORY [address] [facility] [address] Laboratory Report Ordering Provider Test Date Status KAYLYNN NOVOA 08/16/2021 12:46:12 Final Observation Date Value Abnormality Reference (Units ) Status HIV 1+2 Ab+HIV1 p24 Ag [Presence] in Serum or Plasma by Immunoassay 08/16/2021 12:46:12 Negative Negative Final Negative HIV-1/2 antigen and antibody screening tset results usually indicate the absence of HIV-1 and HIV-2 infection. However, such negative results do not rule-out acute HIV infection. If acute HIV-1 infection is highly suspected, it is recommended that a specimen be submitted for detection of HIV-1 RNA. Performing Location LAB[facility]ATORY [facility] [place] - [facility] [address] [facility] [address]
--- OUTSIDE RECORDS SUMMARY | 2023-01-01 08:54 | External Medical Summary ---
Author Name Unknown Address Unknown Organization K01:[facility] [place] [facility] [place] [address] [place] [address] Laboratory Report Ordering Provider Test Date Status BRIGHT,KAYLYNN 08/16/2021 12:46:12 Final Observation Date Value Abnormality Reference (Units ) Status ABO 08/16/2021 12:46:12 B Final RH 08/16/2021 12:46:12 Positive Final RED BLOOD CELL ANTIBODY SCREEN 08/16/2021 12:46:12 Negative Final SPECIMEN EXPIRATION DATE 08/16/2021 12:46:12 08/19/2021 23:59 Final Performing Location [facility] [place] [address] [place] [address]
--- OUTSIDE RECORDS SUMMARY | 2023-01-01 08:54 | External Medical Summary | Summary of Care ---
Author Name Unknown Organization [place] [address] Care Team Providers Care Bindery Library Technical Assistant Name Role Phone Stefany Keller MD Primary Care Provider [phone] Reason for Visit * Reason Comments NEW PATIENT Encounter Details Date Type Department Care Team Description 10/26/2021 Office Visit Podiatry [facility] [address] [facility] [place] [address] Deepti Delaney, DPRobert [address] [facility] [place] [address] Left foot pain*; Plantar fasciitis [...] deficiency anemia 11/14/2017 Overview: 11/12/17 nL tsh,cmp [id number].,CBC Hb 10.7-mchc indices c/w iron def anemia [...] 8:31 AM EDT Podiatry New Patient Note [facility] Name: Kim Paredes : 1985 Date: 10/26/2021 CHIEF COMPLAINT: Left heel pain HISTORY OF PRESENT ILLNESS: This patient is a 36 year old female who presents today with complaintsof persistent left heel pain. She states this started several months ago. She denies injury. She reports pain to the bottom instep/arch of the left foot. This pain only occurs with pressure/walking/st anding. She reports relief when direct pressure such [...] Documents on File Type Date Recorded Patient Hydraulic Design Engineer Expl anation Advanced Directive Advanced Directive Advanced Directive Advanced Directive Advanced Directive Advanced Directive Advanced Directive Advanced Directive Advanced Directive Advanced Directive Advanced Directive Advanced Directive Advanced Directive Advanced Directive Advanced Directive Advanced Directive Care Teams Bindery Library Technical Assistant Relationship Specialty Start Date End Date Stefany Keller MD [address] [place] [address], [place] [address] PCP - General Internal Medicine 10/23/17 documented as of this encounter
--- OUTSIDE RECORDS SUMMARY | 2023-01-01 08:55 | External Medical Summary | Summary of Care ---
Author Name Unknown Organization [place] [address] Care Team Providers Care Health Aide Name Role Phone Stefany Keller MD Primary Care Provider [phone] Reason for Visit * Reason Onset Date Comments Advice 12/20/2020 Encounter Details Date Type Department Care Team Description 12/20/2020 Telephone Fertility, [place] [address] [place] [address] [place] [address] [place], [place] [id number] Advice Allergies Active Allergy Reactions Severity Noted Date Comments Other Allergy (See Comments) 020 Nuts - not severe documented as of this encounter (statuses as of 12/20/2020) Medications Medication Sig Dispensed Refills Start Date [...] as of this encounter (statuses as of 12/20/2020) Active Problems Problem Noted Date Snoring 12/01/2017 Overweight (BMI 25.0-29.9) 12/01/2017 Iron deficiency anemia 11/14/2017 Overview: 11/12/17 nL tsh,cmp [id number].,CBC Hb 10.7-mchc indices c/w iron def anemia >12/11- A1c 4.7%, Ferritin low at 8, Tsat 9%-st po iron. documented as of this encounter (statuses as of 12/20/2020) Immunizations Name Administration Dates Next Due Seasonal Influenza, Quadrivalent, No Preserve, M dck 04/27/2019 TDAP (age 10 and older)(Boostrix) 06/30/2016 documented as of this encounter Social History Tobacco Use Types Packs/Day Years Used Date Never Smoker Smokeless Tobacco: Never Used Alcohol Use Drinks/Week oz/Week Comments No Sex Assigned at Date Recorded Not on file Job Start Date Occupation Industry Not on file Not on file Not on file documented as of this encounter Miscellaneous Notes * Telephone Encounter - Yvonne Coronel PA-C - 12/20/2020 10:18 AM EDT rx sent * Telephone Encounter - Katherin Spear LPN - 12/20/2020 9:29 AM EDT Spoke with patient - LMP 12/20 Wants to pursue IUI. Please send med to pharmacy Patient aware to take HPT prior to med and will call for refill on injection to be sent. Scan will be scheduled by patient in [facility] for 01/01 and will call to make office aware of time. Patient aware will make aware of IUI location on day of scan * Telephone Encounter - Vanessa Tam OSA - 12/20/2020 8:58 AM EDT Pt LM yesterday afternoon she is calling to discuss an IUI cycle documented in this encounter Plan of Treatment Upcoming Encounters Date Type Specialty Care Team Description 01/01/2021 Imaging Radiology Scheduled Orders Name Type Priority Associated Diagnoses Orde r Schedule US PELVIS TRANS-VAGINAL NON-OB Medical Imaging Routine Female infertility 1 Occurrences starting 12/20/2020 until 01/20/2021 Health Maintenance Due Date Last Done Comments COVID-19 Vaccine (1) 1997 PAP SMEAR-EVERY 3 YRS,AGES 21-65 2006 *DEPRESSION SCREENING,ANNUAL FOR PTS 12 AND OVER 12/04/2018 Influenza Vaccine (FLU shot) (#1) 2020 020 DTaP,Tdap,and Td Vaccines (2 - Td) 06/30/20262016 MENINGOCOCCAL (MENACTRA/MENVEO) Aged Out No longer eligible based on patient's age to complete this topic Pneumococcal Vaccine: Pediat rics (0 to 5 Years) and At-Risk Patients (6 to 64 Years) Aged Out No longer eligi ble based on patient's age to complete this topic documented as of this encounter Implants Not on filedocumented as of this encounter Visit Diagnoses Diagnosis Female infertility- Primary Female infertility of unspecified origin documented in this encounter Advance Directives Documents on File Type Date Recorded Patient Chocolate Molder Expl anation Advanced Directive Advanced Directive Advanced Directive Advanced Directive Advanced Directive Advanced Directive Advanced Directive Advanced Directive Advanced Directive Advanced Directive
--- OUTSIDE RECORDS SUMMARY | 2023-01-01 08:55 | External Medical Summary | Summary of Care ---
Author Name Unknown Organization [place] [address] Care Team Providers Care Outsole Rounder Name Role Phone Stefany Keller MD Primary Care Provider Reason for Visit * Reason Onset Date Comments Ultrasound 10/02/2020 Encounter Details Date Type Department Care Team Description 10/02/2020 Telephone [facility], [place] [address] [place] [address] Yvonne Coronel PA-C [address] [place] [address] Ultrasound Allergies Active Allergy Reactions Severity Noted Date Comments Other Allergy (See Comments) 020 Nuts - not severe documented as of this encounter (statuses as of 10/02/2020) Medications Medication Sig Dispensed Refills Start Date [...] through 7. 5 Tab 0 09/29/2020 Active documented as of this encounter (statuses as of 10/02/2020) Active Problems Problem Noted Date Snoring 12/01/2017 Overweight (BMI 25.0-29.9) 12/01/2017 Iron deficiency anemia 11/14/2017 Overview: 11/12/17 nL tsh,cmp [id number].,CBC Hb 10.7-mchc indices c/w iron def anemia >12/11- A1c 4.7%, Ferritin low at 8, Tsat 9%-st po iron. documented as of this encounter (statuses as of 10/02/2020) Immunizations Name Administration Dates Next Due Seasonal [...] encounter Miscellaneous Notes * Telephone Encounter - Socorro Franco OSA - 10/02/2020 1:04 PM EDT Scheduled. * Telephone Encounter - Mckenna Thompson RN - 10/02/2020 11:14 AM EDT Pt is calling to schedule an u/s for fertility. She can be reached back at [phone]. documented in this encounter Plan of Treatment Upcoming Encounters Date Type Specialty Care Team Description 10/09/2020 Imaging Radiology Health Maintenance Due Date Last [...] Documents on File Type Date Recorded Patient Battalion Fire Chief Expl anation Advanced Directive Advanced Directive Advanced Directive Advanced Directive Advanced Directive Advanced Directive Advanced Directive Advanced Directive
--- OUTSIDE RECORDS SUMMARY | 2023-01-01 08:55 | External Medical Summary | Summary of Care ---
Author Name Unknown Organization [facility] Address [place] [address] Care Team Providers Care Lithographed Plate Inspector Name Role Phone Stefany Keller MD Primary Care Provider [phone] Reason for Visit * Reason Onset Date Comments Advice 07/20/2020 Encounter Details Date Type Department Care Team Description 07/20/2020 Telephone [facility] Gynecology/Obstetrics [address] [place] [address] Cr Talbert MD [address] [place] [address] [phone] Advice Allergies Active Allergy Reactions Severity Noted Date Comments Other Allergy (See Comments) 020 Nuts - not severe documented as of this encounter (statuses as of 07/20/2020) Medications Medication Sig Dispensed Refills Start Date End Date Status acetaminophen (TYLENOL) 500 MG Tablet Take 2 Tabs by mouth every 8 hours as needed for Pain. 100 Tab 0 06/02/2019 Active Vitamin D 25 MCG (1000 UT) Oral Tablet Take by mouth. 0 Activ e documented as of this encounter (statuses as of 07/20/2020) Active Problems Problem Noted Date Snoring 12/01/2017 Overweight (BMI 25.0-29.9) 12/01/2017 Iron deficiency anemia 11/14/2017 Overview: 11/12/17 nL tsh,cmp [id number].,CBC Hb 10.7-mchc indices c/w iron def anemia >12/11- A1c 4.7%, Ferritin low at 8, Tsat 9%-st po iron. documented as of this encounter (statuses as of 07/20/2020) Immunizations Name Administration Dates Next Due Seasonal [...] encounter Miscellaneous Notes * Telephone Encounter - Yessica Moreno OSA - 07/20/2020 2:41 PM EDT Pt returned call, scheduled for 08/11 for a video visit. * Telephone Encounter - Cyn Hernandez TECH - 07/20/2020 1:55 PM EDT LM for patient to call * Telephone Encounter - Yvonne Coronel PA-C - 07/20/2020 1:51 PM EDT Needs appt for follow up/treatment discussion. Please call. Rodrigue patient. * Telephone Encounter - Antonella Haynes RN - 07/20/2020 1:34 PM EDT Pt is aware of wnl. She is asking what her next step with Yvonne is after her HSG and labs were done. * Telephone Encounter - Purvi Bolanos LPN - 07/20/2020 1:22 PM EDT Pt called in asking about her results from her HSG. I printed report out and gave to dr talbert to review. Dr Talbert said HSG was normal. I called pt and LM to return call documented in this encounter Plan of Treatment Upcoming Encounters Date Type Specialty Care Team Description 08/11/2020 Telemedicine Fertility Yvonne Coronel PA-Jose [address] [place] [address] Health Maintenance Due Date Last Done Comments COVID-19 Vaccine (1) 1997 PAP SMEAR-EVERY 3 YRS,AGES 21-65 2006 *DEPRESSION SCREENING,ANNUAL FOR PTS 12 AND OVER 12/04/2018 Influenza Vaccine (FLU shot) (Season Ended) 2020 04/27/2019 DTaP,Tdap,and Td Vaccines (2 - Td) 06/30/20262016 [...] Documents on File Type Date Recorded Patient Mental Health Nurse Expl anation Advanced Directive Advanced Directive Advanced Directive Advanced Directive Advanced Directive Advanced Directive
--- OUTSIDE RECORDS SUMMARY | 2023-01-01 08:55 | External Medical Summary | Summary of Care ---
Author Name Unknown Organization [place] [address] Care Team Providers Care Finished Garment Inspector Name Role Phone Stefany Keller MD Primary Care Provider [phone] Reason for Visit * Reason Onset Date Comments FYI 09/04/2020 MENSTRAL CYCLE Encounter Details Date Type Department Care Team Description 09/04/2020 Telephone [facility], [place] [address] [place] [address] Yvonne Coronel PA-C [address] [place] [address] FYI (MENSTRAL CYCLE) Allergies Active Allergy Reactions Severity Noted Date Comments Other Allergy (See Comments) 020 Nuts - not severe documented as of this encounter (statuses as of 09/05/2020) Medications Medication Sig Dispensed Refills Start Date [...] through 7. 5 Tab 0 09/05/2020 Active Ovidrel 250 MCG/0.5ML Subcutaneous Injectable (Choriogonadotropin Sree) Inject 0.25 mg under the skin once for 1 dose. 0.5 mL 3 09/05/2020 09/05/2020 Active documented as of this encounter (statuses as of 09/05/2020) Active Problems Problem Noted Date Snoring 12/01/2017 Overweight (BMI 25.0-29.9) 12/01/2017 Iron deficiency anemia 11/14/2017 Overview: 11/12/17 nL tsh,cmp [id number].,CBC Hb 10.7-mchc indices c/w iron def anemia >18- A1c 4.7%, Ferritin low at 8, Tsat 9%-st po iron. documented as of this encounter (statuses as of 09/05/2020) Immunizations Name Administration Dates Next Due Seasonal [...] encounter Miscellaneous Notes * Telephone Encounter - Malinda Colón RN - 09/05/2020 12:50 PM EDT TC to pt. Reviewed clomid cycle including taking clomid in the evening, Ovidrel, ultrasound for 09/12. Pt agreeable and verbalizes understanding. Will schedule scan for 09/12. * Telephone Encounter - Cyn Hernandez TECH - 09/05/2020 11:48 AM EDT Returning call * Telephone Encounter - Malinda Colón RN - 09/05/2020 11:21 AM EDT Lm voice mail. * Telephone Encounter - Yvonne Coronel PA-C - 09/05/2020 10:32 AM EDT Please call patient to review Clomid cycle. LMP 09/02/20 Clomid sent to local pharmacy Ovidrel to [facility] ordered for Rodrigue allen. Should schedule for Friday, 09/12. Thanks. * Telephone Encounter - Mckenna Thompson RN - 09/05/2020 8:28 AM EDT Pt calling office back,stating she started period Friday evening. She was advised by Yvonne to callwhen she starts period for medication. Will have Yvonne review. Pharm has been updated. * Telephone Encounter - Antonella Haynes RN - 09/04/2020 5:06 PM EDT left message for patient to call office * Telephone Encounter - Marianela Bright OSA - 09/04/2020 4:36 PM EDT She had period, full bleeding on Friday night, please reach out and advise documented in this encounter Plan of Treatment Upcoming Encounters Date Type Specialty Care Team Description 09/12/2020 Imaging Radiology Scheduled Orders Name Type Priority Associated Diagnoses Orde r Schedule US PELVIS TRANS-VAGINAL NON-OB Medical Imaging Routine Female infertility 10 Occurrences starting 09/05/2020 until 03/08/2021 Health Maintenance Due Date Last Done Comments [...] Documents on File Type Date Recorded Patient Microsoft Dynamics Ax Developer Expl anation Advanced Directive Advanced Directive Advanced Directive Advanced Directive Advanced Directive Advanced Directive Advanced Directive
--- OUTSIDE RECORDS SUMMARY | 2023-01-01 08:55 | External Medical Summary | Summary of Care ---
Author Name Unknown Organization [place] [address] Care Team Providers Care Clinical Trial Leader Name Role Phone Stefany Keller MD Primary Care Provider [phone] Reason for Visit * Reason Onset Date Comments Advice 09/29/2020 Encounter Details Date Type Department Care Team Description 09/29/2020 Telephone [facility] [place] [address] [place] [address] Yvonne Coronel PA-C [address] [place] [address] Advice Allergies Active Allergy Reactions Severity Noted Date Comments Other Allergy (See Comments) 020 Nuts - not severe documented as of this encounter (statuses as of 09/29/2020) Medications Medication Sig Dispensed Refills Start Date [...] as of this encounter (statuses as of 09/29/2020) Active Problems Problem Noted Date Snoring 12/01/2017 Overweight (BMI 25.0-29.9) 12/01/2017 Iron deficiency anemia 11/14/2017 Overview: 11/12/17 nL tsh,cmp [id number].,CBC Hb 10.7-mchc indices c/w iron def anemia >12/11- A1c 4.7%, Ferritin low at 8, Tsat 9%-st po iron. documented as of this encounter (statuses as of 09/29/2020) Immunizations Name Administration Dates Next Due Seasonal [...] encounter Miscellaneous Notes * Telephone Encounter - Ayala Vazquez RN - 09/29/2020 4:13 PM EDT Patient responded to through [employer] message * Telephone Encounter - Bernadette Cobian RN - 09/29/2020 9:45 AM EDT LM to return call. 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
--- OUTSIDE RECORDS SUMMARY | 2023-01-01 08:55 | External Medical Summary ---
Author Name Unknown Address Unknown Organization : Laboratory Report Ordering Provider Test Date Status KAYLYNN NOVOA 08/16/2021 12:46:12 Final Observation Date Value Abnormality Reference (Units ) Status Mullerian inhibiting substance [Mass/volume] in Serum or Plasma 08/16/2021 12:46:12 2.99 0.36-10.07 (ng/mL) Final Test performed by [facility]
[address] [facility] [facility]
[place] [address]

Sample Hand: KEILY PUGH M.D.
Test Reported by [facility],
[facility],
[address] [place], [place]
Ric Singh M.D., Ph.D., Director of Laboratories
, [facility] [id number] Performing Location
--- OUTSIDE RECORDS SUMMARY | 2023-01-01 08:55 | External Medical Summary ---
Author Name Unknown Address Unknown Organization K01:LABORATORY [facility] [address] [place], [place] [address] Laboratory Report Ordering Provider Test Date Status BRIGHTKAYLYNN 08/16/2021 12:46:12 Final Observation Date Value Abnormality Reference (Units ) Status Reagin Ab [Presence] in Serum by RPR 08/16/2021 12:46:12 Nonreactive Nonreactive Final Performing Location LABORATORY [facility] [address] [place], [place] [address]
--- OUTSIDE RECORDS SUMMARY | 2023-01-01 08:55 | External Medical Summary | Summary of Care ---
Author Name Unknown Organization [place] [address] Care Team Providers Care Waterworks Operator Name Role Phone Stefany Keller MD Primary Care Provider [phone] Reason for Visit * Reason Onset Date Comments Returning Call 09/12/2020 Encounter Details Date Type Department Care Team Description 09/12/2020 Telephone [facility] [address] [facility] [place] [address] Yvonne Coronel PA-C [address] [place] [address] Returning Call Allergies Active Allergy Reactions Severity Noted Date Comments Other Allergy (See Comments) 020 Nuts - not severe documented as of this encounter (statuses as of 09/12/2020) Medications Medication Sig Dispensed Refills Start Date [...] through 7. 5 Tab 0 09/05/2020 Active documented as of this encounter (statuses as of 09/12/2020) Active Problems Problem Noted Date Snoring 12/01/2017 Overweight (BMI 25.0-29.9) 12/01/2017 Iron deficiency anemia 11/14/2017 Overview: 11/12/17 nL tsh,cmp [id number].,CBC Hb 10.7-mchc indices c/w iron def anemia >18- A1c 4.7%, Ferritin low at 8, Tsat 9%-st po iron. documented as of this encounter (statuses as of 09/12/2020) Immunizations Name Administration Dates Next Due Seasonal [...] encounter Miscellaneous Notes * Telephone Encounter - Katherin Spear LPN - 09/12/2020 3:14 PM EDT Spoke with patient - aware of US recommendations per Yvonne CARTWRIGHT to take injection 09/14 with TIC x 3 nights. Reviewed injection self administration with patient and verbalized understanding * Telephone Encounter - Vanessa Tam OSA - 09/12/2020 3:12 PM EDT Pt LM she returned your call * Telephone Encounter - Katherin Spear LPN - 09/12/2020 1:32 PM EDT LM on VM to return call * Telephone Encounter - Yvonne Coronel PA-C - 09/12/2020 12:07 PM EDT Please call Midcycle US reviewed. HCG trigger , 09/14 TIC x3 days. 1st cycle, [place] patient- please review use of hcg trigger. Thank you. documented in this encounter Plan of Treatment [...] Documents on File Type Date Recorded Patient Marketing Mgr Expl anation Advanced Directive Advanced Directive Advanced Directive Advanced Directive Advanced Directive Advanced Directive Advanced Directive
--- OUTSIDE RECORDS SUMMARY | 2023-01-01 08:55 | External Medical Summary ---
Author Name Unknown Address Unknown Organization K01:LABORATORY [facility] - [address] [place] [address] Laboratory Report Ordering Provider Test Date Status KAYLYNN NOVOA 08/16/2021 12:46:12 Final Observation Date Value Abnormality Reference (Units ) Status Hep C Ab 08/16/2021 12:46:12 Negative Negative Final Further HCV quantitative harish ting not performed per protocol. Performing Location [facility] [address] [facility] [address]
--- OUTSIDE RECORDS SUMMARY | 2023-01-01 08:55 | External Medical Summary | Summary of Care ---
Author Name Unknown Organization [place] [address] Care Team Providers Care Business Unit Manager Name Role Phone Stefany Keller MD Primary Care Provider [phone] Reason for Visit * Reason Onset Date Comments Advice 01/01/2021 Encounter Details Date Type Department Care Team Description 01/01/2021 Telephone [facility], [place] [address] [place] [address] [facility], Nurse [place] Keeper [facility] [facility] [address] [facility] [place] [address] Advice Allergies Active Allergy Reactions Severity Noted Date Comments Other Allergy (See Comments) 020 Nuts - not severe documented as of this encounter (statuses as of 01/01/2021) Medications Medication Sig Dispensed Refills Start Date [...] as of this encounter (statuses as of 01/01/2021) Active Problems Problem Noted Date Snoring 12/01/2017 Overweight (BMI 25.0-29.9) 12/01/2017 Iron deficiency anemia 11/14/2017 Overview: 11/12/17 nL tsh,cmp [id number].,CBC Hb 10.7-mchc indices c/w iron def anemia >12/11- A1c 4.7%, Ferritin low at 8, Tsat 9%-st po iron. documented as of this encounter (statuses as of 01/01/2021) Immunizations Name Administration Dates Next Due Seasonal [...] Telephone Encounter - Jennifer Jessica LPN - 01/01/2021 3:21 PM EST Pt added * Telephone Encounter - Yvonne Coronel PA-C - 01/01/2021 3:14 PM EST Reviewed US. Will be IUI tomorrow. Spoke to [facility], they are able to accomodate patient tomorrow. Spoke to patient, and gave update and times. to arrive at [facility] with specimen for [id number]. Patient will arrive 1215 for approx 1230 procedure. Can trigger now. All questions answered. Please add to schedule for Alvaro. Thanks. * Telephone Encounter - REBECCA Herman - 01/01/2021 3:03 PM EST Pt left another message asking about location, date & time for iui * Telephone Encounter - REBECCA Herman - 01/01/2021 1:28 PM EST Pt had her scan today. Pt is asking where & when will she have her iui. Pt needs to arrange herschedule at work. Pt did send a portal msg documented in this encounter Plan of Treatment Upcoming Encounters Date Type Specialty Care Team Description 01/02/2021 Office Visit Gynecology Obstetrics Back[place], KATIE Finch [address] [facility] [place] [address] Health Maintenance Due Date Last Done Comments COVID-19 Vaccine (1) 1997 PAP SMEAR-EVERY 3 YRS,AGES 21-65 2006 *DEPRESSION SCREENING,ANNUAL FOR PTS 12 AND OVER 12/04/2018 Influenza Vaccine (FLU shot) (#1) 2020 020 DTaP,Tdap,and Td Vaccines (2 - Td or Tdap) 06/30/2026 06/30/2016 MENINGOCOCCAL (MENACTRA/MENVEO) Aged Out No longer eligible [...] Documents on File Type Date Recorded Patient Retail Reset Merchandiser Expl anation Advanced Directive Advanced Directive Advanced Directive Advanced Directive Advanced Directive Advanced Directive Advanced Directive Advanced Directive Advanced Directive Advanced Directive Advanced Directive Care Teams Business Unit Manager Relationship Specialty Start Date End Date Stefany Keller MD [address] [facility] [place] [address] PCP - General Internal Medicine 10/23/17 documented as of this encounter
--- OUTSIDE RECORDS SUMMARY | 2023-01-01 08:55 | External Medical Summary | Summary of Care ---
Author Name Unknown Organization [place] [address] Care Team Providers Care Bindery Operator Name Role Phone Stefany Keller MD Primary Care Provider [phone] Reason for Visit * Reason Comments Head Of Insight Return Encounter Details Date Type Department Care Team Description 01/02/2021 Office Visit Gynecology/Obstetrics [facility] [address] [facility] [place] [address] BackerLina CRNP [address] [place] [address] Encounter for artificial insemination* Allergies Active Allergy Reactions Severity Noted Date Comments Other Allergy (See Comments) 020 Nuts - not severe documented as of this encounter (statuses as of 01/02/2021) Medications Medication Sig Dispensed Refills Start Date [...] as of this encounter (statuses as of 01/02/2021) Active Problems Problem Noted Date Snoring 12/01/2017 Overweight (BMI 25.0-29.9) 12/01/2017 Iron deficiency anemia 11/14/2017 Overview: 11/12/17 nL tsh,cmp [id number].,CBC Hb 10.7-mchc indices c/w iron def anemia >12/11- A1c 4.7%, Ferritin low at 8, Tsat 9%-st po iron. documented as of this encounter (statuses as of 01/02/2021) Immunizations Name Administration Dates Next Due Seasonal [...] of this encounter Progress Notes * KATIE Dominguez - 01/02/2021 12:13 PM EST IUI (Intrauterine insemination) Stimulation Method: Clomid A ''time out'' was initiated by KATIE Atkins prior to procedure. Patient made aware of the risks and benefits of the procedure. Risks include infection, spotting, cramping and multifetal . The patient was identified by name and date of . Specimen was identified. Pt states she is not allergic to latex. The correct procedure, and correct site identified. Patient was placed in dorsal decubitus with legs in stirrup. Sterile speculum placed in the vagina without difficulty and cervix visualized. IUI performed without difficulty with Meier catheter. Pt tolerated procedure well and discharged from Unit after 10 minutes of bed rest Total Motile sperm >10M. F/u with ROMERO. KATIE Atkins 01/02/2021 documented in this encounter Plan of Treatment [...] this encounter Visit Diagnoses Diagnosis Encounter for artificial insemination- Primary Artificial insemination documented in this encounter Advance Directives Documents on File Type Date Recorded Patient Land Acquisition Analyst Expl anation Advanced Directive Advanced Directive Advanced Directive Advanced Directive Advanced Directive Advanced Directive Advanced Directive Advanced Directive Advanced Directive Advanced Directive Advanced Directive Advanced Directive Care Teams Bindery Operator Relationship Specialty Start Date End Date Stefany Keller MD [address] [place] [address] PCP - General Internal Medicine 10/23/17 documented as of this encounter
--- OUTSIDE RECORDS SUMMARY | 2023-01-01 08:55 | External Medical Summary ---
Author Name Unknown Address Unknown Organization K09:[facility] [place] [address] Laboratory Report Ordering Provider Test Date Status KAYLYNN NOVOA 08/16/2021 12:46:12 Final Observation Date Value Abnormality Reference (Units ) Status WBC, Total 08/16/2021 12:46:12 9.26 4.00-10.8 0 (K/uL) Final RBC 08/16/2021 12:46:12 4.53 3.85-5.15 (M/uL) Final Hemoglobin 08/16/2021 12:46:12 9.6 Below low normal 12 .0-15.3 (g/dL) Final HCT 08/16/2021 12:46:12 32.3 Below low normal 36. 0-45.2 (%) Final MCV 08/16/2021 12:46:12 71.3 Below low normal 81. 5-97.5 (fL) Final MCH 08/16/2021 12:46:12 21.2 Below low normal 27. 0-34.0 (pg) Final MCHC 08/16/2021 12:46:12 29.7 Below low normal 32. 0-36.0 (g/dL) Final RDW 08/16/2021 12:46:12 18.2 Above high normal 11 .5-15.5 (%) Final Platelets 08/16/2021 12:46:12 530 Above high normal 14 0-400 (K/uL) Final MPV 08/16/2021 12:46:12 9.9 6.6-11.1 ( fL) Final Performing Location [facility] [place] [address]
--- OUTSIDE RECORDS SUMMARY | 2023-01-01 08:55 | External Medical Summary | Summary of Care ---
Author Name Unknown Organization [place] [address] Care Team Providers Care Medical Service Technician Name Role Phone Stefany Keller MD Primary Care Provider [phone] Encounter Details Date Type Department Care Team Description 08/11/2020 [facility] [place] [address] [place] [address] Yvonne Coronel PA-C [address] [place] [address] Female infertility* Allergies Active Allergy Reactions Severity Noted Date Comments Other Allergy (See Comments) 020 Nuts - not severe documented as of this encounter (statuses as of 08/11/2020) Medications Medication Sig Dispensed Refills Start Date End Date Status acetaminophen (TYLENOL) 500 MG Tablet Take 2 Tabs by mouth every 8 hours as needed for Pain. 100 Tab 0 06/02/2019 Active Vitamin D 25 MCG (1000 UT) Oral Tablet Take by mouth. 0 Activ e documented as of this encounter (statuses as of 08/11/2020) Active Problems Problem Noted Date Snoring 12/01/2017 Overweight (BMI 25.0-29.9) 12/01/2017 Iron deficiency anemia 11/14/2017 Overview: 11/12/17 nL tsh,cmp [id number].,CBC Hb 10.7-mchc indices c/w iron def anemia >12/11- A1c 4.7%, Ferritin low at 8, Tsat 9%-st po iron. documented as of this encounter (statuses as of 08/11/2020) Immunizations Name Administration Dates Next Due Seasonal [...] as of this encounter Progress Notes * Yvonne Coronel PA-C - 08/11/2020 11:42 AM EDT Patient location: HOME. I was in a hospital or clinic location. After connecting through televExieo,patient was verified with two unique identifiers. Patient (or authorized legal strategic partnership representative) was then informed that this was a Telemedicine visit and being conducted confidentially over secure lines. Methods to assure confidentiality were taken. Patient acknowledged consent and understanding of pr ivacy and security of the Telemedicine visit. The patient agreed to participate. Kim Paredes is a 34 year old [id number] presenting with history of infertility. Trying to conceive approx 18 months. Was seen on telemedicine about 1 year ago. Have been trying with more frequentintercourse since that time, but no confirmed success. States did have a period that was 2-3 weeks late last fall, but heavy bleeding after. No test. 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 Mammogram:no STDs:no Menarche:13years Menstrual hx: cycle length:28d-30d, days of flow:3-5d, Irregular?occasionally, skip periods?No- reports for the most part has regular cycles, occasionally does have one that is a few days off Dysmenorrhea:no Previous contraceptive methods:no Dyspareunia:no Coitus: IC every other day during the fertile window Nogalactorrhea,noacne,nohirsutism Weight:stable LH kits:no (uses rachell for tracking) Her partner's name isLorenecolby Inocencio David. Age39(06/03/80). He/She hasnochildren. They have the following historical factors: PMHx:no SurgHx:no FamHx:no breast, uterine, ovarian, or colon ca. No babies born with any congential anomalies or genetic defects. Social:nonsmoker STDs:no Seman Analysis: Days Abstinent: 2 Volume: 3.0 mL Total count: 207.3 million sperm Semen count/concentration: 69.1 M/mL Percent Motile: 57% Motility Rate: 48% progressive Motile Sperm: 39.4 million/mL Total Motile sperm: 118.2 million sperm Percent: not performed Abnormal Percent: 88% via strict nakul # Round cells: <1 million/mL HSG: at [facility] June 2020, normal uterine cavity, B/L F&S Component Latest Ref Rng & Units 06/30/2020 07/10/2020 Albumin 3.8 - 5.0 g/dL 4.4 Sex Hormone Binding Globulin 17 - 176 nmol/L 23 Testosterone, Total 2.9 - 48.0 ng/dL 34.8 Free Testosterone, Calculation 0.2 - 7.8 pg/mL 7.5 Bioavailable Testosterone Calculation 0.4 - 19.0 ng/dL 18.0 ANTI-MULLERIAN HORMONE (AMH), FEMALE 0.36 - 10.07 ng/mL 5.06 Prolactin 4.8 - 23.3 ng/mL 30.8 (H) 20.3 TSH 0.27 - 4.20 uIU/mL 3.11 Insulin 3 - 25 uU/mL 19 Female infertility (Primary) Plan: Discussed all results and unexplained infertility. Call with period Clomid 50mg, cycle day 3-7 Follicular scan cycle day 01/05 Extensive discussion about clomid/TIC Discussed with the patient risks to use of clomid, including risk of twin gestation being between 5-8% and risk of higher order multiples <1%. Patient aware of risks and benefits of ovarian stimulation with Clomid for timed intercourse/IUI. Risks include but not limited to multifetal , OHSS, ectopic gestation, miscarriages, ovariancysts formation and torsion Side effects include headaches, blurry vision, hot flushes and vaginal dryness. Also discussed if she develops any adverse reaction, to contact the office. If she develops any visual disturbance, she should call immediately and discontinue the use of Clomid. Folic acid supplementation I spent a total of 25 minutes on the date of service in preparation, delivery, and documentation ofthe care provided to this patient, excluding any time spent on the performance of any procedure or separately billable services. Yvonne Coronel PA-C [address] [address] documented in this encounter Plan of Treatment [...] Documents on File Type Date Recorded Patient Traffic Rate Clerk Expl anation Advanced Directive Advanced Directive Advanced Directive Advanced Directive Advanced Directive Advanced Directive
--- OUTSIDE RECORDS SUMMARY | 2023-01-01 08:55 | External Medical Summary | Summary of Care ---
Author Name Unknown Organization [place] [address] Care Team Providers Care Hog Buyer Name Role Phone Stefany Keller MD Primary Care Provider [phone] Reason for Visit * Reason Onset Date Comments Billing Questions 12/20/2020 12-20-20 Encounter Details Date Type Department Care Team Description 12/20/2020 Telephone F[facility], [place] [address] [place] [address] [place], [facility] [address] [place], [place] [id number] Billing Questions (12-20-20) Allergies Active Allergy Reactions Severity Noted Date [...] deficiency anemia 11/14/2017 Overview: 11/12/17 nL tsh,cmp [id number].,CBC Hb 10.7-mchc indices c/w iron def anemia [...] encounter Miscellaneous Notes * Telephone Encounter - Stephy Ansari OSA - 12/20/2020 12:39 PM EDT LM for PT concerning fertility estimate * Telephone Encounter - Vanessa Tam OSA - 12/20/2020 9:42 AM EDT Infertility WorkSheet sent to [facility]. Copy in chart documented in this encounter Plan of Treatment Upcoming Encounters Date Type Specialty Care Team Description 01/01/2021 Imaging Radiology Health Maintenance Due Date Last [...] Documents on File Type Date Recorded Patient Block Piler Expl anation Advanced Directive Advanced Directive Advanced Directive Advanced Directive Advanced Directive Advanced Directive Advanced Directive Advanced Directive Advanced Directive Advanced Directive
--- OUTSIDE RECORDS SUMMARY | 2023-01-01 08:56 | External Medical Summary | Summary of Care ---
Author Name Unknown Organization [facility] Address [place] [address] Care Team Providers Care Career Development Manager Name Role Phone Stefany Keller MD Primary Care Provider [phone] Reason for Visit * Reason Onset Date Comments Appointment 07/05/2020 Encounter Details Date Type Department Care Team Description 07/05/2020 Telephone [facility] Gynecology/Obstetrics [address] [place] [address] [address] Talbert MD [address] [place] [address] [phone] Appointment Allergies Active Allergy Reactions Severity Noted Date Comments Other Allergy (See Comments) 020 Nuts - not severe documented as of this encounter (statuses as of 07/06/2020) Medications Medication Sig Dispensed Refills Start Date End Date Status acetaminophen (TYLENOL) 500 MG Tablet Take 2 Tabs by mouth every 8 hours as needed for Pain. 100 Tab 0 06/02/2019 Active Vitamin D 25 MCG (1000 UT) Oral Tablet Take by mouth. 0 Activ e documented as of this encounter (statuses as of 07/06/2020) Active Problems Problem Noted Date Snoring 12/01/2017 Overweight (BMI 25.0-29.9) 12/01/2017 Iron deficiency anemia 11/14/2017 Overview: 11/12/17 nL tsh,cmp [id number].,CBC Hb 10.7-mchc indices c/w iron def anemia >12/11- A1c 4.7%, Ferritin low at 8, Tsat 9%-st po iron. documented as of this encounter (statuses as of 07/06/2020) Immunizations Name Administration Dates Next Due Seasonal [...] Telephone Encounter - Socorro Franco OSA - 07/06/2020 9:04 AM EDT Orders faxed * Telephone Encounter - Mckenna Thompson RN - 07/05/2020 3:16 PM EDT Orders placed. * Telephone Encounter - Socorro Franco OSA - 07/05/2020 3:01 PM EDT Pt is scheduled on FridayJuly 11 at 1:[address] Talbert. Pt aware to register at [facility] main entrance at 1:15 PM. Pt will have UPT at [facility] lab [address] [place] orders [id number] [id number] in surgery book. * Telephone Encounter - Mckenna Thompson RN - 07/05/2020 1:21 PM EDT Patient was to call with LMP to schedule a hysterosalpingogram per LMP 07/04/2020 Menses usually last 5 days. Type of control:no Per [facility] Radiology policy patient is to be scheduled after her menses has stopped. Cycle days 7-10.Please schedule between (07/10- 07/12) Message sent to Socorro to schedule procedure at [facility]. Patient to take 2 Motrin prior to procedure and pt needs to show up 1/2 hour before appointment andcheck in at patient registration at [facility]. Urine test needs done at a [facility] lab at least 24hrs prior to procedure. * Telephone Encounter - Georgina Miranda RN - 07/05/2020 1:11 PM EDT Pt returned call. Please call pt to assist with scheduling. * Telephone Encounter - Mckenna Thompson RN - 07/05/2020 12:49 PM EDT Attempted to return call to pt, na, mana asking pt to return call to office. * Telephone Encounter - Mely Harper LPN - 07/05/2020 12:10 PM EDT Pt calling into office to schedule HSG. Will have Rodrigue Mcgee nurse call pt to assist in scheduling. documented in this encounter Plan of Treatment Scheduled Orders Name Type Priority Associated Diagnoses Orde r Schedule HCG QUALITATIVE, URINE Lab Routine Female fertility problem Expected: 07/05/2020, Expires: 08/05/2020 INF SIS/HYSTOSALPINGOGR [facility] Procedures Routine Female fertility problem Ordered: 07/05/2020 Health Maintenance Due Date Last Done Comments PAP SMEAR-EVERY 3 YRS,AGES 21-65 2006 *DEPRESSION [...] of this encounter Visit Diagnoses Diagnosis Female fertility problem- Primary Female infertility of unspecified origin documented in this encounter Advance Directives Documents on File Type Date Recorded Patient Cartography Supervisor Expl anation Advanced Directive Advanced Directive Advanced Directive Advanced Directive
--- OUTSIDE RECORDS SUMMARY | 2023-01-01 08:56 | External Medical Summary | Summary of Care ---
Author Name Unknown Organization [facility] [place] [address] Care Team Providers Care Concrete Pump Operator Name Role Phone Stefany Keller MD Primary Care Provider [phone] Encounter Details Date Type Department Care Team Description 07/11/2020 Result Scan Unspecified Department <No scans attached> Allergies Active Allergy Reactions Severity Noted Date Comments Other Allergy (See Comments) 020 Nuts - not severe documented as of this encounter (statuses as of 07/11/2020) Medications Medication Sig Dispensed Refills Start Date End Date Status acetaminophen (TYLENOL) 500 MG Tablet Take 2 Tabs by mouth every 8 hours as needed for Pain. 100 Tab 0 06/02/2019 Active Vitamin D 25 MCG (1000 UT) Oral Tablet Take by mouth. 0 Activ e documented as of this encounter (statuses as of 07/11/2020) Active Problems Problem Noted Date Snoring 12/01/2017 Overweight (BMI 25.0-29.9) 12/01/2017 Iron deficiency anemia 11/14/2017 Overview: 11/12/17 nL tsh,cmp [id number].,CBC Hb 10.7-mchc indices c/w iron def anemia >12/11- A1c 4.7%, Ferritin low at 8, Tsat 9%-st po iron. documented as of this encounter (statuses as of 07/11/2020) Immunizations Name Administration Dates Next Due Seasonal [...] Procedure Name Priority Date/Time Associated Diagnosis Comments RADIOLOGY SCANNED RESULT 07/11/2020 documented in this encounter Results * RADIOLOGY SCANNED RESULT (07/11/2020) Specimen Narrative Performed At documented in this encounter Advance Directives Documents on File Type Date Recorded Patient Retail Analytics Manager Expl anation Advanced Directive Advanced Directive Advanced Directive Advanced Directive Advanced Directive
--- OUTSIDE RECORDS SUMMARY | 2023-01-01 08:56 | External Medical Summary ---
Author Name Unknown Address Unknown Organization K09:[facility] [address] [place] [address] Laboratory Report Ordering Provider Test Date Status SAMANTHALIDA BRITO 07/10/2020 16:44:07 Final Observation Date Value Abnormality Reference (Units ) Status Screen, Urine 07/10/2020 16:44:07 Negative Final Performing Location [facility] [place] [address]
--- OUTSIDE RECORDS SUMMARY | 2023-01-01 08:56 | External Medical Summary | Summary of Care ---
Author Name Unknown Organization [place] [address] Care Team Providers Care Garbage Man Name Role Phone Stefany Keller MD Primary Care Provider [phone] Reason for Visit * Reason Onset Date Comments Advice 07/05/2020 Encounter Details Date Type Department Care Team Description 07/05/2020 Telephone [facility] [address] [place] [address] Yvonne Coronel PA-C [address] [place] [address] Advice Allergies Active Allergy Reactions Severity Noted Date Comments Other Allergy (See Comments) 020 Nuts - not severe documented as of this encounter (statuses as of 07/07/2020) Medications Medication Sig Dispensed Refills Start Date End Date Status acetaminophen (TYLENOL) 500 MG Tablet Take 2 Tabs by mouth every 8 hours as needed for Pain. 100 Tab 0 06/02/2019 Active Vitamin D 25 MCG (1000 UT) Oral Tablet Take by mouth. 0 Activ e documented as of this encounter (statuses as of 07/07/2020) Active Problems Problem Noted Date Snoring 12/01/2017 Overweight (BMI 25.0-29.9) 12/01/2017 Iron deficiency anemia 11/14/2017 Overview: 11/12/17 nL tsh,cmp [id number].,CBC Hb 10.7-mchc indices c/w iron def anemia >12/11- A1c 4.7%, Ferritin low at 8, Tsat 9%-st po iron. documented as of this encounter (statuses as of 07/07/2020) Immunizations Name Administration Dates Next Due Seasonal [...] Telephone Encounter - Katherin Spear LPN - 07/05/2020 1:02 PM EDT LM on VM to return call * Telephone Encounter - Cyn Hernandez TECH - 07/05/2020 12:57 PM EDT Has questions about blood work Please call Thank you documented in this encounter Plan of Treatment Upcoming Encounters Date Type Specialty Care Team Description 07/10/2020 Laboratory [facility] [address] [place] [address] [phone] Health Maintenance Due Date Last Done Comments [...] Documents on File Type Date Recorded Patient Project Manager Senior Expl anation Advanced Directive Advanced Directive Advanced Directive Advanced Directive Advanced Directive
--- OUTSIDE RECORDS SUMMARY | 2023-01-01 08:56 | External Medical Summary ---
Author Name Unknown Address Unknown Organization K01:[facility] [place] [address] [facility] [address] Laboratory Report Ordering Provider Test Date Status DALE ONEILL 06/30/2020 08:19:15 Final Observation Date Value Abnormality Reference (Units ) Status TSH 06/30/2020 08:19:15 3.11 0.27-4.20 (uIU/mL) Final Performing Location [facility] - [address] [facility] [address]
--- OUTSIDE RECORDS SUMMARY | 2023-01-01 08:56 | External Medical Summary | Summary of Care ---
Author Name Unknown Organization [place] [address] Care Team Providers Care Sap Basis Administrator Name Role Phone Stefany Keller MD Primary Care Provider [phone] Encounter Details Date Type Department Care Team Description 07/20/2020 Telephone [facility] Gynecology/Obstetrics [address] [place] [address] [address] Talbert MD [address] [facility] [place] [address] Allergies Active Allergy Reactions Severity Noted Date [...] deficiency anemia 11/14/2017 Overview: 11/12/17 nL tsh,cmp [id number].,CBC Hb 10.7-mchc indices c/w iron def anemia [...] encounter Miscellaneous Notes * Telephone Encounter - Cyn Hernandez TECH [...] Documents on File Type Date Recorded Patient Configuration Management Architect Expl anation Advanced Directive Advanced Directive Advanced Directive Advanced Directive Advanced Directive
--- OUTSIDE RECORDS SUMMARY | 2023-01-01 08:56 | External Medical Summary ---
Author Name Unknown Address Unknown Organization K01:[facility] [place] - [facility] [place] [address] [place] [address] Laboratory Report Ordering Provider Test Date Status DALE ONEILL 06/30/2020 08:19:15 Final Observation Date Value Abnormality Reference (Units ) Status Albumin 06/30/2020 08:19:15 4.4 3.8-5.0 (g/dL) Final Sex Hormone Binding Globulin 06/30/2020 08:19:15 23 17-176 (nmol/L) Final Testosterone [Mass/volume] in Serum or Plasma 06/30/2020 08:19:15 34.8 2.9-48.0 (ng/dL) Final Free Testosterone, calculated 06/30/2020 08:19:15 7.5 0.2-7.8 (pg/mL) Final Bioavailable Testosterone, calculated 06/30/2020 08:19:15 18.0 0.4-19.0 (ng/dL) Final Performing Location [facility] [place] - [facility] [place] [address] [place] [address]
--- OUTSIDE RECORDS SUMMARY | 2023-01-01 08:56 | External Medical Summary | Summary of Care ---
Author Name Unknown Organization [place] [address] Care Team Providers Care Site Operations Manager Name Role Phone Stefany Keller MD Primary Care Provider [phone] Reason for Visit * Reason Comments Consultation * Evaluate & Treat - Unlimited Visits (Within 30 days (routine)) Status Reason Specialty Diagnoses / Procedures Referred By Contact Referred To Contact Pending Review Specialty Services Required Obstetrics/Gyne cology / Fertility Diagnoses Female infertility Cr Talbert MD [address] [facility] [place] [address] Encounter Details Date Type Department Care Team Description 06/26/2020 Office Visit Fertility [facility] [address] [facility] [place] [address] Yvonne Coronel PA-C [address] [place] [address] Fertility testing* Allergies Active Allergy Reactions Severity Noted Date Comments Other Allergy (See Comments) 020 Nuts - not severe documented as of this encounter (statuses as of 06/26/2020) Medications Medication Sig Dispensed Refills Start Date End Date Status acetaminophen (TYLENOL) 500 MG Tablet Take 2 Tabs by mouth every 8 hours as needed for Pain. 100 Tab 0 06/02/2019 Active Vitamin D 25 MCG (1000 UT) Oral Tablet Take by mouth. 0 Activ e documented as of this encounter (statuses as of 06/26/2020) Active Problems Problem Noted Date Snoring 12/01/2017 Overweight (BMI 25.0-29.9) 12/01/2017 Iron deficiency anemia 11/14/2017 Overview: 11/12/17 nL tsh,cmp [id number].,CBC Hb 10.7-mchc indices c/w iron def anemia >18- A1c 4.7%, Ferritin low at 8, Tsat 9%-st po iron. documented as of this encounter (statuses as of 06/26/2020) Immunizations Name Administration Dates Next Due Seasonal [...] Sign Reading Time Taken Comments Blood Pressure 130/80 06/26/2020 2:13 PM EDT Pulse - - Temperature - - Respiratory Rate - - Oxygen Saturation - - Inhaled Oxygen Concentration - - Weight 75.8 kg (167 lb) 06/26/2020 2:13 PM EDT Height 162.6 cm (5' 4") 06/26/2020 2:13 PM EDT Body Mass Index 28.67 06/26/2020 2:13 PM EDT documented in this encounter Progress Notes * Yvonne Coronel PA-C - 06/26/2020 2:24 PM EDT Kim Paredes is a 34 year old woman presenting with history of infertility. Trying to conceiveapprox 18 months. Was seen on telemedicine about 1 year ago. Have been trying with more frequent intercourse since that time, but no confirmed success. States did have a period that was 2-3 weeks late last fall, but heavy bleeding after. No test. Here to discuss her reproductive options. Referred by Ban Morris for evaluation of desire to conceive. 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 Last pap/results: Has never had a PAP smear. Mammogram: no STDs: no Menarche: 13 years Menstrual hx: cycle length: 28d-30d, days of flow: 3-5d, Irregular? occasionally, skip periods? No-reports for the most part has regular cycles, occasionally does have one that is a few days off Dysmenorrhea: no Previous contraceptive methods: no Dyspareunia: no Coitus: IC every other day during the fertile window No galactorrhea, no acne, no hirsutism Weight: stable LH kits: no (uses rachell for tracking) Her partner's name is Akshat Hernandez. Age 39(06/03/80). He/She has no children. They have the following historical factors: PMHx: no SurgHx: no FamHx: no breast, uterine, ovarian, or colon ca. No babies born with any congential anomalies or genetic defects. Social: nonsmoker STDs: no Semen Analysis: no ROS: A 12 system ROS was performed. Pertinent positives and negatives are documented in the HPI. Rest were negative or non contributory. Constitutional: no weight loss, no weakness and no fatigue Eyes: no worsening of vision ENT: no hearing loss, no congestion Resp: no cough, no sputum, no wheezing and no SOB Cardiac: no chest pain, no orthopnea and no dyspnea on exertion Breast: no breast lumps or masses, no change in shape and no nipple discharge GI: no pain, no heartburn, no diarrhea, no constipation Musculoskeletal: no significant joint or muscle pain and no swelling Female : no dysuria and no incontinence Neuro: no memory loss and no weakness Psych: denies feeling down, depressed or hopeless in past month, denies being bothered by little interest or pleasure in doing things in past month and no insomnia Heme: no fever, no chills, no sweats and no bleeding/bruising Endo: no unplanned weight change Skin: no rash, no itching and no new/changing skin lesion Past Medical History: Diagnosis Date Known health problems: none Past Surgical History: Procedure Laterality Date NONE Family History Problem Relation Age of Onset No Past Hx Mother Hypertension Father no breast, uterine, ovarian, or colon ca. No babies born with any congential anomalies or genetic defects. Social History Socioeconomic History Marital status: Spouse name: Not on file Number of children: Not on file Years of education: Not on file Highest education level: Not on file Occupational History Not on file Social Needs Financial resource strain: Not on file Food insecurity: Worry: Not on file Inability: Not on file Transportation needs: Medical: Not on file Non-medical: Not on file Tobacco Use Smoking status: Never Smoker Smokeless tobacco: Never Used Substance and Sexual Activity Alcohol use: No Drug use: No Sexual activity: Yes Partners: Male Comment: Trying to conceive Lifestyle Physical activity: Days per week: Not on file Minutes per session: Not on file Stress: Not on file Relationships Social connections: Talks on phone: Not on file Gets together: Not on file Attends druze service: Not on file Active member of club or organization: Not on file Attends meetings of clubs or organizations: Not on file Relationship status: Not on file Intimate partner violence: Fear of current or ex partner: Not on file Emotionally abused: Not on file Physically abused: Not on file Forced sexual activity: Not on file Other Topics Concern Not on file Social History Narrative Not on file Vaping/E-Cigarette Use Vaping/E-Cigarette Substances Vaping/E-Cigarette Devices Current Outpatient Medications Medication Sig Dispense Refill acetaminophen (TYLENOL) 500 MG Tablet Take 2 Tabs by mouth every 8 hours as needed for Pain. 100Tab 0 All: Review of patient's allergies indicates no known allergies. Fertility testing (Primary) - ANTI-MULLERIAN HORMONE, FEMALE; Future; Expected date: 06/26/2020 - PROLACTIN; Future; Expected date: 06/26/2020 - TESTOSTERONE: TOTAL, FREE AND BIOAVAILABLE; Future; Expected date: 06/26/2020 - TSH WITH FREE T4 IF INDICATED; Future; Expected date: 06/26/2020 - INSULIN; Future; Expected date: 06/26/2020 PLAN: 1) Discussed process of fertility evaluation with patient. 2) Extensive discussions about: impact of age on fertility; decreased ovarian reserve. Discussed AMH test as a measure of ovarian reserve and result as a measure/predictor of response to fertility treatments. Understands that low AMH is a predictor of poor response to intervention and success with ART. However, also understands results do not mean is not possible. 3) Discussed importance of laboratory evaluation (see above), tubal patency determination and Semenanalysis. Patient will have labs drawn. Will discuss results at follow up appointment. 4) She will call with the start of her next period to set up HSG. Understands this will need to be performed roughly between day 7 and 10 of her cycle. Will encourage partner to schedule semen analysis for evaluation of male factor. 5) Understands that after all of the above information has been gathered, we can formulate a treatment plan. Total appointment time 45 minutes. I spent a total of 45 of 45 minutes on the counseling and coordination of care of this patient. Yvonne Coronel PA-C 06/26/2020 2:43 PM Yvonne Coronel PA-C Fertility [address] [place] [address] documented in this encounter Nursing Notes * Sona Castro TECH - 06/26/2020 2:14 PM EDT Patient here for fertility consult. States she has been trying to conceive for a year. No prior pregnancies or fertility evaluations. Partner has never had an SA and has no children. SBE No Mammogram NA Last PAP NA Patient's last menstrual period was 06/12/2020. Patient History of: Breast Cancer no Other Cancer: no Heart Disease: no Previous stimulation no Has ovulation kit been used? No Family History Problem Relation Age of Onset No Past Hx Mother Hypertension Father documented in this encounter Plan of Treatment Scheduled Orders Name Type Priority Associated Diagnoses Orde r Schedule ANTI-MULLERIAN HORMONE, FEMALE Lab Routine Fertility testing Expected: 06/26/2020 (Approximate), Expires: 06/26/2021 PROLACTIN Lab Routine Fertility testing Expected: 06/26/2020 (Approximate), Expires: 06/26/2021 TESTOSTERONE: TOTAL, FREE AND BIOAVAILABLE Lab Routine Fertility testing Expected: 06/26/2020 (Approximate), Expires: 06/26/2021 TSH WITH FREE T4 IF INDICATED Lab Routine Fertility testing Expected: 06/26/2020 (Approximate), Expires: 06/26/2021 INSULIN Lab Routine Fertility testing Expected: 06/26/2020 (Approximate), Expires: 06/26/2021 Health Maintenance Due Date Last Done Comments [...] encounter Visit Diagnoses Diagnosis Fertility testing- Primary documented in this encounter Advance Directives Documents on File Type Date Recorded Patient Server Service Assistant Expl anation Advanced Directive Advanced Directive Advanced Directive
--- OUTSIDE RECORDS SUMMARY | 2023-01-01 08:56 | External Medical Summary ---
Author Name Unknown Address Unknown Organization [id number]:LABORATORY [facility] [place] - [address] [place] [address] Laboratory Report Ordering Provider Test Date Status DALE ONEILL 06/30/2020 08:19:16 Final Observation Date Value Abnormality Reference (Units ) Status Insulin level 06/30/2020 08:19:16 19 3-25 ( uU/mL) Final The above reference interval is based on fasting status. Performing Location LABORATORY [facility] - [address] [place] [address]
--- OUTSIDE RECORDS SUMMARY | 2023-01-01 08:56 | External Medical Summary ---
Author Name Unknown Address Unknown Organization K01:[facility] [place] [address] [place] [address] Laboratory Report Ordering Provider Test Date Status DALE ONEILL 07/10/2020 16:42:57 Final Observation Date Value Abnormality Reference (Units ) Status Prolactin [Mass/volume] in Serum or Plasma by 3rd IS 07/10/2020 16:42:57 20.3 4.8-23.3 (ng/mL) Final Performing Location [facility] [place] [address] [place] [address]
--- OUTSIDE RECORDS SUMMARY | 2023-01-01 08:56 | External Medical Summary | Summary of Care ---
Author Name Unknown Organization [place] [address] Care Team Providers Care Product Development Consultant Name Role Phone Stefany Keller MD Primary Care Provider [phone] Reason for Visit * Reason Onset Date Comments Advice 07/03/2020 Encounter Details Date Type Department Care Team Description 07/03/2020 Telephone Mathew Jacinto Ponce [address] [place] [address] Yvonne Coronel PA-C [address] [place] [address] Advice Allergies Active Allergy Reactions Severity Noted Date Comments Other Allergy (See Comments) 020 Nuts - not severe documented as of this encounter (statuses as of 07/04/2020) Medications Medication Sig Dispensed Refills Start Date End Date Status acetaminophen (TYLENOL) 500 MG Tablet Take 2 Tabs by mouth every 8 hours as needed for Pain. 100 Tab 0 06/02/2019 Active Vitamin D 25 MCG (1000 UT) Oral Tablet Take by mouth. 0 Activ e documented as of this encounter (statuses as of 07/04/2020) Active Problems Problem Noted Date Snoring 12/01/2017 Overweight (BMI 25.0-29.9) 12/01/2017 Iron deficiency anemia 11/14/2017 Overview: 11/12/17 nL tsh,cmp CAL244.,CBC Hb 10.7-mchc indices c/w iron def anemia >12/11- A1c 4.7%, Ferritin low at 8, Tsat 9%-st po iron. documented as of this encounter (statuses as of 07/04/2020) Immunizations Name Administration Dates Next Due Seasonal [...] Telephone Encounter - Katherin Spear LPN - 07/04/2020 8:49 AM EDT Spoke with patient - aware of need to repeat lab * Telephone Encounter - Cyn Hernandez TECH - 07/04/2020 7:51 AM EDT Returning call * Telephone Encounter - Malinda Colón RN - 07/03/2020 2:59 PM EDT Lm voice mail. * Telephone Encounter - Yvonne Coronel PA-C - 07/03/2020 2:38 PM EDT Please call. The prolactin on recent blood work was elevated. Please advise often a false elevation, so the first step is to repeat it. I will place those orders to have done. Should try to have done: On cycle day 7, in the morning. Try to avoid nipple stimulation or intercourse for 24 hours ahead of time. Thanks documented in this encounter Plan of Treatment Scheduled Orders Name Type Priority Associated Diagnoses Orde r Schedule PROLACTIN Lab Routine Fertility testing Expected: 07/03/2020 (Approximate), Expires: 07/03/2021 Health Maintenance Due Date Last Done Comments [...] Documents on File Type Date Recorded Patient Transit Police Officer Expl anation Advanced Directive Advanced Directive Advanced Directive Advanced Directive
--- OUTSIDE RECORDS SUMMARY | 2023-01-01 08:56 | External Medical Summary ---
Author Name Unknown Address Unknown Organization K01:[facility]AT[facility] [place] [address] [place] [address] Laboratory Report Ordering Provider Test Date Status DALE ONEILL 06/30/2020 08:19:15 Final Observation Date Value Abnormality Reference (Units ) Status Prolactin [Mass/volume] in Serum or Plasma by IS 06/30/2020 08:19:15 30.8 Above high normal 4.8-23.3 (ng/mL) Final Performing Location LAB[facility]AT[facility] [place] - [address] [place] [address]
--- OUTSIDE RECORDS SUMMARY | 2023-01-01 08:56 | External Medical Summary | Summary of Care ---
Author Name Unknown Organization [place] [address] Care Team Providers Care Blender Conveyor Operator Name Role Phone Stefany Keller MD Primary Care Provider Reason for Referral * Evaluate & Treat - Unlimited Visits (Within 30 days (routine)) Status Reason Specialty Diagnoses / Procedures Referred By Contact Referred To Contact Pending Review Specialty Services Required Obstetrics/Gyne cology / Fertility Diagnoses Female infertility Cr Talbert MD [address] [facility] [place] [address] Electronically signed by Cr Talbert MD at Reason for Visit * Reason Comments Advice Encounter Details Date Type Department Care Team Description 04/11/2020 Telemedicine [facility] Gynecology/Obstetrics [address] [place] [address] Cr Talbert MD [address] [facility] [place] [address] [phone] Female infertility* Allergies Active Allergy Reactions Severity Noted Date Comments Other Allergy (See Comments) 020 Nuts - not severe documented as of this encounter (statuses as of 04/11/2020) Medications Medication Sig Dispensed Refills Start Date End Date Status acetaminophen (TYLENOL) 500 MG Tablet Take 2 Tabs by mouth every 8 hours as needed for Pain. 100 Tab 0 06/02/2019 Active documented as of this encounter (statuses as of 04/11/2020) Active Problems Problem Noted Date Snoring 12/01/2017 Overweight (BMI 25.0-29.9) 12/01/2017 Iron deficiency anemia 11/14/2017 Overview: 11/12/17 nL tsh,cmp [id number].,CBC Hb 10.7-mchc indices c/w iron def anemia >18- A1c 4.7%, Ferritin low at 8, Tsat 9%-st po iron. documented as of this encounter (statuses as of 04/11/2020) Immunizations Name Administration Dates Next Due Seasonal Influenza, Quadrivalent, No Preserve, M dck 04/27/2019 TDAP (age 10 and older)(Boostrix) 06/30/2016 documented as of this encounter Social History Tobacco Use Types Packs/Day Years Used Date Never Smoker Smokeless Tobacco: Never Used Alcohol Use Drinks/Week oz/Week Comments No Sex Assigned at Date Recorded Not on file documented as of this encounter Progress Notes * Cr Talbert MD - 04/11/2020 4:59 PM EST I was in a hospital or clinic location. After connecting through [employer], patient was verified with two unique identifiers. Patient (or authorized legal pharmaceutical sales representative) was then informed that this was a Telemedicine visit and being conducted confidentially over secure lines. Methods to assure confidentiality were taken. Patient acknowledged consent and understanding of privacy and security of the Telemedicine visit. The patient agreed to participate. Patient Name: Kim Paredes Patient CC: infertility Context: (HPI) 34 year old G0 wishes to discuss infertility. Both pt and spouse have no hx f Pt has regular menses. They have been trying for over 2 years Location: pelvis Quality: n/a Severity: n/a Duration: n/a Worsening/improving sympt:n/a Pain level/ Scale: n/a Timing: n/a Associated symptoms: No nausea,vomiting or shortness of breath. Pt denies lethargy or malaise. No dizzy spells. No dysuria,hematuria,frequency or urgency. No dyspareunia. Negative for constipation,diarrhea or bloody stools. Past Medical Hx: Past Medical History: Diagnosis Date Known health problems: none Past Surgical Hx: Past Surgical History: Procedure Laterality Date NONE Social Hx: Social History Socioeconomic History Marital status: Spouse name: Not on file Number of children: Not on file Years of education: Not on file Highest education level: Not on file Occupational History Not on file Social Needs Financial resource strain: Not on file Food insecurity Worry: Not on file Inability: Not on file Transportation needs Medical: Not on file Non-medical: Not on file Tobacco Use Smoking status: Never Smoker Smokeless tobacco: Never Used Substance and Sexual Activity Alcohol use: No Drug use: No Sexual activity: Yes Partners: Male Comment: Trying to conceive Lifestyle Physical activity Days per week: Not on file Minutes per session: Not on file Stress: Not on file Relationships Social connections Talks on phone: Not on file Gets together: Not on file Attends oriental orthodox service: Not on file Active member of club or organization: Not on file Attends meetings of clubs or organizations: Not on file Relationship status: Not on file Intimate partner violence Fear of current or ex partner: Not on file Emotionally abused: Not on file Physically abused: Not on file Forced sexual activity: Not on file Other Topics Concern Not on file Social History Narrative Not on file Vaping/E-Cigarette Use Vaping/E-Cigarette Substances Vaping/E-Cigarette Devices Allergy: Review of patient's allergies indicates: Allergen Reactions Other Allergy (See Comments) Nuts - not severe Family HX: Family History Problem Relation Age of Onset No Past Hx Mother Hypertension Father ROS: REVIEW OF SYSTEMS CONSTITUTIONAL ROS: No change in weight, No weakness, No fatigue and No fevers, sweats, or chills PULMONARY ROS: No cough, sputum, or hemoptysis, No wheezing, No shortness or breath and No recent change in breathing CARDIOVASCULAR ROS: No chest pain, No shortness of breath, No dyspnea on exertion, No orthopnea, Noparoxysmal nocturnal dyspnea, No edema, No palpitations and No syncope BREAST ROS: No new breast lumps or masses, No severe breast pain, No nipple discharge, No recent change in shape/color and Performs self breast exam ENDOCRINE ROS; No change in wt gain, hair loss or bowel habits, malaise or fatigue. No polyuria, polyphagia polydipsia GASTROINTESTINAL ROS: No abdominal pain, No change in bowel habits, No significant heartburn, No significant change in appetite, No nausea, vomiting, diarrhea, or constipation, No hematemesis, No blood in stools or black tarry stools, No abdominal bloating or early satiety and No dysphagia GENITO-URINARY FEMALE ROS: No STDs, No dysuria, No frequency, No incontinence, No urgency and No vaginal discharge and + for irreg menses. ALL OTHERS REVIEWED AND ALL OTHERS NEGATIVE LABS:: PHYSICAL EXAMINATION Well developed. Well nourishes white female in no acute distress Vital signs There were no vitals taken for this visit. PE No PE available A/P infertility Pt is 34yo + Discussed HSG, semen analysis, IUD, IVF etc Pt has several questions about infertility and I have answered them t the best of my ability an knowedge ROMERO referral placed There are no diagnoses linked to this encounter. documented in this encounter Plan of Treatment Scheduled Referrals Name Type Priority Associated Diagnoses Orde r Schedule FERTILITY REFERRAL OP Referral Within 30 days (routine) Female infertility Ordered: 04/11/2020 Health Maintenance Due Date Last Done Comments PAP SMEAR-EVERY 3 YRS,AGES 21-65 2006 *DEPRESSION SCREENING,ANNUAL FOR PTS 12 AND OVER 12/04/2018 Influenza Vaccine (FLU shot) (#1) 2019 020 DTaP,Tdap,and Td Vaccines (2 - Td) [...] Documents on File Type Date Recorded Patient Put In Beat Adjuster Expl anation Advanced Directive Advanced Directive
--- OUTSIDE RECORDS SUMMARY | 2023-01-01 08:56 | External Medical Summary ---
Author Name Unknown Address Unknown Organization : Laboratory Report Ordering Provider Test Date Status DALE ONEILL 06/30/2020 08:19:14 Final Observation Date Value Abnormality Reference (Units ) Status Mullerian inhibiting substance [Mass/volume] in Serum or Plasma 06/30/2020 08:19:14 5.06 0.36-10.07 (ng/mL) Final Test performed by [facility]
[address] [facility]
[place] [address]

Work Station Support Specialist: KEILY PUGH M.D.
Test Reported by [facility],
[facility],
[address] [place], [place]
Ric Singh M.D., Ph.D., Director of Laboratories
, [facility] [id number] Performing Location
--- OUTSIDE RECORDS SUMMARY | 2023-01-01 08:57 | External Medical Summary | Summary of Care ---
Author Name Unknown [place] [address] Care Team Providers Care Project Manager/Team Coach Name Role Phone Stefany Keller MD Primary Care Provider [phone] Reason for Referral * Evaluate & Treat - Unlimited Visits (Within 10 days (routine)) Status Reason Specialty Diagnoses / Procedures Referred By Contact Referred To Contact Pending Review Specialty Services Required Sleep Medicine Diagnoses Snoring Bad dreams At risk for sleep apnea Stefany Keller MD [address] [place] [id number] Reason for Visit * Reason Comments Follow Up Pt presents today fo r a two month return. Pt complains of sleep disturbances the past 15 to 20 days, otherwise things are going well. Encounter Details Date Type Department Care Team Description 03/05/2018 Office Visit [place] [address] Stefany Keller MD [address] [place] [address] [phone] Iron deficiency anemia due to chronic blood loss*; Snoring; Bad dreams; At risk for sleep apnea; Viral URI; Pre-conception counseling Allergies No Known Allergiesas of this encounter Medications Medication Sig Dispensed Refills Start Date End Date Status Ferrous Fumarate 324 (106 Fe) MG TABSIndications:Other iron deficiency anemia,Snoring,Malaise and fatigue one pill 1-2 a day with vitamin C 250 mg, 1 hr before/2 hrs after a meal. 0 12/01/2017 Active vitamins plus 1mg folic acid ( 27-1) 27-1 MG TabletIndications:Pre- conception counseling Take 1 Tab by mouth daily. St 04/2018 1 Tab 0 03/05/2018 Active as of this encounter Active Problems Problem Noted Date Snoring 12/01/2017 Overweight (BMI 25.0-29.9) 12/01/2017 Iron deficiency anemia 11/14/2017 Overview: 11/12/17 nL tsh,cmp [id number].,CBC Hb 10.7-mchc indices c/w iron def anemia >12/11- A1c 4.7%, Ferritin low at 8, Tsat 9%-st po iron. as of this encounter Immunizations Name Dates Previously Given Next Due TDAP (age 10 and older)(Boostrix) 06/30/2016 as of this encounter Social History Tobacco Use Types Packs/Day Years Used Date Never Smoker Smokeless Tobacco: Never Used Alcohol Use Drinks/Week oz/Week Comments No Sex Assigned at Date Recorded Not on file Job Start Date Occupation Industry Not on file Not on file Not on file Travel History Travel Start Travel End No recent travel history taylor ilable. as of this encounter Last Filed Vital Signs Vital Sign Reading Time Taken Blood Pressure 120/62 03/05/2018 11:07 AM EST Pulse 84 03/05/2018 11:07 AM EST Temperature 36.1 C (97 F) 03/05/2018 11: 07 AM EST Respiratory Rate 16 03/05/2018 11:0 7 AM EST Oxygen Saturation - - Inhaled Oxygen Concentration - - Weight 77.1 kg (170 lb) 03/05/2018 11:0 7 AM EST Height - - Body Mass Index 29.18 03/05/2018 11:07 AM EST in this encounter Progress Notes * Stefany Keller MD - 03/05/2018 11:15 AM EST SUBJECTIVE: Kim Paredes is a 32 year old female. Chief Complaint Patient presents with Follow Up Pt presents today for a two month return. Pt complains of sleep disturbances the past 15 to 20 days, otherwise things are going well. HPI: 3 mth f/u New patient eval 10/23/2017 with symptoms of fatigue for 2-3 months with no significant heavy bleeding during her periods; had been skipping breakfast but had been eating more regularly in the prior 2months. No hematuria or blood in the stool ;no history of hemorrhoids There was some weight gain in the last year as she had cut back on her exercises. 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 This has also resulted in some symptoms of depression, lack of motivation. 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 Some excessive daytime sleepiness. No family history of sleep apnea. 03/14--kat d travelled to [facility] x 2 wsk in jan, got back 02/23/18, sx URI, taking homeopathic meds with relief. Fatigue has Improved-taking Fe 1/d, has mild constipation., Her mood is stable. Had stress at work as she did not get a job position she was eligible for. C/o bad dreams last 2 wks on and off--liek she is running away, things are breaking. Denies depression. very supportive, no SI/ST Planning to get in fall. Wt gain after visit, has joined [employer] recently 11/12/17 nL tsh,cmp [id number].,CBC Hb 10.7-mchc indices c/w iron def anemia >12/11- A1c 4.7%, Ferritin low at 8, Tsat 9%-st po iron.-discussed the need for increasing iron intake in her diet as well as starting ferrous fumarate with plan to repeat lab in 2 months. Constitutional: no weight loss, no weakness and no fatigue Resp: no cough, no sputum, no wheezing, no SOB and no hemoptysis Cardiac: no chest pain, no orthopnea, no dyspnea on exertion, no PND, no edema, no claudication andno palpitations GI: no pain, no heartburn, no diarrhea, no constipation, no blood/melena, no nausea, no vomiting Musculoskeletal: no significant joint or muscle pain and no swelling Neuro: no memory loss, no weakness, no falling, no numbness or tingling and no vertigo Defers flu vaccine today--rec to get soon. Wt Readings from Last 4 Encounters: 03/05/18 77.1 kg (170 lb) 12/01/17 75.3 kg (166 lb) 10/23/17 74.2 kg (163 lb 9.6 oz) BP Readings from Last 4 Encounters: 03/05/18 120/62 12/01/17 102/70 10/23/17 120/72 Immunization History Administered Date(s) Administered TDAP (age 10 and older)(Boostrix) 06/30/2016 Current Outpatient Medications Medication Sig Dispense Refill Ferrous Fumarate 324 (106 Fe) MG TABS one pill 1-2 a day with vitamin C 250 mg, 1 hr before/2 hrs after a meal. Patient Active Problem List Diagnosis Code Iron deficiency anemia D50.9 Snoring R06.83 Overweight (BMI 25.0-29.9) E66.3 Outpatient Medications Prior to Visit Medication Sig Dispense Refill Ferrous Fumarate 324 (106 Fe) MG TABS one pill 1-2 a day with vitamin C 250 mg, 1 hr before/2 hrs after a meal. No facility-administered medications prior to visit. Last reviewed on 03/05/2018 11:06 AM by Thi Artis LPN Review of patient's allergies indicates: No Known Allergies OBJECTIVE: BP 120/62 | Pulse 84 | Temp (Src) 97 (Tympanic) | Resp 16 | Wt 170 lbs (77.111kg) | BMI 29.18 kg/m | BSA 1.87 m PHYSICAL EXAM: General: alert, healthy, no distress, well nourished and well developed Ears: External ears normal, Canals clear, TM's Normal Nose: mild mucosal edema, no purulent discharge, no mucosal erythema, no sinus tenderness Oropharynx: no exudate, no erythema , tongue large and protrudes up Neck: short,supple, no adenopathy Heart: regular Rhythm and rate, no murmurs Lungs: lungs clear to auscultation ASSESSMENT/PLAN: D50.0 Iron deficiency anemia due to chronic blood loss (primary encounter diagnosis) Off site labs soon. R06.83 Snoring Plan:Advised to use nasal saline spray every 1-2 hrs as needed for dryness/congestion.. Referral: 1. Sleep medicine referral op F51.5 Bad dreams Plan: Referral: 1. Sleep medicine referral op Z91.89 At risk for sleep apnea Plan: Referral: 1. Sleep medicine referral op J06.9 Viral uri Taking homeopathic meds. Z31.69 Pre-conception counseling Plan: Medications: 1. 27-1 mg po tabs Sig:Take 1 tab by mouth daily. 04/2018 Follow-up: Return in about 6 months (around 09/02/2018). | Check-out note: 40 min cpe (This note was completed using the dictation program Fluency Direct. As such, there may be misspellings, word substitutions, or other variations that should not change the essence of the clinical content of this encounter note. If there is need for further clarification, please direct questions to the provider listed above.) Patient and / caregiver verbalizes understanding of above instructions and agrees with plan of care. Stefany Keller MD 03/05/2018 in this encounter Nursing Notes * Lynn Artise Dominick, RECEIVER - 03/05/2018 11:06 AM EST Pt presents today for a two month return. Pt complains of sleep disturbances the past 15 to 20 days, otherwise things are going well. in this encounter Plan of Treatment Upcoming Encounters Date Type Specialty Care Team Description 03/12/2018 Office Visit Sleep Disorders Katlin Moura, DO [address] [facility] [place] [address] [phone] Scheduled Referrals Name Priority Associated Diagnoses Order S chedule SLEEP MEDICINE REFERRAL OP Within 10 days (routine) Snoring Bad dreams At risk for sleep apnea Ordered: 03/05/2018 Health Maintenance Due Date Last Done Comments PAP SMEAR-EVERY 3 YRS,AGES 21-65 2006 Influenza Vaccine (FLU shot) (#1) 2017 DTaP,Tdap,and Td Vaccines (2 - Td) 06/30/20262016 as of this encounter Implants Not on fileas of this encounter Visit Diagnoses Diagnosis Iron deficiency anemia due to chronic blood loss- Primary Iron deficiency anemia secondary to blood loss (chronic) Snoring Other dyspnea and respiratory abnormality Bad dreams Other dysfunctions of sleep stages or arousal from sleep At risk for sleep apnea Viral URI Acute upper respiratory infections of unspecified site Pre-conception counseling Other procreative management counseling and advice in this encounter"
--- OUTSIDE RECORDS SUMMARY | 2023-01-01 08:57 | External Medical Summary ---
Author Name Unknown Address [facility] [place] [address] Phone Organization K01:[place] [address] [place] [id number] Laboratory Report Ordering Provider Test Date Status LIDA SINGH 07/28/2019 09:16:00 Final Observation Date Value Abnormality Reference (Units ) Status TSH 07/28/2019 19:45 2.43 0.27-4.2 (uIU /mL) Final T4, Free 07/28/2019 19:45 NOT APPLICABLE 0.9-1.7 (ng/dL) Final Performing Location [place] [address] [address] [facility] [id number]
--- OUTSIDE RECORDS SUMMARY | 2023-01-01 08:57 | External Medical Summary | Summary of Care ---
Author Name Unknown Organization [place] [address] Care Team Providers Care Tool Drawing Checker Name Role Phone Stefany Keller MD Primary Care Provider [phone] Reason for Visit * Reason Comments Advice Encounter Details Date Type Department Care Team Description 04/26/2019 Telephone General Internal Medicine [facility] [address] [place] [address] Stefany Keller MD [address] [place] [address] [phone] Advice Allergies Active Allergy Reactions Severity Noted Date Comments Other Allergy (See Comments) 020 Nuts - not severe documented as of this encounter (statuses as of 04/26/2019) Medications Medication Sig Dispensed Refills Start Date End Date Status oseltamivir (TAMIFLU) 75 MG CapsuleIndications:Exp osure to the flu Take 1 Cap by mouth daily for 10 days. For 10 days. 10 Cap 0 04/26/2019 05/06/2019 Active documented as of this encounter (statuses as of 04/26/2019) Active Problems Problem Noted Date Snoring 12/01/2017 Overweight (BMI 25.0-29.9) 12/01/2017 Iron deficiency anemia 11/14/2017 Overview: 11/12/17 nL tsh,cmp [id number].,CBC Hb 10.7-mchc indices c/w iron def anemia >18- A1c 4.7%, Ferritin low at 8, Tsat 9%-st po iron. documented as of this encounter (statuses as of 04/26/2019) Immunizations Name Administration Dates Next Due TDAP (age 10 and older)(Boostrix) 06/30/2016 documented [...] End No recent travel history taylor ilable. documented as of this encounter Miscellaneous Notes * Telephone Encounter - Manuela Clark LPN - 04/26/2019 6:11 PM EST Called, informed of message below. Patient verbalized understanding. * Telephone Encounter - Stefany Keller MD - 04/26/2019 5:39 PM EST Rx tamiflu done. She should consider getting flu vaccine soon. * Telephone Encounter - Brandi Rowell OSA - 04/26/2019 4:30 PM EST Pt said her spouse has the flu and her spouses's provider adv her to call her pcp and request a prescription for tamiflu Pt is not showing any symptoms Pt is requesting a call back once prescription is called into the pharmacy documented in this encounter Plan of Treatment Upcoming Encounters Date Type Specialty Care Team Description 07/22/2019 Office Visit Gynecology Obstetrics Isaura Rothman CRNP [address] [facility] [place] [address] [phone] Health Maintenance Due Date Last Done Comments PAP SMEAR-EVERY 3 YRS,AGES 21-65 2006 Influenza Vaccine (FLU shot) (#1) 2018 *DEPRESSION SCREENING,ANNUAL FOR PTS 12 AND OVER 12/04/2018 DTaP,Tdap,and Td Vaccines (2 - Td) 06/30/20262016 [...] as of this encounter Visit Diagnoses Diagnosis Exposure to the flu- Primary Contact with or exposure to other viral diseases documented in this encounter
--- OUTSIDE RECORDS SUMMARY | 2023-01-01 08:57 | External Medical Summary ---
Author Name Unknown Address [facility] [address] [place] [id number] Phone Organization K01:[place] [id number] Laboratory Report Ordering Provider Test Date Status MILADIS SINGHU 07/28/2019 09:16:00 Final Observation Date Value Abnormality Reference (Units ) Status Insulin level 07/28/2019 18:04 19.0 3-25 (uU/ mL) Final The above reference interval is based on fasting status. Performing Location [place] [id number]
--- OUTSIDE RECORDS SUMMARY | 2023-01-01 08:57 | External Medical Summary | Summary of Care ---
Author Name Unknown Organization [place] [address] Care Team Providers Care Transportation Lead Name Role Phone Stefany Keller MD Primary Care Provider [phone] Reason for Visit * Reason Comments Referral Encounter Details Date Type Department Care Team Description 04/27/2019 Telephone [facility] Gynecology/Obstetrics [address] [place] [address] Cr Talbert MD [address] [facility] [place] [address] Referral Allergies Active Allergy Reactions Severity Noted Date Comments Other Allergy (See Comments) 020 Nuts - not severe documented as of this encounter (statuses as of 04/27/2019) Medications Medication Sig Dispensed Refills Start Date End Date Status oseltamivir (TAMIFLU) 75 MG CapsuleIndications:Exp osure to the flu Take 1 Cap by mouth daily for 10 days. For 10 days. 10 Cap 0 04/26/2019 05/06/2019 Active documented as of this encounter (statuses as of 04/27/2019) Active Problems Problem Noted Date Snoring 12/01/2017 Overweight (BMI 25.0-29.9) 12/01/2017 Iron deficiency anemia 11/14/2017 Overview: 11/12/17 nL tsh,cmp [id number].,CBC Hb 10.7-mchc indices c/w iron def anemia >18- A1c 4.7%, Ferritin low at 8, Tsat 9%-st po iron. documented as of this encounter (statuses as of 04/27/2019) Immunizations Name Administration Dates Next Due TDAP [...] Telephone Encounter - Socorro Franco OSA - 04/27/2019 8:51 AM EST Pt will call back to schedule Fertility. She can not do Mondays at [facility]. Offered pt Yogesh. documented in this encounter Plan of Treatment Upcoming Encounters Date Type Specialty Care Team Description 07/22/2019 Office Visit Gynecology Obstetrics Isaura Rothman CRNP [address] [place] [address] [phone] 09/02/2019 Nutrition Services Nutrition Services Bianca Cortez RDN [address] [place] [address] [phone] Health Maintenance Due Date Last Done Comments [...]
--- OUTSIDE RECORDS SUMMARY | 2023-01-01 08:57 | External Medical Summary | Summary of Care ---
Author Name Unknown Organization [place] [address] Care Team Providers Care Braid Cutter Name Role Phone Stefany Keller MD Primary Care Provider [phone] Reason for Visit * Reason Comments Advice Encounter Details Date Type Department Care Team Description 06/02/2019 Telephone General Internal Medicine [facility] [address] [place] [address] Stefany Keller MD [address] [place] [address] [phone] Advice Allergies Active Allergy Reactions Severity Noted Date Comments Other Allergy (See Comments) 020 Nuts - not severe documented as of this encounter (statuses as of 06/02/2019) Medications No known medicationsdocumented as of this encounter (statuses as of 06/02/2019) Active Problems Problem Noted Date Snoring 12/01/2017 Overweight (BMI 25.0-29.9) 12/01/2017 Iron deficiency anemia 11/14/2017 Overview: 11/12/17 nL tsh,cmp [id number].,CBC Hb 10.7-mchc indices c/w iron def anemia >12/11- A1c 4.7%, Ferritin low at 8, Tsat 9%-st po iron. documented as of this encounter (statuses as of 06/02/2019) Immunizations Name Administration Dates Next Due Seasonal [...] Miscellaneous Notes * Telephone Encounter - Juanjo Doshi RN - 06/02/2019 5:12 PM EDT Called patient and informed her of Dr. Real's previous message. She denies any fever, chills,or any recent trauma. Patient did prefer to see female provider at first, initially declined an appointment, then said ok to see Dr. Real. Patient scheduled for 5:20 pm. Called patient and informed her that they do have female providers at [facility], and that Dr. Real would be happy to see her but did not want to make her uncomfortable. She verbalized understanding. She declined to go to [facility], stated she would prefer to see the doctor. FYI. * Telephone Encounter - Joao Real MD - 06/02/2019 5:01 PM EDT 1. Any fevers or chills? Recent trauma? 2. I am glad Mariah is helping. Would suggest OV for evaluation, here or [facility]. If she is concerned leaving the home, she can try to take a picture of it and send via watAgame, but we may not see it until tomorrow. * Telephone Encounter - Yanique Summers LPN - 06/02/2019 4:51 PM EDT Pt calling states that she has a rash under her left breast. Pt states the the area is burning, looks swollen. Pt states that the area looks like it is spreading. Pt states that when she got home sheremoved her bra and washed the area and placed some Niva lotion on it, states that it helped a little with burning. Denies itching, states that the rash is slightly raised. Please advise thank you * Telephone Encounter - Prachi Vargas OSA - 06/02/2019 4:48 PM EDT Patient states this afternoon, she felt a burning sensation under left breast, she states it looks like a rash and it is swollen and spreading. Patient wants to talk to a nurse Call transferred to nurse line to Arin documented in this encounter Plan of Treatment Upcoming Encounters Date Type Specialty Care Team Description 07/22/2019 Office Visit Gynecology Obstetrics Isaura Rothman CRNP [address] [place] [address] [phone] 09/02/2019 Nutrition Services Nutrition Services Bianca Cortez RDN [address] [address] Health Maintenance Due Date Last Done [...] Documents on File Type Date Recorded Patient Remote Sensing Technician Expl anation Advanced Directive
--- OUTSIDE RECORDS SUMMARY | 2023-01-01 08:57 | External Medical Summary ---
Author Name Unknown Address [facility] [place] [id number] Phone Organization K01:[place] [id number] Laboratory Report Ordering Provider Test Date Status LIDA SINGH 07/28/2019 09:16:00 Final Observation Date Value Abnormality Reference (Units ) Status 25-OH Vitamin D total 07/28/2019 19:45 6 Below low normal >19 (ng/mL) Final
Deficient: <20 ng/mL
Insufficient: 20-29 ng/mL
Recommended/Optimum:30-50 ng/mL

Vitamin D intoxication is rare.
If suspicious of Vitamin D toxicity,
evaluation of serum Calcium and PTH
is recommended. Performing Location [address] [address]
--- OUTSIDE RECORDS SUMMARY | 2023-01-01 08:57 | External Medical Summary ---
Author Name Unknown Address [facility] [address] Phone Organization K01:[place] [id number] Laboratory Report Ordering Provider Test Date Status SAMANTHALIDA 07/28/2019 09:16:00 Final Observation Date Value Abnormality Reference (Units ) Status Ferritin 07/28/2019 19:45 11.5 Below low normal 13-150 (ng/mL) Final Performing Location [address] [address]
--- OUTSIDE RECORDS SUMMARY | 2023-01-01 08:57 | External Medical Summary | Summary of Care ---
Author Name Unknown [place] [address] Care Team Providers Care Rough Rice Tender Name Role Phone Stefany Keller MD Primary Care Provider [phone] Reason for Visit * Reason Comments Appointment 40 min cpe Encounter Details Date Type Department Care Team Description 03/05/2018 Telephone General Internal Medicine [facility] [address] [place], [place] [address] Stefany Keller MD [address] [place] [address] [phone] Appointment (40 min cpe) Allergies No Known Allergiesas of this encounter [...] deficiency anemia 11/14/2017 Overview: 11/12/17 nL tsh,cmp [id number].,CBC Hb 10.7-mchc indices c/w iron def anemia [...] history taylor ilable. as of this encounter Miscellaneous Notes * Telephone Encounter - Marianela Cosme, REBECCA - 03/05/2018 11:53 AM EST Pt does nto want to set up six mo cpe (7.10.19) Will call when ready to do so. in this encounter Plan of Treatment Upcoming Encounters Date Type Specialty Care Team Description 03/12/2018 Office Visit Sleep Disorders Katlin Moura, DO [address] [facility] [place] [address] [phone] Health Maintenance Due Date Last Done Comments PAP SMEAR-EVERY 3 YRS,AGES 21-65 2006 Influenza Vaccine (FLU shot) (#1) 2017 DTaP,Tdap,and Td Vaccines (2 - Td) 06/30/20262016 as of this encounter Implants Not on fileas of this encounter
--- OUTSIDE RECORDS SUMMARY | 2023-01-01 08:57 | External Medical Summary | Summary of Care ---
Author Name Unknown [place] [address] Phone Care Team Providers Care Recruitment Coordinator Name Role Phone Stefany Keller MD Primary Care Provider Reason for Visit * Reason Comments FOLLOW UP results of testing. First labs showed high sugar level, and anemia. Encounter Details Date Type Department Care Team Description 12/01/2017 Office Visit General Internal Medicine [facility] [address] [place] [address] Stefany Keller MD [address] [place] [address] [phone] Other iron deficiency anemia*;Snoring;Malais e and fatigue;Adjustment disorder with depressed mood;Overweight (BMI 25.0-29.9) Allergies No Known Allergiesas of this encounter Medications Prescription Sig. Disp. Refills Start Date End Date Status Ferrous Fumarate 324 (106 Fe) MG TABSIndications:Other iron deficiency anemia,Snoring,Malaise and fatigue one pill 1-2 a day with vitamin C 250 mg, 1 hr before/2 hrs after a meal. 12/01/2017 Active as of this encounter Active Problems Problem Noted Date Snoring 12/01/2017 Overweight (BMI 25.0-29.9) 12/01/2017 Iron deficiency anemia 11/14/2017 Overview: 11/12/17 nL tsh,cmp [id number].,CBC Hb 10.7-mchc indices c/w iron def anemia >18- A1c 4.7%, Ferritin low at 8, Tsat 9%-st po iron. as of this encounter Immunizations Name Dates Previously Given Next Due TDAP (age 10 and older)(Boostrix) 06/30/2016 as of this encounter Social History Tobacco Use Types Packs/Day Years Used Date Never Smoker Smokeless Tobacco: Never Used Tobacco Cessation:Counseling Given: No Alcohol Use Drinks/Week oz/Week Comments No Sex Assigned at Date Recorded Not on file as of this encounter Last Filed Vital Signs Vital Sign Reading Time Taken Blood Pressure 102/70 12/01/2017 2:27 PM EDT Pulse 88 12/01/2017 2:27 PM EDT Temperature 36.8 C (98.2 F) 12/01/2017 2 :27 PM EDT Respiratory Rate 16 12/01/2017 2:27 PM EDT Oxygen Saturation 97% 12/01/2017 2:2 7 PM EDT Inhaled Oxygen Concentration - - Weight 75.3 kg (166 lb) 12/01/2017 2:27 PM EDT Height 162.6 cm (5' 4") 12/01/2017 2:27 PM EDT Body Mass Index 28.49 12/01/2017 2:27 PM EDT in this encounter Progress Notes * Stefany Keller MD - 12/01/2017 2:44 PM EDT Formatting of this note may be different from the original. SUBJECTIVE: Kim Paredes is a 32 year old female. Chief Complaint Patient presents with FOLLOW UP results of testing. First labs showed high sugar level, and anemia. HPI: 1 mth fu New patient eval 10/23/2017 with symptoms of fatigue for 2-3 months with no significant heavy bleeding during her periods; had been skipping breakfast but had been eating more regularly in the prior 2months. No hematuria or blood in the stool ;no history of hemorrhoids . There was some weight gain in the last year as she had cut back on her exercises. 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 She has studied occitan literature and is trying to find a job to suit her major. This has also resulted in some symptoms of depression, lack of motivation. 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 Some excessive daytime sleepiness. No family history of sleep apnea. Labs as below and discussed the need for increasing iron intake in her diet as well as starting ferrous fumarate with plan to repeat lab in 2 months. If her fatigue does not improve she would consider to get a sleep screen. Her mood is stable. She has been trying to keep herself occupied. Defers any medications at this time. 9/19/18 nL tsh,cmp [id number].,CBC Hb 10.7-mchc indices c/w iron def anemia >12/11- A1c 4.7%, Ferritin low at 8, Tsat 9%-st po iron. Defers flu vaccine today and [place]. Wt Readings from Last 4 Encounters: 12/01/17 75.3 kg (166 lb) 10/23/17 74.2 kg (163 lb 9.6 oz) BP Readings from Last 3 Encounters: 12/01/17 102/70 10/23/17 120/72 Immunization History Administered Date(s) Administered TDAP (age 10 and older)(Boostrix) 06/30/2016 No current outpatient prescriptions on file. Patient Active Problem List Diagnosis Code Iron deficiency anemia D50.9 No outpatient prescriptions prior to visit. No facility-administered medications prior to visit. Last reviewed on 12/01/2017 2:26 PM by Melisa Schaefer LPN Review of patient's allergies indicates: No Known Allergies OBJECTIVE: BP 102/70 | Pulse 88 | Temp 98.2 | Resp 16 | Ht 5' 4" (1.626m) | Wt 166 lbs (75.297kg) | BMI 28.49 kg/m | BSA 1.84 m | SaO2 97% | LMP 11/25/2017 | ? No PHYSICAL EXAM: General: alert, healthy, no distress, well developed Neck: supple, no adenopathy, thyroid Not enlarged without nodularity Heart: regular rhythm and rate,No murmurs. Lungs: lungs clear to auscultation Extremities: no edema ASSESSMENT/PLAN: D50.8 Other iron deficiency anemia (primary encounter diagnosis) Plan: advised to increase intake iron in diet, handout given. Lab: Off site lab in 2 months 1. Cbc 2. Ferritin Medications: start 1. Ferrous fumarate 324 (106 fe) mg po tabs Sig:One pill 1-2 a day with vitamin c 250 mg, 1 hr before/2 hrs after a meal. R06.83 Snoring Plan: Lab: 1. Cbc 2. Ferritin Medications: 1. Ferrous fumarate 324 (106 fe) mg po tabs Sig:One pill 1-2 a day with vitamin c 250 mg, 1 hr before/2 hrs after a meal. R53.81, R53.83 Malaise and fatigue Plan: Lab: 1. Cbc 2. Ferritin Medications: 1. Ferrous fumarate 324 (106 fe) mg po tabs Sig:One pill 1-2 a day with vitamin c 250 mg, 1 hr before/2 hrs after a meal. F43.21 Adjustment disorder with depressed mood Stable E66.3 Overweight (bmi 25.0-29.9) Advised to decrease portion size of food and to exercise regularly and try to lose wt. Defers to jet PAP. Follow up: Return in about 2 months (around 01/31/2018). (This note was completed using the dictation [...] with plan of care. Stefany Keller MD 12/01/2017 in this encounter Nursing Notes * Melisa Schaefer LPN - 12/01/2017 2:27 PM EDT See above in this encounter Plan of Treatment Upcoming Encounters Date Type Specialty Care Team Description 01/27/2018 Office Visit Internal Medicine Stefany Keller MD [address] [place] [address] [phone] Scheduled Tests Name Priority Associated Diagnoses Order S chedule CBC Routine Other iron deficiency anemia Snoring Malaise and fatigue Ordered: 12/01/2017 FERRITIN Routine Other iron deficiency anemia Snoring Malaise and fatigue Ordered: 12/01/2017 Health Maintenance Due Date Last Done Comments PAP SMEAR-EVERY 3 YRS,AGES 21-65 2006 Influenza Vaccine (FLU shot) (#1) 2017 DTaP,Tdap,and Td Vaccines (2 - Td) 06/30/20262016 as of this encounter Implants Not on fileas of this encounter Visit Diagnoses Diagnosis Other iron deficiency anemia - Primary Snoring Other dyspnea and respiratory abnormality Malaise and fatigue Other malaise and fatigue Adjustment disorder with dep ressed mood Overweight (BMI 25.0-29.9) Overweight in this encounter
--- OUTSIDE RECORDS SUMMARY | 2023-01-01 08:57 | External Medical Summary | Summary of Care ---
Author Name Unknown [place] [address] Phone Care Team Providers Care Dumper Bulk System Name Role Phone Stefany Keller MD Primary Care Provider [phone] Reason for Visit * Reason Comments FOLLOW UP results of testing. First labs showed high sugar level, and anemia. Encounter Details Date Type Department Care Team Description 12/01/2017 Office Visit General Internal Medicine [facility] [address] [place] [address] Stefany Keller MD [address] [place] [address] [phone] Other iron deficiency anemia*;Snoring;Malais e and fatigue;Adjustment [...] deficiency anemia 11/14/2017 Overview: 11/12/17 nL tsh,cmp [id number].,CBC Hb 10.7-mchc indices c/w iron def anemia [...] on her exercises. 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 She has studied arabic literature and is trying to find a job to suit her major. This has also resulted in some symptoms of depression, lack of motivation. 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 Some excessive daytime sleepiness. No family [...] medications at this time. 9/19/18 nL tsh,cmp [id number].,CBC Hb 10.7-mchc indices c/w iron def anemia [...] Visit Internal Medicine Stefany Keller MD [address] [place] [address] [phone] Scheduled Tests Name Priority Associated Diagnoses Order [...]
--- OUTSIDE RECORDS SUMMARY | 2023-01-01 08:57 | External Medical Summary | Summary of Care ---
Author Name Unknown [place] [address] Care Team Providers Care Chassis Mechanic Name Role Phone Stefany Keller MD Primary Care Provider [phone] Reason for Visit * Reason Comments Other Encounter Details Date Type Department Care Team Description 04/09/[address] [facility] [address] [place] [address] Ean Mercado PA-Jose [address] [facility] [address] [place] [address] Bilateral impacted cerumen* Allergies No Known Allergiesdocumented as of this encounter (statuses as of 04/09/2019) Medications Medication Sig Dispensed Refills Start Date [...] St 04/2018 1 Tab 0 03/05/2018 Active documented as of this encounter (statuses as of 04/09/2019) Active Problems Problem Noted Date Snoring 12/01/2017 Overweight (BMI 25.0-29.9) 12/01/2017 Iron deficiency anemia 11/14/2017 Overview: 11/12/17 nL tsh,cmp [id number].,CBC Hb 10.7-mchc indices c/w iron def anemia >12/11- A1c 4.7%, Ferritin low at 8, Tsat 9%-st po iron. documented as of this encounter (statuses as of 04/09/2019) Immunizations Name Administration Dates Next Due TDAP [...] taylor ilable. documented as of this encounter Last Filed Vital Signs Vital Sign Reading Time Taken Comments Blood Pressure 120/84 04/09/2019 5:51 PM EST Pulse 100 04/09/2019 5:51 PM EST Temperature 36.9 C (98.5 F) 04/09/2019 5:51 PM ES T Respiratory Rate 20 04/09/2019 5:51 PM EST Oxygen Saturation 100% 04/09/2019 5:51 PM EST Inhaled Oxygen Concentration - - Weight 78 kg (172 lb) 04/09/2019 5:51 PM EST Height - - Body Mass Index 29.52 12/01/2017 2:27 PM EDT documented in this encounter Patient Instructions * Patient Instructions* Ean Mercado PA-C - 04/09/2019 6:32 PM EST For cerumen impaction: use Debrox drops OTC per package insert. Do not use Q tips in ears. With any persistent symptoms F/U with PCP. documented in this encounter Progress Notes * Ean Mercado PA-C - 04/09/2019 5:53 PM EST SUBJECTIVE: Kim Paredes is a 33 year old female who is here to be evaluated for possible ear infection. Symptoms include itchy R ear, blocked sensation. Patient was accompanied by Spouse. HPI: Severity of Symptoms: Moderate Modifying Factors (what was done since onset of Symptoms): nothing Timing (How often does it occur): constant Quality (Feels like): itchy R ear Other associated Signs and Symptoms: blocked R ear Pt reports for the last week has had itchy R ear and feels blocked. Has had this happen in the past and had ear flushed. No recent cold symptoms. No fevers or chills. ROS: Constitutional symptoms: no fever, no weight loss, no weakness, no fatigue and no recent illness Ear ROS No ear pain, No drainage, No tinnitus or vertigo and Positive for blocked sensation R ear Nose/Throat ROS No history of frequent colds or sinusitis, No nasal stuffiness, No history of Hay Fever and No significant epistaxis Mouth ROS No bleeding gums, No thrush or No sore throat Pulmonary ROS: No cough, sputum, or hemoptysis, No wheezing, No shortness of breath and No recent change in breathing Cardiovascular ROS: No chest pain, No shortness of breath, No dyspnea on exertion, No orthopnea, No paroxysmal nocturnal dyspnea, No edema, No palpitations and No syncope Gastrointestional ROS: No abdominal pain, No change in bowel habits, No significant heartburn, No significant change in appetite, No nausea, vomiting, diarrhea, or constipation, No hematemesis, No blood in stools or black tarry stools, No abdominal bloating or early satiety and No dysphagia Skin/Integumentary ROS: No edema, No rash and No itching Symptom duration of 1 weeks Recent illnesses in household: No Nursing Notes: Mariela Faye LPN 04/09/19 1756 Signed Kim Paredes is a 33 year old female who presents to walk-in clinic today complaining of Chief Complaint Patient presents with Other Main Symptoms: Itchy right ear. Feeling blocked How long: Started about a week ago Pt accompanied by: HISTORY: No past medical history on file. Past Surgical History: Procedure Laterality Date NONE Social History Tobacco Use Smoking status: Never Smoker Smokeless tobacco: Never Used Substance Use Topics Alcohol use: No Current Outpatient Medications Medication Sig Dispense Refill vitamins plus 1mg folic acid ( 27-1) 27-1 MG Tablet Take 1 Tab by mouth daily. St 04/2018 1 Tab 0 Ferrous Fumarate 324 (106 Fe) MG TABS one pill 1-2 a day with vitamin C 250 mg, 1 hr before/2 hrs after a meal. Review of patient's allergies indicates: No Known Allergies OBJECTIVE: BP 120/84 | Pulse 100 | Temp (Src) 98.5 (Tympanic) | Resp 20 | Wt 172 lbs (78.019kg) | BMI 29.52 kg/m | BSA 1.88 m | SaO2 100% General: no acute distress, non-toxic Ears: External ears normal, cerumen bilaterally ; successfully removed cerumen from right canal andTM and canal normal; L ear unable to remove cerumen-- pt could not tolerate Eyes: no proptosis, no periorbital inflammation or soft tissue edema, no orbital cellulitis Nose: no mucosal erythema, no mucosal edema, no purulent discharge Throat: no exudate, no erythema, lips, buccal mucosa, and tongue normal and mucous membranes are moist Neck: supple, no adenopathy, no bruits, thyroid normal size, non-tender, without nodularity Lungs: clear to auscultation, no rhonchi, no wheezes and no crackles Heart: regular rate, regular rhythm, no murmurs , no rubs and no gallops Skin: skin color, texture, turgor are normal, no rashes or significant lesions Procedure: Mixture of water and peroxide irrigated into ears. Lighted curette used to aide in cerumen removal.Cerumen successfully removed from R canal, unable to remove from L canal as totally blocked and pt was unable to tolerate. R TM visualized and normal. Pt will use Debrox for 5-7 days and return for removal of Left side cerumen. Assessment: Bilateral impacted cerumen (Primary) - REMOVE IMPACTED EAR WAX W/ INSTRUMENT, ONE EAR Follow Up: Return for Patient to follow up with Primary Care Provider as directed. Patient Instructions For cerumen impaction: use Debrox drops OTC per package insert. Do not use Q tips in ears. With any persistent symptoms F/U with PCP. Ean Mercado PA-C [place] [id number] documented in this encounter Nursing Notes * Mariela Faye LPN - 04/09/2019 5:54 PM EST Kim Paredes is a 33 year old female who presents to walk-in clinic today complaining of Chief Complaint Patient presents with Other Main Symptoms: Itchy right ear. Feeling blocked How long: Started about a week ago Pt accompanied by: documented in this encounter Plan of Treatment Upcoming Encounters Date Type Specialty Care Team Description 04/14/2019 Office Visit Gynecology Obstetrics Rupali Fiore, [facility] [address] [facility] [address] Scheduled Orders Name Type Priority Associated Diagnoses Orde r Schedule REMOVE IMPACTED EAR WAX W/ INSTRUMENT, ONE EAR Procedures Routine Bilateral impacted cerumen Ordered: 04/09/2019 Health Maintenance Due Date Last Done Comments [...] as of this encounter Visit Diagnoses Diagnosis Bilateral impacted cerumen- Primary Impacted cerumen documented in this encounter"
--- OUTSIDE RECORDS SUMMARY | 2023-01-01 08:57 | External Medical Summary | Summary of Care ---
Author Name Unknown Organization [place] [address] Care Team Providers Care Core Measures Abstractor Name Role Phone Stefany Keller MD Primary Care Provider [phone] Reason for Visit * Reason Comments Test Results Encounter Details Date Type Department Care Team Description 08/09/2019 Telephone [facility] Gynecology/Obstetrics [address] [facility] [place] [address] Isaura Rothman CRNP [address] [facility] [address] Test Results Allergies Active Allergy Reactions Severity Noted Date Comments Other Allergy (See Comments) 020 Nuts - not severe documented as of this encounter (statuses as of 08/10/2019) Medications Medication Sig Dispensed Refills Start Date End Date Status acetaminophen (TYLENOL) 500 MG Tablet Take 2 Tabs by mouth every 8 hours as needed for Pain. 100 Tab 0 06/02/2019 Active documented as of this encounter (statuses as of 08/10/2019) Active Problems Problem Noted Date Snoring 12/01/2017 Overweight (BMI 25.0-29.9) 12/01/2017 Iron deficiency anemia 11/14/2017 Overview: 11/12/17 nL tsh,cmp [id number].,CBC Hb 10.7-mchc indices c/w iron def anemia >12/11- A1c 4.7%, Ferritin low at 8, Tsat 9%-st po iron. documented as of this encounter (statuses as of 08/10/2019) Immunizations Name Administration Dates Next Due Seasonal [...] End No recent travel history taylor ilable. COVID-19 Exposure Response Date Recorded In the last month, have you been in contact with someone who was confirmed or suspected to have Coronavirus / COVID-19? No / Unsure 07/28/2019 9:13 AM EDT documented as of this encounter Miscellaneous Notes * Telephone Encounter - Vanessa Tam OSA - 08/10/2019 10:04 AM EDT Scheduled. * Telephone Encounter - Socorro Franco OSA - 08/10/2019 9:25 AM EDT Please contact pt with telemedicine appt or office visit. Pt was called once before to schedule butnever responded. Pt decided to see ROMERO. * Telephone Encounter - Mckenna Thompson RN - 08/09/2019 3:47 PM EDT Reviewed labs w/Dr Talbert, normal per Dr Talbert. Pt aware. Pt would like to proceed w/scheduling an appt w/Fertility. Referral placed by Ban a few months ago. Will have Socorro review. * Telephone Encounter - Alexa Adrian OSA - 08/09/2019 3:13 PM EDT Who is Requesting Test Results: Patient Primary Care Provider : Dr Keller Tests Results Requested : Labs Date of Test : 07/28/19 Location of Test: [facility] Ordering Provider: Dr Talbert Callback Number: [phone] Patient has been made aware that the turnaround time for test results are typically as follows: Laboratory results = within 2 days Pathology results (biopsy results/PAP) = 1-2 weeks Radiology results = within 1 week COVID testing = 24-48 hours documented in this encounter Plan of Treatment Upcoming Encounters Date Type Specialty Care Team Description 08/16/2019 Telemedicine Fertility Yvonne Coronel PA-C [address] [place] [facility] [address] 09/02/2019 Nutrition Services Nutrition Services Bianca Cortez, RDN [address] [facility] [place] [address] [phone] Health Maintenance Due Date Last Done Comments PAP SMEAR-EVERY 3 YRS,AGES 21-65 2006 *DEPRESSION SCREENING,ANNUAL FOR PTS 12 AND OVER 12/04/2018 DTaP,Tdap,and Td Vaccines (2 - Td) 06/30/20262016 Influenza Vaccine (FLU shot) Completed 04/27/2019 MENINGOCOCCAL (MENACTRA/MENVEO) Aged Out No longer eligible [...] Documents on File Type Date Recorded Patient Gl Accountant Expl anation Advanced Directive
--- OUTSIDE RECORDS SUMMARY | 2023-01-01 08:57 | External Medical Summary | Summary of Care ---
Author Name Unknown Organization [place] [address] Care Team Providers Care Lunch Truck Operator Name Role Phone Stefany Keller MD Primary Care Provider Reason for Visit * Evaluate & Treat - Unlimited Visits (Within 10 days (routine)) Status Reason Specialty Diagnoses / Procedures Referred By Contact Referred To Contact Pending Review Specialty Services Required Obstetrics/Mortgage Loan Assistant ecology Diagnoses Encounter for preconception consultation History of anemia Ban Morris, CNM [address] [place] [address] Encounter Details Date Type Department Care Team Description 08/16/2019 Telemedicine Fertility, [place] [address] [place] [address] Yvonne Coronel PA-C [address] [place] [address] Fertility testing* Allergies Active Allergy Reactions Severity Noted Date Comments Other Allergy (See Comments) 020 Nuts - not severe documented as of this encounter (statuses as of 09/10/2019) Medications Medication Sig Dispensed Refills Start Date End Date Status acetaminophen (TYLENOL) 500 MG Tablet Take 2 Tabs by mouth every 8 hours as needed for Pain. 100 Tab 0 06/02/2019 Active documented as of this encounter (statuses as of 09/10/2019) Active Problems Problem Noted Date Snoring 12/01/2017 Overweight (BMI 25.0-29.9) 12/01/2017 Iron deficiency anemia 11/14/2017 Overview: 11/12/17 nL tsh,cmp [id number].,CBC Hb 10.7-mchc indices c/w iron def anemia >10/18- A1c 4.7%, Ferritin low at 8, Tsat 9%-st po iron. documented as of this encounter (statuses as of 09/10/2019) Immunizations Name Administration Dates Next Due Seasonal [...] AM EDT documented as of this encounter Progress Notes * Yvonne Coronel PA-C - 08/16/2019 12:59 PM EDT After connecting through [employer], patient was verified with two unique identifiers. Patient (or authorized legal outbound sales representative) was then informed that this was a Telemedicine visit and that the exam was being conducted confidentially over secure lines. My office door was closed. No one else was in the room with me. Patient acknowledged consent and understanding of privacy and security of the Telemedicine visit and gave permission to have a telemedicine presenter/family member stay in the room in order to assist with the history and to conduct the exam if needed. I informed the patient thatI have reviewed their record in [facility] and presented the opportunity for them to ask any questions reg arding the visit today. The patient agreed to participate. Kim Paredes is a 33 year old woman presenting with history of infertility. Trying to conceiveapprox 6 months. Has not had prior fertility evaluation/treatment. Here to discuss her reproductiveoptions. Referred by Ban Morris for evaluation of desire to conceive. jigman Hx: LMP: 08/07/2019 Last pap/results: Has never had a PAP smear. Mammogram: no STDs: no Menarche: 13 years Menstrual hx: cycle length: 28d-30d, days of flow: 3-5d, Irregular? occasionally, skip periods? No-reports for the most part has regular cycles, occasionally does have one that is a few days off Dysmenorrhea: no Previous contraceptive methods: no Dyspareunia: no Coitus: 1x per month around suspected ovulation No galactorrhea, no acne, no hirsutism Weight: stable LH kits: no (uses rachell for tracking) Her partner's name is Akshat Lucero. Age 39(06/03/80). He/She has no children. They have thefollowing historical factors: PMHx: no SurgHx: no FamHx: [...] file Gets together: Not on file Attends denominational service: Not on file Active member of [...] as needed for Pain. 100 Tab 0 All: Review of patient's allergies indicates no known allergies. There were no vitals filed for this visit. Physical Exam: not performed as telemedicine visit Fertility testing (Primary) - ANTI-MULLERIAN HORMONE, FEMALE; Standing - PROLACTIN; Standing - TSH WITH FREE T4 IF INDICATED; Standing PLAN: 1) Discussed process of fertility evaluation with patient. 2) Discuss normal rates of conception and monthly expected fecundity given age. 3) Extensive discussions about: impact of age on fertility; decreased ovarian reserve. Discussed AMH test as a measure of ovarian reserve and result as a measure/predictor of response to fertility treatments. Understands that low AMH is a predictor of poor response to intervention and success with ART. However, also understands results do not mean is not possible. 4) Discussed would recommend increased intercourse and OPKs as a first step. Discussed [place] every other day from CD 10-CD 20 plus the day of ovulation via OPK. 5) Discussed if no in 6 month would proceed with fertility evaluation. Encouraged to reach out to me when she would like to do that. 6) Discussed importance of laboratory evaluation (see above), tubal patency determination and Semenanalysis prior to any fertility treatment. 7) Discussed calling/MYG with start of period To schedule HSG when ready to proceed. Understands this will need to be performed roughly between day 7 and 10 of her cycle. This will likely be performed at [facility] or [facility]. Will encourage partner to schedule semen analysis for evaluation of male factor closer to that time if no . 8) Understands that after all of the above information has been gathered, we can formulate a treatment plan. Total appointment time 45 minutes. I spent a total of 35 of 45 minutes on the counseling and coordination of care of this patient. Yvonne Coronel PA-C 08/16/2019 12:59 PM Yvonne Coronel PA-C Fertility, [address] [address] documented in this encounter Plan of Treatment Scheduled Orders Name Type Priority Associated Diagnoses Orde r Schedule ANTI-MULLERIAN HORMONE, FEMALE Lab Routine Fertility testing 1 Occurrences starting 09/10/2019 until 03/12/2020 PROLACTIN Lab Routine Fertility testing 1 Occurrences starting 09/10/2019 until 03/12/2020 TSH WITH FREE T4 IF INDICATED Lab Routine Fertility testing 1 Occurrences starting 09/10/2019 until 03/12/2020 Health Maintenance Due Date Last Done Comments [...] Documents on File Type Date Recorded Patient Technician Automated Equipment Expl anation Advanced Directive
--- OUTSIDE RECORDS SUMMARY | 2023-01-01 08:57 | External Medical Summary ---
Author Name Unknown Address [facility] [address] [place] [id number] Phone Organization K01:[place] [address] [address] [place] [id number] Laboratory Report Ordering Provider Test Date Status MILADIS SINGHU 07/28/2019 09:16:00 Final Observation Date Value Abnormality Reference (Units ) Status RUBV IgG Ser Ql 07/29/2019 11:20 POSITIVE Abnormal NEG Final Positive for IgG antibodies to Rubella virus.
A positive result is consistent with having
had Rubella (Maltese Measles) or vaccination. Performing Location [place] [address] [address] [facility] [address]
--- OUTSIDE RECORDS SUMMARY | 2023-01-01 08:57 | External Medical Summary | Summary of Care ---
Author Name Unknown Organization [place] [address] Care Team Providers Care Senior Manager Asset Protection Name Role Phone Stefany Keller MD Primary Care Provider [phone] Reason for Referral * Evaluate & Treat - Unlimited Visits (Within 10 days (routine)) Status Reason Specialty Diagnoses / Procedures Referred By Contact Referred To Contact Pending Review Specialty Services Required Obstetrics/Field Handyman ecology Diagnoses Encounter for preconception consultation History of anemia Ban Morris CNM [address] [address] * Evaluate & Treat - Unlimited Visits (Within 10 days (routine)) Status Reason Specialty Diagnoses / Procedures Referred By Contact Referred To Contact Pending Review Specialty Services Required Dietitian Diagnoses Encounter for preconception consultation History of anemia Ban Morris CNM [address] [address] Reason for Visit * Reason Comments PAP Encounter Details Date Type Department Care Team Description 04/23/2019 Office Visit [facility] Gynecology/Obstetrics [address] [address] Ban Morris CNM [address] [address] [phone] Encounter for preconception consultation*; History of anemia; BMI 29.0-29.9,adult Allergies Active Allergy Reactions Severity Noted Date Comments Other Allergy (See Comments) 020 Nuts - not severe documented as of this encounter (statuses as of 04/23/2019) Medications Medication Sig Dispensed Refills Start Date End Date Status Ferrous Fumarate 324 (106 Fe) MG TABSIndications:Ot her iron deficiency anemia,Snoring,[place] and fatigue one pill 1-2 a day with vitamin C 250 mg, 1 hr before/2 hrs after a meal. 0 12/01/2017 04/23/2019 Discontinued( Medication List Clean Up) vitamins plus 1mg folic acid ( 27-1) 27-1 MG TabletIndications: Pre-conception counseling Take 1 Tab by mouth daily. St 04/2018 1 Tab 0 03/05/2018 04/23/2019 Discontinued( Medication List Clean Up) documented as of this encounter (statuses as of 04/23/2019) Active Problems Problem Noted Date Snoring 12/01/2017 Overweight (BMI 25.0-29.9) 12/01/2017 Iron deficiency anemia 11/14/2017 Overview: 11/12/17 nL tsh,cmp [id number].,CBC Hb 10.7-mchc indices c/w iron def anemia >12/11- A1c 4.7%, Ferritin low at 8, Tsat 9%-st po iron. documented as of this encounter (statuses as of 04/23/2019) Immunizations Name Administration Dates Next Due TDAP [...] Sign Reading Time Taken Comments Blood Pressure 120/76 04/23/2019 8:11 AM EST Pulse - - Temperature - - Respiratory Rate - - Oxygen Saturation - - Inhaled Oxygen Concentration - - Weight 77.4 kg (170 lb 9.6 oz) 04/23/2019 8:11 A M EST Height 162.6 cm (5' 4") 04/23/2019 8:11 AM EST Body Mass Index 29.28 04/23/2019 8:11 AM EST documented in this encounter Progress Notes * Ban Morris CNM - 04/23/2019 8:55 AM EST Kim Paredes is 33 year old female. Chief Complaint Patient presents with PAP HPI: Here with , have been attempting conception for 5-6 months, regular menses, on heaviest day she changes a pad 4-5x, notices spinbarrkeit mucous, not tracking with rachell. Hx anemia, low ferritin, > 1 year ago. PNV caused loose bowels so she stopped. Patient Active Problem List Diagnosis Date Noted Snoring [R06.83] 12/01/2017 Overweight (BMI 25.0-29.9) [E66.3] 12/01/2017 Iron deficiency anemia [D50.9] 11/14/2017 11/12/17 nL tsh,cmp [id number].,CBC Hb 10.7-mchc indices c/w iron def anemia >12/11- A1c 4.7%, Ferritin low at 8, Tsat 9%-st po iron. No current outpatient medications on file. Review of patient's allergies indicates: Allergen Reactions Other Allergy (See Comments) Nuts - not severe SUBJECTIVE: BP 120/76 | Ht 5' 4" (1.626m) | Wt 170 lbs 9.6 oz (77.384kg) | BMI 29.28 kg/m | BSA 1.87 m PHYSICAL EXAM: General: alert, healthy and no distress Encounter for preconception consultation (Primary) - 25-HYDROXY VITAMIN D; Future; Expected date: 04/23/2019 - TSH WITH FREE T4 IF INDICATED; Future; Expected date: 04/23/2019 - CBC; Future; Expected date: 04/23/2019 - FERRITIN; Future; Expected date: 04/23/2019 - IRON SCREEN, INCLUDING TIBC; Future; Expected date: 04/23/2019 - INSULIN; Future; Expected date: 04/23/2019 - FASTING PLASMA GLUCOSE; Future; Expected date: 04/23/2019 - RUBELLA IGG ANTIBODY; Future; Expected date: 04/23/2019 - VARICELLA ZOSTER IGG; Future; Expected date: 04/23/2019 - NUTRITION-CLINICAL DIETITIAN REFERRAL OP - FERTILITY REFERRAL OP Start PNV with folate Track menses on rachell Consider further work up if not within 6-12 months. History of anemia - 25-HYDROXY VITAMIN D; Future; Expected date: 04/23/2019 - TSH WITH FREE T4 IF INDICATED; Future; Expected date: 04/23/2019 - CBC; Future; Expected date: 04/23/2019 - FERRITIN; Future; Expected date: 04/23/2019 - IRON SCREEN, INCLUDING TIBC; Future; Expected date: 04/23/2019 - INSULIN; Future; Expected date: 04/23/2019 - FASTING PLASMA GLUCOSE; Future; Expected date: 04/23/2019 - RUBELLA IGG ANTIBODY; Future; Expected date: 04/23/2019 - VARICELLA ZOSTER IGG; Future; Expected date: 04/23/2019 - NUTRITION-CLINICAL DIETITIAN REFERRAL OP - FERTILITY REFERRAL OP - will schedule when desires BMI 29.0-29.9,adult Discussed exercise, walking, decreasing simple carbs Nutrition appt Follow Up: Return in about 3 months (around 07/22/2019), or if symptoms worsen or fail to improve. KATIE Ovalle CNM 04/23/2019 documented in this encounter Nursing Notes * Theresa Lassiter LPN - 04/23/2019 8:11 AM EST Pt is here today to discuss . States her and her are currently trying to conceive.Pt declines annual exam and pelvic exam today. documented in this encounter Plan of Treatment Upcoming Encounters Date Type Specialty Care Team Description 07/22/2019 Office Visit Gynecology Obstetrics Isaura Rothman CRNP [address] [facility] [place] [address] [phone] Scheduled Orders Name Type Priority Associated Diagnoses Orde r Schedule 25-HYDROXY VITAMIN D Lab Routine Encounter for preconception consultation History of anemia Expected: 04/23/2019 (Approximate), Expires: 07/22/2019 TSH WITH FREE T4 IF INDICATED Lab Routine Encounter for preconception consultation History of anemia Expected: 04/23/2019 (Approximate), Expires: 07/24/2019 CBC Lab Routine Encounter for preconception consultation History of anemia Expected: 04/23/2019 (Approximate), Expires: 07/22/2019 FERRITIN Lab Routine Encounter for preconception consultation History of anemia Expected: 04/23/2019 (Approximate), Expires: 07/22/2019 IRON SCREEN, INCLUDING TIBC Lab Routine Encounter for preconception consultation History of anemia Expected: 04/23/2019 (Approximate), Expires: 07/22/2019 INSULIN Lab Routine Encounter for preconception consultation History of anemia Expected: 04/23/2019 (Approximate), Expires: 07/22/2019 FASTING PLASMA GLUCOSE Lab Routine Encounter for preconception consultation History of anemia Expected: 04/23/2019 (Approximate), Expires: 07/22/2019 RUBELLA IGG ANTIBODY Lab Routine Encounter for preconception consultation History of anemia Expected: 04/23/2019 (Approximate), Expires: 07/22/2019 VARICELLA ZOSTER IGG Lab Routine Encounter for preconception consultation History of anemia Expected: 04/23/2019 (Approximate), Expires: 07/22/2019 Scheduled Referrals Name Type Priority Associated Diagnoses Orde r Schedule NUTRITION-CLINICAL DIETITIAN REFERRAL OP Referral Within 10 days (routine) Encounter for preconception consultation History of anemia Ordered: 04/23/2019 FERTILITY REFERRAL OP Referral Within 10 days (routine) Encounter for preconception consultation History of anemia Ordered: 04/23/2019 Health Maintenance Due Date Last Done Comments [...] this encounter Visit Diagnoses Diagnosis Encounter for preconception consultation- Primary Other procreative management counseling and advice History of anemia Personal history of diseases of blood and blood-forming organs BMI 29.0-29.9,adult Body Mass Index 29.0-29.9, adult documented in this encounter
--- OUTSIDE RECORDS SUMMARY | 2023-01-01 08:57 | External Medical Summary ---
Author Name Unknown Address [address] [place], [place] [address] Phone Organization K09:[facility] [address] [place] [address] Laboratory Report Ordering Provider Test Date Status MILADIS SINGHU 07/28/2019 09:16:00 Final Observation Date Value Abnormality Reference (Units ) Status Glucose p fast SerPl-sCnc 07/28/2019 10:19 98 70-99 (mg/dL) Final
Based on guidlines from [place] [employer]
<100 mg/dL normal
100-125 mg/dL pre-diabetes
>125 mg/dL diabetes, diagnosis requires
two abnormal diabetes
diagnostic test results Performing Location [facility] [address] [place] [address]
--- OUTSIDE RECORDS SUMMARY | 2023-01-01 08:57 | External Medical Summary | Summary of Care ---
Author Name Unknown Organization [facility] Address [place] [address] Care Team Providers Care General Warehouse Associate Name Role Phone Stefany Keller MD Primary Care Provider [phone] Reason for Visit * Reason Onset Date Comments Advice 07/13/2019 Encounter Details Date Type Department Care Team Description 07/13/2019 Telephone [facility] Gynecology/Obstetrics [address] [place] [address] Isaura Rothman CRNP [address] [facility] [place] [address] Advice Allergies Active Allergy Reactions Severity Noted Date Comments Other Allergy (See Comments) 020 Nuts - not severe documented as of this encounter (statuses as of 12/17/2019) Medications Medication Sig Dispensed Refills Start Date End Date Status acetaminophen (TYLENOL) 500 MG Tablet Take 2 Tabs by mouth every 8 hours as needed for Pain. 100 Tab 0 06/02/2019 Active documented as of this encounter (statuses as of 12/17/2019) Active Problems Problem Noted Date Snoring 12/01/2017 Overweight (BMI 25.0-29.9) 12/01/2017 Iron deficiency anemia 11/14/2017 Overview: 11/12/17 nL tsh,cmp [id number].,CBC Hb 10.7-mchc indices c/w iron def anemia >12/11- A1c 4.7%, Ferritin low at 8, Tsat 9%-st po iron. documented as of this encounter (statuses as of 12/17/2019) Immunizations Name Administration Dates Next Due Seasonal Influenza, Quadrivalent, No Preserve, M dck 04/27/2019 TDAP (age 10 and older)(Boostrix) 06/30/2016 documented as of this encounter Social History Tobacco Use Types Packs/Day Years Used Date Never Smoker Smokeless Tobacco: Never Used Alcohol Use Drinks/Week oz/Week Comments No Sex Assigned at Date Recorded Not on file COVID-19 Exposure Response Date Recorded In the last month, have you been in contact with someone who was confirmed or suspected to have Coronavirus / COVID-19? No / Unsure 07/28/2019 9:13 AM EDT documented as of this encounter Miscellaneous Notes * Telephone Encounter - Antonella Haynes RN - 07/13/2019 11:57 AM EDT Pt was to come in for labs and then follow up after that. She did have her labs yet. She is asking to cancel her appt for next week and then she will call back in when ready to r/s. documented in this encounter Plan of Treatment [...] Documents on File Type Date Recorded Patient Home Aide Expl anation Advanced Directive
--- OUTSIDE RECORDS SUMMARY | 2023-01-01 08:57 | External Medical Summary | Summary of Care ---
Author Name Unknown Organization [place] [address] Care Team Providers Care Reading Aide Name Role Phone Stefany Keller MD Primary Care Provider [phone] Reason for Visit * Reason Comments Rash underneath left bhavik st - started today - states rash feels like it is burning Encounter Details Date Type Department Care Team Description 06/02/2019 Office Visit General Internal Medicine [facility] [address] [place] [address] Joao Real MD [address] [place] [address] Herpes zoster without complication* Allergies Active Allergy Reactions Severity Noted Date Comments Other Allergy (See Comments) 020 Nuts - not severe documented as of this encounter (statuses as of 06/02/2019) Medications Medication Sig Dispensed Refills Start Date End Date Status valACYclovir (VALTREX) 1000 MG TabletIndications:Her pes zoster without complication Take 1 Tab by mouth 3 times a day for 7 days. For 7 days for shingles 21 Tab 0 06/02/2019 06/09/2019 Active acetaminophen (TYLENOL) 500 MG Tablet Take 2 Tabs by mouth every 8 hours as needed for Pain. 100 Tab 0 06/02/2019 Active documented as of this encounter (statuses as of 06/02/2019) Active Problems Problem Noted Date Snoring 12/01/2017 Overweight (BMI 25.0-29.9) 12/01/2017 Iron deficiency anemia 11/14/2017 Overview: 11/12/17 nL tsh,cmp [id number].,CBC Hb 10.7-mchc indices c/w iron def anemia [...] Sign Reading Time Taken Comments Blood Pressure 122/74 06/02/2019 5:29 PM EDT Pulse 80 06/02/2019 5:29 PM EDT Temperature 36.6 C (97.8 F) 06/02/2019 5:29 PM ED T Respiratory Rate 12 06/02/2019 5:29 PM EDT Oxygen Saturation - - Inhaled Oxygen Concentration - - Weight 76.7 kg (169 lb) 06/02/2019 5:29 PM EDT Height - - Body Mass Index 29.01 04/23/2019 8:11 AM EST documented in this encounter Progress Notes * Joao Real MD - 06/02/2019 5:46 PM EDT Chief Complaint Patient presents with Rash underneath left breast - started today - states rash feels like it is burning SUBJECTIVE: Kim Paredes is a 33 year old female with PMH as below who presents for rash. Started today, under bra line, notices had "blister rash" which oozed when she touched the area. Rash is burning pain, noitch. No fevers, chills. No med for it - tried to wash bra and use Mariah which helped a little. No sick symptoms, not or breast feeding. Patient Active Problem List Diagnosis Code Iron deficiency anemia D50.9 Snoring R06.83 Overweight (BMI 25.0-29.9) E66.3 Current Outpatient Medications Medication Sig Dispense Refill acetaminophen (TYLENOL) 500 MG Tablet Take 2 Tabs by mouth every 8 hours as needed for Pain. 100 Tab 0 valACYclovir (VALTREX) 1000 MG Tablet Take 1 Tab by mouth 3 times a day for 7 days. For 7 days for shingles 21 Tab 0 Review of patient's allergies indicates: Allergen Reactions Other Allergy (See Comments) Nuts - not severe Health Maintenance Due Topic Date Due PAP SMEAR-EVERY 3 YRS,AGES 21-65 2006 Influenza Vaccine (FLU shot) (1) 10/25/2018 *DEPRESSION SCREENING,ANNUAL FOR PTS 12 AND OVER 12/04/2018 ROS: CONSTITUTIONAL: No change in weight, No weakness, No fatigue and No fevers, sweats, or chills SKIN/INTEGUMENTARY: No edema All OTHER SYSTEMS NEGATIVE EXCEPT STATED IN HPI ABOVE, OVER 10 SYSTEMS REVIEWED I reviewed social, PMH, PSH, and family [...] file Gets together: Not on file Attends mu-ism service: Not on file Active member of [...] file Vaping/E-Cigarette Use Vaping/E-Cigarette Substances Vaping/E-Cigarette Devices Past Medical History: Diagnosis Date Known health problems: none Past Surgical History: Procedure Laterality Date NONE Family History Problem Relation Age of Onset No Past Hx Mother Hypertension Father OBJECTIVE: PHYSICAL EXAM: BP 122/74 | Pulse 80 | Temp (Src) 97.8 (Tympanic) | Resp 12 | Wt 169 lbs (76.658kg) | BMI 29.01 kg/m | BSA 1.86 m General: alert, healthy and no distress Head: Normocephalic, No masses, lesions, tenderness or abnormalities Skin: raised rash under left breast, red, w/o open lesions ?vessicle in area, no tender to touch, seems in dermatome pattern, only on left, no warmth ASSESSMENT: B02.9 Herpes zoster without complication (primary encounter diagnosis) PLAN: Herpes zoster without complication (Primary) - valACYclovir (VALTREX) 1000 MG Tablet; Take 1 Tab by mouth 3 times a day for 7 days. For 7 days for shingles Perhaps cause given burning quality blister like lesion she saw at work, and sudden onset Start anti-viral, tylenol if needed for pain to start (no current severe pain) Patient to call if increase in warmth, pain, size, swelling, fevers, Told to keep covered, no put moisturizer on it Could also be fungal, but odd sudden onset, no itchy and blisters she saw today which I think may have been vessicles Follow Up: Return if symptoms worsen or fail to improve, for and as scheduled. . Joao Real MD documented in this encounter Nursing Notes * Juanjo Doshi, RN - 06/02/2019 5:29 PM EDT Chief Complaint Patient presents with Rash underneath left breast - started today - states rash feels like it is burning documented in this encounter Plan of Treatment Upcoming Encounters Date Type Specialty Care Team Description 07/22/2019 Office Visit Gynecology Obstetrics Isaura Rothman CRNP [address] [address] [phone] 09/02/2019 Nutrition Services Nutrition Services Bianca Cortez RDN [address] [address] [phone] Health Maintenance Due Date Last Done Comments [...] as of this encounter Visit Diagnoses Diagnosis Herpes zoster without complication- Primary Herpes zoster without mention of complication documented in this encounter Advance Directives Documents on File Type Date Recorded Patient Cardiothoracic Anesthesia Technician Expl anation Advanced Directive
--- OUTSIDE RECORDS SUMMARY | 2023-01-01 08:57 | External Medical Summary ---
Author Name Unknown Address [facility]– [place][note 2] [place] [address] Phone Organization K01:[place] [address] [place] [id number] Laboratory Report Ordering Provider Test Date Status MILADIS SINGHU 07/28/2019 09:16:00 Final Observation Date Value Abnormality Reference (Units ) Status Varicella Zoster IgG interpretation 07/29/2019 11:20 NEGATIVE NEG Final Varicella Zoster, IgG 07/29/2019 11:20 24.84 <135.0 (INDEX) Final Performing Location [address] [address]
--- OUTSIDE RECORDS SUMMARY | 2023-01-01 08:57 | External Medical Summary ---
Author Name Unknown Address [facility] [place] [address] Phone Organization K01:[place] [address] [place] [id number] Laboratory Report Ordering Provider Test Date Status LIDA SINGH 07/28/2019 09:16:00 Final Observation Date Value Abnormality Reference (Units ) Status Iron 07/28/2019 19:28 44 33-151 (ug/dL) Final Iron-binding capacity 07/28/2019 19:28 403 250-425 (ug/dL) Final Transferrin Sat % 07/28/2019 19:28 11 Below low normal 15-55 (%) Final Performing Location [address] [address]
--- OUTSIDE RECORDS SUMMARY | 2023-01-01 08:57 | External Medical Summary ---
Author Name Unknown Address [address] [address] Phone Organization K09:[facility] [address] [place] [address] Laboratory Report Ordering Provider Test Date Status LIDA SINGH 07/28/2019 09:16:00 Final Observation Date Value Abnormality Reference (Units ) Status WBC, Total 07/28/2019 09:33 6.24 4.00-10.80 ( K/uL) Final RBC 07/28/2019 09:33 4.35 3.85-5.15 (M/ uL) Final Hemoglobin 07/28/2019 09:33 10.9 Below low normal 12.0- 15.3 (g/dL) Final HCT 07/28/2019 09:33 34.5 Below low normal 36.0-4 5.2 (%) Final MCV 07/28/2019 09:33 79.3 Below low normal 81.5-9 7.5 (fL) Final MCH 07/28/2019 09:33 25.1 Below low normal 27.0-3 4.0 (pg) Final MCHC 07/28/2019 09:33 31.6 Below low normal 32.0-3 6.0 (g/dL) Final RDW 07/28/2019 09:33 15.8 Above high normal 11.5- 15.5 (%) Final Platelets 07/28/2019 09:33 464 Above high normal 140-4 00 (K/uL) Final MPV 07/28/2019 09:33 10.3 6.6-11.1 (fL) Final Performing Location [facility] [address] [place] [address]
--- OUTSIDE RECORDS SUMMARY | 2023-01-01 08:58 | External Medical Summary | Summary of Care ---
Author Name Unknown [place] [address] Phone Care Team Providers Care [employer] [facility] Consultant Name Role Phone Stefany Keller MD Primary Care Provider [phone] Reason for Visit * Reason Comments TEST RESULTS Encounter Details Date Type Department Care Team Description 11/14/2017 Telephone General Internal Medicine [facility] [address] [place], [place] [id number] Stefany Keller MD [address] [place] [address] [phone] TEST RESULTS Allergies No Known Allergiesas of this encounter Medications No known medicationsas of this encounter Active Problems Problem Noted Date IFG (impaired fasting glucose) 8 Iron deficiency anemia 11/14/2017 as of this encounter Immunizations Name Dates Previously Given Next Due TDAP (age 10 and older)(Boostrix) 06/30/2016 as of this encounter Social History Tobacco Use Types Packs/Day Years Used Date Never Smoker Smokeless Tobacco: Never Used Alcohol Use Drinks/Week oz/Week Comments No Sex Assigned at Date Recorded Not on file as of this encounter Miscellaneous Notes * Telephone Encounter - Rupali Blankenship LPN - 11/14/2017 2:42 PM EDT Patient is aware and will comply. Thank you * Telephone Encounter - Rupali Blankenship LPN - 11/14/2017 2:37 PM EDT ----- Message from Stefany Keller MD sent at 11/14/2017 1:50 PM EDT ----- nL tsh,cmp EX fbs 107. CBC c/w iron def anemia-- check Ferritin, transferrin saturation, A1c to be done next wk before upcoming appt --pl pend off site orders and [facility]ax to [facility]- in this encounter Plan of Treatment Upcoming Encounters Date Type Specialty Care Team Description 11/20/2017 Office Visit Internal Medicine Stefany Keller MD [address] [facility] [place] [address] [phone] Scheduled Tests Name Priority Associated Diagnoses Order S chedule FERRITIN Routine Iron deficiency anemia Ordered: 11/14/2017 IRON SCREEN, INCLUDING TIBC Routine Iron deficiency anemia Ordered: 11/14/2017 HEMOGLOBIN A1C Routine IFG (impaired fasting glucose) Ordered: 11/14/2017 Health Maintenance Due Date Last Done Comments PAP SMEAR-EVERY 3 YRS,AGES 21-65 2006 Influenza Vaccine (FLU shot) (#1) 2017 DTaP,Tdap,and Td Vaccines (2 - Td) 06/30/20262016 as of this encounter Implants Not on fileas of this encounter Visit Diagnoses Diagnosis Iron deficiency anemia - Linda dorsey Iron deficiency anemia, unspecified IFG (impaired fasting glucos e) Impaired fasting glucose in this encounter
--- OUTSIDE RECORDS SUMMARY | 2023-01-01 08:58 | External Medical Summary | Summary of Care ---
Author Name Unknown [place] [address] Phone Care Team Providers Care [employer] Name Role Phone Stefany Keller MD Primary Care Provider [phone] Reason for Visit * Reason Comments NEW PATIENT Patient is here to e stablish with Dr. Keller, no former PCP. Pt states "feeling off, fatigue". Encounter Details Date Type Department Care Team Description 10/23/2017 Office Visit General Internal Medicine [facility] [address] [place] [address] Stefany Keller MD [address] [place] [address] [phone] Routine medical exam*;Malaise and fatigue;Snoring;Adjust ment disorder with depressed mood;Overweight (BMI 25.0-29.9) Allergies [...] Vital Sign Reading Time Taken Blood Pressure 120/72 10/23/2017 11:26 AM EDT Pulse 72 10/23/2017 12:06 PM EDT Temperature 37 C (98.6 F) 10/23/2017 11: 26 AM EDT Respiratory Rate 16 10/23/2017 11:2 6 AM EDT Oxygen Saturation - - Inhaled Oxygen Concentration - - Weight 74.2 kg (163 lb 9.6 oz) 10/24/19 18 11:26 AM EDT Height 162.6 cm (5' 4") 10/23/2017 11:2 6 AM EDT Body Mass Index 28.08 10/23/2017 11:26 AM EDT in this encounter Instructions * Patient Instructions - Stefany Keller MD - 10/23/2017 12:38 PM EDT BMI (Body Mass Index) is the number obtained by dividing a person's weight in kilograms by his or her height in meters squared. BMI is used in determining obesity. BMI is not used to determine a person's actual percentage of body fat, but it is a good tool to dressage judge weight in terms of what is healthy and unhealthy. It is used to identify adults at increased risk for developing weight related medical problems. Estimated body mass index is 28.08 kg/(m^2) as calculated from the following: Height as of this encounter: 1.626 m (5' 4"). Weight as of this encounter: 74.2 kg (163 lb 9.6 oz). Overweight- BMI 25.0 to 29.9 kg/m2 - Overweight individuals are at risk for developing: * Heart disease * Stroke * Diabetes * High Blood Pressure * High Cholesterol * GERD (acid reflux) * Sleep Apnea * Osteoarthritis * Fatty Liver Disease * Certain Types of Cancers * Gout * Gall Bladder Disease - Weight loss has been shown to decrease weight related medical problems. - A 12-week weight management text message program is also available. Go to [employer] and seethe message under '[employer]' for more information and enrollment. Patient is Instructed to: Diet: * Limit total fat intake to no more than 40 grams per day (low fat diet). * Increase fruits and vegetables to 5 servings per day, combined. * Limited starches (breads, pasta, rice, potatoes, corn, cereals) to 4 servings per day. Avoid Calorie Containing Drinks: * No fruit juices, regular sodas or sweetened drinks. * Water is preferred - 64 ounces per day unless advised of a fluid restriction. * Diet sodas and drinks permitted. Keep Honest, Accurate Food logs: * www.[employer] * www.[employer] * If you bite it - write it! Weigh Yourself Weekly: * Morning is best. * Try to do this outside your home. * Have a friend/spouse remind you to weigh yourself, accountability to others helps. Perform 30 minutes of physical activity daily: * Can do all at once or 5 minutes 6 times per day * 8, 000-10,000 steps per day using a pedometer * Make it fun! in this encounter Progress Notes * Rupali BlankenshipSANDI - 11/14/2017 2:43 PM EDT See telephone encounter. * Stefany Keller MD - 11/14/2017 1:50 PM EDT nL tsh,cmp EX fbs 107. CBC c/w iron def anemia-- check Ferritin, transferrin saturation, A1c to be done next wk before upcoming appt --pl pend off site orders and Fax to [email or web address] lab- * Stefany Keller MD - 10/23/2017 11:41 AM EDT Formatting of this note may be different from the original. SUBJECTIVE: Kim Paredes is a 32 year old female. Chief Complaint Patient presents with NEW PATIENT Patient is here to establish with Dr. Keller, no former PCP. Pt states "feeling off, fatigue". HPI: Patient presents For New Patient evaluation -- preventive and problem oriented visit. I have reviewed the patient's medications and allergies, past medical, surgical, social and family history, updating these as appropriate. See Histories section of the electronic medical record for adisplay of this information. C/o inc fatigue on exertion x 2-3 mths. Menses regular, no heavy bleeding, bleeds 3d,light 4th day, no clots/dysmenorrhea. G0 x 6 yrs, is only partner Never had PAP-defers Does SBE regularly Was skipping BF in past--but eating last 1.5 mths Eats healthy. No hematuria/blood in stools No FH thyroid ds. Gained wt 12 -14lbs in last year Was going to gym reg but not in last year. Moved to [place], works at [employer] at [employer] 09/2016 Studied [place] Literature in [place]--trying to get into higher studies but unsuccessful This seems to have brought on some depression., lack of motivation To exercise. No ST/SI Noted dry skin--has not been applying Moisturizer due to lack of interest. +snoring, mild xs daytime sleepiness, no am HUERTA Review of Systems: Constitutional: see hpi. Eyes: no worsening of vision.--wears glasses F/u Eye Dr regularly: yes -2016 ENT: no hearing loss, no congestion, no runny nose, no sore throat, no tinnitus. No dental problems, f/u dentist regularly: no Resp: no cough, no sputum, no wheezing, no SOB and no hemoptysis Cardiac: no chest pain, no orthopnea, no dyspnea on exertion, no PND, no edema, no claudication andno palpitations GI: no pain, no heartburn, no diarrhea , no constipation, no blood/melena, no nausea, no vomiting. Musculoskeletal: no significant joint or muscle pain and no swelling. Neuro: no memory loss, no weakness, no falling, no numbness or tingling and no vertigo Psych: See hpi Heme: no night sweats, no bleeding/bruising, no weight loss and no swollen nodes Endo: no unplanned weight change, no excessive thirst and no excessive urination Skin: no rash, no itching and no new/changing skin lesions Breast: no new breast lumps or masses, no change in shape, no nipple discharge, no breast pain Female : no dysuria, no incontinence, no abnormal vaginal bleeding, no vaginal discharge. Wears seat belts regularly, has smoke Detectors. Immunization History Administered Date(s) Administered TDAP (age 10 and older)(Boostrix) 06/30/2016 There is no problem list on file for this patient. No current outpatient prescriptions on file. No outpatient prescriptions prior to visit. No facility-administered medications prior to visit. Last reviewed on 10/23/2017 11:26 AM by Kim Zafar LPN No past medical history on file. Past Surgical History: Procedure Laterality Date NONE Review of patient's allergies indicates: No Known Allergies Family History Problem Relation Age of Onset No Past Hx Mother Hypertension Father Family Status Relation Status Mother Alive Father Alive Grandmother (Maternal) Grandfather (Maternal) Grandmother (Paternal) Grandfather (Paternal) Social History Social History Marital status: Spouse name: N/A Number of children: N/A Years of education: N/A Occupational History Not on file. Social History Main Topics Smoking status: Never Smoker Smokeless tobacco: Never Used Alcohol use No Drug use: No Sexual activity: Yes Partners: Male control/ protection: Condom Other Topics Concern Not on file Social History Narrative No narrative on file OBJECTIVE: BP 120/72 | Pulse 102 | Temp (Src) 98.6 (Tympanic) | Resp 16 | Ht 5' 4" (1.626m) | Wt 163 lbs 9.6 oz (74.208kg) | BMI 28.08 kg/m | BSA 1.83 m PHYSICAL EXAM: General: alert, healthy, no distress, well nourished and well developed Head: Normocephalic, atraumatic Eye Exam: PERRLA, EOMI, Conjunctiva are pink and non-injected, sclera clear Ears: External ears normal, Canal clear, TM nml Nose: sl narrow Nasal passage,no mucosal erythema, no mucosal edema, no purulent discharge Oropharynx: no exudate and no erythema, tongue sl large and comes up -interferes with OP exam-limited view no narrowing of OP Neck: supple, mild fullness antr neck,no adenopathy, no bruits, no JVD, thyroid normal size, non-tender, without nodularity Lymph: No palpable lymphadenopathy. Heart: regular Rhythm and rate, no murmurs. Lungs: lungs clear to auscultation Abdomen: soft, non-tender, normal bowel sounds, no masses or organomegaly, no bruits Extremities: no edema, no clubbing, no cyanosis Neuro Exam: alert & oriented x 3 with fluent speech, no focal motor/sensory deficits, gait normal Skin: skin color, texture, turgor are normal, no rashes Dry skin noted on legs. ASSESSMENT/PLAN: Z00.00 Routine medical exam (primary encounter diagnosis) R53.81, R53.83 Malaise and fatigue Plan: r/o met cause, if neg will consider sleep screen Lab: off site 1. Tsh w/ft4 if tsh is indicated 2. Cbc/diff 3. Compr metab panel R06.83 Snoring rec trial sleeping on sides, BR nasal strips, wt loss Consider sleep screen. F43.21 Adjustment disorder with depressed mood Await labs. Consider meds at f/u E66.3 Overweight (bmi 25.0-29.9) Advised to decrease portion size of food and to exercise regularly and try to lose wt. Advised to apply moisturizing lotion to entire body immediately after a shower . Follow Up: Return in about 1 month (around 11/23/2017). Stefany Keller MD 10/23/2017 Patient counseling on weight management given. in this encounter Nursing Notes * Andrade Kim Ella, SANDI - 10/23/2017 11:26 AM EDT Formatting of this note may be different from the original. Chief Complaint Patient presents with NEW PATIENT Patient is here to establish with Dr. Keller, no former PCP. Pt states "feeling off, fatigue". in this encounter Plan of Treatment Upcoming Encounters Date Type Specialty Care Team Description 11/20/2017 Office Visit Internal Medicine Stefany Keller MD [address] [facility] [place] [address] [phone] Health Maintenance Due Date Last Done Comments PAP SMEAR-EVERY 3 YRS,AGES 21-65 2006 Influenza Vaccine (FLU shot) (#1) 2017 DTaP,Tdap,and Td Vaccines (2 - Td) 06/30/20262016 as of this encounter Implants Not on fileas of this encounter Results * COMPR METAB PANEL (11/12/2017) Component Value Ref Range CREATININE-OUTSIDE LAB 0.74 0.50 - 1. 10 MG/DL GFR ESTIMATED-OUTSIDE LAB 107 > OR = 60 ML/MIN POTASSIUM-OUTSIDE LAB 3.9 3.5 - 5.3 MMOL/L GLUCOSE-OUTSIDE LAB 107(A) 65 - 99 MG/D L ALT-OUTSIDE LAB 14 6 - 29 U/L Specimen Performing Laborator y OUTSIDE LAB (SEE SCANNED REPORT) * CBC/DIFF (11/12/2017) Component Value Ref Range HEMOGLOBIN-OUTSIDE LAB 10.7(A) 11.7 - 15 .5 G/DL Specimen Performing Laborator y OUTSIDE LAB (SEE SCANNED REPORT) * TSH W/FT4 IF TSH IS INDICATED (11/12/2017) Component Value Ref Range TSH - OUTSIDE LAB 2.12 0.40 - 4.50 [place] U/L Specimen Performing Laborator y OUTSIDE LAB (SEE SCANNED REPORT) in this encounter Visit Diagnoses Diagnosis Routine medical exam - Prima ry Routine general medical examination at a health care facility Malaise and fatigue Other malaise and fatigue Snoring Other dyspnea and respiratory abnormality Adjustment disorder with dep ressed mood Overweight (BMI 25.0-29.9) Overweight in this encounter
== END 2022-12-29 11:32 | disposition home or self-care (01) | DRG 807 ==
LOC: 4S1 07:47 → 4E2 12-27 10:23